=== PATIENT | male | born 1945 | race Caucasian/White ===

== ENCOUNTER → 2016-05-16 | Outpatient (CLI) | payer MEDICARE ==
--- NOTE | 2016-05-16 10:11 | US ---
EXAMINATION TYPE: US kidneys/renal and bladder DATE OF EXAM: 05/16/2016 9:26 AM COMPARISON: 02/25/2015 CLINICAL HISTORY: N20 Calculus of kidney,. Renal cyst EXAM MEASUREMENTS: Right Kidney: 11.6 x 4.8 x 5.5 cm Left Kidney: 11.6 x 5.3 x 4.2 cm Findings: Right Kidney: cystic areas noted, largest = 3.8 x 2.9 x 4.4cm Left Kidney: cystic areas noted, largest = 0.9 x 0.7 x 0.9cm, dense echogenic area lower pole as note d on prior exam = 0.9cm Bladder: appears wnl Bilateral Jets seen: Yes There is a 1.0 x 0.4 x 1.1 cm echogenic foci with posterior shadowing suggestive for an inferior pole nonobstructing left renal stone. Right kidney has a 4.4 cm cyst at the inferior pole. A 1.5 cm simple cyst is within the midportion ri ght kidney. These correlate with the CT findings. Urinary bladder is sonolucent. The posterior wall is normal. Bilateral ureteral jets are identified. IMPRESSIONS: 1. Right renal cysts. 2. Inferior pole nonobstructing left renal stone
== END | disposition home or self-care (01) ==
LOC: RADUSWWP 08:48
PROVIDERS: ATTEND Urology
DX: N28.1 Cyst of kidney, acquired (principal); N20.0 Calculus of kidney
CPT/HCPCS: 76770

== ENCOUNTER → 2017-01-16 | Outpatient (CLI) | payer MEDICARE ==
--- NOTE | 2017-01-16 08:29 | CT ---
EXAMINATION TYPE: CT chest wo con DATE OF EXAM: 01/16/2017 COMPARISON: CT chest January 04, 2015. Older CT September 22, 2013. HISTORY: Follow up to lung nodule CT DLP: 682.6 mGycm. Automated Exposure Control for Dose Reduction was Utilized. TECHNIQUE: CT scan of the thorax is performed without IV contrast. FINDINGS: LUNGS: Nodule right midlung anteriorly measures 4 mm on axial image 32 and is unchanged from last 2 s tudies. There is persistent left basilar scarring posteriorly. No new suspicious nodule or mass is pr esent. There is no pleural effusion or pneumothorax seen. The tracheobronchial tree is patent. MEDIASTINUM: Lack of IV contrast is noted to limit evaluation for mediastinal and especially hilar ad enopathy. There are no definitive greater than 1 cm hilar or mediastinal lymph nodes. No cardiomega ly or pericardial effusion is seen. Post CABG changes with mediastinal clips and sternal wires is aga in seen. OTHER: Bilateral gynecomastia is redemonstrated. There is stable 1 cm hypodense lesion favoring simpl e cyst in the liver on axial image 53. There is 3.5 cm low dense exophytic lesion posteriorly at mid to lower pole level right kidney felt to reflect simple cyst. There is moderate multilevel spurring i n the thoracic spine. IMPRESSION: Stable small nodule right midlung anteriorly. Documentation of over 2 year stability is c onsistent with postinflammatory or benign etiology. No new suspicious nodule or mass is present.
== END | disposition home or self-care (01) ==
LOC: RADCTMAIN 06:47
PROVIDERS: ATTEND Family Medicine
DX: R91.1 Solitary pulmonary nodule (principal)
CPT/HCPCS: 71250

== ENCOUNTER → 2017-08-23 | Outpatient (CLI) | payer MEDICARE ==
--- NOTE | 2017-08-23 09:33 | XR ---
EXAMINATION TYPE: XR Hip Complete RT DATE OF EXAM: 08/23/2017 CLINICAL HISTORY: Right hip pain TECHNIQUE: AP and frogleg views of the right hip are obtained. COMPARISON: None. FINDINGS: There is no acute fracture/dislocation evident in the right hip. There is mild joint space narrowing and acetabular roof sclerosis of the right hip. Additionally there is a small subchondral cyst seen of the acetabular sourcil. The overlying soft tissue appears unremarkable. No suspicious o sseous lesion. IMPRESSION: 1. No acute fracture or dislocation in the right hip. 2. Moderate right femoral acetabular arthropathy.
== END | disposition home or self-care (01) ==
LOC: RADXRMAIN 08:47
PROVIDERS: ATTEND Family Medicine
DX: M12.851 Other specific arthropathies, not elsewhere classified, right hip (principal)
CPT/HCPCS: 73502

== ENCOUNTER → 2017-11-12 | Day surgery (SDC) | payer MEDICARE ==
[2017-11-07 09:21] VITALS: BMI 38.4
[~2017-11-12] MED LIST: LIDOCAINE 2% SYG (PF) 100 MG/5 ML MISCELLANE ONE; MIDAZOLAM 2 MG/2 ML VIAL IVP ONE; MIDAZOLAM 2 MG/2 ML VIAL ONE; SODIUM CHLORIDE 0.9% 1,000 ML IV SCH; ceFAZolin IN SWFI 2 GM/20 ML SYRINGE IVP ONE
[2017-11-12 09:27] VITALS: RESP 18; TEMP 98
[2017-11-12 10:00] LABS: Calcium 10.6 mg/dL (8.4-10.2); Potassium 4.1 mmol/L (3.5-5.1)
--- NOTE | 2017-11-12 12:29 | P.PCN ---
Preoperative Diagnosis: Indication for the procedure 3 episodes of syncope him on the first one in January 2017, the second one in March 2017 and the third one in June 2016. No warning, abrupt complete loss of consciousness and patient fell to the ground. Twelve-lead ECG Sinus rhythm normal AR narrow QRS normal ST segments no delta waves no epsilon waves, possible old inferior wall LA Tilt table test per protocol Baseline blood pressure 133/72 mmHg Baseline heart rate 68 beats a minute Patient was tilted upright at 70 per protocol No change in heart rate blood pressure Result Normal heart rate and blood pressure response to upright tilting Disposition: same day
--- NOTE | 2017-11-12 12:40 | P.PCN ---
Preoperative Diagnosis: Loop monitor implant Primary physicians: Dr. Bernardo Vascular Technologist Sonographer: Indication: Recurrent episodes of syncope 3-4 months apart Patient was brought to the EP lab in a fasting state. Written informed consent was obtained prior to the procedure. The left pectoral area was prepped and draped per protocol. Intravenous antibiotic was administered preoperatively. A subcutaneous Loop monitor was implanted successfully and the wound was closed per protocol. The device was programmed to detect significant sandy- arrhythmic and tachy-arrhythmic events, per protocol. Device and programming details: Programming for syncope tachyarrhythmias and bradycardia arrhythmia section Patient underwent EP procedure under conscious sedation/moderate sedation, monitoring of the level of consciousness and physiologic parameters including but not limited to vital signs and oxygenation. Patient tolerated the procedure well without any acute complications. Start time: 1207 Stop time: 1223
[2017-11-12 13:48] VITALS: BP 153/76; PULSE 54
== END | disposition home or self-care (01) ==
LOC: CATHEP 08:38
PROVIDERS: ATTEND Internal Medicine Clinical Cardiac Electrophysiology
DX: R55 Syncope and collapse (principal); I25.10 Atherosclerotic heart disease of native coronary artery without angina pectoris; I10 Essential (primary) hypertension; Z95.1 Presence of aortocoronary bypass graft; Z95.5 Presence of coronary angioplasty implant and graft; I71.4 Abdominal aortic aneurysm, without rupture; I48.0 Paroxysmal atrial fibrillation; E78.5 Hyperlipidemia, unspecified; Z87.891 Personal history of nicotine dependence; Z79.02 Long term (current) use of antithrombotics/antiplatelets; Z79.82 Long term (current) use of aspirin; Z79.899 Other long term (current) drug therapy
CPT/HCPCS: 33282; 93660; 80048; C1764; J2250; J2001; J0690

== ENCOUNTER → 2017-11-27 | Outpatient (CLI) | payer MEDICARE ==
--- NOTE | 2017-11-27 15:24 | CONS ---
CONSULTATION This is a consultation note for sleep apnea. This is a 72-year-old male patient with known history of obstructive sleep apnea establish around 4 years ago through [facility] when the patient was given a [employer] CPAP unit which seems to be an APAP unit. On today's evaluation, his machine is broken. It is nonfunctional. We tried to plug it in and it is completely . He is looking for advice as the patient wants to continue CPAP treatment. He is snoring and quit breathing and he has excessive fatigue and sleepiness while off the treatment. He goes to bed at 11:11 pm and wakes up at 5:30 a.m. in the morning. He has been compliant with CPAP therapy over the past 4 years and he is in need of CPAP therapy. He uses a Pilairo nose pillow. His weight has been stable over the past 4 years. [place] score is at 8. No grinding of the teeth. No sleepwalking or sleep talking. No palpitation. No restlessness in lower extremities. PAST MEDICAL HISTORY: 1. Obstructive sleep apnea. 2. Hypertension. 3. History of syncope. 4. Hyperlipidemia. 5. Coronary artery disease. 6. Previous history of acute lung injury. 7. Previous history of paroxysmal atrial fibrillation current rhythm is sinus. 8. Chronic back pain. 9. Glaucoma. SURGICAL HISTORY: Coronary bypass surgery in 2013. Cardiac catheterization and angioplasty with stenting in 2013. He has also had spine steroid injections, left eye phaco cataract surgery with lens implantation and trabeculectomy for glaucoma, laser eye surgery for glaucoma. Colonoscopy in 2016, anal fissure surgery, hemorrhoidectomy, circumcision, appendectomy, and knee injections for degenerative arthritis. DRUG ALLERGIES: Are not known. IMMUNIZATIONS: Up to date including flu shot and pneumonia shot and shingles. OUTPATIENT MEDICATION LIST: 1. Hydrochlorothiazide 25 daily. 2. Lipitor 80 daily. 3. Plavix 75 daily. 4. Lisinopril 20 daily. 5. Coreg 6.25 mg twice a day. 6. Coenzyme Q 10 mg daily. 7. Aspirin 81 mg p.o. per day. 8. Iron 324 mg 1 tablet a day. 9. Vitamin D3 2000 units daily. 10.He has also Isopto Carpine eyedrops, Combigan eyedrops, latanoprost eye drops. 11.He takes temazepam 30 mg for sleep at bedtime as needed. SOCIAL HISTORY: Nonsmoker. No history of alcohol. No history of IV drugs. FAMILY HISTORY: Negative for sleep apnea. His has ARACELI. REVIEW OF SYSTEMS: 12-point review of system was done. Positive findings are mentioned in history of present illness. He has no problems with memory, concentration, irritability or depression. No problems with anxiety, photophobia or sexual dysfunction. PHYSICAL EXAMINATION: BP is 115/64, pulse 65, respirations 16, temperature 96.8, weight is 254. Height is 5 feet 8 inches. [place] score is 8. BMI 38.6, neck size 18 inches. Saturation 95% on room air. GENERAL APPEARANCE: Calm, comfortable. Head is atraumatic, normocephalic. NECK: Supple. No JVD. No goiter or neck masses. Mallampati class IV. LUNGS: Clear to auscultation. HEART: Sounds are regular rate and rhythm. Normal S1, S2. No S3, S4. No murmurs. ABDOMEN: Soft, nontender. No organomegaly. EXTREMITIES: No edema. No cyanosis or clubbing. IMPRESSION: 1. Obstructive sleep apnea. The patient was being treated on APAP for the past 4 years. Currently he has a nonfunctioning machine. Baseline severity of his sleep apnea is not all knowing that this was established through a [facility] 4 years ago. 2. Obesity with a BMI of 38.6. 3. Coronary artery disease with previous bypass surgery. 4. Hyperlipidemia. 5. Hypertension. 6. Previous history of syncope. 7. Chronic back pain. 8. Glaucoma and cataract. 9. Chronic back pain. PLAN: 1. We will order a new CPAP machine through his DME. The patient will be utilizing a Pilairo nose pillow. He will be given an APAP with a minimum pressure of 5, maximum pressure of 20 and further adjustments will be done accordingly. 2. Will check down his original home sleep study that was done through [facility] either from the company itself or from his primary care physician. If unable to locate the study come over to the home sleep testing through our center to establish diagnosis and its severity. 3. Continue weight loss. 4. See me back in 60 to 90 days after after obtaining a CPAP to assess clinical response and compliancy. MMODL / IJN: [id number] /
== END | disposition home or self-care (01) ==
LOC: SLEEP 10:54
PROVIDERS: ATTEND Internal Medicine Critical Care Medicine
DX: G47.33 Obstructive sleep apnea (adult) (pediatric) (principal); E66.9 Obesity, unspecified; I25.10 Atherosclerotic heart disease of native coronary artery without angina pectoris; E78.5 Hyperlipidemia, unspecified; I10 Essential (primary) hypertension; G89.29 Other chronic pain; M54.9 Dorsalgia, unspecified; H40.9 Unspecified glaucoma; H26.9 Unspecified cataract; Z86.69 Personal history of other diseases of the nervous system and sense organs; Z99.89 Dependence on other enabling machines and devices; Z79.899 Other long term (current) drug therapy; Z79.82 Long term (current) use of aspirin
CPT/HCPCS: 99211

== ENCOUNTER → 2019-03-04 | Outpatient (CLI) | payer MEDICARE ==
--- NOTE | 2019-03-04 13:35 | PN ---
PROGRESS NOTE This is an annual check regarding this patient's obstructive sleep apnea. The patient was diagnosed having sleep apnea five years ago through [facility] and original sleep study was not available to me. I did a compliancy check on this patient approximately a year ago. Back then his machine was broken and he was able to get a new [employer] CPAP replacement unit through [facility] his DME. On today's evaluation, the patient is doing well. He is averaging around 6.4 hours of CPAP use per night and CPAP use for more than 4 hours is 100%. He feels great. He has no specific complaints. He is using the Palairo Q nose mask. He is seeking also other alternatives. He has no specific complaints. Feels well rested during the day. No episodes of falling asleep during day-to-day activities. REVIEW OF SYSTEMS: Fourteen-point review of system was done. Things are looking well for this patient. His [place] score is only at 2. PHYSICAL EXAMINATION: GENERAL APPEARANCE: Calm, comfortable, no acute distress. HEAD: Atraumatic, normocephalic. NECK: Supple. There is no JVD. There is no goiter or neck masses. Mallampati class IV. LUNGS: Clear to auscultation. HEART: Heart sounds are regular rate and rhythm. Normal S1, S2. No S3, S4. No murmurs. ABDOMEN: Soft, nontender. No organomegaly. EXTREMITIES: No edema. No cyanosis or clubbing. NEUROLOGIC: He is awake and alert. There are no focal neurological deficits. VITAL SIGNS: BP 140/73, pulse 74, respirations 16, temperature 98.6. Weight is 255, height is 5 feet 8 inches, BMI 38.2. IMPRESSION: 1. Symptomatic obstructive sleep apnea. Currently on [employer] CPAP unit which is an APAP with excellent compliancy. 2. Hypersomnia recovered, [place] score is down to 2. 3. Hypertension. 4. History of syncope. 5. Hyperlipidemia. 6. Coronary artery disease. 7. History of paroxysmal atrial fibrillation, current rhythm is sinus. 8. Chronic back pain. 9. History of glaucoma. PLAN: Compliancy was checked. Numbers look good. Continue using the same APAP mode. Offered this patient a [employer] under the nose small size nose mask. See me back in a year's time earlier if needed. Treatment is successful for now. No need for any further adjustments. MMODL / IJN: [id number] /
== END | disposition home or self-care (01) ==
LOC: SLEEP 09:58
PROVIDERS: ATTEND Internal Medicine Critical Care Medicine
DX: G47.33 Obstructive sleep apnea (adult) (pediatric) (principal); I10 Essential (primary) hypertension; E78.5 Hyperlipidemia, unspecified; I25.10 Atherosclerotic heart disease of native coronary artery without angina pectoris; G89.29 Other chronic pain; M54.9 Dorsalgia, unspecified; Z86.79 Personal history of other diseases of the circulatory system; Z86.69 Personal history of other diseases of the nervous system and sense organs; Z99.89 Dependence on other enabling machines and devices

== ENCOUNTER → 2019-05-20 | Outpatient (CLI) | payer MEDICARE ==
--- NOTE | 2019-05-20 19:07 | PN ---
PROGRESS NOTE This patient is coming in for a follow-up, and he is requesting a new APAP machine. He has Medicare, and I think he qualifies for a new APAP machine. His previous machine is a [employer] CPAP, which is an APAP machine and has not been functioning appropriately on and off, becoming noisy and turning off without giving him any warning. Mr. Joe is using the Pilairo Q nose mask. He is doing well; no specific complaints otherwise for now. His weight has been stable. He has been on long- term CPAP and is very much interested in updating his machine to a [employer] APAP unit. PHYSICAL EXAMINATION: His blood pressure is 154/84, pulse 68, respirations 16, temperature 97.8, saturation 95% on room air. Height is 5 feet 8 inches, weight is 260 , BMI of 39.5. GENERAL APPEARANCE: Calm, comfortable. HEAD: Atraumatic, normocephalic. NECK: Supple. No JVD. No goiter or neck masses. LUNGS: Clear to auscultation. HEART: Heart sounds are regular rate and rhythm. Normal S1, S2. No S3, S4. No murmurs. ABDOMEN: Soft, nontender. No organomegaly. EXTREMITIES: No edema. No cyanosis or clubbing. IMPRESSION: 1. Obstructive sleep apnea, currently on APAP. 2. Chronic hypersomnia. 3. Hypertension. 4. History of syncope. 5. Hyperlipidemia. 6. Coronary artery disease. 7. History of paroxysmal atrial fibrillation, currently in sinus rhythm. 8. Glaucoma. 9. Chronic back pain. PLAN: 1. We will order the [employer] APAP unit with a minimum pressure of 5 and maximum pressure of 15. 2. We will offer him a Pilairo Q nose mask. Another alternative would be the Brevida medium-sized nose mask. 3. See me back in 30 days for a compliance check here at the [facility]. MMODL / IJN: [id number] / ARMAAN
== END ==
LOC: SLEEP 14:27
PROVIDERS: ATTEND Internal Medicine Critical Care Medicine
DX: G47.33 Obstructive sleep apnea (adult) (pediatric) (principal); I10 Essential (primary) hypertension; E78.5 Hyperlipidemia, unspecified; I25.10 Atherosclerotic heart disease of native coronary artery without angina pectoris; I48.0 Paroxysmal atrial fibrillation; H40.9 Unspecified glaucoma; G89.29 Other chronic pain; M54.9 Dorsalgia, unspecified; R55 Syncope and collapse; Z99.89 Dependence on other enabling machines and devices

== ENCOUNTER → 2019-05-20 | Outpatient (CLI) | payer MEDICARE | END | disposition home or self-care (01) | LOC: LABWHC1 13:43 | PROVIDERS: ATTEND Family Medicine | DX: Z01.818 Encounter for other preprocedural examination (principal) | CPT/HCPCS: 36415; 93005 ==

== ENCOUNTER 2019-05-28 10:31 | Day surgery (SDC) | payer MEDICARE ==
[2019-05-26 14:54] VITALS: BMI 38.0
--- NOTE | 2019-05-28 08:40 | P.GSHP ---
History of Present Illness H&P Date: 05/28/19 CHIEF COMPLAINT: Colon screen HISTORY OF PRESENT ILLNESS: The patient is a 73-year-old male who presents for colon screen. Lower endoscopy was offered for further evaluation and management. PAST MEDICAL HISTORY: Please see list. PAST SURGICAL HISTORY: Please see list. MEDICATIONS: Please see list. ALLERGIES: Please see list. SOCIAL HISTORY: No illicit drug use FAMILY HISTORY: No reports of Crohn disease or ulcerative colitis. REVIEW OF ORGAN SYSTEMS: CONSTITUTIONAL: No reports of fevers or chills. PHYSICAL EXAM: VITAL SIGNS: Stable GENERAL: Well-developed pleasant in no acute distress. HEENT: No scleral icterus. Extraocular movements grossly intact. Moist buccal mucosa. NECK: Supple without lymphadenopathy. CHEST: Unlabored respirations. Equal bilateral excursions. CARDIOVASCULAR: Regular rate and rhythm. Distal 2+ pulses. ABDOMEN: Soft, nontender, nondistended. MUSCULOSKELETAL: No clubbing, cyanosis, or edema. ASSESSMENT: 1. Colon screen. PLAN: 1. Recommend proceeding with a lower endoscopy Past Medical History Past Medical History: Diabetes Mellitus, Eye Disorder, GERD/Reflux, Hypertension, Musculoskeletal Disorder, Pulmonary Embolus (PE), Sleep Apnea/CPAP/BIPAP, Syncope Additional Past Medical History / Comment(s): ANAL FISSURES, GLAUCOMA, KIDNEY STONES, borderline diabetes uses CPAP, abd. aneurysm-dr. monitoring, few episodes of fainting , back & hip problems, peripheral pulmonary emboli after open heart surg. resulted in prolonged intubation, see DR Degroot [facility] & [facility], recent trigger finger surgery with some swelling History of Any Multi-Drug Resistant Organisms: None Reported Past Surgical History: Appendectomy, Coronary Bypass/CABG, Heart Catheterization With Stent Additional Past Surgical History / Comment(s): triple bypass August 2013. heart stent x2 2003 and then 2013. cataract surgery with lens implants. rt trigger finger pointer and ring finger 05/23/19 Past Anesthesia/Blood Transfusion Reactions: Previous Problems w/ Anesthesia Additional Past Anesthesia/Blood Transfusion Reaction / Comment(s): difficulty coming off vent after open heart due to peripheral pulmonary emboli Date of Last Stent Placement:: 2013 Type of Cardiac Device: Loop Device Placement Date:: 11/12/17 Smoking Status: Former smoker - Past Family History Mother Family Medical History: Cancer Additional Family Medical History / Comment(s): uterine cancer Father Family Medical History: Cancer Additional Family Medical History / Comment(s): kidney cancer Medications and Allergies Home Medications Medication Instructions Recorded Confirmed Type Acetaminophen [Tylenol Extra 500 mg PO Q6H PRN 11/07/17 05/26/19 History Strength] Atorvastatin [Lipitor] 80 mg PO HS 11/07/17 05/26/19 History Carvedilol [Coreg] 6.25 mg PO BID 11/07/17 05/26/19 History Cholecalciferol [Vitamin D3 (25 1,000 unit PO DAILY 11/07/17 05/26/19 History Mcg = 1000 Iu)] Ferrous Sulfate [Iron (65 MG 325 mg PO DAILY 11/07/17 05/26/19 History Elemental)] Latanoprost Ophth [Xalatan 0.005%] 1 drops BOTH EYES HS 11/07/17 05/26/19 History Ubidecarenone [Co Q-10] 100 mg PO DAILY 07/15/18 05/26/19 History Zolpidem Tartrate [Ambien] 10 mg PO HS PRN 07/15/18 05/26/19 History Brimonidine Tartrate/Timolol 1 drop BOTH EYES HS 05/26/19 05/26/19 History [Combigan 0.2%-0.5% Eye Drops] Lisinopril [Zestril] 20 mg PO BID 05/26/19 05/26/19 History Pantoprazole Sodium 40 mg PO DAILY 05/26/19 05/26/19 History Rivaroxaban [Xarelto] 20 mg PO DAILY 05/26/19 05/26/19 History amLODIPine [Norvasc] 2.5 mg PO DAILY 05/26/19 05/26/19 History Allergies Allergy/AdvReac Type Severity Reaction Status Date / Time No Known Allergies Allergy Verified 05/26/19 14:36
[~2019-05-28 10:31] MED LIST changes: +LACTATED RINGERS 1,000 ML IV SCH; +LIDOCAINE 1% 20 ML VIAL (10MG/ML) FOR IV START INTRADERMA PRN; -LIDOCAINE 2% SYG (PF) 100 MG/5 ML MISCELLANE ONE; -MIDAZOLAM 2 MG/2 ML VIAL IVP ONE; -MIDAZOLAM 2 MG/2 ML VIAL ONE; -SODIUM CHLORIDE 0.9% 1,000 ML IV SCH; -ceFAZolin IN SWFI 2 GM/20 ML SYRINGE IVP ONE
[2019-05-28 11:13] LABS: Glucose,Whole Blood 120 mg/dL (75-99)
[2019-05-28 11:14] VITALS: TEMP 97
[2019-05-28] MEDS ORDERED: PROPOFOL 10 MG/ML 20 ML VIAL IV ONE (11:59)
--- NOTE | 2019-05-28 12:40 | P.PCN ---
Date of Procedure: 05/28/19 Description of Procedure: PREOPERATIVE DIAGNOSIS: Personal history of colon polyps Family history colon polyps Colonoscopy screening Chronic anticoagulant use POSTOPERATIVE DIAGNOSIS: Personal history of colon polyps Family history colon polyps Colonoscopy screening Chronic anticoagulant use Tubular adenoma descending colon Tubular adenoma transverse colon Sigmoid diverticulosis Internal hemorrhoids, grade 3 OPERATION: Colonoscopy to the ileocecal valve and appendiceal orifice. Colonoscopy with cold forceps biopsies SURGEON: Jennie Ahumada MD. ANESTHESIA: MAC. INDICATIONS: The patient is an 73-year-old male who presents family history of colon polyps and personal history of colon polyps. Last colonoscopy with 5 years. Benefits and risks were described and informed consent was obtained. DESCRIPTION OF PROCEDURE: The patient had undergone GoLytely prep. He had been brought into the operating room and laid in the left lateral decubitus position. After adequate intravenous sedation, the rectum was examined with 2% lidocaine jelly. The prostate fossa was unremarkable. External hemorrhoids were encountered. The rectal tone was within normal limits. No lesions were palpated in the rectal vault. An Olympus colonoscope was advanced until the ileocecal valve and appendiceal orifice were clearly viewed. The prep was good. Highly redundant sigmoid colon Sigmoid diverticulosis was encountered. Multiple colonic polyps were found and removed with cold forceps. No evidence of focal colitis was found. Retroflexion of the scope demonstrated grade 3 internal hemorrhoids without active bleeding or inflammation. The colon was desufflated. The patient had tolerated the procedure well. Withdrawal time was over 6 minutes. FINDINGS: Aronchick preparation quality scale 2 (1-5) Internal hemorrhoids, grade 3 External hemorrhoids, grade 3. No arteriovenous malformations. Sigmoid diverticulosis Highly redundant sigmoid colon Removal of 4 polyps: - Cold forceps biopsy at 20 cm from the anal verge, 4 mm polyp, sigmoid colon - Cold forceps biopsy at 15 cm from the anal verge, 5 mm polyp, sigmoid colon - Cold forceps biopsy at 50 cm from the anal verge, 4 mm polyp, descending colon. - Cold forceps biopsy at mid transverse colon, 5 mm polyp. No focal colitis. RECOMMENDATIONS: Repeat colonoscopy 3 years, 2022. Plan - Discharge Summary Discharge Rx Participant: No New Discharge Prescriptions: Continue Atorvastatin [Lipitor] 80 mg PO HS Latanoprost Ophth [Xalatan 0.005%] 1 drops BOTH EYES HS Ferrous Sulfate [Iron (65 MG Elemental)] 325 mg PO DAILY Cholecalciferol [Vitamin D3 (25 Mcg = 1000 Iu)] 1,000 unit PO DAILY Carvedilol [Coreg] 6.25 mg PO BID Acetaminophen [Tylenol Extra Strength] 500 mg PO Q6H PRN PRN Reason: Pain Zolpidem Tartrate [Ambien] 10 mg PO HS PRN PRN Reason: Insomnia Ubidecarenone [Co Q-10] 100 mg PO DAILY Pantoprazole Sodium 40 mg PO DAILY Lisinopril [Zestril] 20 mg PO BID amLODIPine [Norvasc] 2.5 mg PO DAILY Rivaroxaban [Xarelto] 20 mg PO DAILY Brimonidine Tartrate/Timolol [Combigan 0.2%-0.5% Eye Drops] 1 drop BOTH EYES HS Discharge Medication List Acetaminophen [Tylenol Extra Strength] 500 mg PO Q6H PRN 11/07/17 [History] Atorvastatin [Lipitor] 80 mg PO HS 11/07/17 [History] Carvedilol [Coreg] 6.25 mg PO BID 11/07/17 [History] Cholecalciferol [Vitamin D3 (25 Mcg = 1000 Iu)] 1,000 unit PO DAILY 11/07/17 [History] Ferrous Sulfate [Iron (65 MG Elemental)] 325 mg PO DAILY 11/07/17 [History] Latanoprost Ophth [Xalatan 0.005%] 1 drops BOTH EYES HS 11/07/17 [History] Ubidecarenone [Co Q-10] 100 mg PO DAILY 07/15/18 [History] Zolpidem Tartrate [Ambien] 10 mg PO HS PRN 07/15/18 [History] Brimonidine Tartrate/Timolol [Combigan 0.2%-0.5% Eye Drops] 1 drop BOTH EYES HS 05/26/19 [History] Lisinopril [Zestril] 20 mg PO BID 05/26/19 [History] Pantoprazole Sodium 40 mg PO DAILY 05/26/19 [History] Rivaroxaban [Xarelto] 20 mg PO DAILY 05/26/19 [History] amLODIPine [Norvasc] 2.5 mg PO DAILY 05/26/19 [History] Follow up Appointment(s)/Referral(s): Jennie Ahumada MD [STAFF PHYSICIAN] - As Needed Patient Instructions/Handouts: Colorectal Polyps (DC), Diverticulosis Diet (GEN), Diverticulosis (DC) Activity/Diet/Wound Care/Special Instructions: START BLOOD THINNER MAY 31, SUNDAY Repeat colonoscopy in 3 years, 2022 Discharge Disposition: HOME SELF-CARE
[2019-05-28 12:41] VITALS: RESP 16
[2019-05-28 12:50] VITALS: BP 127/72; PULSE 63
== END 2019-05-28 13:24 | disposition home or self-care (01) ==
LOC: ORWHC2ENDO 10:31
PROVIDERS: ATTEND Surgery Plastic and Reconstructive Surgery
DX: Z12.11 Encounter for screening for malignant neoplasm of colon (principal); K63.5 Polyp of colon; K57.30 Diverticulosis of large intestine without perforation or abscess without bleeding; Q43.8 Other specified congenital malformations of intestine; K64.2 Third degree hemorrhoids; Z86.010 Personal history of colon polyps; Z83.71 Family history of colonic polyps; R73.03 Prediabetes; K21.9 Gastro-esophageal reflux disease without esophagitis; I10 Essential (primary) hypertension; G47.33 Obstructive sleep apnea (adult) (pediatric); Z99.89 Dependence on other enabling machines and devices; R55 Syncope and collapse; H40.9 Unspecified glaucoma; Z87.442 Personal history of urinary calculi; I71.4 Abdominal aortic aneurysm, without rupture; Z87.891 Personal history of nicotine dependence; Z86.711 Personal history of pulmonary embolism; Z95.1 Presence of aortocoronary bypass graft; Z95.5 Presence of coronary angioplasty implant and graft; Z98.890 Other specified postprocedural states; Z98.49 Cataract extraction status, unspecified eye; Z96.1 Presence of intraocular lens; Z80.49 Family history of malignant neoplasm of other genital organs; Z80.51 Family history of malignant neoplasm of kidney; Z79.01 Long term (current) use of anticoagulants; Z79.899 Other long term (current) drug therapy; I25.10 Atherosclerotic heart disease of native coronary artery without angina pectoris; E78.49 Other hyperlipidemia
CPT/HCPCS: 45380; 88305

== ENCOUNTER → 2019-07-10 | Outpatient (CLI) | payer MEDICARE ==
--- NOTE | 2019-07-10 13:19 | CT ---
EXAMINATION TYPE: CT facial bones wo/w con, CT iac wo/w con DATE OF EXAM: 07/10/2019 COMPARISON: None HISTORY: acute mastoiditis CT DLP: 1303.4 mGycm Automated exposure control for dose reduction was used. CONTRAST: CT scan of the facial bones is performed with IV Contrast, patient injected with 100 mL of Isovue 300 . TECHNIQUE: CT scan of the sinuses is performed without contrast, axial images are obtained, coronal r eformatted images are also reviewed. FINDINGS: There is a small left maxillary sinus with some inferior bowing of the inferior orbital wal l subtly suggested. There is complete opacification of the left maxillary sinus with surgical augmen tation of the ostiomeatal complex. The frontal sinuses are hypoplastic. Remaining paranasal sinuses a re grossly unremarkable. Left mastoid air cells are well aerated as is the middle ear cavity. The right mastoid air cells are completely opacified with fluid in the middle ear cavity. There is no blunting of the scutum however. Ossicles appear intact. Fluid in the middle ear cavity is within the epitympanum, mesial tympanum and hypotympanum. There is retraction of the tympanic membrane and trac e cerumen in the external auditory canal on the right. The cochlea and the semicircular canals are s ymmetric and unremarkable. Vestibular aqueduct and internal carotid canal appear unremarkable. Temporomandibular joints are symmetric with mild degenerative change bilaterally. No suspicious post contrast enhancement on the CT Facial Bone or CT IAC portion of the examination. However, there is di minutive in appearance and multifocal atherosclerosis of the right vertebral artery resulting in some portions that are poorly visualized and suboptimally opacified. Extensive atherosclerosis of the cav ernous portions of the internal carotid arteries. Visualized portions of the brain display age-relate d atrophy but are grossly unremarkable. However brain is somewhat limited given phase of contrast. IMPRESSION: 1. Right-sided otomastoiditis with fluid filling the epitympanum, mesotympanum and hypotympanum and c omplete opacification of the right mastoid air cells. There is also retraction of the right tympanic membrane. 2. The left maxillary sinus is mucosal filled, atrophic in size and there is some suggestion of infer ior bowing of the inferior left orbital wall concerning for silent sinus syndrome.
== END | disposition home or self-care (01) ==
LOC: RADCTMAIN 10:24
PROVIDERS: ATTEND Family Medicine
DX: H74.8X1 Other specified disorders of right middle ear and mastoid (principal); K08.20 Unspecified atrophy of edentulous alveolar ridge; H70.91 Unspecified mastoiditis, right ear; Z13.9 Encounter for screening, unspecified
CPT/HCPCS: 82565; 84520; 70482; 70488; 36415; Q9967

== ENCOUNTER → 2020-01-06 | Outpatient (CLI) | payer MEDICARE ==
--- NOTE | 2020-01-06 16:01 | CT ---
EXAM: CT angiography of the abdomen and pelvis INDICATION: Abdominal aortic aneurysm without rupture. COMPARISON: CT abdomen pelvis 08/07/2014 TECHNIQUE: Multiple thin images were obtained through the abdomen and pelvis after administration of contrast. Patient was given Isovue 370 50 cc intravenously. 3-D reconstructed images and maximum in tensity projection images were obtained of the abdomen and pelvis. FINDINGS: CTA Abdomen and pelvis: Precontrast imaging demonstrates no evidence of intramural hematoma. The infr arenal abdominal aorta demonstrates aneurysmal dilatation measuring up to 4.3 cm AP and 3.9 cm transv erse. This aneurysm previously measured 4.0 x 3.6 cm AP and transverse on 08/07/2014 CT comparison. No dissection. There is intramural thrombus. Mild to moderate aortobiiliac calcified atherosclerotic di sease. The origins of the celiac axis, superior mesenteric artery, bilateral single renal arteries, i nferior mesenteric artery are patent. The iliac vessels and common femoral arteries are normal in mo rphology. VISCERA: Mild left basilar atelectasis. Redemonstrated hepatic cyst. The biliary system, pancreas, sp abdirahman, and adrenal glands are normal. The kidneys demonstrate numerous too small to characterize hypod ense lesions and right renal cyst. No hydronephrosis. No evidence of bowel obstruction. Colonic diver ticulosis. No acute diverticulitis. No pneumoperitoneum, free fluid, or lymphadenopathy. Urinary blad emma normal. Coarse calcifications of the prostate. Degenerative changes of the spine. IMPRESSIONS: Infrarenal abdominal aortic aneurysm measures up to 4.3 cm AP, previously 4.0 cm on 2014 comparison. No evidence of dissection.
== END | disposition home or self-care (01) ==
LOC: RADCTMAIN 07:41
PROVIDERS: ATTEND Internal Medicine Interventional Cardiology
DX: I71.4 Abdominal aortic aneurysm, without rupture (principal)
CPT/HCPCS: 82565; 84520; 36415; 74174; Q9967

== ENCOUNTER 2020-10-23 13:52 | Emergency (ER) | payer MEDICARE ==
[2020-10-23 14:07] VITALS: BP 152/87; PULSE 94; RESP 16; TEMP 98.2
[2020-10-23] MEDS ORDERED: KETOROLAC 15 MG/ML 1 ML VIAL IM STA (14:35)
--- NOTE | 2020-10-23 15:11 | ED ---
Recheck HPI - General Chief Complaint: Recheck/Abnormal Lab/Rx Stated Complaint: R hip pain Time Seen by Provider: 10/23/20 14:10 Source: patient, family Mode of arrival: wheelchair Limitations: no limitations - History of Present Illness Initial Comments: Patient is a 75-year-old male presenting to the emergency Department with complaints of increase in his right-sided sciatica pain. 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 He states there are injections have been helping. He is due for another one soon, he has an appointment next week. He states over the last couple days his pain is increased, he did take an old [place] which didn't help him sleep last night. Patient is here requesting pain medication. He denies any loss of bowel or bladder control, no numbness and tingling down his extremities, no saddle paresthesia. He denies any falls or trauma. Denies any fevers or chills. He has no further complaints at this time. - Related Data Home Medications Medication Instructions Recorded Confirmed Acetaminophen [Tylenol Extra 500 mg PO Q6H PRN 11/07/17 05/26/19 Strength] Atorvastatin [Lipitor] 80 mg PO HS 11/07/17 05/26/19 Cholecalciferol [Vitamin D3 (25 1,000 unit PO DAILY 11/07/17 05/26/19 Mcg = 1000 Iu)] Ferrous Sulfate [Iron (65 MG 325 mg PO DAILY 11/07/17 05/26/19 Elemental)] Latanoprost Ophth [Xalatan 0.005%] 1 drops BOTH EYES HS 11/07/17 05/26/19 carvediloL [Coreg] 6.25 mg PO BID 11/07/17 05/26/19 Ubidecarenone [Co Q-10] 100 mg PO DAILY 07/15/18 05/26/19 Zolpidem Tartrate [Ambien] 10 mg PO HS PRN 07/15/18 05/26/19 Brimonidine Tartrate/Timolol 1 drop BOTH EYES HS 05/26/19 05/26/19 [Combigan 0.2%-0.5% Eye Drops] Pantoprazole Sodium 40 mg PO DAILY 05/26/19 05/26/19 Rivaroxaban [Xarelto] 20 mg PO DAILY 05/26/19 05/26/19 amLODIPine [Norvasc] 2.5 mg PO DAILY 05/26/19 05/26/19 lisinopriL [Zestril] 20 mg PO BID 05/26/19 05/26/19 Previous Rx's Medication Instructions Recorded Cyclobenzaprine [Flexeril] 10 mg PO BID #15 tab 10/23/20 HYDROcodone/APAP 7.5-325MG [[place] 1 tab PO Q6HR PRN 3 Days #12 tab 10/23/20 7.5-325] Allergies Allergy/AdvReac Type Severity Reaction Status Date / Time No Known Allergies Allergy Verified 10/23/20 14:05 Review of Systems ROS Statement: Those systems with pertinent positive or pertinent negative responses have been documented in the HPI. ROS Other: All systems not noted in ROS Statement are negative. Past Medical History Past Medical History: Diabetes Mellitus, Eye Disorder, Hypertension, Musculoskeletal Disorder, Pulmonary Embolus (PE), Sleep Apnea/CPAP/BIPAP, Syncope Additional Past Medical History / Comment(s): ANAL FISSURES, GLAUCOMA, KIDNEY STONES, borderline diabetes per spouse-new dx., uses CPAP, abd. aneurysm- monitoring, few episodes of fainting in last several months, back & hip problems, peripheral pulmonary emboli after open heart surg. resulted in prolonged intubation, see DR Degroot [facility] & [facility] History of Any Multi-Drug Resistant Organisms: None Reported Past Surgical History: Appendectomy, Coronary Bypass/CABG, Heart Catheterization With Stent Additional Past Surgical History / Comment(s): triple bypass August 2013 Past Anesthesia/Blood Transfusion Reactions: Previous Problems w/ Anesthesia Additional Past Anesthesia/Blood Transfusion Reaction / Comment(s): difficulty coming off vent after open heart due to peripheral pulmonary emboli-spouse concerned related to anesthesia Date of Last Stent Placement:: 2013 Past Psychological History: No Psychological Hx Reported Smoking Status: Never smoker Past Alcohol Use History: None Reported Past Drug Use History: None Reported - Past Family History Mother Family Medical History: Cancer Father Family Medical History: Cancer General Exam - General Exam Comments Initial Comments: GENERAL: Patient is well-developed and well-nourished. Patient is nontoxic and in no acute distress. HEAD: Atraumatic, normocephalic. EYES: Pupils equal round and reactive to light, extraocular movements intact, sclera anicteric, conjunctiva are normal. Eyelids were unremarkable. ENT: Nares patent, oropharynx clear without exudates. Moist mucous membranes. NECK: Normal range of motion, supple without lymphadenopathy or JVD. LUNGS: Unlabored respirations. Breath sounds clear to auscultation bilaterally and equal. No wheezes rales or rhonchi. HEART: Regular rate and rhythm without murmurs, rubs or gallops. ABDOMEN: Soft, nontender, normoactive bowel sounds. No guarding, no rebound. No masses appreciated. : Deferred MUSCULOSKELETAL: Patient has pain with palpation into the right gluteal area, right lower SI area. Straight leg raise. Normal extremities with adequate strength and normal range of motion, no pitting or edema. No clubbing or cyanosis. NEUROLOGICAL: Patient is alert and oriented x 3. Motor and sensory are also intact. Cranial nerves II through XII grossly intact. Symmetrical smile. Normal speech, normal gait. PSYCH: Normal mood, normal affect. SKIN: Warm, Dry, normal turgor, no rashes or lesions noted. Limitations: no limitations Course Vital Signs 10/23/20 10/23/20 14:05 15:20 Temperature 98.2 F 98.2 F Pulse Rate 94 94 Respiratory 16 16 Rate Blood Pressure 152/87 152/87 O2 Sat by Pulse 95 95 Oximetry Medical Decision Making - Medical Decision Making Patient is a 75-year-old male here for increased and right-sided sciatica pain. He states he gets steroid injections twice now over the past year, they have helped. He has an appointment next week for another one. He has no alarming symptoms, numbness into the extremities, no saddle paresthesias. Patient's exam is consistent with right-sided sciatica. I did a offer a dose of oral steroids however patient states he has tried his the past and it does not help. Patient will be given pain medication as well as muscle relaxants taken nighttime. He will follow back up with his primary care physician. He is in agreement with this plan of care and he is stable for discharge. Case discussed with Dr. Fry. Disposition Clinical Impression: Right-sided low back pain with sciatica Disposition: HOME SELF-CARE Condition: Stable Instructions (If sedation given, give patient instructions): Sciatica (ED) Additional Instructions: Please return to the Emergency Department if symptoms worsen or any other concerns. Recommend heat to the area, gentle stretching, pain medicines as prescribed. Follow up with your primary care physician. Prescriptions: Cyclobenzaprine [Flexeril] 10 mg PO BID #15 tab HYDROcodone/APAP 7.5-325MG [[place] 7.5-325] 1 tab PO Q6HR PRN 3 Days #12 tab PRN Reason: Pain Is patient prescribed a controlled substance at d/c from ED?: Yes When asked, does pt state using other controlled substances?: No If prescribed controlled substance>3 days was MAPS reviewed?: Prescribed <3 Days If opioid is for acute pain is fill amount 7 days or less?: Yes If Rx opioid, was Start Talking consent form obtained?: Yes Referrals: Chaitanya Parham DO [Primary Care Provider] - 1-2 days Time of Disposition: 15:11
== END 2020-10-23 15:21 | disposition home or self-care (01) ==
LOC: EC 13:52
DX: M54.41 Lumbago with sciatica, right side (principal); E11.9 Type 2 diabetes mellitus without complications; I10 Essential (primary) hypertension; Z79.899 Other long term (current) drug therapy
CPT/HCPCS: 99283; 96372; J1885

== ENCOUNTER → 2021-11-22 | Outpatient (CLI) | payer MEDICARE ==
--- NOTE | 2021-11-22 15:43 | P.PN ---
Subjective Progress Note Date: 11/22/21 76-year-old male patient with known history of obstructive sleep apnea. The patient is coming to see me for a follow-up. The patient is doing extremely well. His last evaluation was an 05/20/2019. Since then, the patient has been doing extremely well. He is utilizing his APAP machine and a minimum pressure of 5 and a maximum pressure of 15 and the patient has been extremely compliant. The patient has been achieving CPAP therapy on average of 7 hours per night. His machine usage for more than 4 hours is 27 out of 30 and this is based on his 30 day compliant to scale. Average pressure delivered by the machines around 12.4 cm of water and the patient has a leak of 6 L per minute and the patient's AHI is down to 2.2. He is using the [place] Q nasal mask. Otherwise, the patient is doing well. Is waking up refreshed. No tiredness or sleepiness or hypersomnia. No chest pain. No cough or sputum production. No nocturnal heartburn. No other significant events otherwise for now. His BP is under good control. He has lost around 12 pounds since his last evaluation. Objective - Exam BP is 142/81 with a pulse of 87 and the respiration of 16 and a temperature is 97.3 and oxygen saturations 96% on room air. The patient has an [place] score of 9. Weight is 248. Body mass index is 37.7. The patient appeared well nourished and normally developed. Vital signs as documented. Head exam is unremarkable. No scleral icterus or corneal arcus noted. Neck is without jugular venous distension, thyromegaly, or carotid bruits. Carotid upstrokes are brisk bilaterally. Lungs are clear to auscultation and percussion. Cardiac exam reveals the PMI to be normally sized and situated. Rhythm is regular. First and second heart sounds normal. No murmurs, rubs or gallops. Abdominal exam reveals normal bowel sounds, no masses, no organomegaly and no aortic enlargement. Extremities are nonedematous and both femoral and pedal pulses are normal.Examination of the skin revealed no evidence of significant rashes, suspicious appearing nevi or other concerning lesions.Neurologically, the patient is awake and alert and the patient does not have any focal neurological deficit. Cranial nerves are essentially intact. Assessment and Plan Plan: Obstructive sleep apnea, successfully treated with a APAP machine. The patient has a functional ResMed 10 and the patient has demonstrated excellent compliance seen. Hypersomnia, recovered Hypertension Hyperlipidemia Coronary artery disease History of atrial fibrillation current rhythm is sinus Chronic back pain Glucoma Plan Refill the supplies and the patient is using the [place] Q nasal mask. Patient has lost weight. He'll be encouraged to lose more weight in the order of an additional 20 pounds if possible. Comorbidities are all inactive in stable Good sleep hygiene measures Supplies will be refilled Machine was checked and the compliance he evaluation was done and the patient will see back and few years time in follow-up.
== END | disposition home or self-care (01) ==
LOC: SLEEP 15:12
PROVIDERS: ATTEND Internal Medicine Critical Care Medicine
DX: Z53.9 Procedure and treatment not carried out, unspecified reason (principal)

== ENCOUNTER → 2022-03-15 | Outpatient (CLI) | payer MEDICARE ==
--- NOTE | 2022-03-15 08:30 | CT ---
EXAMINATION TYPE: CT lumbar spine wo con CT DLP: 1826.8 mGycm, Automated exposure control for dose reduction was used. DATE OF EXAM: 03/15/2022 8:11 AM COMPARISON: None . CLINICAL INDICATION:Male, 76 years old with history of M48.062 spinal stenosis; TECHNIQUE: Multiple axial images were obtained from the midportion of T11 through the sacroiliac marco antonio nts. Soft tissue and bone windows in coronal and sagittal planes were obtained and reviewed. Contrast used: none. Oral contrast used: none. FINDINGS: Alignment: There are 5 lumbar type vertebral bodies within normal alignment. Bone: No evidence of fracture is identified. Scattered osteophyte formation present along the verteb ral body margins. Facet joint arthropathy seen throughout the spine. Discs: T12-L1: No spinal canal or neural foraminal stenosis is identified. L1-L2: Disc bulge and facet joint arthropathy result in mild spinal canal stenosis mild bilateral luis ral foraminal stenosis. L2-L3: Disc bulge and facet joint arthropathy result in mild spinal canal stenosis mild bilateral luis ral foraminal stenosis. L3-L4: Disc bulge and facet joint arthropathy result in mild to moderate spinal canal stenosis mild b ilateral neural foraminal stenosis. L4-L5: Disc bulge and facet joint arthropathy result in mild to moderate spinal canal stenosis mild to moderate bilateral neural foraminal stenosis. L5-S1: No spinal canal or neural foraminal stenosis is identified. Other: Infrarenal aortic fusiform dilation up to 4.3 x 4.0 cm. Right renal cyst. Few scattered clonic diverticula. Atherosclerosis of the arterial vasculature. IMPRESSION: 1. No evidence of fracture of the lumbar spine. 2. Multilevel disc degeneration changes with multilevel mild to moderate spinal canal stenosis. 3. Infrarenal fusiform aortic aneurysmal dilation up to 4.3 cm.
== END | disposition home or self-care (01) ==
LOC: RADCTMAIN 07:51
PROVIDERS: ATTEND Physical Medicine & Rehabilitation
DX: M48.062 Spinal stenosis, lumbar region with neurogenic claudication (principal); M43.16 Spondylolisthesis, lumbar region; M47.817 Spondylosis without myelopathy or radiculopathy, lumbosacral region
CPT/HCPCS: 72131

== ENCOUNTER 2022-07-05 07:24 | Day surgery (SDC) | payer MEDICARE ==
[2022-06-30 12:30] VITALS: BMI 34.4
[2022-07-05] MEDS ORDERED: LACTATED RINGERS 1,000 ML IV SCH (08:13)
[2022-07-05] MEDS ORDERED: LIDOCAINE 1% (10MG/ML) FOR IV START INTRADERMA PRN (08:13)
[2022-07-05] MEDS ORDERED: ONDANSETRON 4 MG/2 ML VIAL IVP PRN (08:13)
[2022-07-05 08:20] VITALS: TEMP 97.4
[2022-07-05] MEDS ORDERED: PROPOFOL 10 MG/ML 20 ML VIAL IV ONE (08:30)
[2022-07-05 08:33] LABS: Glucose,Whole Blood 141 mg/dL (70-110)
--- NOTE | 2022-07-05 08:39 | P.GSHP ---
History of Present Illness H&P Date: 07/05/22 CHIEF COMPLAINT: Colon screen HISTORY OF PRESENT ILLNESS: The patient is a 76-year-old male who presents for colon screen. Lower endoscopy was offered for further evaluation and management. PAST MEDICAL HISTORY: Please see list. PAST SURGICAL HISTORY: Please see list. MEDICATIONS: Please see list. ALLERGIES: Please see list. SOCIAL HISTORY: No illicit drug use FAMILY HISTORY: No reports of Crohn disease or ulcerative colitis. REVIEW OF ORGAN SYSTEMS: CONSTITUTIONAL: No reports of fevers or chills. PHYSICAL EXAM: VITAL SIGNS: Stable GENERAL: Well-developed pleasant in no acute distress. HEENT: No scleral icterus. Extraocular movements grossly intact. Moist buccal mucosa. NECK: Supple without lymphadenopathy. CHEST: Unlabored respirations. Equal bilateral excursions. CARDIOVASCULAR: Regular rate and rhythm. Distal 2+ pulses. ABDOMEN: Soft, nontender, nondistended. MUSCULOSKELETAL: No clubbing, cyanosis, or edema. ASSESSMENT: 1. Colon screen. PLAN: 1. Recommend proceeding with a lower endoscopy Past Medical History Past Medical History: Atrial Fibrillation, Coronary Artery Disease (CAD), Diabetes Mellitus, Eye Disorder, GERD/Reflux, GI Bleed, Hypertension, Musculoskeletal Disorder, Pulmonary Embolus (PE), Sleep Apnea/CPAP/BIPAP, Syncope Additional Past Medical History / Comment(s): ANAL FISSURES, GLAUCOMA, KIDNEY STONES, uses CPAP, abd. aneurysm- monitoring, 3 syncope episodes in 2019 now resolved, chronic back & hip problems, peripheral pulmonary emboli after open heart surg. resulted in prolonged intubation, glaucoma, colon polyps History of Any Multi-Drug Resistant Organisms: None Reported Past Surgical History: Appendectomy, Coronary Bypass/CABG, Heart Catheterization With Stent Additional Past Surgical History / Comment(s): triple bypass August 2013. pain procedures Past Anesthesia/Blood Transfusion Reactions: No Reported Reaction Additional Past Anesthesia/Blood Transfusion Reaction / Comment(s): difficulty coming off vent after open heart due to peripheral pulmonary emboli-spouse concerned related to anesthesia Date of Last Stent Placement:: 2013 Type of Cardiac Device: Loop Device Placement Date:: medtronic loop recorder now inactive placed in 2017 Smoking Status: Former smoker - Past Family History Mother Family Medical History: Cancer Additional Family Medical History / Comment(s): uterine dies at 60 Father Family Medical History: Cancer Additional Family Medical History / Comment(s): kidney at 61 Medications and Allergies Home Medications Medication Instructions Recorded Confirmed Type Acetaminophen [Tylenol Extra 500 mg PO Q6H PRN 11/07/17 07/05/22 History Strength] Atorvastatin [Lipitor] 80 mg PO HS 11/07/17 07/05/22 History Cholecalciferol [Vitamin D3 (25 2,000 unit PO DAILY 11/07/17 07/05/22 History Mcg = 1000 Iu)] Ferrous Sulfate [Iron (65 MG 325 mg PO DAILY 11/07/17 07/05/22 History Elemental)] Latanoprost Ophth [Xalatan 0.005%] 1 drops BOTH EYES HS 11/07/17 07/05/22 History carvediloL [Coreg] 6.25 mg PO BID 11/07/17 07/05/22 History Ubidecarenone [Co Q-10] 100 mg PO DAILY 07/15/18 07/05/22 History Zolpidem Tartrate [Ambien] 10 mg PO HS PRN 07/15/18 07/05/22 History Brimonidine Tartrate/Timolol 1 drop BOTH EYES BID 05/26/19 07/05/22 History [Combigan 0.2%-0.5% Eye Drops] Pantoprazole Sodium 40 mg PO DAILY PRN 05/26/19 07/05/22 History Rivaroxaban [Xarelto] 20 mg PO DAILY 05/26/19 07/05/22 History amLODIPine [Norvasc] 2.5 mg PO DAILY 05/26/19 07/05/22 History lisinopriL [Zestril] 20 mg PO BID 05/26/19 07/05/22 History Cyclobenzaprine [Flexeril] 10 mg PO BID #15 tab 10/23/20 07/05/22 Rx HYDROcodone/APAP 7.5-325MG [[place] 1 tab PO Q6HR PRN 3 Days #12 tab 10/23/20 07/05/22 Rx 7.5-325] Empagliflozin [Jardiance] 25 mg PO DAILY 06/30/22 07/05/22 History [place] 2% Ophth Soln [Isopto 2 drops BOTH EYES HS 06/30/22 07/05/22 History Carpine 2%] Allergies Allergy/AdvReac Type Severity Reaction Status Date / Time No Known Allergies Allergy Verified 07/05/22 08:16 Surgical - Exam Vital Signs Temp Pulse Resp BP Pulse Ox 97.4 F L 92 18 147/91 95 07/05/22 08:17 07/05/22 08:17 07/05/22 08:17 07/05/22 08:17 07/05/22 08:17 Results - Labs Abnormal Lab Results - Last 24 Hours (Table) 07/05/22 Range/Units 08:30 POC Glucose (mg/dL) 141 H (70-110) mg/dL
[2022-07-05 09:17] VITALS: BP 113/76; PULSE 74; RESP 17
--- NOTE | 2022-07-05 10:37 | P.PCN ---
Date of Procedure: 07/05/22 Description of Procedure: PREOPERATIVE DIAGNOSIS: Personal history of colon polyps Colonoscopy screening POSTOPERATIVE DIAGNOSIS: Tubular adenoma hepatic flexure Sigmoid diverticulosis Internal hemorrhoids, grade 2 OPERATION: Colonoscopy to the cecum Colonoscopy with hot snare polypectomy SURGEON: Jennie Ahumada MD. ANESTHESIA: MAC. INDICATIONS: The patient is an 76-year-old male who presents personal history of colon polyps. Last colonoscopy 5 years. Benefits and risks were described and informed consent was obtained. DESCRIPTION OF PROCEDURE: The patient had undergone Sutab prep. The patient had been brought into the operating room and laid in the left lateral decubitus position. After adequate intravenous sedation, the rectum was examined with 2% lidocaine jelly. The prostate fossa was unremarkable. External hemorrhoids were encountered. The rectal tone was within normal limits. No lesions were palpated in the rectal vault. An Olympus colonoscope was advanced until the cecum. The prep was excellent. Sigmoid diverticulosis was encountered. Colonic polyps were found a nd removed. No evidence of focal colitis was found. Retroflexion of the scope demonstrated grade 2 internal hemorrhoids without active bleeding or inflammation. The colon was desufflated. The patient had tolerated the procedure well. Withdrawal time was over 6 minutes. FINDINGS: Aronchick preparation quality scale 1 (1-5) Internal hemorrhoids, grade 2 External hemorrhoids, grade 1 No arteriovenous malformations. Sigmoid diverticulosis Highly redundant sigmoid colon requiring abdominal wall pressure Removal of 1 polyps: - Snare polypectomy at hepatic flexure, 8 mm tubulovillous adenoma polyp. No focal colitis. RECOMMENDATIONS: Recommend repeat colonoscopy in 3 years, 2025 Plan - Discharge Summary New Discharge Prescriptions: Continue Atorvastatin [Lipitor] 80 mg PO HS Latanoprost Ophth [Xalatan 0.005%] 1 drops BOTH EYES HS Ferrous Sulfate [Iron (65 MG Elemental)] 325 mg PO DAILY Cholecalciferol [Vitamin D3 (25 Mcg = 1000 Iu)] 2,000 unit PO DAILY carvediloL [Coreg] 6.25 mg PO BID Acetaminophen [Tylenol Extra Strength] 500 mg PO Q6H PRN PRN Reason: Pain Zolpidem Tartrate [Ambien] 10 mg PO HS PRN PRN Reason: Insomnia Ubidecarenone [Co Q-10] 100 mg PO DAILY Pantoprazole Sodium 40 mg PO DAILY PRN PRN Reason: Indigestion lisinopriL [Zestril] 20 mg PO BID amLODIPine [Norvasc] 2.5 mg PO DAILY Rivaroxaban [Xarelto] 20 mg PO DAILY Brimonidine Tartrate/Timolol [[place] 0.2%-0.5% Eye Drops] 1 drop BOTH EYES BID Cyclobenzaprine [Flexeril] 10 mg PO BID #15 tab [place] 2% Ophth Soln [Isopto Carpine 2%] 2 drops BOTH EYES HS HYDROcodone/APAP 7.5-325MG [[place] 7.5-325] 1 tab PO Q6HR PRN 3 Days #12 tab PRN Reason: Pain Empagliflozin [Jardiance] 25 mg PO DAILY Discharge Medication List Acetaminophen [Tylenol Extra Strength] 500 mg PO Q6H PRN 11/07/17 [History] Atorvastatin [Lipitor] 80 mg PO HS 11/07/17 [History] Cholecalciferol [Vitamin D3 (25 Mcg = 1000 Iu)] 2,000 unit PO DAILY 11/07/17 [History] Ferrous Sulfate [Iron (65 MG Elemental)] 325 mg PO DAILY 11/07/17 [History] Latanoprost Ophth [Xalatan 0.005%] 1 drops BOTH EYES HS 11/07/17 [History] carvediloL [Coreg] 6.25 mg PO BID 11/07/17 [History] Ubidecarenone [Co Q-10] 100 mg PO DAILY 07/15/18 [History] Zolpidem Tartrate [Ambien] 10 mg PO HS PRN 07/15/18 [History] Brimonidine Tartrate/Timolol [[place] 0.2%-0.5% Eye Drops] 1 drop BOTH EYES BID 05/26/19 [History] Pantoprazole Sodium 40 mg PO DAILY PRN 05/26/19 [History] Rivaroxaban [Xarelto] 20 mg PO DAILY 05/26/19 [History] amLODIPine [Norvasc] 2.5 mg PO DAILY 05/26/19 [History] lisinopriL [Zestril] 20 mg PO BID 05/26/19 [History] Cyclobenzaprine [Flexeril] 10 mg PO BID #15 tab 10/23/20 [Rx] HYDROcodone/APAP 7.5-325MG [[place] 7.5-325] 1 tab PO Q6HR PRN 3 Days #12 tab 10/23/20 [Rx] Empagliflozin [Jardiance] 25 mg PO DAILY 06/30/22 [History] Pilocarpine 2% Ophth Soln [Isopto Carpine 2%] 2 drops BOTH EYES HS 06/30/22 [History] Follow up Appointment(s)/Referral(s): Jennie Ahumada MD [STAFF PHYSICIAN] - As Needed Patient Instructions/Handouts: *Surgery [facility] - (Anesthesia) Endoscopy Discharge Instructions, Diverticulosis (GEN), Colorectal Polyps (GEN), Diverticulosis Diet (GEN) Activity/Diet/Wound Care/Special Instructions: START BLOOD THINNER 07/08/2022, Repeat colonoscopy 3 years2025 Discharge Disposition: HOME SELF-CARE
== END 2022-07-05 10:15 | disposition home or self-care (01) ==
LOC: ORWHC2ENDO 07:24
PROVIDERS: ATTEND Surgery Plastic and Reconstructive Surgery
DX: Z12.11 Encounter for screening for malignant neoplasm of colon (principal); D12.3 Benign neoplasm of transverse colon; K57.30 Diverticulosis of large intestine without perforation or abscess without bleeding; I48.91 Unspecified atrial fibrillation; I25.10 Atherosclerotic heart disease of native coronary artery without angina pectoris; G47.33 Obstructive sleep apnea (adult) (pediatric); K64.1 Second degree hemorrhoids; K64.8 Other hemorrhoids; Z86.010 Personal history of colon polyps; Z95.5 Presence of coronary angioplasty implant and graft; Z79.899 Other long term (current) drug therapy
CPT/HCPCS: 45385; J2704; 88305

== ENCOUNTER → 2022-07-28 | Outpatient (CLI) | payer MEDICARE ==
--- NOTE | 2022-07-28 08:44 | MR ---
EXAMINATION TYPE: MR knee LT wo con DATE OF EXAM: 07/28/2022 COMPARISON: NONE HISTORY: LT knee pain locking and swelling for 6 months TECHNIQUE: Multiplanar, multisequence images of the knee is performed without IV contrast. FINDINGS: MEDIAL MENISCUS: Anterior and posterior horns are intact without tear. LATERAL MENISCUS: Anterior and posterior horns are intact without tear. CRUCIATE LIGAMENTS: The anterior and posterior cruciate ligaments are intact and unremarkable. COLLATERAL LIGAMENTS: The medial collateral ligament and lateral collateral ligament complex are inta ct and unremarkable. EXTENSOR MECHANISM: Visualized quadriceps and patellar tendons are intact. EFFUSION: No significant suprapatellar joint effusion. POPLITEAL CYST: Small size popliteal/loving cyst. TRICOMPARTMENT SPACES: Mild to moderate tricompartment joint space loss and mild tricompartment spurr ing. CARTILAGE: Some chondromalacia patella particularly along the medial aspect of the posterior knee. A dditional areas of fissuring and cartilaginous loss are present. There is cartilaginous loss medial t ibiofemoral compartment. BONE MARROW SIGNAL: Single 6 mm focus of diminished T1 and increased T2 signal involving the anterior medial tibial plateau. OTHER: No additional significant abnormality is appreciated. IMPRESSION: 1. No meniscal or ligamentous tear is seen. 2. [id number] degenerative changes as detailed above. 3. Small sized popliteal cyst.
== END | disposition home or self-care (01) ==
LOC: RADMRIMAIN 07:32
PROVIDERS: ATTEND Orthopaedic Surgery
DX: M17.12 Unilateral primary osteoarthritis, left knee (principal); M71.22 Synovial cyst of popliteal space [Baker], left knee

== ENCOUNTER 2022-12-24 08:46 | Emergency (ER) | payer MEDICARE ==
[2022-12-24 08:54] VITALS: TEMP 98.4
[2022-12-24] MEDS ORDERED: MORPHINE SULFATE 4 MG/ML SYRINGE IV STA (09:48)
--- NOTE | 2022-12-24 09:50 | ED ---
General Adult HPI - General Chief complaint: Extremity Problem,Nontraumatic Stated complaint: Right leg weakness/pain Time Seen by Provider: 12/24/22 09:12 Source: patient Mode of arrival: wheelchair Limitations: no limitations - History of Present Illness Initial comments: Dictation was produced using [employer] dictation software. please excuse any g rammatical, word or spelling errors. Chief Complaint: 77-year-old male with right hip pain History of Present Illness: Is 77-year-old male who presents with right hip pain. 3 days ago he had hip injections performed by orthopedic surgeon. Patient believes that the injection was very atypical to previous injections he is received. States that he was doing okay the day after however shortly after that started to experience extreme right-sided hip pain. States that he is unable to bear any weight to his right leg. Denies any numbness and paresthesia to the right lower extremity. Denies any fever or constitutional symptoms. His pain is localized to the right proximal lateral hip area nonradiating. The ROS documented in this emergency department record has been reviewed and confirmed by me. Those systems with pertinent positive or negative responses have been documented in the HPI. All other systems are other negative and/or noncontributory. - Related Data Home Medications Medication Instructions Recorded Confirmed Acetaminophen [Tylenol Extra 500 mg PO Q6H PRN 11/07/17 07/05/22 Strength] Atorvastatin [Lipitor] 80 mg PO HS 11/07/17 07/05/22 Cholecalciferol [Vitamin D3 (25 2,000 unit PO DAILY 11/07/17 07/05/22 Mcg = 1000 Iu)] Ferrous Sulfate [Iron (65 MG 325 mg PO DAILY 11/07/17 07/05/22 Elemental)] Latanoprost Ophth [Xalatan 0.005%] 1 drops BOTH EYES HS 11/07/17 07/05/22 carvediloL [Coreg] 6.25 mg PO BID 11/07/17 07/05/22 Ubidecarenone [Co Q-10] 100 mg PO DAILY 07/15/18 07/05/22 Zolpidem Tartrate [Ambien] 10 mg PO HS PRN 07/15/18 07/05/22 Brimonidine Tartrate/Timolol 1 drop BOTH EYES BID 05/26/19 07/05/22 [Combigan 0.2%-0.5% Eye Drops] Pantoprazole Sodium 40 mg PO DAILY PRN 05/26/19 07/05/22 Rivaroxaban [Xarelto] 20 mg PO DAILY 05/26/19 07/05/22 amLODIPine [Norvasc] 2.5 mg PO DAILY 05/26/19 07/05/22 lisinopriL [Zestril] 20 mg PO BID 05/26/19 07/05/22 Empagliflozin [Jardiance] 25 mg PO DAILY 06/30/22 07/05/22 Pilocarpine 2% Ophth Soln [Isopto 2 drops BOTH EYES HS 06/30/22 07/05/22 Carpine 2%] Previous Rx's Medication Instructions Recorded Cyclobenzaprine [Flexeril] 10 mg PO BID #15 tab 10/23/20 HYDROcodone/APAP 7.5-325MG [[place] 1 tab PO Q6HR PRN 3 Days #12 tab 10/23/20 7.5-325] Cephalexin [Keflex] 500 mg PO Q6HR 5 Days #20 cap 12/24/22 Allergies Allergy/AdvReac Type Severity Reaction Status Date / Time No Known Allergies Allergy Verified 12/24/22 08:54 Review of Systems ROS Statement: Those systems with pertinent positive or pertinent negative responses have been documented in the HPI. ROS Other: All systems not noted in ROS Statement are negative. Past Medical History Past Medical History: Atrial Fibrillation, Coronary Artery Disease (CAD), D iabetes Mellitus, Eye Disorder, GERD/Reflux, GI Bleed, Hypertension, Musculoskeletal Disorder, Pulmonary Embolus (PE), Sleep Apnea/CPAP/BIPAP, Syncope Additional Past Medical History / Comment(s): ANAL FISSURES, GLAUCOMA, KIDNEY STONES, uses CPAP, abd. aneurysm- monitoring, 3 syncope episodes in 2019 now resolved, chronic back & hip problems, peripheral pulmonary emboli after open heart surg. resulted in prolonged intubation, glaucoma, colon polyps History of Any Multi-Drug Resistant Organisms: None Reported Past Surgical History: Appendectomy, Coronary Bypass/CABG, Heart Catheterization With Stent Additional Past Surgical History / Comment(s): triple bypass August 2013. pain procedures Past Anesthesia/Blood Transfusion Reactions: No Reported Reaction Additional Past Anesthesia/Blood Transfusion Reaction / Comment(s): difficulty coming off vent after open heart due to peripheral pulmonary emboli-spouse concerned related to anesthesia Date of Last Stent Placement:: 2013 Type of Cardiac Device: Loop Device Placement Date:: medtronic loop recorder now inactive placed in 2018 Past Psychological History: No Psychological Hx Reported Smoking Status: Former smoker Past Alcohol Use History: None Reported Past Drug Use History: None Reported - Past Family History Mother Family Medical History: Cancer Additional Family Medical History / Comment(s): uterine dies at 60 Father Family Medical History: Cancer Additional Family Medical History / Comment(s): kidney at 61 General Exam - General Exam Comments Initial Comments: PHYSICAL EXAM: General Impression: Alert and oriented x3, not in acute distress HEENT: Normocephalic atraumatic, extra-ocular movements intact, pupils equal and reactive to light bilaterally, mucous membranes moist. Cardiovascular: Heart regular rate and rhythm Chest: Able to complete full sentences, no retractions, no tachypnea Musculoskeletal: Pulses present and equal in all extremities, no peripheral edema Motor: no focal deficits noted Neurological: CN II-XII grossly intact, no focal motor or sensory deficits noted Skin: Intact with no visualized rashes Psych: Normal affect and mood Right lower: 5 x 3" area of induration to the lateral proximal right lower extremity. No redness. No fluctuance Limitations: no limitations Course Vital Signs 12/24/22 08:51 Temperature 98.4 F Pulse Rate 97 Respiratory 20 Rate Blood Pressure 132/88 O2 Sat by Pulse 99 Oximetry Medical Decision Making - Medical Decision Making Was pt. sent in by a medical professional or institution (, PA, ELASTIC ASSEMBLER, urgent care, hospital, or [facility]...) When possible be specific @ -[No] Did you speak to anyone other than the patient for history (EMS, parent, family, police, friend...)? What history was obtained from this source @ -[No] Did you review nursing and triage notes (agree or disagree)? Why? @ -[I reviewed and agree with nursing and triage notes] Were old charts reviewed (outside hosp., previous admission, EMS record, old EKG, old radiological studies, urgent care reports/EKG's, [facility] records)? Report findings @ -[No old charts were reviewed] Differential Diagnosis (chest pain, altered mental status, abdominal pain women, abdominal pain men, vaginal bleeding, musculoskeletal, weakness, fever, dyspnea, syncope, headache, dizziness, GI bleed, back pain, seizure, CVA, palpatations, mental health)? @ -[not applicable] EKG interpreted by me (3pts min.). @ -[None done] X-rays interpreted by me (1pt min.). @ -[None done] CT interpreted by me (1pt min.). @ -Computed tomography scan of right lower extremity shows cellulitis findings over the area of interest. No abscess U/S interpreted by me (1pt. min.). @ -[None done] What testing was considered but not performed or refused? (CT, X-rays, U/S, labs)? Why? @ -[None] What meds were considered but not given or refused? Why? @ -[None] Did you discuss the management of the patient with other professionals (professionals i.e. , PA, ELASTIC ASSEMBLER, lab, RT, psych nurse, delinquency prevention social worker, immigration associate, teacher, credit or loans officer, bilingual patient support caseworker)? Give summary @ -[No] Was smoking cessation discussed for >3mins.? @ -[No] Was critical care preformed (if so, how long)? @ -[No] Were there social determinants of health that impacted care today? How? (Homelessness, low income, unemployed, alcoholism, drug addiction, transportation, low edu. Level, literacy, decrease access to med. care, fpc, rehab)? @ -[No] Was there de-escalation of care discussed even if they declined (Discuss DNR or withdrawal of care, Hospice)? DNR status @ -[No] What co-morbidities impacted this encounter? (DM, HTN, Smoking, COPD, CAD, Cancer, CVA, ARF, Chemo, Hep., AIDS, mental health diagnosis, sleep apnea, morbid obesity)? @ -[None] Was patient admitted / discharged? Hospital course, mention meds given and route, prescriptions, significant lab abnormalities, going to OR and other pertinent info. @ -77-year-old male presents with pain over the skin of the lateral proximal extremity. He has no pain in his hip. Vital signs within acceptable limits. Patient has any constitutional symptoms. He does have area of induration over his proximal lateral right leg. CT imaging shows fat stranding. No abscess formation. Leukocytosis of 19.8. He's been on steroids since likely secondary to de-margination of white blood cells secondary to steroid use. Labs are unremarkable. She does have hemoconcentration with hemoglobin 18.4. Patient given IV fluids. Given analgesia with improvement of symptoms. Clinical presentation suspicious to cellulitis. Unlikely to have secondary sepsis given the patient's well-appearing without any constitutional symptoms. Disposition options were discussed. Agreeable to discharge states that he will follow-up with his orthopedic surgeon on Sunday. Patient prescription for antibiotics. Return precautions discussed. Undiagnosed new problem with uncertain prognosis? @ -[No] Drug Therapy requiring intensive monitoring for toxicity (Heparin, Nitro, Insulin, Cardizem)? @ -[No] Were any procedures done? @ -[No] Diagnosis/symptom? Acute, or Chronic, or Acute on Chronic? Uncomplicated (without systemic symptoms) or Complicated (systemic symptoms)? @ -1. Cellulitis Side effects of treatment? @ -[No] Exacerbation, Progression, or Severe Exacerbation? @ -[No] Poses a threat to life or bodily function? How? (Chest pain, [place], [place], pneumonia, PE, COPD, DKA, ARF, appy, cholecystitis, CVA, Diverticulitis, Homicidal, Suicidal, threat to staff... and all critical care pts) @ -[No] - Lab Data Result diagrams: 12/24/22 09:56 12/24/22 09:56 Lab Results 12/24/22 12/24/22 Range/Units 09:56 09:56 WBC 19.8 H (3.8-10.6) k/uL RBC 6.04 H (4.30-5.90) m/uL Hgb 18.4 H (13.0-17.5) gm/dL Hct 57.1 H* (39.0-53.0) % MCV 94.6 (80.0-100.0) fL MCH 30.5 (25.0-35.0) pg MCHC 32.3 (31.0-37.0) g/dL RDW 14.8 (11.5-15.5) % Plt Count 219 (150-450) k/uL MPV 8.5 Neutrophils % 85 % Lymphocytes % 6 % Monocytes % 7 % Eosinophils % 1 % Basophils % 0 % Neutrophils # 16.8 H (1.3-7.7) k/uL Lymphocytes # 1.2 (1.0-4.8) k/uL Monocytes # 1.3 H (0-1.0) k/uL Eosinophils # 0.1 (0-0.7) k/uL Basophils # 0.0 (0-0.2) k/uL Sodium 137 (137-145) mmol/L Potassium 4.3 (3.5-5.1) mmol/L Chloride 104 (98-107) mmol/L Carbon Dioxide 22 (22-30) mmol/L Anion Gap 11 mmol/L BUN 28 H (9-20) mg/dL Creatinine 1.19 (0.66-1.25) mg/dL Est GFR (CKD-EPI)AfAm 68 (>60 ml/min/1.73 sqM) Est GFR (CKD-EPI)NonAf 59 (>60 ml/min/1.73 sqM) Glucose 176 H (74-99) mg/dL Calcium 10.3 H (8.4-10.2) mg/dL Disposition Clinical Impression: Cellulitis Disposition: HOME SELF-CARE Condition: Good Instructions (If sedation given, give patient instructions): Cellulitis (ED) Prescriptions: Cephalexin [Keflex] 500 mg PO Q6HR 5 Days #20 cap Is patient prescribed a controlled substance at d/c from ED?: No Referrals: Saad Gonzalez DO [Doctor of Osteopathic Medicine] - 1-2 days Time of Disposition: 11:43
[2022-12-24 10:23] LABS: African American GFR (CKD) 68 (>60 ml/min/1.73 sqM); Anion Gap 11 mmol/L; Blood Urea Nitrogen 28 mg/dL (9-20); Calcium 10.3 mg/dL (8.4-10.2); Carbon Dioxide 22 mmol/L (22-30); Chloride 104 mmol/L (98-107); Glucose 176 mg/dL (74-99); Non-African American GFR(CKD) 59 (>60 ml/min/1.73 sqM); Potassium 4.3 mmol/L (3.5-5.1); Sodium 137 mmol/L (137-145)
[2022-12-24 10:27] LABS: Basophils % (A) 0 %; Eosinophils # (A) 0.1 k/uL (0-0.7); Eosinophils % (A) 1 %; HGB 18.4 gm/dL (13.0-17.5); Lymphocytes # (A) 1.2 k/uL (1.0-4.8); Lymphocytes % (A) 6 %; MCH 30.5 pg (25.0-35.0); MCHC 32.3 g/dL (31.0-37.0); MCV 94.6 fL (80.0-100.0); Mean Platelet Volume 8.5; Monocytes # (A) 1.3 k/uL (0-1.0); Monocytes % (A) 7 %; Neutrophils # (A) 16.8 k/uL (1.3-7.7); Neutrophils % (A) 85 %; Platelet Count 219 k/uL (150-450); RBC 6.04 m/uL (4.30-5.90); RDW 14.8 % (11.5-15.5); WBC 19.8 k/uL (3.8-10.6)
[2022-12-24 10:30] LABS: HCT 57.1 % (39.0-53.0)
[2022-12-24] MEDS ORDERED: SODIUM CHLORIDE 0.9% 1,000 ML IV STA (10:46)
--- NOTE | 2022-12-24 11:01 | CT ---
EXAMINATION TYPE: CT lower extremity RT w con CT DLP: 1140.8 mGycm, Automated exposure control for dose reduction was used. DATE OF EXAM: 12/24/2022 10:51 AM COMPARISON: CTA abdomen pelvis 01/06/2020 CLINICAL INDICATION:Male, 77 years old with history of induration and pain s/p hip injection; PHH, Ri ght hip pain radiating down to knee post hip injection x3 days ago. Unable to bear weight. TECHNIQUE: Axial images were obtained of the right lower extremity after the uneventful administratio n of 80 cc of Isovue-370 intravenously. Additional coronal and sagittal reformatted images and soft t issue and bone window were obtained for review. FINDINGS: There is no evidence of fracture, subluxation, or dislocation. No osseous erosions. Skin th ickening with subcutaneous and fascial fat stranding identified within the right lateral thigh soft t issues extending from the hip to the knee. No organized fluid collection to suggest abscess. No subcu taneous gas. No joint effusion. No radiopaque foreign body identified. Degenerative changes of the yonathan mbar spine. Mild degenerative changes of the SI joints bilaterally. Atherosclerotic calcification of the visualized patent vasculature. Sigmoid diverticulosis without ev idence for acute diverticulitis. Enlarged prostate gland measuring 6.2 cm in transverse dimension wit h coarse central calcifications. Small fat filled left internal hernia. No visualized lymphadenopathy . Small bilateral hydroceles. Calcification of the vasculature within the right scrotum. IMPRESSION: 1. No acute fracture or dislocation. 2. Skin thickening with subcutaneous and fascial fat stranding and edema involving the lateral thigh from the hip to the knee. Correlate for cellulitis. No organized fluid collection to suggest abscess. No subcutaneous gas. No joint effusion.
[2022-12-24 11:58] VITALS: BP 156/87; PULSE 83; RESP 18
== END 2022-12-24 11:58 | disposition home or self-care (01) ==
LOC: EC 08:46
DX: L03.115 Cellulitis of right lower limb (principal); I48.91 Unspecified atrial fibrillation; I25.10 Atherosclerotic heart disease of native coronary artery without angina pectoris; E11.9 Type 2 diabetes mellitus without complications; K21.9 Gastro-esophageal reflux disease without esophagitis; I10 Essential (primary) hypertension; G47.30 Sleep apnea, unspecified; Z87.891 Personal history of nicotine dependence; Z86.711 Personal history of pulmonary embolism; Z95.1 Presence of aortocoronary bypass graft; Z90.49 Acquired absence of other specified parts of digestive tract; Z79.01 Long term (current) use of anticoagulants; Z79.84 Long term (current) use of oral hypoglycemic drugs; Z79.899 Other long term (current) drug therapy
CPT/HCPCS: 36415; 80048; 85025; 73701; 99284; 96374; 96361; J2270; Q9967

== ENCOUNTER 2022-12-29 19:10 | Inpatient (IN) | payer MEDICARE ==
[2022-12-29] MEDS ORDERED: MORPHINE SULFATE 4 MG/ML SYRINGE IV STA (20:15)
[2022-12-29] MEDS ORDERED: SODIUM CHLORIDE 0.9% 1,000 ML IV STA (20:15)
--- NOTE | 2022-12-29 20:30 | ED ---
Recheck HPI - General Chief Complaint: Extremity Injury, Lower Stated Complaint: right leg pain-revisit Time Seen by Provider: 12/29/22 19:37 Source: patient, RN notes reviewed, old records reviewed Mode of arrival: wheelchair Limitations: no limitations - History of Present Illness Initial Comments: This is a 77-year-old male to the emergency department for evaluation today. Patient presents today for evaluation of severe hip pain right-sided hip pain. Patient has persistent hip pain leg pain here in the ER unable to ambulate unable to move his leg. Severe pain with movement of the right lower extremity. Patient recently had injection of the right hip by Dr. Gonzalez ER 1 week ago injection issues was found to have a cellulitis place on antibiotics and discharged home. Patient states his symptoms originally got better but has since significantly worsening was unable to get off her walking comes the emergency room today for evaluation MD Complaint: wound re-check, abnormal lab, other -: days(s) (Right-sided hip pain) Returns Today for: needs IV antibiotics, persistent/worsening pain related to initial visit Symptoms Since Prior Visit: worsening pain Associated Symptoms: none Treatments Prior to Arrival: Given Pain Meds on - Related Data Home Medications Medication Instructions Recorded Confirmed Ferrous Sulfate [Iron (65 MG 325 mg PO DAILY 11/07/17 12/29/22 Elemental)] Latanoprost Ophth [Xalatan 0.005%] 1 drops BOTH EYES HS 11/07/17 12/29/22 carvediloL [Coreg] 6.25 mg PO BID 11/07/17 12/29/22 Ubidecarenone [Co Q-10] 100 mg PO DAILY 07/15/18 12/29/22 Rivaroxaban [Xarelto] 20 mg PO HS 05/26/19 12/29/22 amLODIPine [Norvasc] 2.5 mg PO DAILY 05/26/19 12/29/22 lisinopriL [Zestril] 20 mg PO BID 05/26/19 12/29/22 Empagliflozin [Jardiance] 25 mg PO DAILY 06/30/22 12/29/22 Atorvastatin [Lipitor] 80 mg PO HS 12/29/22 12/29/22 Brimonidine Tartrate [Alphagan P 1 drop BOTH EYES HS 12/29/22 12/29/22 0.2% Ophth Soln] Cetirizine HCl [Zyrtec] 10 mg PO DAILY 12/29/22 12/29/22 Cholecalciferol [Vitamin D3 (25 50 mcg PO DAILY 12/29/22 12/29/22 Mcg = 1000 Iu)] Cyclobenzaprine [Flexeril] 10 mg PO TID PRN 12/29/22 12/29/22 Melatonin 10 mg PO HS 12/29/22 12/29/22 Timolol 0.5% Ophth Soln [Timoptic 1 drop BOTH EYES HS 12/29/22 12/29/22 0.5% Ophth Soln] predniSONE [Deltasone] See Taper PO DIRECTED 12/29/22 12/29/22 traZODone HCL [Desyrel] 50 mg PO HS PRN 12/29/22 12/29/22 Previous Rx's Medication Instructions Recorded HYDROcodone/APAP 7.5-325MG [[place] 1 tab PO Q6HR PRN 3 Days #12 tab 10/23/20 7.5-325] Allergies Allergy/AdvReac Type Severity Reaction Status Date / Time No Known Allergies Allergy Verified 12/29/22 22:55 Review of Systems ROS Statement: Those systems with pertinent positive or pertinent negative responses have been documented in the HPI. ROS Other: All systems not noted in ROS Statement are negative. Past Medical History Past Medical History: Atrial Fibrillation, Coronary Artery Disease (CAD), Diabetes Mellitus, Eye Disorder, GERD/Reflux, GI Bleed, Hypertension, Musculoskeletal Disorder, Pulmonary Embolus (PE), Sleep Apnea/CPAP/BIPAP, Syncope Additional Past Medical History / Comment(s): ANAL FISSURES, GLAUCOMA, KIDNEY STONES, uses CPAP, abd. aneurysm-drSurinder monitoring, 3 syncope episodes in 2019 now resolved, chronic back & hip problems, peripheral pulmonary emboli after open heart surg. resulted in prolonged intubation, glaucoma, colon polyps History of Any Multi-Drug Resistant Organisms: None Reported Past Surgical History: Appendectomy, Coronary Bypass/CABG, Heart Catheterization With Stent Additional Past Surgical History / Comment(s): triple bypass August 2013. pain procedures Past Anesthesia/Blood Transfusion Reactions: No Reported Reaction Additional Past Anesthesia/Blood Transfusion Reaction / Comment(s): difficulty coming off vent after open heart due to peripheral pulmonary emboli-spouse concerned related to anesthesia Date of Last Stent Placement:: 2013 Type of Cardiac Device: Loop Device Placement Date:: medtronic loop recorder now inactive placed in 2018 Past Psychological History: No Psychological Hx Reported Smoking Status: Former smoker Past Alcohol Use History: None Reported Past Drug Use History: None Reported - Past Family History Mother Family Medical History: Cancer Additional Family Medical History / Comment(s): uterine dies at 60 Father Family Medical History: Cancer Additional Family Medical History / Comment(s): kidney at 61 General Exam - General Exam Comments Initial Comments: Severe right hip pain with range of motion passive Limitations: no limitations General appearance: alert, in no apparent distress Head exam: Present: atraumatic, normocephalic, normal inspection Eye exam: Present: normal appearance, PERRL, EOMI. Absent: scleral icterus, conjunctival injection, periorbital swelling ENT exam: Present: normal exam, mucous membranes moist Neck exam: Present: normal inspection. Absent: tenderness, meningismus, lymphadenopathy Respiratory exam: Present: normal lung sounds bilaterally. Absent: respiratory distress, wheezes, rales, rhonchi, stridor Cardiovascular Exam: Present: regular rate, normal rhythm, normal heart sounds. Absent: systolic murmur, diastolic murmur, rubs, gallop, clicks GI/Abdominal exam: Present: soft, normal bowel sounds. Absent: distended, tenderness, guarding, rebound, rigid Extremities exam: Present: normal inspection, full ROM, normal capillary refill. Absent: tenderness, pedal edema, joint swelling, calf tenderness Back exam: Present: normal inspection Neurological exam: Present: alert, oriented X3, CN II-XII intact Psychiatric exam: Present: normal affect, normal mood Skin exam: Present: warm, dry, intact, normal color. Absent: rash Course Vital Signs 12/29/22 12/30/22 12/30/22 19:28 05:30 08:00 Temperature 98.2 F Pulse Rate 112 H 92 Pulse Rate [ 88 Right Pulse Oximetery] Respiratory 20 18 16 Rate Blood Pressure 132/92 131/101 Blood Pressure [Left Arm Supine] O2 Sat by Pulse 96 96 Oximetry 12/30/22 12/30/22 12/30/22 08:10 11:45 14:00 Temperature 97.6 F 97.8 F 97.1 F L Pulse Rate Pulse Rate [ 109 H 80 88 Right Pulse Oximetery] Respiratory 18 18 16 Rate Blood Pressure Blood Pressure 159/128 167/100 113/76 [Left Arm Supine] O2 Sat by Pulse 96 97 Oximetry 12/30/22 20:00 Temperature 98.2 F Pulse Rate Pulse Rate [ 89 Right Pulse Oximetery] Respiratory 17 Rate Blood Pressure Blood Pressure 142/92 [Left Arm Supine] O2 Sat by Pulse 95 Oximetry - Reevaluation(s) Reevaluation #1: 12/29/22 23:29 Medical record is reviewed Reevaluation #2: 12/29/22 23:29 Patient symptoms are improved Reevaluation #3: 12/29/22 23:29 Patient informed results questions answered Reevaluation #4: 12/29/22 23:29 Was pt. sent in by a medical professional or institution (, [facility], [employer], urgent care, hospital, or shelter...) When possible be specific @ -no Did you speak to anyone other than the patient for history (EMS, parent, family, police, friend...)? What history was obtained from this source @ -no Did you review nursing and triage notes (agree or disagree)? Why? @ -agree Are old charts reviewed (outside hosp., previous admission, EMS record, old EKG, old radiological studies, urgent care reports/EKG's, shelter records)? Report findings @ -yes Differential Diagnosis (chest pain, altered mental status, abdominal pain women, abdominal pain men, vaginal bleeding, weakness, fever, dyspnea, syncope, headache, dizziness, GI bleed, back pain, seizure, CVA, palpatations, mental health, musculoskeletal)? @ -prior EKG interpreted by me (3pts min.). @ -yes X-rays interpreted by me (1pt min.). @ -no CT interpreted by me (1pt min.). @ -no U/S interpreted by me (1pt. min.). @ -yes What testing was considered but not performed or refused? (CT, X-rays, U/S, labs)? Why? @ -none What meds were considered but not given or refused? Why? @ -none Did you discuss the management of the patient with other professionals (professionals i.e. JOSE DANIEL Hudson, [employer], lab, RT, psych nurse, social welfare research worker, rubber tile floor layer, teacher, chief legal officer, case management assistant)? Give summary @ -no Was smoking cessation discussed for >3mins.? @ -no Was critical care preformed (if so, how long)? @ -no Were there social determinants of health that impacted care today? How? (Homelessness, low income, unemployed, alcoholism, drug addiction, transportation, low edu. Level, literacy, decrease access to med. care, nursing home, rehab)? @ -none Was there de-escalation of care discussed even if they declined (Discuss DNR or withdrawal of care, Hospice)? DNR status @ -no What co-morbidities impacted this encounter? (DM, HTN, Smoking, COPD, CAD, Cancer, CVA, ARF, Chemo, Hep., AIDS, mental health diagnosis, sleep apnea, morbid obesity)? @ -none Was patient admitted / discharged? Hospital course, mention meds given and route, prescriptions, significant lab abnormalities, going to OR and other pertinent info. @ - 77 male to the emergency department for evaluation patient presents today for evaluation regards to severe right hip pain especially with range of motion debility unable to walk. Patient be admitted for IV antibiotics concern for worsening cellulitis or possible hip infection Admitted Undiagnosed new problem with uncertain prognosis? @ -no Drug Therapy requiring intensive monitoring for toxicity (Heparin, Nitro, Insulin, Cardizem)? @ -no Were any procedures done? @ -no Diagnosis/symptom? @ -Severe right hip pain concern for septic arthritis, hematology abnormalities Acute, or Chronic, or Acute on Chronic? @ -Acute Uncomplicated (without systemic symptoms) or Complicated (systemic symptoms)? @ -Complicated Side effects of treatment? @ -no Exacerbation, Progression, or Severe Exacerbation? @ -exacerbation Poses a threat to life or bodily function? How? (Chest pain, [place], [place], pneumonia, PE, COPD, DKA, ARF, appy, cholecystitis, CVA, Diverticulitis, Homicidal, Suicidal, threat to staff... and all critical care pts) @ -yes with severe joint fraction, multiple abnormalities on lab values - Consultations Consultation #1: Spoke with admitting physicians who agree admit this patient Medical Decision Making - Medical Decision Making 77 male to the emergency department for evaluation patient presents today for evaluation regards to severe right hip pain especially with range of motion d ebility unable to walk. Patient be admitted for IV antibiotics concern for worsening cellulitis or possible hip infection - Lab Data Result diagrams: 01/03/23 07:02 01/03/23 07:02 Lab Results 12/29/22 12/29/22 12/29/22 Range/Units 20:19 20:19 20:19 WBC 18.5 H (3.8-10.6) k/uL RBC 6.21 H (4.30-5.90) m/uL Hgb 19.1 H* (13.0-17.5) gm/dL Hct 59.0 H* (39.0-53.0) % MCV 94.9 (80.0-100.0) fL MCH 30.8 (25.0-35.0) pg MCHC 32.5 (31.0-37.0) g/dL RDW 14.3 (11.5-15.5) % Plt Count 313 (150-450) k/uL MPV 8.5 Absolute Nucleated RBC % Neutrophils % 84 % Lymphocytes % 8 % Monocytes % 5 % Eosinophils % 0 % Basophils % 1 % Neutrophils # 15.6 H (1.3-7.7) k/uL Lymphocytes # 1.5 (1.0-4.8) k/uL Monocytes # 0.9 (0-1.0) k/uL Eosinophils # 0.1 (0-0.7) k/uL Basophils # 0.1 (0-0.2) k/uL NRBC/100 WBC Diff (0.00-0.01) X 10*3/uL ESR (0-15) mm/hr PT 10.0 (9.0-12.0) sec INR 0.9 (<1.2) APTT 23.0 (22.0-30.0) sec Sodium 138 (137-145) mmol/L Potassium 4.1 (3.5-5.1) mmol/L Chloride 108 H (98-107) mmol/L Carbon Dioxide 21 L (22-30) mmol/L Anion Gap 9 mmol/L BUN 33 H (9-20) mg/dL Creatinine 0.97 (0.66-1.25) mg/dL Est GFR (CKD-EPI) (>=60) Est GFR (CKD-EPI)AfAm 88 (>60 ml/min/1.73 sqM) Est GFR (CKD-EPI)NonAf 76 (>60 ml/min/1.73 sqM) BUN/Creatinine Ratio (12.00-20.00) Ratio Glucose 208 H (74-99) mg/dL POC Glucose (mg/dL) (70-110) mg/dL POC Glu Administrative Liaison ID Plasma Lactic Acid Paco (0.7-2.0) mmol/L Calcium 10.1 (8.4-10.2) mg/dL Phosphorus 3.7 (2.5-4.5) mg/dL Magnesium 2.2 (1.6-2.3) mg/dL Total Bilirubin 0.7 (0.2-1.3) mg/dL AST 27 (17-59) U/L ALT 33 (4-49) U/L Alkaline Phosphatase 113 (38-126) U/L Troponin I (0.000-0.034) ng/mL C-Reactive Protein (<1.0) mg/dL Total Protein 6.5 (6.3-8.2) g/dL Albumin 3.6 (3.5-5.0) g/dL 12/29/22 12/29/22 12/29/22 Range/Units 20:19 20:19 20:19 WBC (3.8-10.6) k/uL RBC (4.30-5.90) m/uL Hgb (13.0-17.5) gm/dL Hct (39.0-53.0) % MCV (80.0-100.0) fL MCH (25.0-35.0) pg MCHC (31.0-37.0) g/dL RDW (11.5-15.5) % Plt Count (150-450) k/uL MPV Absolute Nucleated RBC % Neutrophils % % Lymphocytes % % Monocytes % % Eosinophils % % Basophils % % Neutrophils # (1.3-7.7) k/uL Lymphocytes # (1.0-4.8) k/uL Monocytes # (0-1.0) k/uL Eosinophils # (0-0.7) k/uL Basophils # (0-0.2) k/uL NRBC/100 WBC Diff (0.00-0.01) X 10*3/uL ESR (0-15) mm/hr PT (9.0-12.0) sec INR (<1.2) APTT (22.0-30.0) sec Sodium (137-145) mmol/L Potassium (3.5-5.1) mmol/L Chloride (98-107) mmol/L Carbon Dioxide (22-30) mmol/L Anion Gap mmol/L BUN (9-20) mg/dL Creatinine (0.66-1.25) mg/dL Est GFR (CKD-EPI) (>=60) Est GFR (CKD-EPI)AfAm (>60 ml/min/1.73 sqM) Est GFR (CKD-EPI)NonAf (>60 ml/min/1.73 sqM) BUN/Creatinine Ratio (12.00-20.00) Ratio Glucose (74-99) mg/dL POC Glucose (mg/dL) (70-110) mg/dL POC Glu Administrative Liaison ID Plasma Lactic Acid Paco 1.2 (0.7-2.0) mmol/L Calcium (8.4-10.2) mg/dL Phosphorus (2.5-4.5) mg/dL Magnesium (1.6-2.3) mg/dL Total Bilirubin (0.2-1.3) mg/dL AST (17-59) U/L ALT (4-49) U/L Alkaline Phosphatase (38-126) U/L Troponin I <0.012 (0.000-0.034) ng/mL C-Reactive Protein 2.3 H (<1.0) mg/dL Total Protein (6.3-8.2) g/dL Albumin (3.5-5.0) g/dL 12/30/22 12/30/22 12/30/22 Range/Units 00:03 07:15 07:15 WBC 17.5 H (3.8-10.6) k/uL RBC 5.96 H (4.30-5.90) m/uL Hgb 18.1 H (13.0-17.5) gm/dL Hct 57.4 H* (39.0-53.0) % MCV 96.3 (80.0-100.0) fL MCH 30.4 (25.0-35.0) pg MCHC 31.5 (31.0-37.0) g/dL RDW 14.3 (11.5-15.5) % Plt Count 290 (150-450) k/uL MPV 8.1 Absolute Nucleated RBC % Neutrophils % 86 % Lymphocytes % 8 % Monocytes % 5 % Eosinophils % 0 % Basophils % 0 % Neutrophils # 15.0 H (1.3-7.7) k/uL Lymphocytes # 1.4 (1.0-4.8) k/uL Monocytes # 0.8 (0-1.0) k/uL Eosinophils # 0.0 (0-0.7) k/uL Basophils # 0.1 (0-0.2) k/uL NRBC/100 WBC Diff (0.00-0.01) X 10*3/uL ESR 22 H (0-15) mm/hr PT (9.0-12.0) sec INR (<1.2) APTT (22.0-30.0) sec Sodium 138 (137-145) mmol/L Potassium 4.9 (3.5-5.1) mmol/L Chloride 110 H (98-107) mmol/L Carbon Dioxide 21 L (22-30) mmol/L Anion Gap 7 mmol/L BUN 28 H (9-20) mg/dL Creatinine 0.94 (0.66-1.25) mg/dL Est GFR (CKD-EPI) (>=60) Est GFR (CKD-EPI)AfAm >90 (>60 ml/min/1.73 sqM) Est GFR (CKD-EPI)NonAf 79 (>60 ml/min/1.73 sqM) BUN/Creatinine Ratio (12.00-20.00) Ratio Glucose 134 H (74-99) mg/dL POC Glucose (mg/dL) (70-110) mg/dL POC Glu Administrative Liaison ID Plasma Lactic Acid Paco (0.7-2.0) mmol/L Calcium 9.3 (8.4-10.2) mg/dL Phosphorus 3.6 (2.5-4.5) mg/dL Magnesium 2.1 (1.6-2.3) mg/dL Total Bilirubin 0.8 (0.2-1.3) mg/dL AST 24 (17-59) U/L ALT 26 (4-49) U/L Alkaline Phosphatase 86 (38-126) U/L Troponin I (0.000-0.034) ng/mL C-Reactive Protein (<1.0) mg/dL Total Protein 5.9 L (6.3-8.2) g/dL Albumin 3.2 L (3.5-5.0) g/dL 12/30/22 12/30/22 12/30/22 Range/Units 07:55 12:04 18:06 WBC (3.8-10.6) k/uL RBC (4.30-5.90) m/uL Hgb (13.0-17.5) gm/dL Hct (39.0-53.0) % MCV (80.0-100.0) fL MCH (25.0-35.0) pg MCHC (31.0-37.0) g/dL RDW (11.5-15.5) % Plt Count (150-450) k/uL MPV Absolute Nucleated RBC % Neutrophils % % Lymphocytes % % Monocytes % % Eosinophils % % Basophils % % Neutrophils # (1.3-7.7) k/uL Lymphocytes # (1.0-4.8) k/uL Monocytes # (0-1.0) k/uL Eosinophils # (0-0.7) k/uL Basophils # (0-0.2) k/uL NRBC/100 WBC Diff (0.00-0.01) X 10*3/uL ESR (0-15) mm/hr PT (9.0-12.0) sec INR (<1.2) APTT (22.0-30.0) sec Sodium (137-145) mmol/L Potassium (3.5-5.1) mmol/L Chloride (98-107) mmol/L Carbon Dioxide (22-30) mmol/L Anion Gap mmol/L BUN (9-20) mg/dL Creatinine (0.66-1.25) mg/dL Est GFR (CKD-EPI) (>=60) Est GFR (CKD-EPI)AfAm (>60 ml/min/1.73 sqM) Est GFR (CKD-EPI)NonAf (>60 ml/min/1.73 sqM) BUN/Creatinine Ratio (12.00-20.00) Ratio Glucose (74-99) mg/dL POC Glucose (mg/dL) 132 H 149 H 117 H (70-110) mg/dL POC Glu Administrative Liaison Hazel Fofana Sherry Gamble, Charissa Plasma Lactic Acid Paco (0.7-2.0) mmol/L Calcium (8.4-10.2) mg/dL Phosphorus (2.5-4.5) mg/dL Magnesium (1.6-2.3) mg/dL Total Bilirubin (0.2-1.3) mg/dL AST (17-59) U/L ALT (4-49) U/L Alkaline Phosphatase (38-126) U/L Troponin I (0.000-0.034) ng/mL C-Reactive Protein (<1.0) mg/dL Total Protein (6.3-8.2) g/dL Albumin (3.5-5.0) g/dL 12/30/22 12/30/22 12/31/22 Range/Units 19:37 20:19 05:41 WBC 16.85 H (3.8-10.6) k/uL RBC 6.02 H (4.30-5.90) m/uL Hgb 18.1 H (13.0-17.5) gm/dL Hct 55.6 H (39.0-53.0) % MCV 92.4 (80.0-100.0) fL MCH 30.1 (25.0-35.0) pg MCHC 32.6 (31.0-37.0) g/dL RDW 14.8 H (11.5-15.5) % Plt Count 281 (150-450) k/uL MPV 10.3 Absolute Nucleated RBC 0 % Neutrophils % % Lymphocytes % % Monocytes % % Eosinophils % % Basophils % % Neutrophils # (1.3-7.7) k/uL Lymphocytes # (1.0-4.8) k/uL Monocytes # (0-1.0) k/uL Eosinophils # (0-0.7) k/uL Basophils # (0-0.2) k/uL NRBC/100 WBC Diff 0 (0.00-0.01) X 10*3/uL ESR (0-15) mm/hr PT (9.0-12.0) sec INR (<1.2) APTT (22.0-30.0) sec Sodium (137-145) mmol/L Potassium (3.5-5.1) mmol/L Chloride (98-107) mmol/L Carbon Dioxide (22-30) mmol/L Anion Gap mmol/L BUN (9-20) mg/dL Creatinine (0.66-1.25) mg/dL Est GFR (CKD-EPI) (>=60) Est GFR (CKD-EPI)AfAm (>60 ml/min/1.73 sqM) Est GFR (CKD-EPI)NonAf (>60 ml/min/1.73 sqM) BUN/Creatinine Ratio (12.00-20.00) Ratio Glucose (74-99) mg/dL POC Glucose (mg/dL) 191 H (70-110) mg/dL POC Glu Administrative Liaison ID Zaira Garcia Plasma Lactic Acid Paco 1.0 (0.7-2.0) mmol/L Calcium (8.4-10.2) mg/dL Phosphorus (2.5-4.5) mg/dL Magnesium (1.6-2.3) mg/dL Total Bilirubin (0.2-1.3) mg/dL AST (17-59) U/L ALT (4-49) U/L Alkaline Phosphatase (38-126) U/L Troponin I (0.000-0.034) ng/mL C-Reactive Protein (<1.0) mg/dL Total Protein (6.3-8.2) g/dL Albumin (3.5-5.0) g/dL 12/31/22 12/31/22 12/31/22 Range/Units 05:41 06:03 11:54 WBC (3.8-10.6) k/uL RBC (4.30-5.90) m/uL Hgb (13.0-17.5) gm/dL Hct (39.0-53.0) % MCV (80.0-100.0) fL MCH (25.0-35.0) pg MCHC (31.0-37.0) g/dL RDW (11.5-15.5) % Plt Count (150-450) k/uL MPV Absolute Nucleated RBC % Neutrophils % % Lymphocytes % % Monocytes % % Eosinophils % % Basophils % % Neutrophils # (1.3-7.7) k/uL Lymphocytes # (1.0-4.8) k/uL Monocytes # (0-1.0) k/uL Eosinophils # (0-0.7) k/uL Basophils # (0-0.2) k/uL NRBC/100 WBC Diff (0.00-0.01) X 10*3/uL ESR (0-15) mm/hr PT (9.0-12.0) sec INR (<1.2) APTT (22.0-30.0) sec Sodium 137 (137-145) mmol/L Potassium 4.1 (3.5-5.1) mmol/L Chloride 107 (98-107) mmol/L Carbon Dioxide 17.5 L (22-30) mmol/L Anion Gap 12.50 H mmol/L BUN 22.0 (9-20) mg/dL Creatinine 0.9 (0.66-1.25) mg/dL Est GFR (CKD-EPI) 89 (>=60) Est GFR (CKD-EPI)AfAm (>60 ml/min/1.73 sqM) Est GFR (CKD-EPI)NonAf (>60 ml/min/1.73 sqM) BUN/Creatinine Ratio 24.44 H (12.00-20.00) Ratio Glucose 122 H (74-99) mg/dL POC Glucose (mg/dL) 114 H 123 H (70-110) mg/dL POC Glu Administrative Liaison aZira Hernandes Eliana Plasma Lactic Acid Paco (0.7-2.0) mmol/L Calcium 8.9 (8.4-10.2) mg/dL Phosphorus (2.5-4.5) mg/dL Magnesium (1.6-2.3) mg/dL Total Bilirubin (0.2-1.3) mg/dL AST (17-59) U/L ALT (4-49) U/L Alkaline Phosphatase (38-126) U/L Troponin I (0.000-0.034) ng/mL C-Reactive Protein 5.80 H (<1.0) mg/dL Total Protein (6.3-8.2) g/dL Albumin (3.5-5.0) g/dL 12/31/22 Range/Units 16:30 WBC (3.8-10.6) k/uL RBC (4.30-5.90) m/uL Hgb (13.0-17.5) gm/dL Hct (39.0-53.0) % MCV (80.0-100.0) fL MCH (25.0-35.0) pg MCHC (31.0-37.0) g/dL RDW (11.5-15.5) % Plt Count (150-450) k/uL MPV Absolute Nucleated RBC % Neutrophils % % Lymphocytes % % Monocytes % % Eosinophils % % Basophils % % Neutrophils # (1.3-7.7) k/uL Lymphocytes # (1.0-4.8) k/uL Monocytes # (0-1.0) k/uL Eosinophils # (0-0.7) k/uL Basophils # (0-0.2) k/uL NRBC/100 WBC Diff (0.00-0.01) X 10*3/uL ESR (0-15) mm/hr PT (9.0-12.0) sec INR (<1.2) APTT (22.0-30.0) sec Sodium (137-145) mmol/L Potassium (3.5-5.1) mmol/L Chloride (98-107) mmol/L Carbon Dioxide (22-30) mmol/L Anion Gap mmol/L BUN (9-20) mg/dL Creatinine (0.66-1.25) mg/dL Est GFR (CKD-EPI) (>=60) Est GFR (CKD-EPI)AfAm (>60 ml/min/1.73 sqM) Est GFR (CKD-EPI)NonAf (>60 ml/min/1.73 sqM) BUN/Creatinine Ratio (12.00-20.00) Ratio Glucose (74-99) mg/dL POC Glucose (mg/dL) 144 H (70-110) mg/dL POC Glu Administrative Liaison Elis Vincent Plasma Lactic Acid Paco (0.7-2.0) mmol/L Calcium (8.4-10.2) mg/dL Phosphorus (2.5-4.5) mg/dL Magnesium (1.6-2.3) mg/dL Total Bilirubin (0.2-1.3) mg/dL AST (17-59) U/L ALT (4-49) U/L Alkaline Phosphatase (38-126) U/L Troponin I (0.000-0.034) ng/mL C-Reactive Protein (<1.0) mg/dL Total Protein (6.3-8.2) g/dL Albumin (3.5-5.0) g/dL - EKG Data -: EKG Interpreted by Me (EKG sinus 78 VA 196 QRS 76 QTC 411) Disposition Clinical Impression: Right hip pain, Leg pain, Weakness, Leukocytosis, Polycythemia Disposition: ADMITTED IP TO THIS HOSP Condition: Fair Is patient prescribed a controlled substance at d/c from ED?: No Time of Disposition: 22:50
[2022-12-29 20:52] LABS: Basophils # (A) 0.1 k/uL (0-0.2); Basophils % (A) 1 %; Eosinophils # (A) 0.1 k/uL (0-0.7); Eosinophils % (A) 0 %; Lymphocytes # (A) 1.5 k/uL (1.0-4.8); Lymphocytes % (A) 8 %; MCH 30.8 pg (25.0-35.0); MCHC 32.5 g/dL (31.0-37.0); MCV 94.9 fL (80.0-100.0); Mean Platelet Volume 8.5; Monocytes # (A) 0.9 k/uL (0-1.0); Monocytes % (A) 5 %; Neutrophils # (A) 15.6 k/uL (1.3-7.7); Neutrophils % (A) 84 %; Platelet Count 313 k/uL (150-450); RBC 6.21 m/uL (4.30-5.90); RDW 14.3 % (11.5-15.5); WBC 18.5 k/uL (3.8-10.6)
[2022-12-29 20:54] LABS: HGB 19.1 gm/dL (13.0-17.5)
[2022-12-29 21:04] LABS: INR 0.9 (<1.2)
[2022-12-29 21:06] LABS: ALT 33 U/L (4-49); AST 27 U/L (17-59); African American GFR (CKD) 88 (>60 ml/min/1.73 sqM); Albumin 3.6 g/dL (3.5-5.0); Alkaline Phosphatase 113 U/L (38-126); Anion Gap 9 mmol/L; Blood Urea Nitrogen 33 mg/dL (9-20); Calcium 10.1 mg/dL (8.4-10.2); Carbon Dioxide 21 mmol/L (22-30); Chloride 108 mmol/L (98-107); Glucose 208 mg/dL (74-99); Magnesium 2.2 mg/dL (1.6-2.3); Non-African American GFR(CKD) 76 (>60 ml/min/1.73 sqM); Phosphorus 3.7 mg/dL (2.5-4.5); Potassium 4.1 mmol/L (3.5-5.1); Sodium 138 mmol/L (137-145); Total Bilirubin 0.7 mg/dL (0.2-1.3); Total Protein 6.5 g/dL (6.3-8.2)
[2022-12-29] MEDS ORDERED: ONDANSETRON 4 MG/2 ML VIAL IVP PRN (22:44)
[2022-12-29] MEDS ORDERED: NALOXONE 0.4 MG/ML 1 ML VIAL IV PRN (22:44)
[2022-12-29] MEDS: SODIUM CHLORIDE 0.9% 1,000 ML IV SCH (23:30)
[2022-12-30] MEDS: CALCIUM CARBONATE 500 MG CHEWABLE PO PRN ×3 (01:18→14:16)
[2022-12-30 07:44] LABS: Basophils # (A) 0.1 k/uL (0-0.2); Basophils % (A) 0 %; Eosinophils % (A) 0 %; HGB 18.1 gm/dL (13.0-17.5); Lymphocytes # (A) 1.4 k/uL (1.0-4.8); Lymphocytes % (A) 8 %; MCH 30.4 pg (25.0-35.0); MCHC 31.5 g/dL (31.0-37.0); MCV 96.3 fL (80.0-100.0); Mean Platelet Volume 8.1; Monocytes # (A) 0.8 k/uL (0-1.0); Monocytes % (A) 5 %; Neutrophils % (A) 86 %; Platelet Count 290 k/uL (150-450); RBC 5.96 m/uL (4.30-5.90); RDW 14.3 % (11.5-15.5); WBC 17.5 k/uL (3.8-10.6)
[2022-12-30 07:56] LABS: Glucose,Whole Blood 132 mg/dL (70-110)
[2022-12-30 08:11] LABS: ALT 26 U/L (4-49); AST 24 U/L (17-59); African American GFR (CKD) >90 (>60 ml/min/1.73 sqM); Albumin 3.2 g/dL (3.5-5.0); Alkaline Phosphatase 86 U/L (38-126); Anion Gap 7 mmol/L; Blood Urea Nitrogen 28 mg/dL (9-20); Calcium 9.3 mg/dL (8.4-10.2); Carbon Dioxide 21 mmol/L (22-30); Chloride 110 mmol/L (98-107); Glucose 134 mg/dL (74-99); Magnesium 2.1 mg/dL (1.6-2.3); Non-African American GFR(CKD) 79 (>60 ml/min/1.73 sqM); Phosphorus 3.6 mg/dL (2.5-4.5); Potassium 4.9 mmol/L (3.5-5.1); Sodium 138 mmol/L (137-145); Total Bilirubin 0.8 mg/dL (0.2-1.3); Total Protein 5.9 g/dL (6.3-8.2)
[2022-12-30] MEDS ORDERED: CYCLOBENZAPRINE 10 MG TAB PO PRN (08:37)
[2022-12-30] MEDS ORDERED: traZODone HCL 50 MG TAB PO PRN (08:37)
[2022-12-30] MEDS ORDERED: VANCOMYCIN IV PER PHARMACY 1 EACH MISC MISCELLANE PRN (08:40)
[2022-12-30 08:48] LABS: HCT 57.4 % (39.0-53.0)
[2022-12-30] MEDS: FERROUS SULFATE 325 MG TAB PO SCH (09:06)
[2022-12-30] MEDS: CHOLECALCIFEROL 25 MCG (1000 IU) TABLET PO SCH (09:06)
[2022-12-30] MEDS: amLODIPine 2.5 MG TAB PO SCH (09:06)
[2022-12-30] MEDS: carvediloL 6.25 MG TAB PO SCH ×2 (09:06→17:57)
[2022-12-30] MEDS: MORPHINE SULFATE 4 MG/ML SYRINGE IV PRN ×3 (09:07→22:21)
[2022-12-30] MEDS ORDERED: VANCOMYCIN 1,750 MG in SODIUM CHLORIDE 0.9% 500 ML 500 ML IVPB ONE (09:30)
[2022-12-30] MEDS ORDERED: DEXTROSE 50% SYRINGE 50 ML IVP PRN ×2 (09:33)
--- NOTE | 2022-12-30 10:40 | US ---
EXAMINATION TYPE: US venous doppler duplex LE RT DATE OF EXAM: 12/30/2022 10:34 AM COMPARISON: NONE CLINICAL INDICATION: Male, 77 years old with history of RLE swelling and pain; Pain right lateral thi gh. Edema right leg. no history of DVT. patient currently on blood thinner SIDE PERFORMED: right TECHNIQUE: The lower extremity deep venous system is examined utilizing real time linear array sonog clair with graded compression, doppler sonography and color-flow sonography. VESSELS IMAGED: Common Femoral Vein Deep Femoral Vein Greater Saphenous Vein * Femoral Vein Popliteal Vein Small Saphenous Vein * Proximal Calf Veins (* superficial vessels) Right Leg: no evidence of DVT as visualized IMPRESSION: 1. Right lower extremity ultrasound negative for deep venous thrombosis.
--- NOTE | 2022-12-30 11:27 | XR ---
EXAMINATION TYPE: XR Hip RT and AP Pelvis DATE OF EXAM: 12/30/2022 COMPARISON: None HISTORY: Right hip pain and swelling TECHNIQUE: 2 view right hip with AP pelvis FINDINGS: Femoral heads articulate with the acetabulum. Joint spaces appear preserved. No erosions ar e identified. Symphysis pubis and sacroiliac joints are normal. There may be some degenerative change at the right hip with femoral head spurring. IMPRESSION: 1. No acute osseous abnormality.
--- NOTE | 2022-12-30 11:32 | P.CNOR ---
History of Present Illness - HPI Consult date: 12/30/22 Consult reason: joint pain History of present illness: Patient is a pleasant 77-year-old male who seen and examined at bedside in the emergency room. Patient presents with a primary complaint of right hip pain and inability to ambulate on his right lower extremity. He says that about 10 days ago he had an injection in his right hip over his greater trochanter with Dr. Saad ashby. He has had this a number of times over the past several years. He says usually that does not give him any problems. He says however that a few days later started developing further pain at the right side of his right thigh and pain in his right hip. He presented to the emergency room on 12/26/2022 had evaluation and computed tomography scan. He is not having any fevers chills but he was having swelling and pain in his leg. He was started on antibiotics and the computed tomography scan did not show any evidence of fluid collection, abscess, or fracture. He was sent home with oral antibiotics and pain control. He was at home but felt that his symptoms were worsening. He was unable to put weight on his right lower extremity yesterday and presented to the emergency room. He says the swelling is somewhat better. He denied any erythema around the area. It is tender to palpation over his right lateral thigh. He denies any fevers or chills. Denies any changes in bowel bladder function. He says he has significant pain when he tries to move his hip. The pain is primarily at the right lateral thigh distal to the greater trochanter but proximal to his knee. He is not specifically having groin pain per se. His left leg is not giving him any problems. He is not having abdominal pain. He is not having fevers chills night sweats. He is not having nausea or vomiting. He denied any history of chest pain shortness of breath. Denies any history of blood clots. He has been on Xarelto for greater than 10 years due to his cardiac issues. He has had open heart surgery in the past. He denies any pr oblems with clotting or hemophilia. Review of Systems As stated per HPI. At his right leg pain is primarily lateral over his lateral thigh. There is swelling at the area. He denies specific pain in his groin. He denies numbness tingling in his ankle foot and toes. His left leg is doing well. Denies any changes about her function. Denies any nausea vomiting. Denies any chest pain shortness of breath denies any history of blood clots. He does take Xarelto for heart condition for many years. He has had open heart surgery in the past. Past Medical History Past Medical History: Atrial Fibrillation, Coronary Artery Disease (CAD), Diabetes Mellitus, Eye Disorder, GERD/Reflux, GI Bleed, Hypertension, Musculoskeletal Disorder, Pulmonary Embolus (PE), Sleep Apnea/CPAP/BIPAP, Syncope Additional Past Medical History / Comment(s): ANAL FISSURES, GLAUCOMA, KIDNEY STONES, uses CPAP, abd. aneurysm- monitoring, 3 syncope episodes in 2019 now resolved, chronic back & hip problems, peripheral pulmonary emboli after open heart surg. resulted in prolonged intubation, glaucoma, colon polyps History of Any Multi-Drug Resistant Organisms: None Reported Past Surgical History: Appendectomy, Coronary Bypass/CABG, Heart Catheterization With Stent Additional Past Surgical History / Comment(s): triple bypass August 2013. pain pr ocedures Past Anesthesia/Blood Transfusion Reactions: No Reported Reaction Additional Past Anesthesia/Blood Transfusion Reaction / Comm: difficulty coming off vent after open heart due to peripheral pulmonary emboli-spouse concerned related to anesthesia Date of Last Stent Placement:: 2013 Type of Cardiac Device: Loop Device Placement Date:: [employer] loop recorder now inactive placed in 2017 Past Psychological History: No Psychological Hx Reported Smoking Status: Former smoker Past Alcohol Use History: None Reported Past Drug Use History: None Reported - Past Family History Mother Family Medical History: Cancer Additional Family Medical History / Comment(s): uterine dies at 60 Father Family Medical History: Cancer Additional Family Medical History / Comment(s): kidney at 61 Medications and Allergies Home Medications Medication Instructions Recorded Confirmed Type Ferrous Sulfate [Iron (65 MG 325 mg PO DAILY 11/07/17 12/29/22 History Elemental)] Latanoprost Ophth [Xalatan 0.005%] 1 drops BOTH EYES HS 11/07/17 12/29/22 History carvediloL [Coreg] 6.25 mg PO BID 11/07/17 12/29/22 History Ubidecarenone [Co Q-10] 100 mg PO DAILY 07/15/18 12/29/22 History Rivaroxaban [Xarelto] 20 mg PO HS 05/26/19 12/29/22 History amLODIPine [Norvasc] 2.5 mg PO DAILY 05/26/19 12/29/22 History lisinopriL [Zestril] 20 mg PO BID 05/26/19 12/29/22 History HYDROcodone/APAP 7.5-325MG [[place] 1 tab PO Q6HR PRN 3 Days #12 tab 10/23/20 12/29/22 Rx 7.5-325] Empagliflozin [Jardiance] 25 mg PO DAILY 06/30/22 12/29/22 History Atorvastatin [Lipitor] 80 mg PO HS 12/29/22 12/29/22 History Brimonidine Tartrate [Alphagan P 1 drop BOTH EYES HS 12/29/22 12/29/22 History 0.2% Ophth Soln] Cetirizine HCl [Zyrtec] 10 mg PO DAILY 12/29/22 12/29/22 History Cholecalciferol [Vitamin D3 (25 50 mcg PO DAILY 12/29/22 12/29/22 History Mcg = 1000 Iu)] Cyclobenzaprine [Flexeril] 10 mg PO TID PRN 12/29/22 12/29/22 History Melatonin 10 mg PO HS 12/29/22 12/29/22 History Timolol 0.5% Ophth Soln [Timoptic 1 drop BOTH EYES HS 12/29/22 12/29/22 History 0.5% Ophth Soln] predniSONE [Deltasone] See Taper PO DIRECTED 12/29/22 12/29/22 History traZODone HCL [Desyrel] 50 mg PO HS PRN 12/29/22 12/29/22 History Allergies Allergy/AdvReac Type Severity Reaction Status Date / Time No Known Allergies Allergy Verified 12/29/22 22:55 Physical Examination Osteopathic Statement: *. No significant issues noted on an osteopathic structural exam other than those noted in the History and Physical/Consult. - Hip right Gait: other (Significant pain with moving his hip and unable to ambulate or put weight on his right leg. Pain is worse when he stands.) Tenderness with palpation: lateral (He is tender to palpation over his right lateral thigh over his tensor fascia lester. He is not specifically tender over his gluteus or over his groin. The medial thigh is nontender. His knee is nontender.) Pain with motion: other (He has pain with motion of his hip but the pain is primarily lateral. It is not groin pain per se. He does not have pain in his ankle foot and toes of motion. His left lower extremity is full active and passive range of motion. There is no erythema at his leg. There is diffuse swelling at his l) Results - Labs Labs: Abnormal Lab Results - Last 24 Hours (Table) 12/29/22 12/29/22 12/29/22 Range/Units 20:19 20:19 20:19 WBC 18.5 H (3.8-10.6) k/uL RBC 6.21 H (4.30-5.90) m/uL Hgb 19.1 H* (13.0-17.5) gm/dL Hct 59.0 H* (39.0-53.0) % Neutrophils # 15.6 H (1.3-7.7) k/uL ESR (0-15) mm/hr Chloride 108 H (98-107) mmol/L Carbon Dioxide 21 L (22-30) mmol/L BUN 33 H (9-20) mg/dL Glucose 208 H (74-99) mg/dL POC Glucose (mg/dL) (70-110) mg/dL C-Reactive Protein 2.3 H (<1.0) mg/dL Total Protein (6.3-8.2) g/dL Albumin (3.5-5.0) g/dL 12/30/22 12/30/22 12/30/22 Range/Units 00:03 07:15 07:15 WBC 17.5 H (3.8-10.6) k/uL RBC 5.96 H (4.30-5.90) m/uL Hgb 18.1 H (13.0-17.5) gm/dL Hct 57.4 H* (39.0-53.0) % Neutrophils # 15.0 H (1.3-7.7) k/uL ESR 22 H (0-15) mm/hr Chloride 110 H (98-107) mmol/L Carbon Dioxide 21 L (22-30) mmol/L BUN 28 H (9-20) mg/dL Glucose 134 H (74-99) mg/dL POC Glucose (mg/dL) (70-110) mg/dL C-Reactive Protein (<1.0) mg/dL Total Protein 5.9 L (6.3-8.2) g/dL Albumin 3.2 L (3.5-5.0) g/dL 12/30/22 Range/Units 07:55 WBC (3.8-10.6) k/uL RBC (4.30-5.90) m/uL Hgb (13.0-17.5) gm/dL Hct (39.0-53.0) % Neutrophils # (1.3-7.7) k/uL ESR (0-15) mm/hr Chloride (98-107) mmol/L Carbon Dioxide (22-30) mmol/L BUN (9-20) mg/dL Glucose (74-99) mg/dL POC Glucose (mg/dL) 132 H (70-110) mg/dL C-Reactive Protein (<1.0) mg/dL Total Protein (6.3-8.2) g/dL Albumin (3.5-5.0) g/dL H & H 12/29/22 12/30/22 Range/Units 20:19 07:15 Hgb 19.1 H* 18.1 H (13.0-17.5) gm/dL Hct 59.0 H* 57.4 H* (39.0-53.0) % Coagulation 12/29/22 Range/Units 20:19 INR 0.9 (<1.2) Result Diagrams: 12/30/22 07:15 12/30/22 07:15 - Diagnostic results Hip x-ray: image reviewed (Some diffuse degenerative change. No obvious fracture. No obvious bony erosion. There is a small cyst around his acetabulum which appears chronic and degenerative in nature) Hip CT: report reviewed (The head CT from 12/26 is reviewed and does not show any evidence of obvious fracture or fluid collection or abscess.), image reviewed Assessment and Plan Assessment: Right thigh pain Inability to ambulate Hemoglobin at 19 Recent history of right greater trochanter steroid injection Right thigh swelling Plan: Right thigh pain Inability to ambulate Hemoglobin at 19 Recent history of right greater trochanter steroid injection Right thigh swelling The patient is currently having significant issues his right lower extremity. He seemed to begin after an injection that he had an outpatient. He has had multiple injections at the area in the past without any significant problem but currently is having significant swelling and pain in his right lateral thigh. He has been treated on oral antibiotics over the past several days but has been having worsening of his symptoms. He is not having fevers or chills. He is not having erythema and his right thigh. It is difficult to say that this is infectious in nature but we certainly need to continue to rule out out. He may have a deeper space infectious process that was not seen initially on the CT a few days ago and I think that further imaging with MRI as necessary. We have ordered MRI of his right hip to evaluate the space more closely. If there is fluid collection we will have further recommendations on treatment or in tervention. We had ordered a duplex ultrasound of his thigh which was negative for DVT. The patient remains on Xarelto. The patient also has significant increased hemoglobin at 19 and hematocrit. He denies any other problems with hematology and medicine will try to rehydrate him and repeat labs to determine if further hematology intervention is necessary. I was able to speak with medicine doctor as well as. We should continue pain control and close monitoring. Medicine is working him up as well and we will have further and recommendations once the imaging with MRI scan complete Time with Patient: Greater than 30
[2022-12-30 12:12] LABS: Glucose,Whole Blood 149 mg/dL (70-110)
[2022-12-30] MEDS: INSULIN ASPART (NovoLOG) 100 UNIT/ML VIAL SQ SCH ×3 (12:17→21:54)
[2022-12-30] MEDS: SODIUM CHLORIDE 0.9% 1,000 ML IV SCH ×2 (12:18→14:13)
--- NOTE | 2022-12-30 13:24 | P.HPIM ---
History of Present Illness H&P Date: 12/30/22 Chief Complaint: Right hip cellulitis * 77-year-old gentleman with past medical history significant for hypertension, coronary artery disease, abdominal aortic aneurysm, diabetes mellitus, history of sleep apnea present to the emergency department with complaints of right hip pain, inability to ambulate. * Patient states about 10 days ago patient had an injection in his right hip over right greater trochanter. Patient is status post injection patient started to have right hip discomfort. He was in the emergency on 12/26/22 and had a computed tomography scan done. Patient was eventually discharged. He was noted to have worsening symptoms and decided to come to the emergency department * Workup in ER included right hip x-ray which was negative, venous ultrasound lower extremity was negative for DVT as well * Blood work reviewed showed CBC WBC count of 18.5 hemoglobin of 19.1 hematocrit 59 platelet count of 313 * Basic metabolic panel sodium 138 potassium 4.1 chloride 108 CO2 21 BUN 36 at 0.97 CRP of 2.3 * Patient was admitted to medical for started on broad-spectrum antibiotic with consultation from orthopedics as well as infectious disease REVIEW OF SYSTEMS: Right hip pain, tenderness, range of motion limited CONSTITUTIONAL: No fever, no malaise, no fatigue. HEENT: No recent visual problems or hearing problems. Denied any sore throat. CARDIOVASCULAR: No chest pain, orthopnea, PND, no palpitations, no syncope. PULMONARY: No shortness of breath, no cough, no hemoptysis. GASTROINTESTINAL: No diarrhea, no nausea, no vomiting, no abdominal pain. NEUROLOGICAL: No headaches, no weakness, no numbness. HEMATOLOGICAL: Denies any bleeding or petechiae. GENITOURINARY: Denies any burning micturition, frequency, or urgency. MUSCULOSKELETAL/RHEUMATOLOGICAL: Right hip pain ENDOCRINE: Denies any polyuria or polydipsia. The rest of the 14-point review of systems is negative. PHYSICAL EXAMINATION: GENERAL: The patient is alert and oriented x3, not in any acute distress. Well developed, well nourished. HEENT: Pupils are round and equally reacting to light. EOMI. No scleral icterus. No conjunctival pallor. Normocephalic, atraumatic. No pharyngeal erythema. No thyromegaly. CARDIOVASCULAR: S1 and S2 present. No murmurs, rubs, or gallops. PULMONARY: Chest is clear to auscultation, no wheezing or crackles. ABDOMEN: Soft, nontender, nondistended, normoactive bowel sounds. No palpable organomegaly. MUSCULOSKELETAL: Right hip swelling, pain, warmth, erythema tenderness and range of motion limited EXTREMITIES: No cyanosis, clubbing, or pedal edema. NEUROLOGICAL: Gross neurological examination did not reveal any focal deficits. SKIN: No rashes. Past Medical History Past Medical History: Atrial Fibrillation, Coronary Artery Disease (CAD), Diabetes Mellitus, Eye Disorder, GERD/Reflux, GI Bleed, Hypertension, Musculoskeletal Disorder, Pulmonary Embolus (PE), Sleep Apnea/CPAP/BIPAP, Synco pe Additional Past Medical History / Comment(s): ANAL FISSURES, GLAUCOMA, KIDNEY STONES, uses CPAP, abd. aneurysm- monitoring, 3 syncope episodes in 2019 now resolved, chronic back & hip problems, peripheral pulmonary emboli after open heart surg. resulted in prolonged intubation, glaucoma, colon polyps History of Any Multi-Drug Resistant Organisms: None Reported Past Surgical History: Appendectomy, Coronary Bypass/CABG, Heart Catheterization With Stent Additional Past Surgical History / Comment(s): triple bypass August 2013. pain procedures Past Anesthesia/Blood Transfusion Reactions: No Reported Reaction Additional Past Anesthesia/Blood Transfusion Reaction / Comment(s): difficulty coming off vent after open heart due to peripheral pulmonary emboli-spouse concerned related to anesthesia Date of Last Stent Placement:: 2013 Type of Cardiac Device: Loop Device Placement Date:: med[employer] loop recorder now inactive placed in 2017 Past Psychological History: No Psychological Hx Reported Smoking Status: Former smoker Past Alcohol Use History: None Reported Past Drug Use History: None Reported - Past Family History Mother Family Medical History: Cancer Additional Family Medical History / Comment(s): uterine dies at 60 Father Family Medical History: Cancer Additional Family Medical History / Comment(s): kidney at 61 Medications and Allergies Home Medications Medication Instructions Recorded Confirmed Type Ferrous Sulfate [Iron (65 MG 325 mg PO DAILY 11/07/17 12/29/22 History Elemental)] Latanoprost Ophth [Xalatan 0.005%] 1 drops BOTH EYES HS 11/07/17 12/29/22 History carvediloL [Coreg] 6.25 mg PO BID 11/07/17 12/29/22 History Ubidecarenone [Co Q-10] 100 mg PO DAILY 07/15/18 12/29/22 History Rivaroxaban [Xarelto] 20 mg PO HS 05/26/19 12/29/22 History amLODIPine [Norvasc] 2.5 mg PO DAILY 05/26/19 12/29/22 History lisinopriL [Zestril] 20 mg PO BID 05/26/19 12/29/22 History HYDROcodone/APAP 7.5-325MG [[place] 1 tab PO Q6HR PRN 3 Days #12 tab 10/23/20 12/29/22 Rx 7.5-325] Empagliflozin [Jardiance] 25 mg PO DAILY 06/30/22 12/29/22 History Atorvastatin [Lipitor] 80 mg PO HS 12/29/22 12/29/22 History Brimonidine Tartrate [Alphagan P 1 drop BOTH EYES HS 12/29/22 12/29/22 History 0.2% Ophth Soln] Cetirizine HCl [Zyrtec] 10 mg PO DAILY 12/29/22 12/29/22 History Cholecalciferol [Vitamin D3 (25 50 mcg PO DAILY 12/29/22 12/29/22 History Mcg = 1000 Iu)] Cyclobenzaprine [Flexeril] 10 mg PO TID PRN 12/29/22 12/29/22 History Melatonin 10 mg PO HS 12/29/22 12/29/22 History Timolol 0.5% Ophth Soln [Timoptic 1 drop BOTH EYES HS 12/29/22 12/29/22 History 0.5% Ophth Soln] predniSONE [Deltasone] See Taper PO DIRECTED 12/29/22 12/29/22 History traZODone HCL [Desyrel] 50 mg PO HS PRN 12/29/22 12/29/22 History Allergies Allergy/AdvReac Type Severity Reaction Status Date / Time No Known Allergies Allergy Verified 12/29/22 22:55 Physical Exam Vitals: Vital Signs Temp Pulse Pulse Resp BP BP Pulse Ox 12/30/22 08:10 97.6 F 109 H 18 159/128 96 12/30/22 05:30 92 18 131/101 96 12/29/22 19:28 98.2 F 112 H 20 132/92 96 Intake and Output 12/29/22 12/30/22 12/30/22 22:59 06:59 14:59 Output Total 225 Balance -225 Output: Urine 225 Other: # Voids 1 Weight 108.862 kg Results CBC & Chem 7: 12/30/22 07:15 12/30/22 07:15 Labs: Abnormal Lab Results - Last 24 Hours (Table) 12/29/22 12/29/22 12/29/22 Range/Units 20:19 20:19 20:19 WBC 18.5 H (3.8-10.6) k/uL RBC 6.21 H (4.30-5.90) m/uL Hgb 19.1 H* (13.0-17.5) gm/dL Hct 59.0 H* (39.0-53.0) % Neutrophils # 15.6 H (1.3-7.7) k/uL ESR (0-15) mm/hr Chloride 108 H (98-107) mmol/L Carbon Dioxide 21 L (22-30) mmol/L BUN 33 H (9-20) mg/dL Glucose 208 H (74-99) mg/dL POC Glucose (mg/dL) (70-110) mg/dL C-Reactive Protein 2.3 H (<1.0) mg/dL Total Protein (6.3-8.2) g/dL Albumin (3.5-5.0) g/dL 12/30/22 12/30/22 12/30/22 Range/Units 00:03 07:15 07:15 WBC 17.5 H (3.8-10.6) k/uL RBC 5.96 H (4.30-5.90) m/uL Hgb 18.1 H (13.0-17.5) gm/dL Hct 57.4 H* (39.0-53.0) % Neutrophils # 15.0 H (1.3-7.7) k/uL ESR 22 H (0-15) mm/hr Chloride 110 H (98-107) mmol/L Carbon Dioxide 21 L (22-30) mmol/L BUN 28 H (9-20) mg/dL Glucose 134 H (74-99) mg/dL POC Glucose (mg/dL) (70-110) mg/dL C-Reactive Protein (<1.0) mg/dL Total Protein 5.9 L (6.3-8.2) g/dL Albumin 3.2 L (3.5-5.0) g/dL 12/30/22 12/30/22 Range/Units 07:55 12:04 WBC (3.8-10.6) k/uL RBC (4.30-5.90) m/uL Hgb (13.0-17.5) gm/dL Hct (39.0-53.0) % Neutrophils # (1.3-7.7) k/uL ESR (0-15) mm/hr Chloride (98-107) mmol/L Carbon Dioxide (22-30) mmol/L BUN (9-20) mg/dL Glucose (74-99) mg/dL POC Glucose (mg/dL) 132 H 149 H (70-110) mg/dL C-Reactive Protein (<1.0) mg/dL Total Protein (6.3-8.2) g/dL Albumin (3.5-5.0) g/dL Assessment and Plan Assessment: Assessment and plan * Right hip cellulitis * Sepsis secondary to cellulitis * Coronary artery disease * History of atrial fibrillation * Diabetes mellitus type 2 * Hypertension * Abdominal aortic aneurysm * Elevated hemoglobin rule out polycythemia * Consult obtained from orthopedic and infectious disease * In regards to right hip cellulitis, x-ray negative, MRI right hip ordered. Continue Rocephin and vancomycin. Follow-up on blood cultures * In regards to history of coronary artery disease, continue metoprolol, Lipitor, Coreg, amlodipine * In regards to history of atrial fibrillation anticoagulation on hold in anticipation of intervention. Continue Lovenox for DVT prophylaxis. Continue Coreg * In regards to sepsis secondary to cellulitis, follow-up on CBC, continue fluid resuscitation follow-up on blood cultures * In regards to elevated hemoglobin continue to monitor hemoglobin and hematocrit post hydration. We'll follow-up on previous blood counts * CODE STATUS is full code
[2022-12-30] MEDS: LORATADINE 10 MG TAB PO SCH (13:58)
[2022-12-30 18:07] LABS: Glucose,Whole Blood 117 mg/dL (70-110)
[2022-12-30 20:20] LABS: Glucose,Whole Blood 191 mg/dL (70-110)
[2022-12-30] MEDS: LATANOPROST 0.005% OPHTH DROPS 2.5 ML BTL BOTH EYES SCH (21:50)
[2022-12-30] MEDS: BRIMONIDINE TARTRATE 0.2% DROPS 5 ML BTL BOTH EYES SCH (21:51)
[2022-12-30] MEDS: TIMOLOL 0.5% OPHTH DROPS 5 ML BTL BOTH EYES SCH (21:52)
[2022-12-30] MEDS: ATORVASTATIN 80 MG TAB PO SCH (21:53)
[2022-12-30] MEDS: MELATONIN 5 MG TABLET PO SCH (21:54)
--- NOTE | 2022-12-30 23:29 | P.CONS ---
History of Present Illness - Reason for Consult Consult date: 12/30/22 Leukocytosis , ?right hip septic arthritis Requesting physician: Augusta Loza - Chief Complaint Right hip pain x few days - History of Present Illness Patient is a 77-year-old male with a past medical history significant for severe osteoarthritis specially involving the right hip in this patient who did have a multiple steroid injection to the right hip area last 1 was about 10 days ago patient mention started having increasing pain to the right hip area wi th some radiation to the right thigh patient describes the pain to be sharp this is almost independent severity and did have difficulty walking because of the pain and also noted to have increasing swelling and pain to the right thigh area patient was evaluated in [facility] ER on 12/24/2022 with the patient did have a CT of the left lower extremity no acute fracture or dislocation skin thic kening with subcutaneous and fascial fat stranding and edema involving the lateral thigh from the hip to the knee correlate for cellulitis the patient was discharged home on oral Keflex however the patient did not have any improvement however worsening pain to the right hip and thigh area that brought the patient back to the hospital patient complaining of some chills but no fever has been recorded patient did have a white count of 18.5 with a left shift creatinine has been normal liver enzymes are normal CRP is 2.3 patient did have a venous Doppler that was negative for DVT patient was started on vancomycin and ceftriaxone infectious disease was consulted for further management of antibioti c therapy and MRI has been ordered and is currently pending Review of Systems Positive point has been mentioned in HPI rest of the systems are negative Past Medical History Past Medical History: Atrial Fibrillation, Coronary Artery Disease (CAD), Diabetes Mellitus, Eye Disorder, GERD/Reflux, GI Bleed, Hypertension, Musculoskeletal Disorder, Pulmonary Embolus (PE), Sleep Apnea/CPAP/BIPAP, Syncope Additional Past Medical History / Comment(s): ANAL FISSURES, GLAUCOMA, KIDNEY STONES, uses CPAP, abd. aneurysm- monitoring, 3 syncope episodes in 2019 now resolved, chronic back & hip problems, peripheral pulmonary emboli after open heart surg. resulted in prolonged intubation, glaucoma, colon polyps History of Any Multi-Drug Resistant Organisms: None Reported Past Surgical History: Appendectomy, Coronary Bypass/CABG, Heart Catheterization With Stent Additional Past Surgical History / Comment(s): triple bypass August 2013. pain procedures Past Anesthesia/Blood Transfusion Reactions: No Reported Reaction Additional Past Anesthesia/Blood Transfusion Reaction / Comm: difficulty coming off vent after open heart due to peripheral pulmonary emboli-spouse concerned related to anesthesia Date of Last Stent Placement:: 2013 Type of Cardiac Device: Loop Device Placement Date:: medtronic loop recorder now inactive placed in 2017 Past Psychological History: No Psychological Hx Reported Smoking Status: Former smoker Past Alcohol Use History: None Reported Past Drug Use History: None Reported - Past Family History Mother Family Medical History: Cancer Additional Family Medical History / Comment(s): uterine dies at 60 Father Family Medical History: Cancer Additional Family Medical History / Comment(s): kidney at 61 Medications and Allergies Home Medications Medication Instructions Recorded Confirmed Type Ferrous Sulfate [Iron (65 MG 325 mg PO DAILY 11/07/17 12/29/22 History Elemental)] Latanoprost Ophth [Xalatan 0.005%] 1 drops BOTH EYES HS 11/07/17 12/29/22 History Ubidecarenone [Co Q-10] 100 mg PO DAILY 07/15/18 12/29/22 History Rivaroxaban [Xarelto] 20 mg PO HS 05/26/19 12/29/22 History amLODIPine [Norvasc] 2.5 mg PO DAILY 05/26/19 12/29/22 History Empagliflozin [Jardiance] 25 mg PO DAILY 06/30/22 12/29/22 History Atorvastatin [Lipitor] 80 mg PO HS 12/29/22 12/29/22 History Brimonidine Tartrate [Alphagan P 1 drop BOTH EYES HS 12/29/22 12/29/22 History 0.2% Ophth Soln] Cetirizine HCl [Zyrtec] 10 mg PO DAILY 12/29/22 12/29/22 History Cholecalciferol [Vitamin D3 (25 50 mcg PO DAILY 12/29/22 12/29/22 History Mcg = 1000 Iu)] Cyclobenzaprine [Flexeril] 10 mg PO TID PRN 12/29/22 12/29/22 History Melatonin 10 mg PO HS 12/29/22 12/29/22 History Timolol 0.5% Ophth Soln [Timoptic 1 drop BOTH EYES HS 12/29/22 12/29/22 History 0.5% Ophth Soln] traZODone HCL [Desyrel] 50 mg PO HS PRN 12/29/22 12/29/22 History Calcium Carbonate [Tums] 500 mg PO TID PRN tab 01/08/23 Rx HYDROcodone/APAP 7.5-325MG [[place] 1 tab PO Q6HR PRN #9 tab 01/08/23 Rx 7.5-325] Nystatin [Nystatin Oral Susp] 5 ml PO Q6HR #140 ml 01/08/23 Rx Simethicone Chew [Mylicon Chew] 80 mg PO QID 30 Days #120 tab 01/08/23 Rx carvediloL [Coreg*] 12.5 mg PO BID-W/MEALS #60 tab 01/08/23 Rx polyethylene glycoL 3350 [Miralax] 17 gm PO DAILY PRN #30 packet 01/08/23 Rx Allergies Allergy/AdvReac Type Severity Reaction Status Date / Time No Known Allergies Allergy Verified 12/29/22 22:55 Physical Exam Vitals: Vital Signs Temp Pulse Pulse Resp BP BP Pulse Ox 12/30/22 08:10 97.6 F 109 H 18 159/128 96 12/30/22 05:30 92 18 131/101 96 12/29/22 19:28 98.2 F 112 H 20 132/92 96 Intake and Output 12/30/22 12/30/22 12/30/22 06:59 14:59 22:59 Intake Total 90 Output Total 525 Balance -435 Intake: Oral 90 Output: Urine 525 Other: # Voids 1 GENERAL DESCRIPTION: Elderly female lying in bed, no distress. No tachypnea or accessory muscle of respiration use. HEENT: Shows Pallor , no scleral icterus. NECK: Trachea central, no thyromegaly. LUNGS: Unlabored breathing. Clear to auscultation anteriorly. HEART: S1, S2, regular rate and rhythm. ABDOMEN: Soft, no tenderness , guarding or rigidity EXTREMITIES: Right hip pain no swelling or redness SKIN: No rash, no masses palpable. NEUROLOGICAL: The patient is awake, alert, oriented x3, mood and affect normal. Results CBC & Chem 7: 01/08/23 07:01 01/08/23 07:01 Labs: Abnormal Lab Results - Last 24 Hours (Table) 12/29/22 12/29/22 12/29/22 Range/Units 20:19 20:19 20:19 WBC 18.5 H (3.8-10.6) k/uL RBC 6.21 H (4.30-5.90) m/uL Hgb 19.1 H* (13.0-17.5) gm/dL Hct 59.0 H* (39.0-53.0) % Neutrophils # 15.6 H (1.3-7.7) k/uL ESR (0-15) mm/hr Chloride 108 H (98-107) mmol/L Carbon Dioxide 21 L (22-30) mmol/L BUN 33 H (9-20) mg/dL Glucose 208 H (74-99) mg/dL POC Glucose (mg/dL) (70-110) mg/dL C-Reactive Protein 2.3 H (<1.0) mg/dL Total Protein (6.3-8.2) g/dL Albumin (3.5-5.0) g/dL 12/30/22 12/30/22 12/30/22 Range/Units 00:03 07:15 07:15 WBC 17.5 H (3.8-10.6) k/uL RBC 5.96 H (4.30-5.90) m/uL Hgb 18.1 H (13.0-17.5) gm/dL Hct 57.4 H* (39.0-53.0) % Neutrophils # 15.0 H (1.3-7.7) k/uL ESR 22 H (0-15) mm/hr Chloride 110 H (98-107) mmol/L Carbon Dioxide 21 L (22-30) mmol/L BUN 28 H (9-20) mg/dL Glucose 134 H (74-99) mg/dL POC Glucose (mg/dL) (70-110) mg/dL C-Reactive Protein (<1.0) mg/dL Total Protein 5.9 L (6.3-8.2) g/dL Albumin 3.2 L (3.5-5.0) g/dL 12/30/22 12/30/22 Range/Units 07:55 12:04 WBC (3.8-10.6) k/uL RBC (4.30-5.90) m/uL Hgb (13.0-17.5) gm/dL Hct (39.0-53.0) % Neutrophils # (1.3-7.7) k/uL ESR (0-15) mm/hr Chloride (98-107) mmol/L Carbon Dioxide (22-30) mmol/L BUN (9-20) mg/dL Glucose (74-99) mg/dL POC Glucose (mg/dL) 132 H 149 H (70-110) mg/dL C-Reactive Protein (<1.0) mg/dL Total Protein (6.3-8.2) g/dL Albumin (3.5-5.0) g/dL Assessment and Plan (1) Leukocytosis Status: Acute Priority: High Code(s): D72.829 - ELEVATED WHITE BLOOD CELL COUNT, UNSPECIFIED SNOMED Code(s): 033523121 Plan: 1patient was in the hospital with a right hip thigh area pain that has been g oing on for since his last injection to the right hip for severe osteoarthritis patient did have a CT of the right lower extremity on 12/24/2022 we did show some fat stranding along the fascial lines from hip to the knee area which is swollen and indurated but no redness concerning for cellulitis failing outpatient oral Keflex therapy 2-we will wait for the MRI of the right hip and thigh area to make sure no evidence of any abscess that may need to be drained 3-patient to continue with the vancomycin and Rocephin while awaiting further work-up to be completed 4-check inflammatory markers We will follow on clinical condition and cultures to further adjust medication if needed Thank you for this consultation we will follow the patient along with you Dictation was produced using [email or web address] dictation software. please excuse any grammatical, word or spelling errors. Time with Patient: Greater than 30
[2022-12-31] MEDS: SODIUM CHLORIDE 0.9% 1,000 ML IV SCH ×4 (00:08→22:28)
[2022-12-31] MEDS: VANCOMYCIN 1,750 MG in SODIUM CHLORIDE 0.9% 500 ML 500 ML IVPB SCH ×2 (00:50→16:11)
[2022-12-31 06:05] LABS: Glucose,Whole Blood 114 mg/dL (70-110)
[2022-12-31] MEDS: MORPHINE SULFATE 4 MG/ML SYRINGE IV PRN ×3 (06:26→16:06)
[2022-12-31] MEDS: INSULIN ASPART (NovoLOG) 100 UNIT/ML VIAL SQ SCH ×4 (07:10→22:29)
[2022-12-31] MEDS ORDERED: ENOXAPARIN 40 MG/0.4 ML SYRINGE SQ SCH (09:00)
[2022-12-31] MEDS: carvediloL 6.25 MG TAB PO SCH ×2 (09:19→18:04)
[2022-12-31] MEDS: amLODIPine 2.5 MG TAB PO SCH (09:19)
[2022-12-31] MEDS: CHOLECALCIFEROL 25 MCG (1000 IU) TABLET PO SCH (09:19)
[2022-12-31] MEDS: LORATADINE 10 MG TAB PO SCH (09:19)
[2022-12-31] MEDS: FERROUS SULFATE 325 MG TAB PO SCH (09:19)
[2022-12-31 09:27] LABS: HCT 55.6 % (39.6-50.0); HGB 18.1 d/dL (13.0-17.0); MCH 30.1 pg (27.0-32.0); MCHC 32.6 d/dL (32.0-37.0); MCV 92.4 FL (80.0-97.0); Mean Platelet Volume 10.3 FL (9.5-12.2); NRBC Per 100 WBC 0 X 10*3/uL (0.00-0.01); Platelet Count 281 X 10*3/uL (140-440); RBC 6.02 X 10*6/uL (4.40-5.60); RDW 14.8 % (11.5-14.5); WBC 16.85 X 10*3/uL (4.50-10.00)
[2022-12-31 09:37] LABS: BUN/Creat Ratio 24.44 Ratio (12.00-20.00); Calcium 8.9 mg/dL (8.7-10.3); Carbon Dioxide 17.5 mmol/L (21.6-31.8); Chloride 107 mmol/L (96-109); Glucose 122 mg/dL (70-110); Potassium 4.1 mmol/L (3.5-5.5); Sodium 137 mmol/L (135-145)
--- NOTE | 2022-12-31 11:39 | US ---
EXAMINATION TYPE: US venous doppler duplex UE DATE OF EXAM: 12/31/2022 COMPARISON: NONE CLINICAL INDICATION: Male, 77 years old with history of DVT; Arm pain bilaterally from elbow to hands . SIDE PERFORMED: Bilateral IJV, subclavian, axillary, brachial, basilic, cephalic, radial and ulnar veins interrogated. Right Arm: Negative for DVT Left Arm: Negative for DVT There is superficial thrombus seen in cephalic vein at level of IV, There is no flow noted at IV site . IMPRESSION: 1. Left and right upper extremity deep venous ultrasound negative for thrombosis. 2. Superficial thrombus within the left cephalic vein.
[2022-12-31 11:56] LABS: Glucose,Whole Blood 123 mg/dL (70-110)
--- NOTE | 2022-12-31 12:07 | P.PN ---
Subjective Progress Note Date: 12/31/22 * 77-year-old gentleman with past medical history significant for hypertension, coronary artery disease, abdominal aortic aneurysm, diabetes mellitus, history of sleep apnea present to the emergency department with complaints of right hip pain, inability to ambulate. * Patient states about 10 days ago patient had an injection in his right hip over right greater trochanter. Patient is status post injection patient started to have right hip discomfort. He was in the emergency on 12/26/22 and had a computed tomography scan done. Patient was eventually discharged. He was noted to have worsening symptoms and decided to come to the emergency department * Workup in ER included right hip x-ray which was negative, venous ultrasound lower extremity was negative for DVT as well * Blood work reviewed showed CBC WBC count of 18.5 hemoglobin of 19.1 hematocrit 59 platelet count of 313 * Basic metabolic panel sodium 138 potassium 4.1 chloride 108 CO2 21 BUN 36 at 0.97 CRP of 2.3 * Patient was admitted to medical for started on broad-spectrum antibiotic with consultation from orthopedics as well as infectious disease * 12/31>> patient seen and evaluated bedside, hospital day one. Patient complained of bilateral forearm pain. Left forearm IV infiltration noted. Venous ultrasound shows cephalic vein thrombophlebitis. MRI right hip completed patient seen by orthopedic continue IV antibiotic. Order to have elevated hemoglobin hence hematology consulted Objective - Vital Signs Vital signs: Vital Signs Temp 98.2 F 12/30/22 20:00 Pulse 89 12/30/22 20:00 Resp 17 12/30/22 20:00 BP 142/92 12/30/22 20:00 Pulse Ox 95 12/30/22 20:00 FiO2 Intake & Output 12/30/22 12/30/22 12/31/22 06:59 18:59 06:59 Intake Total 90 Output Total 1125 Balance -1035 Weight 108.862 kg 108.862 kg Intake: Oral 90 Output: Urine 1125 Other: # Voids 2 - Exam PHYSICAL EXAMINATION: GENERAL: The patient is alert and oriented x3, not in any acute distress. Well developed, well nourished. HEENT: Pupils are round and equally reacting to light. EOMI. No scleral icterus. No conjunctival pallor. Normocephalic, atraumatic. No pharyngeal erythema. No thyromegaly. CARDIOVASCULAR: S1 and S2 present. No murmurs, rubs, or gallops. PULMONARY: Chest is clear to auscultation, no wheezing or crackles. ABDOMEN: Soft, nontender, nondistended, normoactive bowel sounds. No palpable organomegaly. MUSCULOSKELETAL: Right hip swelling, pain, warmth, erythema tenderness and range of motion limited Left forearm and right forearm swelling noted EXTREMITIES: No cyanosis, clubbing, or pedal edema. NEUROLOGICAL: Gross neurological examination did not reveal any focal deficits. SKIN: No rashes. - Labs CBC & Chem 7: 12/31/22 05:41 12/31/22 05:41 Labs: Abnormal Lab Results - Last 24 Hours (Table) 12/30/22 12/30/22 12/30/22 Range/Units 07:15 07:15 07:55 WBC 17.5 H (3.8-10.6) k/uL RBC 5.96 H (4.30-5.90) m/uL Hgb 18.1 H (13.0-17.5) gm/dL Hct 57.4 H* (39.0-53.0) % Neutrophils # 15.0 H (1.3-7.7) k/uL Chloride 110 H (98-107) mmol/L Carbon Dioxide 21 L (22-30) mmol/L BUN 28 H (9-20) mg/dL Glucose 134 H (74-99) mg/dL POC Glucose (mg/dL) 132 H (70-110) mg/dL Total Protein 5.9 L (6.3-8.2) g/dL Albumin 3.2 L (3.5-5.0) g/dL 12/30/22 12/30/22 12/30/22 Range/Units 12:04 18:06 20:19 WBC (3.8-10.6) k/uL RBC (4.30-5.90) m/uL Hgb (13.0-17.5) gm/dL Hct (39.0-53.0) % Neutrophils # (1.3-7.7) k/uL Chloride (98-107) mmol/L Carbon Dioxide (22-30) mmol/L BUN (9-20) mg/dL Glucose (74-99) mg/dL POC Glucose (mg/dL) 149 H 117 H 191 H (70-110) mg/dL Total Protein (6.3-8.2) g/dL Albumin (3.5-5.0) g/dL Assessment and Plan Assessment: Assessment and plan * Right hip cellulitis * Sepsis secondary to cellulitis * Left cephalic with thrombophlebitis from IV * Coronary artery disease * History of atrial fibrillation * Diabetes mellitus type 2 * Hypertension * Abdominal aortic aneurysm * Elevated hemoglobin rule out polycythemia * Consult obtained from orthopedic and infectious disease * In regards to right hip cellulitis, x-ray negative, MRI right hip completed . Continue Rocephin and vancomycin Day 2 . Follow-up on blood cultures * In regards to history of coronary artery disease, continue metoprolol, Lipitor, Coreg, amlodipine * In regards to history of atrial fibrillation anticoagulation on hold in anticipation of intervention. Continue Lovenox for DVT prophylaxis. Continue Coreg. Discussed with ORTHO not planning intervention hence the daughter can be resumed by 01/01 * In regards to sepsis secondary to cellulitis, follow-up on CBC, continue fluid resuscitation follow-up on blood cultures * In regards to elevated hemoglobin, suspect polycythemia requested hematology evaluation * Venous ultrasound bilateral upper shoulder negative for DVT * CODE STATUS is full code
--- NOTE | 2022-12-31 12:15 | P.PCN ---
Date of Procedure: 12/31/22 Preoperative Diagnosis: Left thigh hematoma Postoperative Diagnosis: Same Anesthesia: none Pathology: other (Left thigh hematoma aspiration, subcutaneous sent to microbiology) Condition: stable Description of Procedure: Patient was evaluated bedside and I had reviewed the MRI of his hip from yesterday. There is no official reading from the MRI. It seemed to show a collection of fluid at subcu space outside the muscle. It did not appear to involve the joint itself. I felt that the fluid could be new blood as he had a recent injection and is on blood thinners. The patient was not having any significant fevers. He is not having any erythema. I felt that obtaining fluid culture could potentially help with diagnostics and potentially is some therapeutic relief. I discussed this with patient and his at bedside. We decided proceed with aspiration of the left thigh fluid at bedside. I was able to isolate the area and clean and dry and prepped the area sterilely. I used 18-gauge needle and a 30 mL syringe and was able to enter into the fluid collection. I did aspiration of the area. There is no purulence there is no pus. There was some watery blood approximately 10 mL. There is no evidence of any infectious fluid. The patient tolerated the procedure well. I was able to take cultures of the fluid and send it for medical biology. At this point we'll wait on the cultures and continue with conservative treatment for what is presumed to be a hematoma at his right thigh. We discussed the possibility of conservative treatment versus the possibility of surgical intervention with irrigation and debridement. We will not plan for surgical intervention today. It is okay for him to have regular diet. We will see how the cultures turned out and continue to monitor him clinically for further recommendations. He is also currently being treated and worked up for his polycythemia with medicine.
--- NOTE | 2022-12-31 12:26 | P.PN ---
Progress Note - Text Progress Note Date: 12/31/22 The patient is seen and examined at bedside. His said bedside with him. This morning's complaining of soreness in his bilateral upper extremities and stiffness in his wrist and hands. Medicine was in the room as well to evaluate him. We felt that he was having troubles with the IVs and possible infiltration as well. His function is hands was still intact. The patient overall has general malaise. He still has pain in his right thigh although he says that the pain is somewhat better today. He says he is able to move his leg somewhat better but still has significant pain when he tries to mobilize. Remains afebrile and his right thigh there is no erythema there is no cellulitis . 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 It is somewhat softer today than it was yesterday. There does not seem to be any expansion of the induration. He is able to move his knee slightly and this ankle or foot better today. He still has pain with active motion in his right hip. His upper extremities his has diffuse swelling in his bilateral hands and wrists. There is no erythema. He is able to make a light fist but has stiffness in his hands bilaterally. Sensation is intact. There is no focal deficit. His hemoglobin is 18 with increased white count and hematocrit The hip MRI was done yesterday. There is no official report I was able to review the images which show fluid collection at the subcutaneous space outside the muscular layers. There is no involvement of the hip joint itself. Assessment and plan Right thigh pain with fluid collection, presumed hematoma status post trochanteric bursa injection. On chronic blood thinners which have been held Polycythemia uncertain etiology Bilateral upper extremity and the soreness possibly due to infiltrated IV Inability to ambulate due to right thigh pain The patient seems to have significant fluid collection at the subcutaneous space and his right thigh. It does not clinically appear to be infected as his skin is not having erythema cellulitis or expansion. It seems to be hematoma which is causing tension and pain for him. I had bedside today I performed a aspiration of the hematoma and it seemed to be bloody fluid. There is no purulence there is no pus. I sent it for culture for further determination. We discussed the possibility of conservative management versus possibly surgical intervention. We are still waiting to see the official report for the hip MRI. The pain seems to be slightly subsiding in his right thigh and we will monitor it again tonight for close reevaluation. The patient's labs continue to be elevated with his hemoglobin and hematocrit. Hematology, she has been counseled. Medicine is managing. The hematocrit crit does not seem to be normalizing despite hydration and he will obtain further workup. I long discussion with him and his at bedside about these various issues and we will keep him abreast of further recommendations as the workup continues.
[2022-12-31] MEDS: polyethylene glycoL 3350 17 GM POWD.PACK PO PRN (16:06)
[2022-12-31 16:33] LABS: Glucose,Whole Blood 144 mg/dL (70-110)
--- NOTE | 2022-12-31 17:49 | P.PN ---
Subjective Progress Note Date: 12/31/22 Principal diagnosis: Right thigh hematoma and leukocytosis Patient is a 77-year-old male with a past medical history significant for severe osteoarthritis specially requiring the right hip in this patient who did have a multiple steroid injection to the right hip area last 1 was about 10 days ago patient mention started having increasing pain to the right hip area with some radiation to the right thigh patient did have a CT of the left lower extremity no acute fracture or dislocation skin thickening with subcutaneous and fascial fat stranding and edema involving the lateral thigh from the hip to the knee, patient was a hospital with worsening pain did have an MRI and a bedside aspiration of the area mostly blood stained. On today's evaluation that is12/31/2022, the patient continues to be afebrile, the patient is breathing comfortably and denies any shortness of breath no chest pain or cough, the patient denies having any nausea and vomiting no abdominal p ain and no diarrhea, the patient's recommending of pain into the right lateral thigh area but no worsening Patient did have a white count of 16.85, creatinine 0.9, CRP is 5.80 Objective - Vital Signs Vital signs: Vital Signs Temp 98.5 F 12/31/22 07:19 Pulse 97 12/31/22 08:45 Resp 17 12/31/22 08:45 BP 173/112 12/31/22 07:19 Pulse Ox 95 12/31/22 07:19 FiO2 Intake & Output 12/30/22 12/31/22 12/31/22 18:59 06:59 18:59 Intake Total 90 Output Total 1125 950 220 Balance -1035 -950 -220 Weight 108.862 kg Intake: Oral 90 Output: Urine 1125 950 220 Other: # Voids 2 - Exam GENERAL DESCRIPTION: An elderly male lying in bed in no distress RESPIRATORY SYSTEM: Unlabored breathing , decreased breath sounds at bases HEART: S1 S2 regular rate and rhythm , ABDOMEN: Soft , no tenderness EXTREMITIES: No edema feet - Labs CBC & Chem 7: 12/31/22 05:41 12/31/22 05:41 Labs: Abnormal Lab Results - Last 24 Hours (Table) 12/30/22 12/30/22 12/31/22 Range/Units 18:06 20:19 05:41 WBC 16.85 H (4.50-10.00) X 10*3/uL RBC 6.02 H (4.40-5.60) X 10*6/uL Hgb 18.1 H (13.0-17.0) d/dL Hct 55.6 H (39.6-50.0) % RDW 14.8 H (11.5-14.5) % Carbon Dioxide (21.6-31.8) mmol/L Anion Gap (4.00-12.00) mmol/L BUN/Creatinine Ratio (12.00-20.00) Ratio Glucose (70-110) mg/dL POC Glucose (mg/dL) 117 H 191 H (70-110) mg/dL C-Reactive Protein (0.00-0.80) mg/dL 12/31/22 12/31/22 12/31/22 Range/Units 05:41 06:03 11:54 WBC (4.50-10.00) X 10*3/uL RBC (4.40-5.60) X 10*6/uL Hgb (13.0-17.0) d/dL Hct (39.6-50.0) % RDW (11.5-14.5) % Carbon Dioxide 17.5 L (21.6-31.8) mmol/L Anion Gap 12.50 H (4.00-12.00) mmol/L BUN/Creatinine Ratio 24.44 H (12.00-20.00) Ratio Glucose 122 H (70-110) mg/dL POC Glucose (mg/dL) 114 H 123 H (70-110) mg/dL C-Reactive Protein 5.80 H (0.00-0.80) mg/dL Assessment and Plan (1) Hematoma of right thigh Current Visit: Yes Status: Acute Code(s): S70.11XA - CONTUSION OF RIGHT T HIGH, INITIAL ENCOUNTER SNOMED Code(s): 96730689304066740 (2) Leukocytosis Current Visit: Yes Status: Acute Code(s): D72.829 - ELEVATED WHITE BLOOD CELL COUNT, UNSPECIFIED SNOMED Code(s): 133268797 Plan: 1patient was in the hospital with a right hip thigh area pain that has been going on for since his last injection to the right hip for severe osteoarthritis patient did have a CT of the right lower extremity on 12/24/2022 we did show some fat stranding along the fascial lines from hip to the knee area which is swollen and indurated but no redness concerning for cellulitis failing outpatient oral Keflex therapy 2-patient did have MRI of the right hip and thigh official report is pending however the patient did have aspiration of the area by orthopedic and was mostly blood 3-patient to continue with the vancomycin and Rocephin while awaiting cultures to be finalize Dictation was produced using [employer] dictation software. please excuse any grammatical, word or spelling errors. Time with Patient: Less than 30
[2022-12-31] MEDS: CALCIUM CARBONATE 500 MG CHEWABLE PO PRN (18:47)
--- NOTE | 2022-12-31 18:49 | MR ---
EXAMINATION TYPE: MR hip RT wo/w con DATE OF EXAM: 12/30/2022 COMPARISON: Radiograph same day HISTORY: 77-year-old male Right hip pain, swelling. Evaluate for infection. Technique: Multiplanar, multisequence images of the right hip were obtained before and after administ ration of 11 mL intravenous Gadavist gadolinium contrast. FINDINGS: There is [id number] bilateral hip OA. No significant hip joint effusion or periarticular osseou s edema. No hip fracture or AVN. SI joints and sacrum appear intact. Osteitis pubis. Mild heterogeneous marrow signal suggesting red marrow hyperplasia. However, there is extensive muscular edema about the lower right hip and visualized right thigh inclu ding the right adductor musculature. There is a small effusion within the right iliopsoas bursa that shows peripheral enhancement and adjacent muscular edema. There is a larger fluid collection located along the superficial fascia of the upper lateral quadrice ps musculature which extends down beyond the field of view measuring well over 17 cm long (again, inc ompletely included in the [id number]). Collection measures 8.7 cm AP by up to 2.8 cm thick. Scallo ped margins show mass effect onto the underlying musculature. Associated peripheral rim enhancement a nd adjacent muscular enhancement. The rectus femoris and hamstring origins as well as the iliopsoas and gluteal insertions appear intac t. Prostate gland measures 6.0 cm wide. Sigmoid diverticulosis. IMPRESSION: 1. Peripherally enhancing fluid collection partially visualized along the superficial fascia of the u pper lateral quadriceps musculature. This is only partially visualized measuring well over 17 cm long , extending down beyond the field of view. It measures 8.7 cm AP by 2.8 cm thick. There is extensive underlying muscle edema and muscle enhancement as well suggesting abscess with contiguous myositis. 2. Small to moderate iliopsoas bursitis also shows enhancement. This could represent an infectious bu rsitis. 3. Mild to moderate bilateral hip OA. No specific findings to suggest septic arthritis.
--- NOTE | 2022-12-31 18:52 | P.CONS ---
History of Present Illness - Reason for Consult Consult date: 12/31/22 polycythemia Requesting physician: Tiffanie Tejada - Chief Complaint right hip pain - History of Present Illness Patient is a 77-year-old male with a significant history of CABG in 2013 and atrial fibrillation anticoagulated with Xarelto. Patient presented to the emergency room with complaints of right hip pain and difficulties ambulating. Patient received right hip steroid injection 10 days ago and reports he has been experiencing increasing tenderness and pain in right hip and right thigh with associated swelling. Denies erythema and warmth to area. Denies fever and chills. Upon admission Doppler of right lower extremity was negative for DVT. Patient began complaining of bilateral upper extremity swelling today. Bilateral upper extremity Dopplers negative for DVT. Ortho following, Right hip drained today, wound culture pending. Pt has been started on vanco and rocephin. Right hip MRI pending Upon admission hemoglobin was noted at 19.1 with hematocrit of 59. Today CBC revealed hemoglobin 18.1 and hct 55.6. Patient continues on IV hydration. Patient denies chest pain, shortness of breath, dizziness. Denies pruritus. Patient denies any known history of hematological disorders. Upon trending labs hemoglobin was in the 14-16 range in 2019. Patient reports a long history of nicotine dependence but quit smoking approximately 10 years ago. He is on no hormonal replacement therapy. SPO2 95% on RA. Review of Systems 10 point ROS is negative except as stated in the HPI Past Medical History Past Medical History: Atrial Fibrillation, Coronary Artery Disease (CAD), Diabetes Mellitus, Eye Disorder, GERD/Reflux, GI Bleed, Hypertension, Musculoskeletal Disorder, Pulmonary Embolus (PE), Sleep Apnea/CPAP/BIPAP, Syncope Additional Past Medical History / Comment(s): ANAL FISSURES, GLAUCOMA, KIDNEY STONES, uses CPAP, abd. aneurysm- monitoring, 3 syncope episodes in 2019 now resolved, chronic back & hip problems, peripheral pulmonary emboli after open heart surg. resulted in prolonged intubation, glaucoma, colon polyps History of Any Multi-Drug Resistant Organisms: None Reported Past Surgical History: Appendectomy, Coronary Bypass/CABG, Heart Catheterization With Stent Additional Past Surgical History / Comment(s): triple bypass August 2013. pain procedures Past Anesthesia/Blood Transfusion Reactions: No Reported Reaction Additional Past Anesthesia/Blood Transfusion Reaction / Comm: difficulty coming off vent after open heart due to peripheral pulmonary emboli-spouse concerned related to anesthesia Date of Last Stent Placement:: 2013 Type of Cardiac Device: Loop Device Placement Date:: medtronic loop recorder now inactive placed in 2018 Past Psychological History: No Psychological Hx Reported Smoking Status: Former smoker Past Alcohol Use History: None Reported Past Drug Use History: None Reported - Past Family History Mother Family Medical History: Cancer Additional Family Medical History / Comment(s): uterine dies at 60 Father Family Medical History: Cancer Additional Family Medical History / Comment(s): kidney at 61 Medications and Allergies Home Medications Medication Instructions Recorded Confirmed Type Ferrous Sulfate [Iron (65 MG 325 mg PO DAILY 11/07/17 12/29/22 History Elemental)] Latanoprost Ophth [Xalatan 0.005%] 1 drops BOTH EYES HS 11/07/17 12/29/22 History carvediloL [Coreg] 6.25 mg PO BID 11/07/17 12/29/22 History Ubidecarenone [Co Q-10] 100 mg PO DAILY 07/15/18 12/29/22 History Rivaroxaban [Xarelto] 20 mg PO HS 05/26/19 12/29/22 History amLODIPine [Norvasc] 2.5 mg PO DAILY 05/26/19 12/29/22 History lisinopriL [Zestril] 20 mg PO BID 05/26/19 12/29/22 History HYDROcodone/APAP 7.5-325MG [[place] 1 tab PO Q6HR PRN 3 Days #12 tab 10/23/20 12/29/22 Rx 7.5-325] Empagliflozin [Jardiance] 25 mg PO DAILY 06/30/22 12/29/22 History Atorvastatin [Lipitor] 80 mg PO HS 12/29/22 12/29/22 History Brimonidine Tartrate [Alphagan P 1 drop BOTH EYES HS 12/29/22 12/29/22 History 0.2% Ophth Soln] Cetirizine HCl [Zyrtec] 10 mg PO DAILY 12/29/22 12/29/22 History Cholecalciferol [Vitamin D3 (25 50 mcg PO DAILY 12/29/22 12/29/22 History Mcg = 1000 Iu)] Cyclobenzaprine [Flexeril] 10 mg PO TID PRN 12/29/22 12/29/22 History Melatonin 10 mg PO HS 12/29/22 12/29/22 History Timolol 0.5% Ophth Soln [Timoptic 1 drop BOTH EYES HS 12/29/22 12/29/22 History 0.5% Ophth Soln] predniSONE [Deltasone] See Taper PO DIRECTED 12/29/22 12/29/22 History traZODone HCL [Desyrel] 50 mg PO HS PRN 12/29/22 12/29/22 History Allergies Allergy/AdvReac Type Severity Reaction Status Date / Time No Known Allergies Allergy Verified 12/29/22 22:55 Physical Exam Vitals: Vital Signs Temp Pulse Resp BP Pulse Ox 12/31/22 07:19 98.5 F 97 17 173/112 95 12/31/22 02:00 98.3 F 99 16 154/93 94 L 12/30/22 20:00 98.2 F 89 17 142/92 95 12/30/22 14:00 97.1 F L 88 16 113/76 12/30/22 11:45 97.8 F 80 18 167/100 97 Intake and Output 12/30/22 12/31/22 12/31/22 22:59 06:59 14:59 Output Total 600 950 100 Balance -600 -950 -100 Output: Urine 600 950 100 Other: # Voids 2 Weight 108.862 kg - Constitutional General appearance: no acute distress - EENT Eyes: anicteric sclerae, EOMI ENT: hearing grossly normal - Respiratory Respiratory: bilateral: CTA - Cardiovascular Distal LUE edema and tenderness noted. No erythema present Rhythm: regular Heart sounds: normal: S1, S2 Abnormal Heart Sounds: no systolic murmur, no diastolic murmur, no rub, no S3 Gallop, no S4 Gallop, no click, no other leg Peripheral Edema: right: 1+, Pitting, left: None - Gastrointestinal General gastrointestinal: soft, no tenderness - Integumentary Integumentary: no cyanotic, no jaundiced, no rash - Neurologic grossly intact - Musculoskeletal right hip and lateral thigh tenderness. Right thigh firm to palpation. No erythema noted Musculoskeletal: strength equal bilaterally - Psychiatric Psychiatric: A&O x's 3, appropriate affect, intact judgment & insight Results CBC & Chem 7: 12/31/22 05:41 12/31/22 05:41 Labs: Abnormal Lab Results - Last 24 Hours (Table) 12/30/22 12/30/22 12/30/22 Range/Units 12:04 18:06 20:19 WBC (4.50-10.00) X 10*3/uL RBC (4.40-5.60) X 10*6/uL Hgb (13.0-17.0) d/dL Hct (39.6-50.0) % RDW (11.5-14.5) % Carbon Dioxide (21.6-31.8) mmol/L Anion Gap (4.00-12.00) mmol/L BUN/Creatinine Ratio (12.00-20.00) Ratio Glucose (70-110) mg/dL POC Glucose (mg/dL) 149 H 117 H 191 H (70-110) mg/dL C-Reactive Protein (0.00-0.80) mg/dL 12/31/22 12/31/22 12/31/22 Range/Units 05:41 05:41 06:03 WBC 16.85 H (4.50-10.00) X 10*3/uL RBC 6.02 H (4.40-5.60) X 10*6/uL Hgb 18.1 H (13.0-17.0) d/dL Hct 55.6 H (39.6-50.0) % RDW 14.8 H (11.5-14.5) % Carbon Dioxide 17.5 L (21.6-31.8) mmol/L Anion Gap 12.50 H (4.00-12.00) mmol/L BUN/Creatinine Ratio 24.44 H (12.00-20.00) Ratio Glucose 122 H (70-110) mg/dL POC Glucose (mg/dL) 114 H (70-110) mg/dL C-Reactive Protein 5.80 H (0.00-0.80) mg/dL Venous US: report reviewed Assessment and Plan (1) Right hip pain Current Visit: Yes Status: Acute Priority: Medium Code(s): M25.551 - PAIN IN RIGHT HIP SNOMED Code(s): 84721078 (2) Polycythemia Current Visit: Yes Status: Acute Priority: Low Code(s): D75.1 - SECONDARY POLYCYTHEMIA SNOMED Code(s): 311459154 Plan: Polycythemia: -Upon admission hemoglobin was noted at 19.1 with hematocrit of 59. Today CBC revealed hemoglobin 18.1 and hct 55.6. Patient continues on IV hydration. Patient denies chest pain, shortness of breath, dizziness. Denies pruritus. No known history of hematological disorders. Upon trending labs hemoglobin was in the 14-16 range in 2019. Patient reports a long history of nicotine dependence but quit smoking approximately 10 years ago. He is on no hormonal replacement therapy. -No need for further workup at this time. Hgb/hct today only mildly elevated after hydration. Typically this increase is not associated with any specific issues. Would recommend follow up with PCP for monitoring of CBC, if counts continue to be elevated, worsens, or begins to becomes symptomatic he can f/u in clinic and further testing can be performed to r/o other underlying etiologies. This could likely be r/t to long history of nicotine dependence and significant cardiac history and/or dehydration Right hip pain: -Began s/p right hip steroid injection 10 days ago. Right hip/lateral thigh tenderness and firm to palpation. Pt started on Rocephin and Vanco -Doppler RLE negative for DVT -Ortho following, Right hip drained today, wound culture pending
[2022-12-31 20:12] LABS: Glucose,Whole Blood 162 mg/dL (70-110)
[2022-12-31] MEDS: ATORVASTATIN 80 MG TAB PO SCH (21:26)
[2022-12-31] MEDS: MELATONIN 5 MG TABLET PO SCH (21:26)
[2022-12-31] MEDS: BRIMONIDINE TARTRATE 0.2% DROPS 5 ML BTL BOTH EYES SCH (21:54)
[2022-12-31] MEDS: TIMOLOL 0.5% OPHTH DROPS 5 ML BTL BOTH EYES SCH (21:54)
[2022-12-31] MEDS: LATANOPROST 0.005% OPHTH DROPS 2.5 ML BTL BOTH EYES SCH (21:55)
[2023-01-01] MEDS: MORPHINE SULFATE 4 MG/ML SYRINGE IV PRN ×3 (02:14→19:57)
[2023-01-01] MEDS: HYDROcodone/APAP 7.5-325MG 1 EACH TAB PO PRN (04:56)
[2023-01-01 06:09] LABS: Glucose,Whole Blood 159 mg/dL (70-110)
[2023-01-01] MEDS: INSULIN ASPART (NovoLOG) 100 UNIT/ML VIAL SQ SCH ×4 (06:22→21:41)
[2023-01-01 06:23] LABS: African American GFR (CKD) >90 (>60 ml/min/1.73 sqM); Non-African American GFR(CKD) 85 (>60 ml/min/1.73 sqM)
[2023-01-01] MEDS: VANCOMYCIN 1,750 MG in SODIUM CHLORIDE 0.9% 500 ML 500 ML IVPB SCH (09:41)
[2023-01-01] MEDS: CHOLECALCIFEROL 25 MCG (1000 IU) TABLET PO SCH (09:41)
[2023-01-01] MEDS: amLODIPine 2.5 MG TAB PO SCH (09:41)
[2023-01-01] MEDS: carvediloL 6.25 MG TAB PO SCH ×2 (09:41→17:13)
[2023-01-01] MEDS: FERROUS SULFATE 325 MG TAB PO SCH (09:41)
[2023-01-01] MEDS: LORATADINE 10 MG TAB PO SCH (09:41)
[2023-01-01 11:39] LABS: Glucose,Whole Blood 125 mg/dL (70-110)
[2023-01-01] MEDS: CALCIUM CARBONATE 500 MG CHEWABLE PO PRN ×2 (11:46→21:41)
--- NOTE | 2023-01-01 12:12 | P.PN ---
Subjective Progress Note Date: 01/01/23 Principal diagnosis: Right thigh hematoma and leukocytosis Patient is a 77-year-old male with a past medical history significant for severe osteoarthritis specially requiring the right hip in this patient who did have a multiple steroid injection to the right hip area last 1 was about 10 days ago patient mention started having increasing pain to the right hip area with some radiation to the right thigh patient did have a CT of the left lower extremity no acute fracture or dislocation skin thickening with subcutaneous and fascial fat stranding and edema involving the lateral thigh from the hip to the knee, patient was a hospital with worsening pain did have an MRI and a bedside aspiration of the area mostly blood stained. On today's evaluation that is 01/01/2023, the patient remains to be afebrile, the patient is breathing comfortably , the patient denies having any chest pain or cough, the patient denies nausea and vomiting no abdominal pain and no diarrh ea, the patient pain to the right lateral thigh area is decreasing in intensity Patient did have a white count of 16.85 as of yesterday no CBC was done today, creatinine is 0.85, CRP is 5.80, blood cultures pending local cultures pending Objective - Vital Signs Vital signs: Vital Signs Temp 98.4 F 01/01/23 07:39 Pulse 77 01/01/23 07:39 Resp 17 01/01/23 07:39 BP 144/86 01/01/23 07:39 Pulse Ox 96 01/01/23 07:39 FiO2 Intake & Output 12/31/22 01/01/23 01/01/23 18:59 06:59 18:59 Output Total 330 950 Balance -330 -950 Output: Urine 330 950 Other: # Bowel Movements 1 - Exam GENERAL DESCRIPTION: An elderly male lying in bed in no distress RESPIRATORY SYSTEM: Unlabored breathing , decreased breath sounds at bases HEART: S1 S2 regular rate and rhythm , ABDOMEN: Soft , no tenderness EXTREMITIES: No edema feet - Labs CBC & Chem 7: 12/31/22 05:41 01/01/23 05:44 Labs: Abnormal Lab Results - Last 24 Hours (Table) 12/31/22 12/31/22 12/31/22 Range/Units 11:54 16:30 20:10 POC Glucose (mg/dL) 123 H 144 H 162 H (70-110) mg/dL 01/01/23 Range/Units 06:07 POC Glucose (mg/dL) 159 H (70-110) mg/dL Microbiology - Last 24 Hours (Table) 12/30/22 12:27 Blood Culture - Preliminary Blood Assessment and Plan (1) Hematoma of right thigh Current Visit: Yes Status: Acute Code(s): S70.11XA - CONTUSION OF RIGHT THIGH, INITIAL ENCOUNTER SNOMED Code(s): 63996289031609463 (2) Leukocytosis Current Visit: Yes Status: Acute Code(s): D72.829 - ELEVATED WHITE BLOOD CELL COUNT, UNSPECIFIED SNOMED Code(s): 418066103 Plan: 1patient was in the hospital with a right hip thigh area pain that has been going on for since his last injection to the right hip for severe osteoarthritis patient did have a CT of the right lower extremity on 12/24/2022 we did show some fat stranding along the fascial lines from hip to the knee area which is swollen and indurated but no redness concerning for cellulitis failing outpatient oral K eflex therapy 2-patient did have MRI of the right hip and thigh did shows peripheral enhancing fluid collection and extensive underlying muscle edema concerning for abscess with contagious myositis 3the patient did have aspiration of the area by orthopedic and cultures are currently pending 4-patient to continue with the vancomycin and Rocephin while awaiting cultures to be finalize and monitor clinical course closely Dictation was produced using [employer] dictation software. please excuse any gr ammatical, word or spelling errors. Time with Patient: Less than 30
--- NOTE | 2023-01-01 13:39 | P.PN ---
Subjective Progress Note Date: 01/01/23 77-year-old gentleman with past medical history significant for hypertension, coronary artery disease, abdominal aortic aneurysm, diabetes mellitus, history of sleep apnea present to the emergency department with complaints of right hip pain, inability to ambulate. * Patient states about 10 days ago patient had an injection in his right hip over right greater trochanter. Patient is status post injection patient started to have right hip discomfort. He was in the emergency on 12/26/22 and had a computed tomography scan done. Patient was eventually discharged. He was noted to have worsening symptoms and decided to come to the emergency department * Workup in ER included right hip x-ray which was negative, venous ultrasound lower extremity was negative for DVT as well * Blood work reviewed showed CBC WBC count of 18.5 hemoglobin of 19.1 hematocrit 59 platelet count of 313 * Basic metabolic panel sodium 138 potassium 4.1 chloride 108 CO2 21 BUN 36 at 0.97 CRP of 2.3 * Patient was admitted to medical for started on broad-spectrum antibiotic with consultation from orthopedics as well as infectious disease * 12/31>> patient seen and evaluated bedside, hospital day one. Patient complained of bilateral forearm pain. Left forearm IV infiltration noted. Venous ultrasound shows cephalic vein thrombophlebitis. MRI right hip completed patient seen by orthopedic continue IV antibiotic. Order to have elevated hemoglobin hence hematology consulted 01/01. Patient seen and examined. States right hip pain has improved. Swelling of upper extremities also improved REVIEW OF SYSTEMS: CONSTITUTIONAL: No fever, no malaise,. CARDIOVASCULAR: No chest pain, no palpitations, no syncope. PULMONARY: No shortness of breath, no cough, GASTROINTESTINAL: No diarrhea, no nausea, no vomiting, no abdominal pain. NEUROLOGICAL: No headaches, no weakness, PHYSICAL EXAMINATION: GENERAL: The patient is alert and oriented x3, not in any acute distress. Well developed, well nourished. HEENT: Pupils are round and equally reacting to light. EOMI. No scleral icterus. No conjunctival pallor. Normocephalic, atraumatic. No pharyngeal erythema. No thyromegaly. CARDIOVASCULAR: S1 and S2 present. No murmurs, rubs, or gallops. PULMONARY: Chest is clear to auscultation, no wheezing or crackles. ABDOMEN: Soft, nontender, nondistended, normoactive bowel sounds. No palpable organomegaly. MUSCULOSKELETAL: No joint swelling or deformity. EXTREMITIES: No cyanosis, clubbing, or pedal edema. NEUROLOGICAL: Gross neurological examination did not reveal any focal deficits. SKIN: No rashes. Assessment and plan * Right hip cellulitis * Sepsis secondary to cellulitis * Left cephalic with thrombophlebitis from IV * Coronary artery disease * History of atrial fibrillation * Diabetes mellitus type 2 * Hypertension * Abdominal aortic aneurysm * Elevated hemoglobin rule out polycythemia Monitor vital signs Monitor CBC Monitor CMP Continue telemetry monitoring Continue Rocephin and vancomycin continue metoprolol, Lipitor, Coreg, amlodipine Resume xarelto ID following Orthopedics evaluated the patient, no surgical intervention at this time. Hematology oncology consulted Labs and medication were reviewed.. Continue same treatment. Continue with symptomatic treatment. Resume home medication. Monitor labs and vitals. DVT and GI prophylaxis. Further recommendations as per clinical course of the patient Dictation was produced using [employer] dictation software. please excuse any grammatical, word or spelling errors. Objective - Vital Signs Vital signs: Vital Signs Temp 98.4 F 01/01/23 07:39 Pulse 77 01/01/23 07:39 Resp 17 01/01/23 07:39 BP 144/86 01/01/23 07:39 Pulse Ox 96 01/01/23 07:39 FiO2 Intake & Output 12/31/22 01/01/23 01/01/23 18:59 06:59 18:59 Output Total 330 950 Balance -330 -950 Output: Urine 330 950 Other: # Bowel Movements 1 - Labs CBC & Chem 7: 12/31/22 05:41 01/01/23 05:44 Labs: Abnormal Lab Results - Last 24 Hours (Table) 12/31/22 12/31/22 12/31/22 Range/Units 11:54 16:30 20:10 POC Glucose (mg/dL) 123 H 144 H 162 H (70-110) mg/dL 01/01/23 Range/Units 06:07 POC Glucose (mg/dL) 159 H (70-110) mg/dL Microbiology - Last 24 Hours (Table) 12/30/22 12:27 Blood Culture - Preliminary Blood
--- NOTE | 2023-01-01 16:09 | P.PN ---
Subjective Progress Note Date: 01/01/23 Principal diagnosis: polycythemia In follow-up today patient reports improvement in his pain since admit but, the pain is still there. He denies fever, nausea. MRI reporting peripheral enhancing fluid collection, partially visualized, over 17 cm long. Extensive muscle edema and muscle enhancement, suggesting an abscess with contiguous myositis, iliopsoas bursitis, no specific findings to suggest septic arthritis. Doppler of the bilateral upper extremities revealing a superficial thrombus at the IV site Left cephalic. Objective - Vital Signs Vital signs: Vital Signs Temp 98.4 F 01/01/23 07:39 Pulse 77 01/01/23 07:39 Resp 17 01/01/23 07:39 BP 144/86 01/01/23 07:39 Pulse Ox 96 01/01/23 07:39 FiO2 Intake & Output 12/31/22 01/01/23 01/01/23 18:59 06:59 18:59 Output Total 330 950 Balance -330 -950 Output: Urine 330 950 Other: # Bowel Movements 1 - Constitutional General appearance: Present: cooperative, no acute distress, obese - EENT Eyes: Present: anicteric sclerae, EOMI ENT: Present: hearing grossly normal - Respiratory Details: Respirations even and unlabored at rest - Cardiovascular Details: Skin warm and dry to the touch, complexion is not brandi - Peripheral edema leg Peripheral Edema: bilateral: None - Integumentary Integumentary: Present: normal - Neurologic Neurologic: Present: CNII-XII intact - Musculoskeletal Musculoskeletal: Present: strength equal bilaterally - Psychiatric Psychiatric: Present: A&O x's 3, appropriate affect, intact judgment & insight - Labs CBC & Chem 7: 12/31/22 05:41 01/01/23 05:44 Labs: Abnormal Lab Results - Last 24 Hours (Table) 12/31/22 12/31/22 01/01/23 Range/Units 16:30 20:10 06:07 POC Glucose (mg/dL) 144 H 162 H 159 H (70-110) mg/dL 01/01/23 Range/Units 11:38 POC Glucose (mg/dL) 125 H (70-110) mg/dL Microbiology - Last 24 Hours (Table) 12/30/22 12:27 Blood Culture - Preliminary Blood - Imaging and Cardiology Venous US: report reviewed Hip MRI report reviewed Assessment and Plan (1) Polycythemia Current Visit: Yes Status: Acute Priority: Low Code(s): D75.1 - SECONDARY POLYCYTHEMIA SNOMED Code(s): 539877808 (2) Leukocytosis Current Visit: Yes Status: Acute Priority: High Code(s): D72.829 - ELEVATED WHITE BLOOD CELL COUNT, UNSPECIFIED SNOMED Code(s): 468409228 (3) Superficial venous thrombosis of left arm Current Visit: Yes Status: Acute Priority: High Code(s): I82.612 - ACUTE EMBOLISM AND THOMBOS OF SUPERFIC VEINS OF L UP EXTREM SNOMED Code(s): 38007071945216647 Plan: Polycythemia: -Acute finding. Could be 2/2 history of nicotine dependence, cardiac history, dehydration, not sure if pt may have sleep apnea. -Hgb/Hct Trending down. No further workup at this time, until patient is recove red from acute condition. -Recommend follow up with PCP for monitoring of CBC Once his acute condition is adequately treated and resolved. If hemoglobin/hematocrit continue to be elevated, worsen, or if patient becomes symptomatic, he can be referred back to Hematology and further testing can be performed to r/o other pathological etiologies. Leukocytosis -Differential showing neutrophilia, secondary to infection. -Slowly trending down with treatment of acute infection -Patient is being seen by Orthopedics and Infectious Disease Superficial cephalic vein thrombosis at the IV site of the left upper extremity -Multifactorial including IV, acute infection/inflammation -Remove catheter. Warm compresses to the site -Patient was resumed on xarelto. This was held because of concerns for bleeding and admit. Hgb stable. Cont to monitor
[2023-01-01 16:42] LABS: Glucose,Whole Blood 156 mg/dL (70-110)
--- NOTE | 2023-01-01 17:02 | P.PN ---
Subjective Progress Note Date: 01/01/23 This is a 77-year-old male who is admitted for right hip pain and leukocytosis. Patient is seen and evaluated at bedside today and states that he has noticed some improvement in right hip pain. Patient states that he has been able to bear some weight on the right lower extremity, but this is still painful. Patient denies any drainage or new complaints today. Objective - Vital Signs Vital signs: Vital Signs Temp 97.7 F 01/01/23 14:16 Pulse 92 01/01/23 14:16 Resp 14 01/01/23 14:16 BP 155/91 01/01/23 14:16 Pulse Ox 97 01/01/23 14:16 FiO2 Intake & Output 12/31/22 01/01/23 01/01/23 18:59 06:59 18:59 Output Total 330 950 Balance -330 -950 Output: Urine 330 950 Other: # Bowel Movements 1 - Exam On exam patient is resting comfortably in bed in no acute distress. Patient is alert and oriented 3. There is swelling of the right lower extremity. There is no drainage from the site of aspiration. There is no erythema. There is bru ising to the posterior aspect of the right thigh. Patient does have pain to the lateral aspect of the right hip with attempted motion of the right hip. Sensation intact. Calf is soft and nontender to palpation. Neurovascular status and circulatory status are intact. - Labs CBC & Chem 7: 12/31/22 05:41 01/01/23 05:44 Labs: Abnormal Lab Results - Last 24 Hours (Table) 12/31/22 01/01/23 01/01/23 Range/Units 20:10 06:07 11:38 POC Glucose (mg/dL) 162 H 159 H 125 H (70-110) mg/dL 01/01/23 Range/Units 16:41 POC Glucose (mg/dL) 156 H (70-110) mg/dL Microbiology - Last 24 Hours (Table) 12/30/22 12:27 Blood Culture - Preliminary Blood Assessment and Plan (1) Hematoma of right thigh Current Visit: Yes Status: Acute Code(s): S70.11XA - CONTUSION OF RIGHT THIGH, INITIAL ENCOUNTER SNOMED Code(s): 19997537758935868 (2) Leg pain Current Visit: Yes Status: Acute Code(s): M79.606 - PAIN IN LEG, UNSPECIFIED SNOMED Code(s): 63569292 Plan: An MRI report of the right hip shows: 1. Peripherally enhancing fluid collection partially visualized along the superficial fascia bilateral quadriceps musculature. This is only partially visualized measuring well over 17 cm long, extending down beyond the field of view. It measures 8.7 cm CP by 2.8 cm. There is extensive underlying muscle edema and muscle enhancement as well suggesting abscess with contiguous myositis. 2. Small to moderate iliopsoas bursitis also shows enhancement. This could represent an infectious bursitis. 3. Ewwt-ha-tamiyaea bilateral hip OA. No specific findings to suggest septic arthritis. 1. Continue antibiotics. White blood cell count is trending down. Patient has been afebrile. 2. No surgical intervention planned. We will continue to monitor.
[2023-01-01] MEDS: SODIUM CHLORIDE 0.9% 1,000 ML IV SCH ×3 (19:45→21:45)
[2023-01-01] MEDS: MELATONIN 5 MG TABLET PO SCH (19:56)
[2023-01-01] MEDS: RIVAROXABAN 20 MG TAB PO SCH (19:56)
[2023-01-01] MEDS: LATANOPROST 0.005% OPHTH DROPS 2.5 ML BTL BOTH EYES SCH (19:56)
[2023-01-01] MEDS: ATORVASTATIN 80 MG TAB PO SCH (19:56)
[2023-01-01] MEDS: TIMOLOL 0.5% OPHTH DROPS 5 ML BTL BOTH EYES SCH (19:57)
[2023-01-01] MEDS: BRIMONIDINE TARTRATE 0.2% DROPS 5 ML BTL BOTH EYES SCH (19:57)
[2023-01-01 20:41] LABS: Glucose,Whole Blood 160 mg/dL (70-110)
[2023-01-02] MEDS: VANCOMYCIN 1,750 MG in SODIUM CHLORIDE 0.9% 500 ML 500 ML IVPB SCH ×2 (00:12→16:06)
[2023-01-02] MEDS ORDERED: MORPHINE SULFATE 4 MG/ML SYRINGE ONE (03:16)
[2023-01-02 06:02] LABS: Glucose,Whole Blood 106 mg/dL (70-110)
[2023-01-02] MEDS: INSULIN ASPART (NovoLOG) 100 UNIT/ML VIAL SQ SCH ×4 (06:54→21:03)
[2023-01-02] MEDS: SODIUM CHLORIDE 0.9% 1,000 ML IV SCH ×3 (06:54→16:22)
[2023-01-02] MEDS: carvediloL 6.25 MG TAB PO SCH ×2 (06:56→17:02)
[2023-01-02] MEDS: FERROUS SULFATE 325 MG TAB PO SCH (09:14)
[2023-01-02] MEDS: LORATADINE 10 MG TAB PO SCH (09:14)
[2023-01-02] MEDS: CHOLECALCIFEROL 25 MCG (1000 IU) TABLET PO SCH (09:14)
[2023-01-02] MEDS: amLODIPine 2.5 MG TAB PO SCH (09:14)
[2023-01-02] MEDS: polyethylene glycoL 3350 17 GM POWD.PACK PO PRN (09:30)
[2023-01-02] MEDS: HYDROcodone/APAP 7.5-325MG 1 EACH TAB PO PRN (10:49)
--- NOTE | 2023-01-02 11:06 | P.PN ---
Subjective Progress Note Date: 01/02/23 This is a 77-year-old male who is admitted for right hip pain and leukocytosis. Patient is seen and evaluated at bedside today. Patient states that he is still sore and requires assistance to get out of bed. Patient denies any new complaints today. Objective - Vital Signs Vital signs: Vital Signs Temp 97.8 F 01/02/23 07:35 Pulse 87 01/02/23 07:35 Resp 17 01/02/23 07:35 BP 158/92 01/02/23 07:35 Pulse Ox 95 01/02/23 07:35 FiO2 Intake & Output 01/01/23 01/02/23 01/02/23 18:59 06:59 18:59 Intake Total 1200 Output Total 300 Balance 1200 -300 Intake: Intake, IV Titration 550 Amount Vancomycin 1,750 mg In 500 Sodium Chloride 0.9% 500 ml 500 ml @ 167 mls/hr IVPB Q16H [facility] Rx#: [id number] cefTRIAXone 2 gm In 50 Sodium Chloride 0.9% 50 ml @ 100 mls/hr IVPB Q24HR [facility] Rx#:[id number] Oral 650 Output: Urine 300 - Exam On exam patient is resting comfortably in bed in no acute distress. Patient is alert and oriented 3. There is swelling of the right lower extremity. There is no drainage from the site of aspiration. There is no erythema. There is bruising to the posterior aspect of the right thigh. Patient does have pain to the lateral aspect of the right hip with attempted motion of the right hip. Sensation intact. Calf is soft and nontender to palpation. Neurovascular status and circulatory status are intact. - Labs CBC & Chem 7: 12/31/22 05:41 01/01/23 05:44 Labs: Abnormal Lab Results - Last 24 Hours (Table) 01/01/23 01/01/23 01/01/23 Range/Units 11:38 16:41 20:40 POC Glucose (mg/dL) 125 H 156 H 160 H (70-110) mg/dL Microbiology - Last 24 Hours (Table) 12/30/22 12:27 Blood Culture - Preliminary Blood 12/31/22 10:40 Gram Stain - Preliminary Other - Other Wound Culture - Preliminary Assessment and Plan (1) Hematoma of right thigh Current Visit: Yes Status: Acute Code(s): S70.11XA - CONTUSION OF RIGHT THIGH, INITIAL ENCOUNTER SNOMED Code(s): 01790016348964770 (2) Leg pain Current Visit: Yes Status: Acute Code(s): M79.606 - PAIN IN LEG, UNSPECIFIED SNOMED Code(s): 27167732 Plan: 1. Continue antibiotics per infectious disease. Patient is afebrile. Preliminary cultures are negative. 2. There is no surgical intervention planned. We will follow as needed.
[2023-01-02 11:23] LABS: Glucose,Whole Blood 132 mg/dL (70-110)
[2023-01-02 11:31] LABS: HCT 53.3 % (39.6-50.0); HGB 17.7 d/dL (13.0-17.0); MCH 30.6 pg (27.0-32.0); MCHC 33.2 d/dL (32.0-37.0); MCV 92.2 FL (80.0-97.0); Mean Platelet Volume 10.4 FL (9.5-12.2); NRBC Per 100 WBC 0 X 10*3/uL (0.00-0.01); Platelet Count 242 X 10*3/uL (140-440); RBC 5.78 X 10*6/uL (4.40-5.60); RDW 14.6 % (11.5-14.5); WBC 17.82 X 10*3/uL (4.50-10.00)
--- NOTE | 2023-01-02 12:27 | P.PN ---
Subjective Progress Note Date: 01/02/23 * 77-year-old gentleman with past medical history significant for hypertension, coronary artery disease, abdominal aortic aneurysm, diabetes mellitus, history of sleep apnea present to the emergency department with complaints of right hip pain, inability to ambulate. * Patient states about 10 days ago patient had an injection in his right hip over right greater trochanter. Patient is status post injection patient started to have right hip discomfort. He was in the emergency on 12/26/22 and had a computed tomography scan done. Patient was eventually discharged. He was noted to have worsening symptoms and decided to come to the emergency department * Workup in ER included right hip x-ray which was negative, venous ultrasound lower extremity was negative for DVT as well * Blood work reviewed showed CBC WBC count of 18.5 hemoglobin of 19.1 hematocrit 59 platelet count of 313 * Basic metabolic panel sodium 138 potassium 4.1 chloride 108 CO2 21 BUN 36 at 0.97 CRP of 2.3 * Patient was admitted to medical for started on broad-spectrum antibiotic with consultation from orthopedics as well as infectious disease * 12/31>> patient seen and evaluated bedside, hospital day one. Patient complained of bilateral forearm pain. Left forearm IV infiltration noted. Venous ultrasound shows cephalic vein thrombophlebitis. MRI right hip completed patient seen by orthopedic continue IV antibiotic. Order to have elevated hemoglobin hence hematology consulted * 01/01. Patient seen and examined. States right hip pain has improved. Swelling of upper extremities also improved * 01/02/: Patient seen and evaluated bedside. Care plan discussed in detail explained patient does have third spacing causing edema. Trying to avoid IV left arm. Encouraged to ambulate. Culture still pending Objective - Vital Signs Vital signs: Vital Signs Temp 97.8 F 01/02/23 07:35 Pulse 87 01/02/23 07:35 Resp 18 01/02/23 11:50 BP 158/92 01/02/23 07:35 Pulse Ox 95 01/02/23 07:35 FiO2 Intake & Output 01/01/23 01/02/23 01/02/23 18:59 06:59 18:59 Intake Total 1200 Output Total 300 Balance 1200 -300 Intake: Intake, IV Titration 550 Amount Vancomycin 1,750 mg In 500 Sodium Chloride 0.9% 500 ml 500 ml @ 167 mls/hr IVPB Q16H [facility] Rx#: [id number] cefTRIAXone 2 gm In 50 Sodium Chloride 0.9% 50 ml @ 100 mls/hr IVPB Q24HR [facility] Rx#:[id number] Oral 650 Output: Urine 300 - Exam PHYSICAL EXAMINATION: GENERAL: The patient is alert and oriented x3, not in any acute distress. Well developed, well nourished. HEENT: Pupils are round and equally reacting to light. EOMI. No scleral icterus. No conjunctival pallor. Normocephalic, atraumatic. No pharyngeal erythema. No thyromegaly. CARDIOVASCULAR: S1 and S2 present. No murmurs, rubs, or gallops. PULMONARY: Chest is clear to auscultation, no wheezing or crackles. ABDOMEN: Soft, nontender, nondistended, normoactive bowel sounds. No palpable organomegaly. MUSCULOSKELETAL: Right hip swelling, pain, warmth, erythema tenderness and range of motion limited Left forearm and right forearm swelling noted EXTREMITIES: No cyanosis, clubbing, or pedal edema. NEUROLOGICAL: Gross neurological examination did not reveal any focal deficits. SKIN: No rashes. - Labs CBC & Chem 7: 01/02/23 06:42 01/01/23 05:44 Labs: Abnormal Lab Results - Last 24 Hours (Table) 01/01/23 01/01/23 01/02/23 Range/Units 16:41 20:40 06:42 WBC 17.82 H (4.50-10.00) X 10*3/uL RBC 5.78 H (4.40-5.60) X 10*6/uL Hgb 17.7 H (13.0-17.0) d/dL Hct 53.3 H (39.6-50.0) % RDW 14.6 H (11.5-14.5) % POC Glucose (mg/dL) 156 H 160 H (70-110) mg/dL 01/02/23 Range/Units 11:22 WBC (4.50-10.00) X 10*3/uL RBC (4.40-5.60) X 10*6/uL Hgb (13.0-17.0) d/dL Hct (39.6-50.0) % RDW (11.5-14.5) % POC Glucose (mg/dL) 132 H (70-110) mg/dL Microbiology - Last 24 Hours (Table) 09/09/23 12:27 Blood Culture - Preliminary Blood 12/31/22 10:40 Gram Stain - Preliminary Other - Other Wound Culture - Preliminary Assessment and Plan Assessment: Assessment and plan * Right hip cellulitis * Sepsis secondary to cellulitis * Left cephalic vein thrombophlebitis from IV * Coronary artery disease * History of atrial fibrillation * Diabetes mellitus type 2 * Hypertension * Abdominal aortic aneurysm * Elevated hemoglobin rule out polycythemia * Consult obtained from orthopedic and infectious disease * In regards to right hip cellulitis, x-ray negative, MRI right hip completed . Continue Rocephin and vancomycin Day 4 . Follow-up on blood cultures him a status post aspiration by orthopedic * In regards to history of coronary artery disease, continue metoprolol, Lipitor, Coreg, amlodipine * In regards to history of atrial fibrillation anticoagulation on hold in anticipation of intervention. Continue Coreg and Xarelto. Discussed with ORTHO * In regards to sepsis secondary to cellulitis, follow-up on CBC, continue fluid resuscitation follow-up on blood cultures * In regards to elevated hemoglobin, appreciate input from hematology continue to follow up on CBC * Venous ultrasound bilateral upper ext negative for DVT * CODE STATUS is full code
[2023-01-02 13:18] LABS: ALT 15 U/L (10-49); AST 18 U/L (14-35); Albumin 2.8 d/dL (3.8-4.9); Albumin/Globulin Ratio 1.33 Ratio (1.60-3.17); Alkaline Phosphatase 72 U/L (41-126); Blood Urea Nitrogen 20.3 mg/dL (9.0-27.0); Calcium 8.6 mg/dL (8.7-10.3); Carbon Dioxide 16.9 mmol/L (21.6-31.8); Chloride 108 mmol/L (96-109); Globulin 2.1 d/dL (1.6-3.3); Glucose 107 mg/dL (70-110); Potassium 4.2 mmol/L (3.5-5.5); Sodium 137 mmol/L (135-145); Total Bilirubin 0.6 mg/dL (0.3-1.2); Total Protein 4.9 d/dL (6.2-8.2)
--- NOTE | 2023-01-02 14:12 | CDI ---
Documentation Clarification Form Date: 01/02/2023 02:01:22 PM From: Nguyen Marino RN, CCDS Admit Date: 12/31/2022 05:45:00 PM Patient Name: Clifford Joe Visit Number: [id number] Discharge Date: ATTENTION: The Clinical Documentation Specialists (CDI) and [facility] Coding Staff appreciate your assistance in clarifying documentation. Please respond to the clarification below the line at the bottom and electronically sign. The CDI & [facility] Coding staff will review the response and follow-up if needed. Please note: Queries are made part of the Legal Health Record. If you have any questions, please contact the author of this message via ITS. Dr. Tiffanie Tejada Atrial Fibrillation is documented in the past medical history, H/P and subsequent progress notes. Additional clarification regarding the type of atrial fibrillation is requested. History/Risk Factors: Atrial Fibrillation, Coronary Artery Disease, Diabetes Mellitus, Hypertension, Pulmonary Embolus, Former smoker Clinical Indicators: 77-year-old male present with complete of right hip pain. He has a history of atrial fibrillation with ongoing treatment. EKG/telemetry: Sinus rhythm 98 BPM Treatment: Xarelto 20 MG PO HS Please clarify the type of atrial fibrillation, if known: [y ] Chronic [ ] Permanent [ ] Paroxysmal [ ] Persistent [ ] Other, please specify [ ] Unable to determine (Template Last Revised: August 2020) MTDD
[2023-01-02] MEDS: CALCIUM CARBONATE 500 MG CHEWABLE PO PRN ×2 (14:49→23:13)
[2023-01-02] MEDS ORDERED: VANCOMYCIN TROUGH DUE 1 EACH MISC MISCELLANE ONE (15:00)
[2023-01-02 16:26] LABS: Glucose,Whole Blood 174 mg/dL (70-110)
[2023-01-02] MEDS ORDERED: MAG HYDROX/AL HYDROX/SIMETH 30 ML CUP PO ONE (17:00)
--- NOTE | 2023-01-02 17:04 | P.PN ---
Subjective Progress Note Date: 01/02/23 Principal diagnosis: Right thigh hematoma and leukocytosis Patient is a 77-year-old male with a past medical history significant for severe osteoarthritis specially requiring the right hip in this patient who did have a multiple steroid injection to the right hip area last 1 was about 10 days ago patient mention started having increasing pain to the right hip area with some radiation to the right thigh patient did have a CT of the left lower extremity no acute fracture or dislocation skin thickening with subcutaneous and fascial fat stranding and edema involving the lateral thigh from the hip to the knee, patient was a hospital with worsening pain did have an MRI and a bedside aspiration of the area mostly blood stained. On today's evaluation that is , the patient denies any fever or any chills, the patient is breathing comfortably , the patient denies chest pain or cough, the patient denies nausea and vomiting no abdominal pain and no diarrhea has been reported, the patient pain to the right lateral thigh area has slightly decreased in intensity Patient white count is 17.82, creatinine 0.7, Vanco trough was low cultures are currently pending Objective - Vital Signs Vital signs: Vital Signs Temp 97.8 F 01/02/23 07:35 Pulse 87 01/02/23 07:35 Resp 17 01/02/23 07:35 BP 158/92 01/02/23 07:35 Pulse Ox 95 01/02/23 07:35 FiO2 Intake & Output 01/01/23 01/02/23 01/02/23 18:59 06:59 18:59 Intake Total 1200 Output Total 300 Balance 1200 -300 Intake: Intake, IV Titration 550 Amount Vancomycin 1,750 mg In 500 Sodium Chloride 0.9% 500 ml 500 ml @ 167 mls/hr IVPB Q16H [facility] Rx#: [id number] cefTRIAXone 2 gm In 50 Sodium Chloride 0.9% 50 ml @ 100 mls/hr IVPB Q24HR [facility] Rx#:[id number] Oral 650 Output: Urine 300 - Exam GENERAL DESCRIPTION: An elderly male lying in bed in no distress RESPIRATORY SYSTEM: Unlabored breathing , decreased breath sounds at bases HEART: S1 S2 regular rate and rhythm , ABDOMEN: Soft , no tenderness EXTREMITIES: No edema feet - Labs CBC & Chem 7: 01/02/23 06:42 01/02/23 06:42 Labs: Abnormal Lab Results - Last 24 Hours (Table) 01/01/23 01/01/23 01/01/23 Range/Units 11:38 16:41 20:40 POC Glucose (mg/dL) 125 H 156 H 160 H (70-110) mg/dL Microbiology - Last 24 Hours (Table) 12/30/22 12:27 Blood Culture - Preliminary Blood 12/31/22 10:40 Gram Stain - Preliminary Other - Other Wound Culture - Preliminary Assessment and Plan (1) Hematoma of right thigh Current Visit: Yes Status: Acute Code(s): S70.11XA - CONTUSION OF RIGHT THIGH, INITIAL ENCOUNTER SNOMED Code(s): 98235974783838079 (2) Leukocytosis Current Visit: Yes Status: Acute Priority: High Code(s): D72.829 - ELEVAT ED WHITE BLOOD CELL COUNT, UNSPECIFIED SNOMED Code(s): 233817382 Plan: 1patient was in the hospital with a right hip thigh area pain that has been going on for since his last injection to the right hip for severe osteoarthritis patient did have a CT of the right lower extremity on 12/24/2022 we did show some fat stranding along the fascial lines from hip to the knee area which is swollen and indurated but no redness concerning for cellulitis failing outpatient oral Keflex therapy 2-patient did have MRI of the right hip and thigh did shows peripheral enhancing fluid collection and extensive underlying muscle edema concerning for abscess with contagious myositis 3the patient did have aspiration of the area by orthopedic and cultures are currently pending 4-patient is afebrile however her white count is still elevated, patient to con tinue with the vancomycin and Rocephin while awaiting cultures to be finalize and monitor clinical course closely at the bedside and multiple questions concerned were answered Dictation was produced using [employer] dictation software. please excuse any grammatical, word or spelling errors. Time with Patient: Less than 30
[2023-01-02] MEDS ORDERED: hydrALAZINE HCL 20 MG/ML 1 ML VIAL IVP PRN (18:46)
[2023-01-02 20:20] LABS: Glucose,Whole Blood 133 mg/dL (70-110)
[2023-01-02] MEDS: BRIMONIDINE TARTRATE 0.2% DROPS 5 ML BTL BOTH EYES SCH (21:46)
[2023-01-02] MEDS: RIVAROXABAN 20 MG TAB PO SCH (21:47)
[2023-01-02] MEDS: TIMOLOL 0.5% OPHTH DROPS 5 ML BTL BOTH EYES SCH (21:47)
[2023-01-02] MEDS: ATORVASTATIN 80 MG TAB PO SCH (21:47)
[2023-01-02] MEDS: LATANOPROST 0.005% OPHTH DROPS 2.5 ML BTL BOTH EYES SCH (21:47)
[2023-01-02] MEDS: MELATONIN 5 MG TABLET PO SCH (21:47)
[2023-01-03] MEDS: SODIUM CHLORIDE 0.9% 1,000 ML IV SCH ×2 (03:41→20:51)
[2023-01-03] MEDS ORDERED: PANTOPRAZOLE 40 MG/10 ML VIAL IVP ONE (05:25)
[2023-01-03 05:57] LABS: Glucose,Whole Blood 178 mg/dL (70-110)
[2023-01-03] MEDS: VANCOMYCIN 1,750 MG in SODIUM CHLORIDE 0.9% 500 ML 500 ML IVPB SCH ×2 (06:01→17:02)
[2023-01-03 07:41] LABS: African American GFR (CKD) >90 (>60 ml/min/1.73 sqM); Anion Gap 12 mmol/L; Blood Urea Nitrogen 32 mg/dL (9-20); Calcium 9.3 mg/dL (8.4-10.2); Carbon Dioxide 14 mmol/L (22-30); Chloride 106 mmol/L (98-107); Glucose 183 mg/dL (74-99); Non-African American GFR(CKD) 86 (>60 ml/min/1.73 sqM); Potassium 4.4 mmol/L (3.5-5.1); Sodium 132 mmol/L (137-145)
[2023-01-03] MEDS: INSULIN ASPART (NovoLOG) 100 UNIT/ML VIAL SQ SCH ×4 (07:53→22:49)
[2023-01-03] MEDS: LORATADINE 10 MG TAB PO SCH (08:14)
[2023-01-03] MEDS: carvediloL 6.25 MG TAB PO SCH ×2 (08:14→17:02)
[2023-01-03] MEDS: amLODIPine 2.5 MG TAB PO SCH (08:14)
[2023-01-03] MEDS: CHOLECALCIFEROL 25 MCG (1000 IU) TABLET PO SCH (08:18)
[2023-01-03] MEDS: FERROUS SULFATE 325 MG TAB PO SCH (08:19)
[2023-01-03 11:22] LABS: Glucose,Whole Blood 163 mg/dL (70-110)
[2023-01-03 11:27] LABS: C Reactive Protein 14.3 mg/dL (<1.0)
[2023-01-03 12:08] LABS: HCT 55.8 % (39.6-50.0); HGB 18.7 d/dL (13.0-17.0); MCH 30.6 pg (27.0-32.0); MCHC 33.5 d/dL (32.0-37.0); MCV 91.3 FL (80.0-97.0); Mean Platelet Volume 10.7 FL (9.5-12.2); NRBC Per 100 WBC 0 X 10*3/uL (0.00-0.01); Platelet Count 290 X 10*3/uL (140-440); RBC 6.11 X 10*6/uL (4.40-5.60); RDW 14.3 % (11.5-14.5); WBC 26.16 X 10*3/uL (4.50-10.00)
--- NOTE | 2023-01-03 13:13 | P.PN ---
Subjective Progress Note Date: 01/03/23 * 77-year-old gentleman with past medical history significant for hypertension, coronary artery disease, abdominal aortic aneurysm, diabetes mellitus, history of sleep apnea present to the emergency department with complaints of right hip pain, inability to ambulate. * Patient states about 10 days ago patient had an injection in his right hip over right greater trochanter. Patient is status post injection patient started to have right hip discomfort. He was in the emergency on 12/26/22 and had a computed tomography scan done. Patient was eventually discharged. He was noted to have worsening symptoms and decided to come to the emergency department * Workup in ER included right hip x-ray which was negative, venous ultrasound lower extremity was negative for DVT as well * Blood work reviewed showed CBC WBC count of 18.5 hemoglobin of 19.1 hematocrit 59 platelet count of 313 * Basic metabolic panel sodium 138 potassium 4.1 chloride 108 CO2 21 BUN 36 at 0.97 CRP of 2.3 * Patient was admitted to medical for started on broad-spectrum antibiotic with consultation from orthopedics as well as infectious disease * 12/31>> patient seen and evaluated bedside, hospital day one. Patient complained of bilateral forearm pain. Left forearm IV infiltration noted. Venous ultrasound shows cephalic vein thrombophlebitis. MRI right hip completed patient seen by orthopedic continue IV antibiotic. Order to have elevated hemoglobin hence hematology consulted * 01/01. Patient seen and examined. States right hip pain has improved. Swelling of upper extremities also improved * 01/02/: Patient seen and evaluated bedside. Care plan discussed in detail explained patient does have third spacing causing edema. Trying to avoid IV left arm. Encouraged to ambulate. Culture still pending * 01/03: Patient seen and evaluated bedside. Patient alert and oriented 3. Overnight patient had episode of vomiting. Continue patient on IV Protonix will start simethicone as well. Encourage ambulation white cell count and CRP elevated continue Rocephin and vancomycin K plan discussed with at bedside will encourage ambulation Objective - Vital Signs Vital signs: Vital Signs Temp 97.5 F L 01/03/23 07:01 Pulse 82 01/03/23 09:14 Resp 17 01/03/23 09:14 BP 144/91 01/03/23 07:01 Pulse Ox 94 L 01/03/23 07:01 FiO2 Intake & Output 01/02/23 01/03/23 01/03/23 18:59 06:59 18:59 Output Total 200 400 Balance -200 -400 Output: Urine 200 400 - Exam PHYSICAL EXAMINATION: GENERAL: The patient is alert and oriented x3, not in any acute distress. Well developed, well nourished. HEENT: Pupils are round and equally reacting to light. EOMI. No scleral icterus. No conjunctival pallor. Normocephalic, atraumatic. No pharyngeal erythema. No thyromegaly. CARDIOVASCULAR: S1 and S2 present. No murmurs, rubs, or gallops. PULMONARY: Chest is clear to auscultation, no wheezing or crackles. ABDOMEN: Soft, nontender, nondistended, normoactive bowel sounds. No palpable organomegaly. MUSCULOSKELETAL: Right hip swelling, pain, warmth, erythema tenderness and range of motion limited Left forearm and right forearm swelling noted EXTREMITIES: No cyanosis, clubbing, or pedal edema. NEUROLOGICAL: Gross neurological examination did not reveal any focal deficits. SKIN: No rashes. - Labs CBC & Chem 7: 01/03/23 07:02 01/03/23 07:02 Labs: Abnormal Lab Results - Last 24 Hours (Table) 01/02/23 01/02/23 01/02/23 Range/Units 06:42 16:25 20:18 WBC (4.50-10.00) X 10*3/uL RBC (4.40-5.60) X 10*6/uL Hgb (13.0-17.0) d/dL Hct (39.6-50.0) % Sodium (137-145) mmol/L Carbon Dioxide 16.9 L (21.6-31.8) mmol/L Anion Gap 12.10 H (4.00-12.00) mmol/L BUN (9-20) mg/dL BUN/Creatinine Ratio 29.00 H (12.00-20.00) Ratio Glucose (74-99) mg/dL POC Glucose (mg/dL) 174 H 133 H (70-110) mg/dL Calcium 8.6 L (8.7-10.3) mg/dL C-Reactive Protein (<1.0) mg/dL Total Protein 4.9 L (6.2-8.2) d/dL Albumin 2.8 L (3.8-4.9) d/dL Albumin/Globulin Ratio 1.33 L (1.60-3.17) Ratio 01/03/23 01/03/23 01/03/23 Range/Units 05:56 07:02 07:02 WBC 26.16 H (4.50-10.00) X 10*3/uL RBC 6.11 H (4.40-5.60) X 10*6/uL Hgb 18.7 H (13.0-17.0) d/dL Hct 55.8 H (39.6-50.0) % Sodium 132 L (137-145) mmol/L Carbon Dioxide 14 L (21.6-31.8) mmol/L Anion Gap (4.00-12.00) mmol/L BUN 32 H (9-20) mg/dL BUN/Creatinine Ratio (12.00-20.00) Ratio Glucose 183 H (74-99) mg/dL POC Glucose (mg/dL) 178 H (70-110) mg/dL Calcium (8.7-10.3) mg/dL C-Reactive Protein 14.3 H (<1.0) mg/dL Total Protein (6.2-8.2) d/dL Albumin (3.8-4.9) d/dL Albumin/Globulin Ratio (1.60-3.17) Ratio 01/03/23 Range/Units 11:21 WBC (4.50-10.00) X 10*3/uL RBC (4.40-5.60) X 10*6/uL Hgb (13.0-17.0) d/dL Hct (39.6-50.0) % Sodium (137-145) mmol/L Carbon Dioxide (21.6-31.8) mmol/L Anion Gap (4.00-12.00) mmol/L BUN (9-20) mg/dL BUN/Creatinine Ratio (12.00-20.00) Ratio Glucose (74-99) mg/dL POC Glucose (mg/dL) 163 H (70-110) mg/dL Calcium (8.7-10.3) mg/dL C-Reactive Protein (<1.0) mg/dL Total Protein (6.2-8.2) d/dL Albumin (3.8-4.9) d/dL Albumin/Globulin Ratio (1.60-3.17) Ratio Microbiology - 24 Hours (Table) 12/30/22 12:27 Blood Culture - Preliminary Blood 12/31/22 10:40 Gram Stain - Final Other - Other Wound Culture - Final Assessment and Plan Assessment: Assessment and plan * Right hip cellulitis * Sepsis secondary to cellulitis * Left cephalic vein thrombophlebitis from IV * Coronary artery disease * History of atrial fibrillation * Diabetes mellitus type 2 * Hypertension * Abdominal aortic aneurysm * Elevated hemoglobin rule out polycythemia * Consult obtained from orthopedic and infectious disease * In regards to right hip cellulitis, x-ray negative, MRI right hip completed . Continue Rocephin and vancomycin Day 5 . Follow-up on blood cultures, status post aspiration by orthopedic>> no growth * In regards to history of coronary artery disease, continue metoprolol, Lipitor, Coreg, amlodipine * In regards to history of atrial fibrillation anticoagulation on hold in anticipation of intervention. Continue Coreg and Xarelto. Discussed with ORTHO * In regards to sepsis secondary to cellulitis, follow-up on CBC, continue fluid resuscitation follow-up on blood cultures * In regards to elevated hemoglobin, appreciate input from hematology continue to follow up on CBC * Venous ultrasound bilateral upper ext negative for DVT * CODE STATUS is full code
[2023-01-03] MEDS: SIMETHICONE 80 MG CHEWABLE PO SCH ×3 (13:49→20:56)
[2023-01-03] MEDS: MORPHINE SULFATE 4 MG/ML SYRINGE IV PRN (14:23)
[2023-01-03 16:54] LABS: Glucose,Whole Blood 207 mg/dL (70-110)
[2023-01-03] MEDS: LATANOPROST 0.005% OPHTH DROPS 2.5 ML BTL BOTH EYES SCH (20:56)
[2023-01-03] MEDS: TIMOLOL 0.5% OPHTH DROPS 5 ML BTL BOTH EYES SCH (20:56)
[2023-01-03] MEDS: RIVAROXABAN 20 MG TAB PO SCH (20:56)
[2023-01-03] MEDS: MELATONIN 5 MG TABLET PO SCH (20:56)
[2023-01-03] MEDS: ATORVASTATIN 80 MG TAB PO SCH (20:56)
[2023-01-03] MEDS: BRIMONIDINE TARTRATE 0.2% DROPS 5 ML BTL BOTH EYES SCH (20:56)
[2023-01-03 21:14] LABS: Glucose,Whole Blood 177 mg/dL (70-110)
[2023-01-04] MEDS: SODIUM CHLORIDE 0.9% 1,000 ML IV SCH ×3 (04:06→20:09)
[2023-01-04] MEDS: carvediloL 6.25 MG TAB PO SCH (06:05)
[2023-01-04] MEDS: VANCOMYCIN 1,750 MG in SODIUM CHLORIDE 0.9% 500 ML 500 ML IVPB SCH (06:05)
[2023-01-04 06:10] LABS: Glucose,Whole Blood 122 mg/dL (70-110)
[2023-01-04] MEDS: INSULIN ASPART (NovoLOG) 100 UNIT/ML VIAL SQ SCH ×4 (06:10→20:59)
--- NOTE | 2023-01-04 07:36 | P.PN ---
Subjective Progress Note Date: 01/03/23 Principal diagnosis: Right thigh hematoma and leukocytosis Patient is a 77-year-old male with a past medical history significant for severe osteoarthritis specially requiring the right hip in this patient who did have a multiple steroid injection to the right hip area last 1 was about 10 days ago patient mention started having increasing pain to the right hip area with some radiation to the right thigh patient did have a CT of the left lower extremity no acute fracture or dislocation skin thickening with subcutaneous and fascial fat stranding and edema involving the lateral thigh from the hip to the knee, patient was a hospital with worsening pain did have an MRI and a bedside aspiration of the area mostly blood stained. On today's evaluation that is 01/03/2023, the patient denies having any fever or any chills, the patient is breathing comfortably, the patient denies having any chest pain shortness of breath or cough no nausea vomiting no abdominal pain or diarrhea, the patient pain to the right lateral thigh has decreased in intensity and no new symptoms. Patient white count is still elevated 26,000 creatinine 0.82. Objective - Vital Signs Vital signs: Vital Signs Temp 97.5 F L 01/03/23 07:01 Pulse 82 01/03/23 09:14 Resp 17 01/03/23 09:14 BP 144/91 01/03/23 07:01 Pulse Ox 94 L 01/03/23 07:01 FiO2 Intake & Output 01/02/23 01/03/23 01/03/23 18:59 06:59 18:59 Output Total 200 400 Balance -200 -400 Output: Urine 200 400 - Exam GENERAL DESCRIPTION: An elderly male lying in bed in no distress RESPIRATORY SYSTEM: Unlabored breathing , decreased breath sounds at bases HEART: S1 S2 regular rate and rhythm , ABDOMEN: Soft , no tenderness EXTREMITIES: No edema feet - Labs CBC & Chem 7: 01/03/23 07:02 01/03/23 07:02 Labs: Abnormal Lab Results - Last 24 Hours (Table) 01/02/23 01/02/23 01/02/23 Range/Units 06:42 06:42 11:22 WBC 17.82 H (4.50-10.00) X 10*3/uL RBC 5.78 H (4.40-5.60) X 10*6/uL Hgb 17.7 H (13.0-17.0) d/dL Hct 53.3 H (39.6-50.0) % RDW 14.6 H (11.5-14.5) % Sodium (137-145) mmol/L Carbon Dioxide 16.9 L (21.6-31.8) mmol/L Anion Gap 12.10 H (4.00-12.00) mmol/L BUN (9-20) mg/dL BUN/Creatinine Ratio 29.00 H (12.00-20.00) Ratio Glucose (74-99) mg/dL POC Glucose (mg/dL) 132 H (70-110) mg/dL Calcium 8.6 L (8.7-10.3) mg/dL Total Protein 4.9 L (6.2-8.2) d/dL Albumin 2.8 L (3.8-4.9) d/dL Albumin/Globulin Ratio 1.33 L (1.60-3.17) Ratio 01/02/23 01/02/23 01/03/23 Range/Units 16:25 20:18 05:56 WBC (4.50-10.00) X 10*3/uL RBC (4.40-5.60) X 10*6/uL Hgb (13.0-17.0) d/dL Hct (39.6-50.0) % RDW (11.5-14.5) % Sodium (137-145) mmol/L Carbon Dioxide (21.6-31.8) mmol/L Anion Gap (4.00-12.00) mmol/L BUN (9-20) mg/dL BUN/Creatinine Ratio (12.00-20.00) Ratio Glucose (74-99) mg/dL POC Glucose (mg/dL) 174 H 133 H 178 H (70-110) mg/dL Calcium (8.7-10.3) mg/dL Total Protein (6.2-8.2) d/dL Albumin (3.8-4.9) d/dL Albumin/Globulin Ratio (1.60-3.17) Ratio 01/03/23 Range/Units 07:02 WBC (4.50-10.00) X 10*3/uL RBC (4.40-5.60) X 10*6/uL Hgb (13.0-17.0) d/dL Hct (39.6-50.0) % RDW (11.5-14.5) % Sodium 132 L (137-145) mmol/L Carbon Dioxide 14 L (21.6-31.8) mmol/L Anion Gap (4.00-12.00) mmol/L BUN 32 H (9-20) mg/dL BUN/Creatinine Ratio (12.00-20.00) Ratio Glucose 183 H (74-99) mg/dL POC Glucose (mg/dL) (70-110) mg/dL Calcium (8.7-10.3) mg/dL Total Protein (6.2-8.2) d/dL Albumin (3.8-4.9) d/dL Albumin/Globulin Ratio (1.60-3.17) Ratio Microbiology - Last 24 Hours (Table) 12/30/22 12:27 Blood Culture - Preliminary Blood 12/31/22 10:40 Gram Stain - Final Other - Other Wound Culture - Final Assessment and Plan (1) Hematoma of right thigh Current Visit: Yes Status: Acute Code(s): S70.11XA - CONTUSION OF RIGHT THIGH, INITIAL ENCOUNTER SNOMED Code(s): 34395396025366723 (2) Leukocytosis Current Visit: Yes Status: Acute Priority: High Code(s): D72.829 - ELEVATED WHITE BLOOD CELL COUNT, UNSPECIFIED SNOMED Code(s): 281032360 Plan: 1patient was in the hospital with a right hip thigh area pain that has been going on for since his last injection to the right hip for severe osteoarthritis patient did have a CT of the right lower extremity on 12/24/2022 we did show some fat stranding along the fascial lines from hip to the knee area which is swollen and indurated but no redness concerning for cellulitis failing outpatient oral Keflex therapy 2-patient did have MRI of the right hip and thigh did shows peripheral enhancing fluid collection and extensive underlying muscle edema concerning for abscess with contagious myositis 3the patient did have aspiration of the area by orthopedic and cultures are So far negative blood culture has been negative. 4the patient remains to be afebrile White count is slight worsening however the patient has shown clinical improvement with the culture negative we will discontinue the vancomycin we will repeat his CBC and inflammatory markers with a.m. labs and monitor clinical course closely Dictation was produced using dragon dictation software. please excuse any grammatical, word or spelling errors.
[2023-01-04 07:48] LABS: African American GFR (CKD) >90 (>60 ml/min/1.73 sqM); Anion Gap 7 mmol/L; Blood Urea Nitrogen 39 mg/dL (9-20); C Reactive Protein 7.3 mg/dL (<1.0); Calcium 8.9 mg/dL (8.4-10.2); Carbon Dioxide 18 mmol/L (22-30); Chloride 106 mmol/L (98-107); Glucose 119 mg/dL (74-99); Non-African American GFR(CKD) 79 (>60 ml/min/1.73 sqM); Potassium 4.2 mmol/L (3.5-5.1); Sodium 131 mmol/L (137-145)
[2023-01-04] MEDS ORDERED: carvediloL 6.25 MG TAB PO ONE (09:30)
[2023-01-04 10:53] LABS: HCT 49.8 % (39.6-50.0); HGB 16.3 d/dL (13.0-17.0); MCHC 32.7 d/dL (32.0-37.0); MCV 91.7 FL (80.0-97.0); Mean Platelet Volume 10.6 FL (9.5-12.2); NRBC Per 100 WBC 0 X 10*3/uL (0.00-0.01); Platelet Count 263 X 10*3/uL (140-440); RBC 5.43 X 10*6/uL (4.40-5.60); RDW 14.3 % (11.5-14.5); WBC 17.63 X 10*3/uL (4.50-10.00)
--- NOTE | 2023-01-04 11:00 | P.CRDCN ---
History of Present Illness History of present illness: HISTORY OF PRESENT ILLNESS: This is a 77-year-old male with a past medical history significant for loop recorder insertion secondary to syncopal episodes, myocardial infarction, coronary artery disease with stenting of the circumflex and LAD and subsequent CABG approximately 9 years ago, paroxysmal atrial fibrillation, hypertension, hyperlipidemia, aortic stenosis, carotid atherosclerosis, and infrarenal abdominal aortic aneurysm. Patient follows in the office with Dr. Mcfadden. We have been asked to see the patient in consultation for Lang hwang with [facility]. He can pr esented to the hospital a day after receiving a steroid injection. He states he was unable to walk. The patient was found to have a hematoma of the right thigh. He is being followed by orthopedics with no surgical intervention planned. He is also being followed by infectious disease for possible cellulitis of the right lower extremity. Patient examined this morning. He is sitting up in the chair. Patient's is present. He reports having some heartburn yesterday but denies any chest pain or pressure. He denies any shortness of breath. Telemetry reveals sinus mechanism with a heart rate in the 90s. Upon reviewing telemetry, patient appears to have been in sinus mechanism throughout his hospitalization with no evidence of atrial fibrillation noted. * EKG reveals sinus mechanism with no signs of acute ischemia * Current home cardiac medications include Xarelto 20 mg daily, lisinopril 20 mg twice a day, carvedilol 6.25 mg twice a day, amlodipine 2.5 mg daily, Lipitor 80 mg at night * Most recent echocardiogram obtained in October 2020 revealed ejection fraction 50%, mild LVH, mild MR, mild as * Patient underwent Lexiscan stress test in October 2021 which was negative for ischemia REVIEW OF SYSTEMS: At the time of my exam: CONSTITUTIONAL: Denies fever or chills. HEENT: Denies blurred vision, vision changes, or eye pain. Denies hemoptysis CARDIOVASCULAR: Denies chest pain. Denies orthopnea. Denies PND. Denies palpitations RESPIRATORY: Denies shortness of breath. GASTROINTESTINAL: Denies abdominal pain. Denies nausea or vomiting. HEMATOLOGIC: Denies bleeding disorders. GENITOURINARY: Denies any blood in urine. SKIN: Denies pruitis. Denies rash. PHYSICAL EXAM: VITAL SIGNS: Reviewed. GENERAL: Well-developed in no acute distress. HEENT: Head is normocephalic. Pupils are equal, round. Sclerae anicteric. Mucous membranes of the mouth are moist. Neck supple. No JVD or thyromegaly LUNGS: Respirations even and unlabored. Lungs essentially clear to auscultation bilaterally. HEART: Regular rate and rhythm. S1 and S2 heard. ABDOMEN: Soft. Nondistended. Nontender. EXTREMITIES: Normal range of motion. No clubbing or cyanosis. Peripheral pulses intact. Minimal edema of right lower extremity NEUROLOGIC: Awake and alert. Oriented x 3. ASSESSMENT: Hematoma and possible cellulitis of right lower extremity, status post steroid injection Coronary artery disease with previous stenting of the circumflex and LAD with subsequent CABG 3 vessel Paroxysmal atrial fibrillation Hypertension Hyperlipidemia Mild aortic stenosis Carotid arthrosclerosis History of loop recorder insertion secondary to syncopal episodes History of myocardial infarction History of infrarenal abdominal aortic aneurysm PLAN: Continue current cardiac medications Continue telemetry monitoring. Patient has been in sinus mechanism with no evidence of atrial fibrillation thus far No need to obtain echocardiogram during this hospitalization. This may be obtained at his follow-up appointment with Dr. Mcfadden Patient is currently stable from a cardiac perspective Further recommendations pending patient course Nurse practitioner note has been reviewed by physician. Signing provider agrees with the documented findings, assessment, and plan of care. Past Medical History Past Medical History: Atrial Fibrillation, Coronary Artery Disease (CAD), Diabetes Mellitus, Eye Disorder, GERD/Reflux, GI Bleed, Hypertension, Musculoskeletal Disorder, Pulmonary Embolus (PE), Sleep Apnea/CPAP/BIPAP, Syncope Additional Past Medical History / Comment(s): ANAL FISSURES, GLAUCOMA, KIDNEY STONES, uses CPAP, abd. aneurysm- monitoring, 3 syncope episodes in 2019 now resolved, chronic back & hip problems, peripheral pulmonary emboli after open heart surg. resulted in prolonged intubation, glaucoma, colon polyps History of Any Multi-Drug Resistant Organisms: None Reported Past Surgical History: Appendectomy, Coronary Bypass/CABG, Heart Catheterization With Stent Additional Past Surgical History / Comment(s): triple bypass August 2013. pain procedures Past Anesthesia/Blood Transfusion Reactions: No Reported Reaction Additional Past Anesthesia/Blood Transfusion Reaction / Comment(s): difficulty coming off vent after open heart due to peripheral pulmonary emboli-spouse concerned related to anesthesia Date of Last Stent Placement:: 2013 Type of Cardiac Device: Loop Device Placement Date:: [employer] loop recorder now inactive placed in 2018 Past Psychological History: No Psychological Hx Reported Smoking Status: Former smoker Past Alcohol Use History: None Reported Past Drug Use History: None Reported - Past Family History Mother Family Medical History: Cancer Additional Family Medical History / Comment(s): uterine dies at 60 Father Family Medical History: Cancer Additional Family Medical History / Comment(s): kidney at 61 Medications and Allergies Home Medications Medication Instructions Recorded Confirmed Type Ferrous Sulfate [Iron (65 MG 325 mg PO DAILY 11/07/17 12/29/22 History Elemental)] Latanoprost Ophth [Xalatan 0.005%] 1 drops BOTH EYES HS 11/07/17 12/29/22 History carvediloL [Coreg] 6.25 mg PO BID 11/07/17 12/29/22 History Ubidecarenone [Co Q-10] 100 mg PO DAILY 07/15/18 12/29/22 History Rivaroxaban [Xarelto] 20 mg PO HS 05/26/19 12/29/22 History amLODIPine [Norvasc] 2.5 mg PO DAILY 05/26/19 12/29/22 History lisinopriL [Zestril] 20 mg PO BID 05/26/19 12/29/22 History HYDROcodone/APAP 7.5-325MG [Hunker 1 tab PO Q6HR PRN 3 Days #12 tab 10/23/20 12/29/22 Rx 7.5-325] Empagliflozin [Jardiance] 25 mg PO DAILY 06/30/22 12/29/22 History Atorvastatin [Lipitor] 80 mg PO HS 12/29/22 12/29/22 History Brimonidine Tartrate [Alphagan P 1 drop BOTH EYES HS 12/29/22 12/29/22 History 0.2% Ophth Soln] Cetirizine HCl [Zyrtec] 10 mg PO DAILY 12/29/22 12/29/22 History Cholecalciferol [Vitamin D3 (25 50 mcg PO DAILY 12/29/22 12/29/22 History Mcg = 1000 Iu)] Cyclobenzaprine [Flexeril] 10 mg PO TID PRN 12/29/22 12/29/22 History Melatonin 10 mg PO HS 12/29/22 12/29/22 History Timolol 0.5% Ophth Soln [Timoptic 1 drop BOTH EYES HS 12/29/22 12/29/22 History 0.5% Ophth Soln] predniSONE [Deltasone] See Taper PO DIRECTED 12/29/22 12/29/22 History traZODone HCL [Desyrel] 50 mg PO HS PRN 12/29/22 12/29/22 History Allergies Allergy/AdvReac Type Severity Reaction Status Date / Time No Known Allergies Allergy Verified 12/29/22 22:55 Physical Exam Vitals: Vital Signs Temp Pulse Resp BP Pulse Ox 01/04/23 08:52 108 H 18 01/04/23 08:06 108 H 01/04/23 08:00 98.0 F 108 H 18 145/90 01/04/23 01:15 97.8 F 99 19 145/81 95 01/03/23 19:37 97.7 F 102 H 19 134/83 96 Intake and Output 01/03/23 01/04/23 01/04/23 22:59 06:59 14:59 Output Total 100 300 Balance -100 -300 Output: Urine 100 300 Other: # Voids 2 Results 01/03/23 07:02 01/04/23 06:25 CBC 01/03/23 Range/Units 07:02 WBC 26.16 H (4.50-10.00) X 10*3/uL RBC 6.11 H (4.40-5.60) X 10*6/uL Hgb 18.7 H (13.0-17.0) d/dL Hct 55.8 H (39.6-50.0) % Plt Count 290 (140-440) X 10*3/uL Comprehensive Metabolic Panel 01/04/23 Range/Units 06:25 Sodium 131 L (137-145) mmol/L Potassium 4.2 (3.5-5.1) mmol/L Chloride 106 (98-107) mmol/L Carbon Dioxide 18 L (22-30) mmol/L BUN 39 H (9-20) mg/dL Creatinine 0.94 (0.66-1.25) mg/dL Glucose 119 H (74-99) mg/dL Calcium 8.9 (8.4-10.2) mg/dL Current Medications Generic Name Dose Route Start Last Admin Trade Name Freq PRN Reason Stop Dose Admin Hydrocodone Bitart/Acetaminophen 1 each 12/30/22 08:37 01/02/23 10:49 Hydrocodone/Apap 7.5-325mg 1 Each Tab PO 1 each Q6HR PRN Administration Pain Amlodipine Besylate 2.5 mg 12/30/22 09:00 01/03/23 08:14 Amlodipine 2.5 Mg Tab PO 2.5 mg DAILY HERBIE Administration Atorvastatin Calcium 80 mg 12/30/22 21:00 01/03/23 20:56 Atorvastatin 80 Mg Tab PO 80 mg HS HERBIE Administration Brimonidine Tartrate 1 drops 12/30/22 21:00 01/03/23 20:56 Brimonidine Tartrate 0.2% Drops 5 Ml Btl BOTH EYES 1 drops HS HERBIE Administration Calcium Carbonate/Glycine 500 mg 12/30/22 01:12 01/02/23 23:13 Calcium Carbonate 500 Mg Chewable PO 500 mg TID PRN Administration Heartburn Carvedilol 12.5 mg 01/04/23 09:15 Carvedilol 12.5 Mg Tab PO BID-W/MEALS [facility] Cholecalciferol 50 mcg 12/30/22 09:00 01/03/23 08:18 Cholecalciferol 25 Mcg (1000 Iu) Tablet PO Not Given DAILY [facility] Cyclobenzaprine HCl 10 mg 12/30/22 08:37 Cyclobenzaprine 10 Mg Tab PO TID PRN Muscle Pain Dextrose/Water 25 ml 12/30/22 09:33 Dextrose 50% Syringe 50 Ml IVP PER PROTOCOL PRN Hypoglycemia Protocol Dextrose/Water 50 ml 12/30/22 09:33 Dextrose 50% Syringe 50 Ml IVP PER PROTOCOL PRN Hypoglycemia Protocol Ferrous Sulfate 325 mg 12/30/22 09:00 01/03/23 08:19 Ferrous Sulfate 325 Mg Tab PO Not Given DAILY [facility] Hydralazine HCl 10 mg 01/02/23 18:46 Hydralazine Hcl 20 Mg/Ml 1 Ml Vial IVP Q4HR PRN Blood Pressure - High Sodium Chloride 1,000 mls @ 130 mls/hr 12/29/22 22:45 01/04/23 04:06 Saline 0.9% IV Not Given .Q7H42M [facility] Ceftriaxone Sodium 2 gm/ 50 mls @ 100 mls/hr 12/30/22 09:15 01/03/23 10:13 Sodium Chloride IVPB 100 mls/hr Q24HR HERBIE Administration Protocol Insulin Aspart 0 unit 12/30/22 12:30 01/04/23 06:10 Insulin Aspart (Novolog) 100 Unit/Ml Vial SQ Not Given ACHS [facility] Protocol Latanoprost 1 drops 12/30/22 21:00 01/03/23 20:56 Latanoprost 0.005% Ophth Drops 2.5 Ml Btl BOTH EYES 1 drops HS HERBIE Administration Loratadine 10 mg 12/30/22 09:00 01/03/23 08:14 Loratadine 10 Mg Tab PO 10 mg DAILY HERBIE Administration Melatonin 10 mg 12/30/22 21:00 01/03/23 20:56 Melatonin 5 Mg Tablet PO 10 mg HS HERBIE Administration Morphine Sulfate 4 mg 12/29/22 22:44 01/03/23 14:23 Morphine Sulfate 4 Mg/Ml Syringe IV 4 mg Q4HR PRN Administration Severe Pain (Scale 7 to 10) Naloxone HCl 0.2 mg 12/29/22 22:44 Naloxone 0.4 Mg/Ml 1 Ml Vial IV Q2M PRN Opioid Reversal Ondansetron HCl 4 mg 12/29/22 22:44 01/03/23 01:02 Ondansetron 4 Mg/2 Ml Vial IVP 4 mg Q8HR PRN Administration Nausea And Vomiting Pantoprazole Sodium 40 mg 01/04/23 09:00 Pantoprazole 40 Mg/10 Ml Vial IVP DAILY [facility] Polyethylene Glycol 17 gm 12/31/22 13:55 01/02/23 09:30 Polyethylene Glycol 3350 17 Gm Powd.Pack PO 17 gm DAILY PRN Administration Constipation Rivaroxaban 20 mg 01/01/23 21:00 01/03/23 20:56 Rivaroxaban 20 Mg Tab PO 20 mg HS HERBIE Administration Protocol Simethicone 80 mg 01/03/23 13:15 01/03/23 20:56 Simethicone 80 Mg Chewable PO 80 mg QID HERBIE Administration Timolol Maleate 1 drops 12/30/22 21:00 01/03/23 20:56 Timolol 0.5% Ophth Drops 5 Ml Btl BOTH EYES 1 drops HS HERBIE Administration Trazodone HCl 50 mg 12/30/22 08:37 Trazodone Hcl 50 Mg Tab PO HS PRN sleep Intake and Output 01/03/23 01/04/23 01/04/23 22:59 06:59 14:59 Output Total 100 300 Balance -100 -300 Output: Urine 100 300 Other: # Voids 2 01/03/23 07:02 01/04/23 06:25
[2023-01-04] MEDS: HYDROcodone/APAP 7.5-325MG 1 EACH TAB PO PRN (11:01)
[2023-01-04] MEDS: amLODIPine 2.5 MG TAB PO SCH (11:02)
[2023-01-04] MEDS: SIMETHICONE 80 MG CHEWABLE PO SCH ×4 (11:05→21:35)
[2023-01-04] MEDS: FERROUS SULFATE 325 MG TAB PO SCH ×2 (11:05→11:11)
[2023-01-04] MEDS: CHOLECALCIFEROL 25 MCG (1000 IU) TABLET PO SCH (11:11)
[2023-01-04] MEDS: LORATADINE 10 MG TAB PO SCH (11:12)
[2023-01-04] MEDS: carvediloL 12.5 MG TAB PO SCH ×2 (11:18→17:04)
[2023-01-04] MEDS: PANTOPRAZOLE 40 MG/10 ML VIAL IVP SCH (11:27)
[2023-01-04 11:31] LABS: Glucose,Whole Blood 180 mg/dL (70-110)
--- NOTE | 2023-01-04 11:49 | XR ---
EXAMINATION TYPE: XR abdomen 2V DATE OF EXAM: 01/03/2023 COMPARISON: None INDICATION: Abdominal pain and vomiting TECHNIQUE: Single view abdomen FINDINGS: Nonspecific bowel gas is present within the air-filled stomach somewhat prominent upper abdomen loops of bowel appears to be the transverse colon. Some small bowel loops in the left upper quadrant. Psoas margins are normal. No organomegaly is present. IMPRESSION: 1. Nonspecific abdomen. There appears to be some prominence of small bowel loops. Consider ileus. Fol low-up is recommended.
--- NOTE | 2023-01-04 12:27 | P.PN ---
Subjective Progress Note Date: 01/04/23 * 77-year-old gentleman with past medical history significant for hypertension, coronary artery disease, abdominal aortic aneurysm, diabetes mellitus, history of sleep apnea present to the emergency department with complaints of right hip pain, inability to ambulate. * Patient states about 10 days ago patient had an injection in his right hip over right greater trochanter. Patient is status post injection patient started to have right hip discomfort. He was in the emergency on 12/26/22 and had a computed tomography scan done. Patient was eventually discharged. He was noted to have worsening symptoms and decided to come to the emergency department * Workup in ER included right hip x-ray which was negative, venous ultrasound lower extremity was negative for DVT as well * Blood work reviewed showed CBC WBC count of 18.5 hemoglobin of 19.1 hematocrit 59 platelet count of 313 * Basic metabolic panel sodium 138 potassium 4.1 chloride 108 CO2 21 BUN 36 at 0.97 CRP of 2.3 * Patient was admitted to medical for started on broad-spectrum antibiotic with consultation from orthopedics as well as infectious disease * 12/31>> patient seen and evaluated bedside, hospital day one. Patient complained of bilateral forearm pain. Left forearm IV infiltration noted. Venous ultrasound shows cephalic vein thrombophlebitis. MRI right hip completed patient seen by orthopedic continue IV antibiotic. Order to have elevated hemoglobin hence hematology consulted * 01/01. Patient seen and examined. States right hip pain has improved. Swelling of upper extremities also improved * 01/02/: Patient seen and evaluated bedside. Care plan discussed in detail explained patient does have third spacing causing edema. Trying to avoid IV left arm. Encouraged to ambulate. Culture still pending * 01/03: Patient seen and evaluated bedside. Patient alert and oriented 3. Overnight patient had episode of vomiting. Continue patient on IV Protonix will start simethicone as well. Encourage ambulation white cell count and CRP elevated continue Rocephin and vancomycin K plan discussed with at bedside will encourage ambulation * 01/04: Patient seen and evaluated bedside. at bedside white cell count trending down. Patient states he is moving better range of motion improved b ut right hip. Continue IV antibiotics. Noted to have tachycardia dose of Coreg adjusted cardiology consulted Objective - Vital Signs Vital signs: Vital Signs Temp 98.0 F 01/04/23 08:00 Pulse 108 H 01/04/23 08:52 Resp 18 01/04/23 08:52 BP 145/90 01/04/23 08:00 Pulse Ox 95 01/04/23 01:15 FiO2 Intake & Output 01/03/23 01/04/23 01/04/23 18:59 06:59 18:59 Output Total 100 300 Balance -100 -300 Output: Urine 100 300 Other: # Voids 2 - Exam PHYSICAL EXAMINATION: GENERAL: The patient is alert and oriented x3, not in any acute distress. Well developed, well nourished. HEENT: Pupils are round and equally reacting to light. EOMI. No scleral icterus. No conjunctival pallor. Normocephalic, atraumatic. No pharyngeal erythema. No thyromegaly. CARDIOVASCULAR: S1 and S2 present. Irregular, tachycardia noted. PULMONARY: Chest is clear to auscultation, no wheezing or crackles. ABDOMEN: Soft, nontender, nondistended, normoactive bowel sounds. No palpable organomegaly. MUSCULOSKELETAL: Right hip swelling, pain, warmth, erythema tenderness and range of motion limited Left forearm and right forearm swelling noted EXTREMITIES: No cyanosis, clubbing, or pedal edema. NEUROLOGICAL: Gross neurological examination did not reveal any focal deficits. SKIN: No rashes. - Labs CBC & Chem 7: 01/04/23 06:25 01/04/23 06:25 Labs: Abnormal Lab Results - Last 24 Hours (Table) 01/03/23 01/03/23 01/04/23 Range/Units 16:53 21:13 06:09 WBC (4.50-10.00) X 10*3/uL Sodium (137-145) mmol/L Carbon Dioxide (22-30) mmol/L BUN (9-20) mg/dL Glucose (74-99) mg/dL POC Glucose (mg/dL) 207 H 177 H 122 H (70-110) mg/dL C-Reactive Protein (<1.0) mg/dL Procalcitonin (0.02-0.09) ng/mL 01/04/23 01/04/23 01/04/23 Range/Units 06:25 06:25 06:25 WBC 17.63 H (4.50-10.00) X 10*3/uL Sodium 131 L (137-145) mmol/L Carbon Dioxide 18 L (22-30) mmol/L BUN 39 H (9-20) mg/dL Glucose 119 H (74-99) mg/dL POC Glucose (mg/dL) (70-110) mg/dL C-Reactive Protein 7.3 H (<1.0) mg/dL Procalcitonin 0.21 H (0.02-0.09) ng/mL 01/04/23 Range/Units 11:29 WBC (4.50-10.00) X 10*3/uL Sodium (137-145) mmol/L Carbon Dioxide (22-30) mmol/L BUN (9-20) mg/dL Glucose (74-99) mg/dL POC Glucose (mg/dL) 180 H (70-110) mg/dL C-Reactive Protein (<1.0) mg/dL Procalcitonin (0.02-0.09) ng/mL Assessment and Plan Assessment: Assessment and plan * Right hip cellulitis with abscess and myositis * Sepsis secondary to intramuscular abscess * Left cephalic vein thrombophlebitis from IV * Coronary artery disease * History of atrial fibrillation * Diabetes mellitus type 2 * Hypertension * Abdominal aortic aneurysm * Elevated hemoglobin rule out polycythemia * Consult obtained from orthopedic , cardiology and infectious disease * In regards to right hip cellulitis, x-ray negative, MRI right hip completed . Continue Rocephin and vancomycin Day 6 . Follow-up on blood cultures, status post aspiration by orthopedic>> no growth * In regards to history of coronary artery disease, continue metoprolol, Lipitor, Coreg, amlodipine * In regards to history of atrial fibrillation anticoagulation on hold in anticipation of intervention. Continue Coreg(dose increased) and Xarelto. Discussed with ORTHO * In regards to sepsis secondary to cellulitis, follow-up on CBC, continue fluid resuscitation follow-up on blood cultures * In regards to elevated hemoglobin, appreciate input from hematology continue to follow up on CBC * Venous ultrasound bilateral upper ext negative for DVT * Will need physical therapy occupational therapy evaluation for discharge disposition * Potential discharge in 72 hours depending on clinical course
--- NOTE | 2023-01-04 14:52 | P.PN ---
Subjective Progress Note Date: 01/04/23 Principal diagnosis: Right thigh hematoma and leukocytosis Patient is a 77-year-old male with a past medical history significant for severe osteoarthritis specially requiring the right hip in this patient who did have a multiple steroid injection to the right hip area last 1 was about 10 days ago patient mention started having increasing pain to the right hip area with some radiation to the right thigh patient did have a CT of the left lower extremity no acute fracture or dislocation skin thickening with subcutaneous and fascial fat stranding and edema involving the lateral thigh from the hip to the knee, patient was a hospital with worsening pain did have an MRI and a bedside aspiration of the area mostly blood stained. On today's evaluation that is 01/04/2023, the patient is afebrile, the patient is breathing comfortably , the patient denies chest pain and no significant cough, the patient denies nausea and vomiting no abdominal pain and no diarrhea,, the patient pain to the right lateral thigh has decreased in intensity , feeling slightly better Patient white count is is down to 17.63, creatinine 0.94 Objective - Vital Signs Vital signs: Vital Signs Temp 98.0 F 01/04/23 08:00 Pulse 108 H 01/04/23 08:52 Resp 18 01/04/23 08:52 BP 145/90 01/04/23 08:00 Pulse Ox 95 01/04/23 01:15 FiO2 Intake & Output 01/03/23 01/04/23 01/04/23 18:59 06:59 18:59 Output Total 100 300 Balance -100 -300 Output: Urine 100 300 Other: # Voids 2 - Exam GENERAL DESCRIPTION: An elderly male lying in bed in no distress RESPIRATORY SYSTEM: Unlabored breathing , decreased breath sounds at bases HEART: S1 S2 regular rate and rhythm , ABDOMEN: Soft , no tenderness EXTREMITIES: No edema feet - Labs CBC & Chem 7: 01/04/23 06:25 01/04/23 06:25 Labs: Abnormal Lab Results - Last 24 Hours (Table) 01/03/23 01/03/23 01/03/23 Range/Units 07:02 16:53 21:13 WBC 26.16 H (4.50-10.00) X 10*3/uL RBC 6.11 H (4.40-5.60) X 10*6/uL Hgb 18.7 H (13.0-17.0) d/dL Hct 55.8 H (39.6-50.0) % Sodium (137-145) mmol/L Carbon Dioxide (22-30) mmol/L BUN (9-20) mg/dL Glucose (74-99) mg/dL POC Glucose (mg/dL) 207 H 177 H (70-110) mg/dL C-Reactive Protein (<1.0) mg/dL Procalcitonin (0.02-0.09) ng/mL 01/04/23 01/04/23 01/04/23 Range/Units 06:09 06:25 06:25 WBC (4.50-10.00) X 10*3/uL RBC (4.40-5.60) X 10*6/uL Hgb (13.0-17.0) d/dL Hct (39.6-50.0) % Sodium 131 L (137-145) mmol/L Carbon Dioxide 18 L (22-30) mmol/L BUN 39 H (9-20) mg/dL Glucose 119 H (74-99) mg/dL POC Glucose (mg/dL) 122 H (70-110) mg/dL C-Reactive Protein 7.3 H (<1.0) mg/dL Procalcitonin 0.21 H (0.02-0.09) ng/mL 01/04/23 01/04/23 Range/Units 06:25 11:29 WBC 17.63 H (4.50-10.00) X 10*3/uL RBC (4.40-5.60) X 10*6/uL Hgb (13.0-17.0) d/dL Hct (39.6-50.0) % Sodium (137-145) mmol/L Carbon Dioxide (22-30) mmol/L BUN (9-20) mg/dL Glucose (74-99) mg/dL POC Glucose (mg/dL) 180 H (70-110) mg/dL C-Reactive Protein (<1.0) mg/dL Procalcitonin (0.02-0.09) ng/mL Assessment and Plan (1) Hematoma of right thigh Current Visit: Yes Status: Acute Code(s): S70.11XA - CONTUSION OF RIGHT THIGH, INITIAL ENCOUNTER SNOMED Code(s): 46807709885911280 (2) Leukocytosis Current Visit: Yes Status: Acute Priority: High Code(s): D72.829 - ELEVATED WHITE BLOOD CELL COUNT, UNSPECIFIED SNOMED Code(s): 383650316 Plan: 1patient was in the hospital with a right hip thigh area pain that has been going on for since his last injection to the right hip for severe osteoarthritis patient did have a CT of the right lower extremity on 12/24/2022 we did show some fat stranding along the fascial lines from hip to the knee area which is swollen and indurated but no redness concerning for cellulitis failing outpatient oral Keflex therapy 2-patient did have MRI of the right hip and thigh did shows peripheral enhancing fluid collection and extensive underlying muscle edema concerning for abscess with contagious myositis 3the patient did have aspiration of the area by orthopedic and cultures are So far negative blood culture has been negative. 4the patient remains to be afebrile and the patient white count is trending down currently on empiric Rocephin white count will monitor closely, no plan for outpatient IV antibiotics at the bedside questions were answered Dictation was produced using [employer] dictation software. please excuse any gr ammatical, word or spelling errors. Time with Patient: Less than 30
[2023-01-04 16:47] LABS: Glucose,Whole Blood 145 mg/dL (70-110)
[2023-01-04] MEDS: BRIMONIDINE TARTRATE 0.2% DROPS 5 ML BTL BOTH EYES SCH (20:22)
[2023-01-04] MEDS: ATORVASTATIN 80 MG TAB PO SCH (20:22)
[2023-01-04] MEDS: RIVAROXABAN 20 MG TAB PO SCH (20:22)
[2023-01-04] MEDS: LATANOPROST 0.005% OPHTH DROPS 2.5 ML BTL BOTH EYES SCH (20:23)
[2023-01-04] MEDS: TIMOLOL 0.5% OPHTH DROPS 5 ML BTL BOTH EYES SCH (20:23)
[2023-01-04] MEDS: MELATONIN 5 MG TABLET PO SCH (20:24)
[2023-01-04 20:51] LABS: Glucose,Whole Blood 129 mg/dL (70-110)
[2023-01-04] MEDS: MORPHINE SULFATE 4 MG/ML SYRINGE IV PRN (21:35)
[2023-01-05] MEDS: CALCIUM CARBONATE 500 MG CHEWABLE PO PRN (01:14)
[2023-01-05] MEDS: HYDROcodone/APAP 7.5-325MG 1 EACH TAB PO PRN ×2 (01:14→12:28)
[2023-01-05] MEDS: SODIUM CHLORIDE 0.9% 1,000 ML IV SCH ×2 (04:47→08:04)
[2023-01-05 05:59] LABS: Glucose,Whole Blood 113 mg/dL (70-110)
[2023-01-05] MEDS: carvediloL 12.5 MG TAB PO SCH ×2 (06:52→19:29)
[2023-01-05] MEDS: INSULIN ASPART (NovoLOG) 100 UNIT/ML VIAL SQ SCH ×4 (06:52→21:52)
[2023-01-05] MEDS: PANTOPRAZOLE 40 MG/10 ML VIAL IVP SCH (08:07)
[2023-01-05] MEDS: FERROUS SULFATE 325 MG TAB PO SCH (08:08)
[2023-01-05] MEDS: SIMETHICONE 80 MG CHEWABLE PO SCH ×4 (08:08→21:04)
[2023-01-05] MEDS: amLODIPine 2.5 MG TAB PO SCH (08:08)
[2023-01-05] MEDS: CHOLECALCIFEROL 25 MCG (1000 IU) TABLET PO SCH (08:09)
[2023-01-05] MEDS: polyethylene glycoL 3350 17 GM POWD.PACK PO PRN (08:09)
[2023-01-05] MEDS: LORATADINE 10 MG TAB PO SCH (08:09)
[2023-01-05 08:48] LABS: HCT 47.1 % (39.6-50.0); HGB 15.7 d/dL (13.0-17.0); MCH 30.4 pg (27.0-32.0); MCHC 33.3 d/dL (32.0-37.0); MCV 91.1 FL (80.0-97.0); Mean Platelet Volume 10.4 FL (9.5-12.2); NRBC Per 100 WBC 0 X 10*3/uL (0.00-0.01); Platelet Count 247 X 10*3/uL (140-440); RBC 5.17 X 10*6/uL (4.40-5.60); RDW 14.2 % (11.5-14.5); WBC 13.53 X 10*3/uL (4.50-10.00)
[2023-01-05 08:50] VITALS: BMI 34.4
[2023-01-05 08:52] LABS: BUN/Creat Ratio 27.18 Ratio (12.00-20.00); Blood Urea Nitrogen 29.9 mg/dL (9.0-27.0); Calcium 8.9 mg/dL (8.7-10.3); Carbon Dioxide 21.7 mmol/L (21.6-31.8); Chloride 108 mmol/L (96-109); Glucose 114 mg/dL (70-110); Magnesium 2.1 mg/dL (1.5-2.4); Potassium 4.1 mmol/L (3.5-5.5); Sodium 137 mmol/L (135-145)
[2023-01-05] MEDS ORDERED: LACTULOSE 20 GM/30 ML CUP PO ONE (11:25)
[2023-01-05 11:46] LABS: Glucose,Whole Blood 139 mg/dL (70-110)
--- NOTE | 2023-01-05 12:06 | P.PN ---
Subjective HISTORY OF PRESENT ILLNESS: This is a 77-year-old male with a past medical history significant for loop recorder insertion secondary to syncopal episodes, myocardial infarction, coronary artery disease with stenting of the circumflex and LAD and subsequent CABG approximately 9 years ago, paroxysmal atrial fibrillation, hypertension, hyperlipidemia, aortic stenosis, carotid atherosclerosis, and infrarenal abdominal aortic aneurysm. Patient follows in the office with Dr. Mcfadden. We have been asked to see the patient in consultation for Lang hwang with [facility]. He can presented to the hospital a day after receiving a steroid injection. He states he was unable to walk. The patient was found to have a hematoma of the right th igh. He is being followed by orthopedics with no surgical intervention planned. He is also being followed by infectious disease for possible cellulitis of the right lower extremity. Patient examined this morning. He is sitting up in the chair. Patient's is present. He reports having some heartburn yesterday but denies any chest pain or pressure. He denies any shortness of breath. Tel emetry reveals sinus mechanism with a heart rate in the 90s. Upon reviewing telemetry, patient appears to have been in sinus mechanism throughout his hospitalization with no evidence of atrial fibrillation noted. * EKG reveals sinus mechanism with no signs of acute ischemia * Current home cardiac medications include Xarelto 20 mg daily, lisinopril 20 mg twice a day, carvedilol 6.25 mg twice a day, amlodipine 2.5 mg daily, Lipitor 80 mg at night * Most recent echocardiogram obtained in October 2020 revealed ejection fraction 50%, mild LVH, mild MR, mild as * Patient underwent Lexiscan stress test in October 2021 which was negative for ischemia 01/05/2023 Patient examined this morning at the bedside. Patient denies chest pain or pressure. He denies shortness of breath. Blood pressure this morning 160/96. Telemetry reveals sinus mechanism. PHYSICAL EXAM: VITAL SIGNS: Reviewed. GENERAL: Well-developed in no acute distress. HEENT: Head is normocephalic. Pupils are equal, round. Sclerae anicteric. Mucous membranes of the mouth are moist. Neck supple. No JVD or thyromegaly LUNGS: Respirations even and unlabored. Lungs essentially clear to auscultation bilaterally. HEART: Regular rate and rhythm. S1 and S2 heard. ABDOMEN: Soft. Nondistended. Nontender. EXTREMITIES: Normal range of motion. No clubbing or cyanosis. Peripheral pulses intact. Minimal edema of right lower extremity NEUROLOGIC: Awake and alert. Oriented x 3. ASSESSMENT: Hematoma and possible cellulitis of right lower extremity, status post steroid injection Coronary artery disease with previous stenting of the circumflex and LAD with subsequent CABG 3 vessel Paroxysmal atrial fibrillation Hypertension Hyperlipidemia Mild aortic stenosis Carotid arthrosclerosis History of loop recorder insertion secondary to syncopal episodes History of myocardial infarction History of infrarenal abdominal aortic aneurysm PLAN: Continue current cardiac medications Increase amlodipine to 5 mg daily for optimal blood pressure control Continue telemetry monitoring. Patient has been in sinus mechanism with no evidence of atrial fibrillation thus far No need to obtain echocardiogram during this hospitalization. This may be obtained at his follow-up appointment with Dr. Mcfadden Patient is currently stable from a cardiac perspective We will sign off. Please reconsult if needed. Nurse practitioner note has been reviewed by physician. Signing provider agrees with the documented findings, assessment, and plan of care. Objective - Vital Signs Vital signs: Vital Signs Temp 98.1 F 01/05/23 07:04 Pulse 88 01/05/23 07:04 Resp 18 01/05/23 07:04 BP 160/96 01/05/23 07:04 Pulse Ox 97 01/05/23 09:00 FiO2 Intake & Output 01/04/23 01/05/23 01/05/23 18:59 06:59 18:59 Output Total 400 Balance -400 Weight 108.862 kg Output: Urine 400 Other: Voiding Method Urinal # Voids 4 - Labs CBC & Chem 7: 01/05/23 06:04 01/05/23 06:04 Labs: Abnormal Lab Results - Last 24 Hours (Table) 01/04/23 01/04/23 01/04/23 Range/Units 06:25 06:25 11:29 WBC 17.63 H (4.50-10.00) X 10*3/uL BUN (9.0-27.0) mg/dL BUN/Creatinine Ratio (12.00-20.00) Ratio Glucose (70-110) mg/dL POC Glucose (mg/dL) 180 H (70-110) mg/dL C-Reactive Protein (0.00-0.80) mg/dL Procalcitonin 0.21 H (0.02-0.09) ng/mL 01/04/23 01/04/23 01/05/23 Range/Units 16:46 20:50 05:59 WBC (4.50-10.00) X 10*3/uL BUN (9.0-27.0) mg/dL BUN/Creatinine Ratio (12.00-20.00) Ratio Glucose (70-110) mg/dL POC Glucose (mg/dL) 145 H 129 H 113 H (70-110) mg/dL C-Reactive Protein (0.00-0.80) mg/dL Procalcitonin (0.02-0.09) ng/mL 01/05/23 01/05/23 Range/Units 06:04 06:04 WBC 13.53 H (4.50-10.00) X 10*3/uL BUN 29.9 H (9.0-27.0) mg/dL BUN/Creatinine Ratio 27.18 H (12.00-20.00) Ratio Glucose 114 H (70-110) mg/dL POC Glucose (mg/dL) (70-110) mg/dL C-Reactive Protein 4.40 H (0.00-0.80) mg/dL Procalcitonin (0.02-0.09) ng/mL Microbiology - Last 24 Hours (Table) 12/30/22 12:27 Blood Culture - Final Blood
[2023-01-05] MEDS: SODIUM CHLORIDE 0.9% 500 ML 500 ML IV SCH (12:49)
--- NOTE | 2023-01-05 16:14 | P.PN ---
Subjective Progress Note Date: 01/05/23 Principal diagnosis: Right thigh hematoma and leukocytosis Patient is a 77-year-old male with a past medical history significant for severe osteoarthritis specially requiring the right hip in this patient who did have a multiple steroid injection to the right hip area last 1 was about 10 days ago patient mention started having increasing pain to the right hip area with some radiation to the right thigh patient did have a CT of the left lower extremity no acute fracture or dislocation skin thickening with subcutaneous and fascial fat stranding and edema involving the lateral thigh from the hip to the knee, patient was a hospital with worsening pain did have an MRI and a bedside aspiration of the area mostly blood stained. On today's evaluation that is 01/05/2023, the patient remains to be afebrile, the patient is breathing comfortably on room air , the patient complaining of some epigastric chest pain and no significant cough, the patient did have some nausea but no vomiting no abdominal pain and no diarrhea, the patient pain to the right lateral thigh has decreased in intensity , Patient white count is is down to 13.53, creatinine is 1.1 Objective - Vital Signs Vital signs: Vital Signs Temp 98.1 F 01/05/23 07:04 Pulse 88 01/05/23 07:40 Resp 18 01/05/23 07:40 BP 160/96 01/05/23 07:04 Pulse Ox 97 01/05/23 09:00 FiO2 Intake & Output 01/04/23 01/05/23 01/05/23 18:59 06:59 18:59 Output Total 400 Balance -400 Weight 108.862 kg Output: Urine 400 Other: Voiding Method Urinal Urinal # Voids 4 - Exam GENERAL DESCRIPTION: An elderly male lying in bed in no distress RESPIRATORY SYSTEM: Unlabored breathing , decreased breath sounds at bases HEART: S1 S2 regular rate and rhythm , ABDOMEN: Soft , no tenderness EXTREMITIES: No edema feet - Labs CBC & Chem 7: 01/05/23 06:04 01/05/23 06:04 Labs: Abnormal Lab Results - Last 24 Hours (Table) 01/04/23 01/04/23 01/05/23 Range/Units 16:46 20:50 05:59 WBC (4.50-10.00) X 10*3/uL BUN (9.0-27.0) mg/dL BUN/Creatinine Ratio (12.00-20.00) Ratio Glucose (70-110) mg/dL POC Glucose (mg/dL) 145 H 129 H 113 H (70-110) mg/dL C-Reactive Protein (0.00-0.80) mg/dL 01/05/23 01/05/23 01/05/23 Range/Units 06:04 06:04 11:40 WBC 13.53 H (4.50-10.00) X 10*3/uL BUN 29.9 H (9.0-27.0) mg/dL BUN/Creatinine Ratio 27.18 H (12.00-20.00) Ratio Glucose 114 H (70-110) mg/dL POC Glucose (mg/dL) 139 H (70-110) mg/dL C-Reactive Protein 4.40 H (0.00-0.80) mg/dL Microbiology - Last 24 Hours (Table) 12/30/22 12:27 Blood Culture - Final Blood Assessment and Plan (1) Hematoma of right thigh Current Visit: Yes Status: Acute Code(s): S70.11XA - CONTUSION OF RIGHT THIGH, INITIAL ENCOUNTER SNOMED Code(s): 10493661442025916 (2) Leukocytosis Current Visit: Yes Status: Acute Priority: High Code(s): D72.829 - ELEVATED WHITE BLOOD CELL COUNT, UNSPECIFIED SNOMED Code(s): 020523923 Plan: 1patient was in the hospital with a right hip thigh area pain that has been going on for since his last injection to the right hip for severe osteoarthritis patient did have a CT of the right lower extremity on 12/24/2022 we did show some fat stranding along the fascial lines from hip to the knee area which is swollen and indurated but no redness concerning for cellulitis failing outpatient oral Keflex therapy 2-patient did have MRI of the right hip and thigh did shows peripheral enhancing fluid collection and extensive underlying muscle edema concerning for abscess with contagious myositis 3the patient did have aspiration of the area by orthopedic and cultures are So far negative blood culture has been negative. 4the patient remains to be afebrile and the patient white count is trending down currently on empiric Rocephin 5-patient did have a component of oral thrush we will add nystatin swish and swallow and see clinical response at the bedside questions were answered Dictation was produced using [employer] software. please excuse any grammatical, word or spelling errors. Time with Patient: Less than 30
[2023-01-05 16:52] LABS: Glucose,Whole Blood 164 mg/dL (70-110)
[2023-01-05] MEDS: NYSTATIN 100,000 UNIT/ML SUSP 500,000 UNIT/5 ML CUP PO SCH ×3 (19:22→21:04)
[2023-01-05] MEDS: BRIMONIDINE TARTRATE 0.2% DROPS 5 ML BTL BOTH EYES SCH (21:03)
[2023-01-05] MEDS: LATANOPROST 0.005% OPHTH DROPS 2.5 ML BTL BOTH EYES SCH (21:03)
[2023-01-05] MEDS: MELATONIN 5 MG TABLET PO SCH (21:04)
[2023-01-05] MEDS: ATORVASTATIN 80 MG TAB PO SCH (21:04)
[2023-01-05] MEDS: TIMOLOL 0.5% OPHTH DROPS 5 ML BTL BOTH EYES SCH (21:04)
[2023-01-05] MEDS: MORPHINE SULFATE 4 MG/ML SYRINGE IV PRN (21:05)
[2023-01-05 21:06] LABS: Glucose,Whole Blood 160 mg/dL (70-110)
[2023-01-05] MEDS: RIVAROXABAN 20 MG TAB PO SCH (21:52)
[2023-01-06] MEDS: MORPHINE SULFATE 4 MG/ML SYRINGE IV PRN ×2 (02:06→17:25)
[2023-01-06] MEDS: CALCIUM CARBONATE 500 MG CHEWABLE PO PRN (02:06)
[2023-01-06 05:51] LABS: Glucose,Whole Blood 123 mg/dL (70-110)
[2023-01-06] MEDS: INSULIN ASPART (NovoLOG) 100 UNIT/ML VIAL SQ SCH ×4 (06:57→22:24)
[2023-01-06] MEDS: carvediloL 12.5 MG TAB PO SCH ×2 (07:08→17:19)
[2023-01-06] MEDS: FERROUS SULFATE 325 MG TAB PO SCH (08:08)
[2023-01-06] MEDS: CHOLECALCIFEROL 25 MCG (1000 IU) TABLET PO SCH (08:08)
[2023-01-06] MEDS: PANTOPRAZOLE 40 MG/10 ML VIAL IVP SCH (08:09)
[2023-01-06] MEDS: LORATADINE 10 MG TAB PO SCH (08:09)
[2023-01-06] MEDS: amLODIPine 5 MG TAB PO SCH (08:09)
[2023-01-06] MEDS: NYSTATIN 100,000 UNIT/ML SUSP 500,000 UNIT/5 ML CUP PO SCH ×4 (08:09→22:26)
[2023-01-06] MEDS: HYDROcodone/APAP 7.5-325MG 1 EACH TAB PO PRN (08:15)
[2023-01-06] MEDS: polyethylene glycoL 3350 17 GM POWD.PACK PO PRN (09:55)
[2023-01-06] MEDS: SIMETHICONE 80 MG CHEWABLE PO SCH ×4 (09:55→22:26)
[2023-01-06 11:44] LABS: Glucose,Whole Blood 159 mg/dL (70-110)
--- NOTE | 2023-01-06 12:40 | P.PN ---
Subjective Progress Note Date: 01/06/23 Principal diagnosis: Right thigh hematoma and leukocytosis Patient is a 77-year-old male with a past medical history significant for severe osteoarthritis specially requiring the right hip in this patient who did have a multiple steroid injection to the right hip area last 1 was about 10 days ago patient mention started having increasing pain to the right hip area with some radiation to the right thigh patient did have a CT of the left lower extremity no acute fracture or dislocation skin thickening with subcutaneous and fascial fat stranding and edema involving the lateral thigh from the hip to the knee, patient was a hospital with worsening pain did have an MRI and a bedside aspiration of the area mostly blood stained. On today's evaluation that is 01/06/2023, the patient denies any fever or any chills, the patient is breathing comfortably , the patient denies chest pain and no significant cough, the patient denies nausea and vomiting no abdominal pain a nd no diarrhea, the patient pain to the right lateral thigh has decreased in intensity , Patient white count is is down to 13.53, creatinine is 1.1 as of 01/05/2023 no blood draw today Objective - Vital Signs Vital signs: Vital Signs Temp 98.2 F 01/06/23 07:22 Pulse 83 01/06/23 09:59 Resp 15 01/06/23 07:22 BP 144/82 01/06/23 09:59 Pulse Ox 97 01/06/23 07:22 FiO2 Intake & Output 01/05/23 01/06/23 01/06/23 18:59 06:59 18:59 Output Total 110 250 Balance -110 -250 Weight 108.862 kg Output: Urine 110 250 Other: Voiding Method Urinal Urinal - Exam GENERAL DESCRIPTION: An elderly male lying in bed in no distress RESPIRATORY SYSTEM: Unlabored breathing , decreased breath sounds at bases HEART: S1 S2 regular rate and rhythm , ABDOMEN: Soft , no tenderness EXTREMITIES: No edema feet - Labs CBC & Chem 7: 01/05/23 06:04 01/05/23 06:04 Labs: Abnormal Lab Results - Last 24 Hours (Table) 01/05/23 01/05/23 01/06/23 Range/Units 16:51 21:05 05:49 POC Glucose (mg/dL) 164 H 160 H 123 H (70-110) mg/dL 01/06/23 Range/Units 11:42 POC Glucose (mg/dL) 159 H (70-110) mg/dL Assessment and Plan (1) Hematoma of right thigh Current Visit: Yes Status: Acute Code(s): S70.11XA - CONTUSION OF RIGHT THIGH, INITIAL ENCOUNTER SNOMED Code(s): 00680159713991912 (2) Leukocytosis Current Visit: Yes Status: Acute Priority: High Code(s): D72.829 - ELEVATED WHITE BLOOD CELL COUNT, UNSPECIFIED SNOMED Code(s): 348050314 Plan: 1patient was in the hospital with a right hip thigh area pain that has been going on for since his last injection to the right hip for severe osteoarthritis patient did have a CT of the right lower extremity on 12/24/2022 we did show some fat stranding along the fascial lines from hip to the knee area which is swollen and indurated but no redness concerning for cellulitis failing outpatient oral Keflex therapy 2-patient did have MRI of the right hip and thigh did shows peripheral enhancing fluid collection and extensive underlying muscle edema concerning for abscess with contagious myositis 3the patient did have aspiration of the area by orthopedic and cultures are So far negative blood culture has been negative. 4the patient remains to be afebrile and the patient white count is trending down we will repeat a CBC with the a.m. 5-patient did have a component of oral thrush we will continue with nystatin swish and swallow and monitor clinical course closely at the bedside questions were answered Dictation was produced using [employer] dictation software. please excuse any grammatical, word or spelling errors. Time with Patient: Less than 30
[2023-01-06 12:41] LABS: Basophils % (A) 0 %; Eosinophils # (A) 0.1 k/uL (0-0.7); Eosinophils % (A) 1 %; HCT 49.3 % (39.0-53.0); HGB 16.1 gm/dL (13.0-17.5); Lymphocytes % (A) 6 %; MCH 31.1 pg (25.0-35.0); MCHC 32.6 g/dL (31.0-37.0); MCV 95.4 fL (80.0-100.0); Mean Platelet Volume 8.4; Monocytes # (A) 1.1 k/uL (0-1.0); Monocytes % (A) 7 %; Neutrophils # (A) 12.9 k/uL (1.3-7.7); Neutrophils % (A) 85 %; Platelet Count 208 k/uL (150-450); RBC 5.17 m/uL (4.30-5.90); RDW 14.1 % (11.5-15.5); WBC 15.1 k/uL (3.8-10.6)
[2023-01-06 13:14] LABS: African American GFR (CKD) 83 (>60 ml/min/1.73 sqM); Anion Gap 4 mmol/L; Blood Urea Nitrogen 28 mg/dL (9-20); Calcium 9.1 mg/dL (8.4-10.2); Carbon Dioxide 22 mmol/L (22-30); Chloride 109 mmol/L (98-107); Glucose 138 mg/dL (74-99); Non-African American GFR(CKD) 72 (>60 ml/min/1.73 sqM); Potassium 4.3 mmol/L (3.5-5.1); Sodium 135 mmol/L (137-145)
[2023-01-06 16:22] LABS: Glucose,Whole Blood 169 mg/dL (70-110)
--- NOTE | 2023-01-06 17:49 | P.PN ---
Subjective Progress Note Date: 01/05/23 77-year-old gentleman with past medical history significant for hypertension, coronary artery disease, abdominal aortic aneurysm, diabetes mellitus, history of sleep apnea present to the emergency department with complaints of right hip pain, inability to ambulate. Patient states about 10 days ago patient had an injection in his right hip over right greater trochanter. Patient is status post injection patient started to have right hip discomfort. He was in the emergency on 12/26/22 and had a computed tomography scan done. Patient was eventually discharged. He was noted to have worsening symptoms and decided to come to the emergency department Workup in ER included right hip x-ray which was negative, venous ultrasound lower extremity was negative for DVT as well Blood work reviewed showed CBC WBC count of 18.5 hemoglobin of 19.1 hematocrit 59 platelet count of 313 Basic metabolic panel sodium 138 potassium 4.1 chloride 108 CO2 21 BUN 36 at 0.97 CRP of 2.3 Patient was admitted to medical for started on broad-spectrum antibiotic with consultation from orthopedics as well as infectious disease Objective - Vital Signs Vital signs: Vital Signs Temp 98.1 F 01/05/23 07:04 Pulse 88 01/05/23 07:40 Resp 18 01/05/23 07:40 BP 160/96 01/05/23 07:04 Pulse Ox 97 01/05/23 09:00 FiO2 Intake & Output 01/04/23 01/05/23 01/05/23 18:59 06:59 18:59 Output Total 400 Balance -400 Weight 108.862 kg Output: Urine 400 Other: Voiding Method Urinal Urinal # Voids 4 - Exam GENERAL: The patient is alert and oriented x3, not in any acute distress. Well developed, well nourished. HEENT: Pupils are round and equally reacting to light. EOMI. No scleral icterus. No conjunctival pallor. Normocephalic, atraumatic. No pharyngeal erythema. No thyromegaly. CARDIOVASCULAR: S1 and S2 present. Irregular, tachycardia noted. PULMONARY: Chest is clear to auscultation, no wheezing or crackles. ABDOMEN: Soft, nontender, nondistended, normoactive bowel sounds. No palpable or ganomegaly. MUSCULOSKELETAL: Right hip swelling, pain, warmth, erythema tenderness and range of motion limited Left forearm and right forearm swelling noted EXTREMITIES: No cyanosis, clubbing, or pedal edema. NEUROLOGICAL: Gross neurological examination did not reveal any focal deficits. SKIN: No rashes. - Labs CBC & Chem 7: 01/06/23 12:22 01/06/23 12:22 Labs: Abnormal Lab Results - Last 24 Hours (Table) 01/04/23 01/04/23 01/05/23 Range/Units 16:46 20:50 05:59 WBC (4.50-10.00) X 10*3/uL BUN (9.0-27.0) mg/dL BUN/Creatinine Ratio (12.00-20.00) Ratio Glucose (70-110) mg/dL POC Glucose (mg/dL) 145 H 129 H 113 H (70-110) mg/dL C-Reactive Protein (0.00-0.80) mg/dL 01/05/23 01/05/23 01/05/23 Range/Units 06:04 06:04 11:40 WBC 13.53 H (4.50-10.00) X 10*3/uL BUN 29.9 H (9.0-27.0) mg/dL BUN/Creatinine Ratio 27.18 H (12.00-20.00) Ratio Glucose 114 H (70-110) mg/dL POC Glucose (mg/dL) 139 H (70-110) mg/dL C-Reactive Protein 4.40 H (0.00-0.80) mg/dL Microbiology - Last 24 Hours (Table) 12/30/22 12:27 Blood Culture - Final Blood Assessment and Plan Assessment: Assessment and plan * Right hip cellulitis with abscess and myositis * Sepsis secondary to intramuscular abscess * Left cephalic vein thrombophlebitis from IV * Coronary artery disease * History of atrial fibrillation * Diabetes mellitus type 2 * Hypertension * Abdominal aortic aneurysm * Elevated hemoglobin rule out polycythemia * Consult obtained from orthopedic , cardiology and infectious disease * In regards to right hip cellulitis, x-ray negative, MRI right hip completed . Continue Rocephin and vancomycin Day 6 . Follow-up on blood cultures, status post aspiration by orthopedic>> no growth * In regards to history of coronary artery disease, continue metoprolol, Lipitor, Coreg, amlodipine * In regards to history of atrial fibrillation anticoagulation on hold in anticipation of intervention. Continue Coreg(dose increased) and Xarelto. Discussed with ORTHO * In regards to sepsis secondary to cellulitis, follow-up on CBC, continue fluid resuscitation follow-up on blood cultures * In regards to elevated hemoglobin, appreciate input from hematology continue to follow up on CBC * Venous ultrasound bilateral upper ext negative for DVT * Will need physical therapy occupational therapy evaluation for discharge disposition * Potential discharge in 72 hours depending on clinical course
--- NOTE | 2023-01-06 17:51 | P.PN ---
Subjective Progress Note Date: 01/06/23 77-year-old gentleman with past medical history significant for hypertension, coronary artery disease, abdominal aortic aneurysm, diabetes mellitus, history of sleep apnea present to the emergency department with complaints of right hip pain, inability to ambulate. Patient states about 10 days ago patient had an injection in his right hip over right greater trochanter. Patient is status post injection patient started to have right hip discomfort. He was in the emergency on 12/26/22 and had a computed tomography scan done. Patient was eventually discharged. He was noted to have worsening symptoms and decided to come to the emergency department Workup in ER included right hip x-ray which was negative, venous ultrasound lower extremity was negative for DVT as well Blood work reviewed showed CBC WBC count of 18.5 hemoglobin of 19.1 hematocrit 59 platelet count of 313 Basic metabolic panel sodium 138 potassium 4.1 chloride 108 CO2 21 BUN 36 at 0.97 CRP of 2.3 Patient was admitted to medical for started on broad-spectrum antibiotic with consultation from orthopedics as well as infectious disease 01/06/2023 -- the patient denies any fever or any chills, the patient is breathing comfortably , the patient denies chest pain and no significant cough, the patient denies nausea and vomiting no abdominal pain and no diarrhea, the patient pain to the right lateral thigh has decreased in intensity Laboratory reveals a WBC 15.1, hemoglobin of 16.1, hematocrit of 49.3 and platelet count of 28, sodium 135, potassium 4.3, BUN/creatinine of 28/1.01 and blood glucose of 138 patient was in the hospital with a right hip thigh area pain that has been going on for since his last injection to the right hip for severe osteoarthritis patient did have a CT of the right lower extremity on 12/24/2022 we did show some fat stranding along the fascial lines from hip to the knee area which is swollen and indurated but no redness concerning for cellulitis failing outpatient oral Keflex therapy -patient did have MRI of the right hip and thigh did shows peripheral enhancing fluid collection and extensive underlying muscle edema concerning for abscess with contagious myositis the patient did have aspiration of the area by orthopedic and cultures are So far negative blood culture has been negative. the patient remains to be afebrile and the patient white count is trending down we will repeat a CBC with the a.m. -patient did have a component of oral thrush we will continue with nystatin swish and swallow and monitor clinical course closely Objective - Vital Signs Vital signs: Vital Signs Temp 98.2 F 01/06/23 07:22 Pulse 83 01/06/23 09:59 Resp 15 01/06/23 07:22 BP 144/82 01/06/23 09:59 Pulse Ox 97 01/06/23 07:22 FiO2 Intake & Output 01/05/23 01/06/23 01/06/23 18:59 06:59 18:59 Output Total 110 250 Balance -110 -250 Weight 108.862 kg Output: Urine 110 250 Other: Voiding Method Urinal Urinal - Exam GENERAL: The patient is alert and oriented x3, not in any acute distress. Well developed, well nourished. HEENT: Pupils are round and equally reacting to light. EOMI. No scleral icterus. No conjunctival pallor. Normocephalic, atraumatic. No pharyngeal erythema. No thyromegaly. CARDIOVASCULAR: S1 and S2 present. Irregular, tachycardia noted. PULMONARY: Chest is clear to auscultation, no wheezing or crackles. ABDOMEN: Soft, nontender, nondistended, normoactive bowel sounds. No palpable organomegaly. MUSCULOSKELETAL: Right hip swelling, pain, warmth, erythema tenderness and range of motion limited Left forearm and right forearm swelling noted EXTREMITIES: No cyanosis, clubbing, or pedal edema. NEUROLOGICAL: Gross neurological examination did not reveal any focal deficits. SKIN: No rashes. - Labs CBC & Chem 7: 01/06/23 12:22 01/06/23 12:22 Labs: Abnormal Lab Results - Last 24 Hours (Table) 01/05/23 01/05/23 01/06/23 Range/Units 16:51 21:05 05:49 POC Glucose (mg/dL) 164 H 160 H 123 H (70-110) mg/dL 01/06/23 Range/Units 11:42 POC Glucose (mg/dL) 159 H (70-110) mg/dL Assessment and Plan Assessment: Assessment and plan * Right hip cellulitis with abscess and myositis * Sepsis secondary to intramuscular abscess * Left cephalic vein thrombophlebitis from IV * Coronary artery disease * History of atrial fibrillation * Diabetes mellitus type 2 * Hypertension * Abdominal aortic aneurysm * Elevated hemoglobin rule out polycythemia * Consult obtained from orthopedic , cardiology and infectious disease * In regards to right hip cellulitis, x-ray negative, MRI right hip completed . Continue Rocephin and vancomycin Day 6 . Follow-up on blood cultures, status post aspiration by orthopedic>> no growth * In regards to history of coronary artery disease, continue metoprolol, Lipitor, Coreg, amlodipine * In regards to history of atrial fibrillation anticoagulation on hold in anticipation of intervention. Continue Coreg(dose increased) and Xarelto. Discussed with ORTHO * In regards to sepsis secondary to cellulitis, follow-up on CBC, continue fluid resuscitation follow-up on blood cultures * In regards to elevated hemoglobin, appreciate input from hematology continue to follow up on CBC * Venous ultrasound bilateral upper ext negative for DVT * Will need physical therapy occupational therapy evaluation for discharge disposition * Potential discharge in 72 hours depending on clinical course
[2023-01-06] MEDS: SODIUM CHLORIDE 0.9% 500 ML 500 ML IV SCH (18:19)
[2023-01-06] MEDS: SODIUM CHLORIDE 0.45% 1,000 ML IV SCH (18:19)
[2023-01-06 20:27] LABS: Glucose,Whole Blood 160 mg/dL (70-110)
[2023-01-06] MEDS: LATANOPROST 0.005% OPHTH DROPS 2.5 ML BTL BOTH EYES SCH (22:24)
[2023-01-06] MEDS: ATORVASTATIN 80 MG TAB PO SCH (22:24)
[2023-01-06] MEDS: RIVAROXABAN 20 MG TAB PO SCH (22:25)
[2023-01-06] MEDS: BRIMONIDINE TARTRATE 0.2% DROPS 5 ML BTL BOTH EYES SCH (22:25)
[2023-01-06] MEDS: TIMOLOL 0.5% OPHTH DROPS 5 ML BTL BOTH EYES SCH (22:25)
[2023-01-06] MEDS: MELATONIN 5 MG TABLET PO SCH (22:25)
[2023-01-07] MEDS: MORPHINE SULFATE 4 MG/ML SYRINGE IV PRN ×2 (01:59→21:10)
[2023-01-07 05:49] LABS: Glucose,Whole Blood 121 mg/dL (70-110)
[2023-01-07] MEDS: INSULIN ASPART (NovoLOG) 100 UNIT/ML VIAL SQ SCH ×4 (06:11→21:20)
[2023-01-07] MEDS: SODIUM CHLORIDE 0.45% 1,000 ML IV SCH ×3 (06:12→21:17)
[2023-01-07] MEDS: carvediloL 12.5 MG TAB PO SCH ×2 (06:32→17:47)
[2023-01-07] MEDS: CHOLECALCIFEROL 25 MCG (1000 IU) TABLET PO SCH (07:47)
[2023-01-07] MEDS: amLODIPine 5 MG TAB PO SCH (07:47)
[2023-01-07] MEDS: LORATADINE 10 MG TAB PO SCH (07:47)
[2023-01-07] MEDS: FERROUS SULFATE 325 MG TAB PO SCH (07:47)
[2023-01-07] MEDS: SIMETHICONE 80 MG CHEWABLE PO SCH ×4 (07:47→21:08)
[2023-01-07] MEDS: PANTOPRAZOLE 40 MG/10 ML VIAL IVP SCH (07:49)
[2023-01-07] MEDS: SODIUM CHLORIDE 0.9% 500 ML 500 ML IV SCH (07:55)
[2023-01-07] MEDS: NYSTATIN 100,000 UNIT/ML SUSP 500,000 UNIT/5 ML CUP PO SCH ×4 (09:45→21:08)
[2023-01-07] MEDS: HYDROcodone/APAP 7.5-325MG 1 EACH TAB PO PRN (09:48)
[2023-01-07 10:27] LABS: Basophils # (A) 0.03 X 10*3/uL (0.00-0.10); Basophils % (A) 0.2 %; Eosinophils # (A) 0.06 X 10*3/uL (0.04-0.35); Eosinophils % (A) 0.4 %; HCT 44.3 % (39.6-50.0); HGB 14.8 d/dL (13.0-17.0); Lymphocytes # (A) 1.21 X 10*3/uL (0.90-5.00); Lymphocytes % (A) 8.9 %; MCH 30.8 pg (27.0-32.0); MCHC 33.4 d/dL (32.0-37.0); MCV 92.3 FL (80.0-97.0); Mean Platelet Volume 10.4 FL (9.5-12.2); Monocytes # (A) 1.26 X 10*3/uL (0.20-1.00); Monocytes % (A) 9.2 %; NRBC Per 100 WBC 0 X 10*3/uL (0.00-0.01); Neutrophils # (A) 10.98 X 10*3/uL (1.80-7.70); Neutrophils % (A) 80.4 %; Platelet Count 220 X 10*3/uL (140-440); RDW 14.1 % (11.5-14.5); WBC 13.66 X 10*3/uL (4.50-10.00)
[2023-01-07 10:33] LABS: BUN/Creat Ratio 21.36 Ratio (12.00-20.00); Blood Urea Nitrogen 23.5 mg/dL (9.0-27.0); Carbon Dioxide 23.8 mmol/L (21.6-31.8); Chloride 106 mmol/L (96-109); Glucose 125 mg/dL (70-110); Potassium 4.1 mmol/L (3.5-5.5); Sodium 138 mmol/L (135-145)
--- NOTE | 2023-01-07 11:18 | P.PN ---
Subjective Progress Note Date: 01/07/23 Principal diagnosis: Right thigh hematoma and leukocytosis Patient is a 77-year-old male with a past medical history significant for severe osteoarthritis specially requiring the right hip in this patient who did have a multiple steroid injection to the right hip area last 1 was about 10 days ago patient mention started having increasing pain to the right hip area with some radiation to the right thigh patient did have a CT of the left lower extremity no acute fracture or dislocation skin thickening with subcutaneous and fascial fat stranding and edema involving the lateral thigh from the hip to the knee, patient was a hospital with worsening pain did have an MRI and a bedside aspiration of the area mostly blood stained. On today's evaluation that is 01/07/2023, the patient remains to be afebrile, the patient is breathing comfortably on room air , the patient denies chest pain or cough , the patient denies nausea or vomiting , patient denies abdominal wilner n and no diarrhea has been reported,, the patient pain to the right lateral thigh has decreased in intensity , Patient white count is down to 13.66, creatinine is 1.1 Objective - Vital Signs Vital signs: Vital Signs Temp 98.4 F 01/07/23 07:08 Pulse 79 01/07/23 07:08 Resp 16 01/07/23 07:08 BP 153/85 01/07/23 07:08 Pulse Ox 95 01/07/23 07:08 FiO2 Intake & Output 01/06/23 01/07/23 01/07/23 18:59 06:59 18:59 Intake Total 1150 Output Total 200 Balance -200 1150 Intake: Intake, IV Titration 900 Amount Sodium Chloride 0.45% 1, 900 000 ml @ 75 mls/hr IV . [id number] [facility] Rx#:[id number] Oral 250 Output: Urine 200 Other: Voiding Method Urinal # Voids 5 5 - Exam GENERAL DESCRIPTION: An elderly male lying in bed in no distress RESPIRATORY SYSTEM: Unlabored breathing , decreased breath sounds at bases HEART: S1 S2 regular rate and rhythm , ABDOMEN: Soft , no tenderness EXTREMITIES: No edema feet - Labs CBC & Chem 7: 01/07/23 05:12 01/07/23 05:12 Labs: Abnormal Lab Results - Last 24 Hours (Table) 01/06/23 01/06/23 01/06/23 Range/Units 11:42 12:22 12:22 WBC 15.1 H (3.8-10.6) k/uL Neutrophils # 12.9 H (1.3-7.7) k/uL Monocytes # 1.1 H (0-1.0) k/uL Sodium 135 L (137-145) mmol/L Chloride 109 H (98-107) mmol/L BUN 28 H (9-20) mg/dL BUN/Creatinine Ratio (12.00-20.00) Ratio Glucose 138 H (74-99) mg/dL POC Glucose (mg/dL) 159 H (70-110) mg/dL Procalcitonin (0.02-0.09) ng/mL 01/06/23 01/06/23 01/06/23 Range/Units 12:22 16:21 20:24 WBC (3.8-10.6) k/uL Neutrophils # (1.3-7.7) k/uL Monocytes # (0-1.0) k/uL Sodium (137-145) mmol/L Chloride (98-107) mmol/L BUN (9-20) mg/dL BUN/Creatinine Ratio (12.00-20.00) Ratio Glucose (74-99) mg/dL POC Glucose (mg/dL) 169 H 160 H (70-110) mg/dL Procalcitonin 0.23 H (0.02-0.09) ng/mL 01/07/23 01/07/23 01/07/23 Range/Units 05:12 05:12 05:47 WBC 13.66 H (3.8-10.6) k/uL Neutrophils # 10.98 H (1.3-7.7) k/uL Monocytes # 1.26 H (0-1.0) k/uL Sodium (137-145) mmol/L Chloride (98-107) mmol/L BUN (9-20) mg/dL BUN/Creatinine Ratio 21.36 H (12.00-20.00) Ratio Glucose 125 H (74-99) mg/dL POC Glucose (mg/dL) 121 H (70-110) mg/dL Procalcitonin (0.02-0.09) ng/mL Assessment and Plan (1) Hematoma of right thigh Current Visit: Yes Status: Acute Code(s): S70.11XA - CONTUSION OF RIGHT THIGH, INITIAL ENCOUNTER SNOMED Code(s): 58668392950026813 (2) Leukocytosis Current Visit: Yes Status: Acute Priority: High Code(s): D72.829 - ELEVATED WHITE BLOOD CELL COUNT, UNSPECIFIED SNOMED Code(s): 060137856 Plan: 1patient was in the hospital with a right hip thigh area pain that has been going on for since his last injection to the right hip for severe osteoarthritis patient did have a CT of the right lower extremity on 12/24/2022 we did show some fat stranding along the fascial lines from hip to the knee area which is swollen and indurated but no redness concerning for cellulitis failing outpatient oral Keflex therapy 2-patient did have MRI of the right hip and thigh did shows peripheral enhancing fluid collection and extensive underlying muscle edema concerning for abscess with contagious myositis 3the patient did have aspiration of the area by orthopedic and cultures are So far negative blood culture has been negative. 4the patient remains to be afebrile and the patient white count is trending down currently being monitor closely off antibiotic therapy 5-patient did have a component of oral thrush we will continue with nystatin swish and swallow and monitor clinical course closely at the bedside questions were answered Dictation was produced using [employer] dictation software. please excuse any gramm atical, word or spelling errors. Time with Patient: Less than 30
[2023-01-07 11:37] LABS: Glucose,Whole Blood 221 mg/dL (70-110)
[2023-01-07 16:35] LABS: Glucose,Whole Blood 189 mg/dL (70-110)
--- NOTE | 2023-01-07 17:32 | P.PN ---
Subjective Progress Note Date: 01/07/23 77-year-old gentleman with past medical history significant for hypertension, coronary artery disease, abdominal aortic aneurysm, diabetes mellitus, history of sleep apnea present to the emergency department with complaints of right hip pain, inability to ambulate. Patient states about 10 days ago patient had an injection in his right hip over right greater trochanter. Patient is status post injection patient started to have right hip discomfort. He was in the emergency on 12/26/22 and had a computed tomography scan done. Patient was eventually discharged. He was noted to have worsening symptoms and decided to come to the emergency department Workup in ER included right hip x-ray which was negative, venous ultrasound lower extremity was negative for DVT as well Blood work reviewed showed CBC WBC count of 18.5 hemoglobin of 19.1 hematocrit 59 platelet count of 313 Basic metabolic panel sodium 138 potassium 4.1 chloride 108 CO2 21 BUN 36 at 0.97 CRP of 2.3 Patient was admitted to medical for started on broad-spectrum antibiotic with consultation from orthopedics as well as infectious disease 01/06/2023 -- the patient denies any fever or any chills, the patient is breathing comfortably , the patient denies chest pain and no significant cough, the patient denies nausea and vomiting no abdominal pain and no diarrhea, the patient pain to the right lateral thigh has decreased in intensity Laboratory reveals a WBC 15.1, hemoglobin of 16.1, hematocrit of 49.3 and platelet count of 28, sodium 135, potassium 4.3, BUN/creatinine of 28/1.01 and blood glucose of 138 patient was in the hospital with a right hip thigh area pain that has been going on for since his last injection to the right hip for severe osteoarthritis patient did have a CT of the right lower extremity on 12/24/2022 we did show some fat stranding along the fascial lines from hip to the knee area which is swollen and indurated but no redness concerning for cellulitis failing outpatient oral Keflex therapy -patient did have MRI of the right hip and thigh did shows peripheral enhancing fluid collection and extensive underlying muscle edema concerning for abscess with contagious myositis the patient did have aspiration of the area by orthopedic and cultures are So far negative blood culture has been negative. the patient remains to be afebrile and the patient white count is trending down we will repeat a CBC with the a.m. -patient did have a component of oral thrush we will continue with nystatin swish and swallow and monitor clinical course closely 01/07/2023 the patient remains to be afebrile, the patient is breathing comfortably on room air , the patient denies chest pain or cough , the patient denies nausea or vomiting , patient denies abdominal pain and no diarrhea has been reported,, the patient pain to the right lateral thigh has decreased in intensity , Patient white count is down to 13.66, creatinine is 1.1 patient was in the hospital with a right hip thigh area pain that has been going on for since his last injection to the right hip for severe osteoarthritis patient did have a CT of the right lower extremity on 12/24/2022 we did show some fat stranding along the fascial lines from hip to the knee area which is swollen and indurated but no redness concerning for cellulitis failing outpatient oral Keflex therapy -patient did have MRI of the right hip and thigh did shows peripheral enhancing fluid collection and extensive underlying muscle edema concerning for abscess with contagious myositis the patient did have aspiration of the area by orthopedic and cultures are So far negative blood culture has been negative. the patient remains to be afebrile and the patient white count is trending down currently being monitor closely off antibiotic therapy -patient did have a component of oral thrush we will continue with nystatin swish and swallow and monitor clinical course closely Objective - Vital Signs Vital signs: Vital Signs Temp 98.4 F 01/07/23 07:08 Pulse 79 01/07/23 07:08 Resp 16 01/07/23 07:08 BP 153/85 01/07/23 07:08 Pulse Ox 95 01/07/23 07:08 FiO2 Intake & Output 01/06/23 01/07/23 01/07/23 18:59 06:59 18:59 Intake Total 1150 Output Total 200 200 Balance -200 1150 -200 Intake: Intake, IV Titration 900 Amount Sodium Chloride 0.45% 1, 900 000 ml @ 75 mls/hr IV . [id number] [facility] Rx#:[id number] Oral 250 Output: Urine 200 200 Other: Voiding Method Urinal Urinal # Voids 5 5 - Exam GENERAL: The patient is alert and oriented x3, not in any acute distress. Well developed, well nourished. HEENT: Pupils are round and equally reacting to light. EOMI. No scleral icterus. No conjunctival pallor. Normocephalic, atraumatic. No pharyngeal erythema. No thyromegaly. CARDIOVASCULAR: S1 and S2 present. Irregular, tachycardia noted. PULMONARY: Chest is clear to auscultation, no wheezing or crackles. ABDOMEN: Soft, nontender, nondistended, normoactive bowel sounds. No palpable organomegaly. MUSCULOSKELETAL: Right hip swelling, pain, warmth, erythema tenderness and range of motion limited Left forearm and right forearm swelling noted EXTREMITIES: No cyanosis, clubbing, or pedal edema. NEUROLOGICAL: Gross neurological examination did not reveal any focal deficits. SKIN: No rashes. - Labs CBC & Chem 7: 01/07/23 05:12 01/07/23 05:12 Labs: Abnormal Lab Results - Last 24 Hours (Table) 01/06/23 01/06/23 01/06/23 Range/Units 12:22 12:22 12:22 WBC 15.1 H (3.8-10.6) k/uL Neutrophils # 12.9 H (1.3-7.7) k/uL Monocytes # 1.1 H (0-1.0) k/uL Sodium 135 L (137-145) mmol/L Chloride 109 H (98-107) mmol/L BUN 28 H (9-20) mg/dL BUN/Creatinine Ratio (12.00-20.00) Ratio Glucose 138 H (74-99) mg/dL POC Glucose (mg/dL) (70-110) mg/dL Procalcitonin 0.23 H (0.02-0.09) ng/mL 01/06/23 01/06/23 01/07/23 Range/Units 16:21 20:24 05:12 WBC 13.66 H (3.8-10.6) k/uL Neutrophils # 10.98 H (1.3-7.7) k/uL Monocytes # 1.26 H (0-1.0) k/uL Sodium (137-145) mmol/L Chloride (98-107) mmol/L BUN (9-20) mg/dL BUN/Creatinine Ratio (12.00-20.00) Ratio Glucose (74-99) mg/dL POC Glucose (mg/dL) 169 H 160 H (70-110) mg/dL Procalcitonin (0.02-0.09) ng/mL 01/07/23 01/07/23 01/07/23 Range/Units 05:12 05:47 11:36 WBC (3.8-10.6) k/uL Neutrophils # (1.3-7.7) k/uL Monocytes # (0-1.0) k/uL Sodium (137-145) mmol/L Chloride (98-107) mmol/L BUN (9-20) mg/dL BUN/Creatinine Ratio 21.36 H (12.00-20.00) Ratio Glucose 125 H (74-99) mg/dL POC Glucose (mg/dL) 121 H 221 H (70-110) mg/dL Procalcitonin (0.02-0.09) ng/mL Assessment and Plan Assessment: Assessment and plan * Right hip cellulitis with abscess and myositis * Sepsis secondary to intramuscular abscess * Left cephalic vein thrombophlebitis from IV * Coronary artery disease * History of atrial fibrillation * Diabetes mellitus type 2 * Hypertension * Abdominal aortic aneurysm * Elevated hemoglobin rule out polycythemia * Consult obtained from orthopedic , cardiology and infectious disease * In regards to right hip cellulitis, x-ray negative, MRI right hip completed . Continue Rocephin and vancomycin Day 6 . Follow-up on blood cultures, status post aspiration by orthopedic>> no growth * In regards to history of coronary artery disease, continue metoprolol, Lipitor, Coreg, amlodipine * In regards to history of atrial fibrillation anticoagulation on hold in anticipation of intervention. Continue Coreg(dose increased) and Xarelto. Discussed with ORTHO * In regards to sepsis secondary to cellulitis, follow-up on CBC, continue fluid resuscitation follow-up on blood cultures * In regards to elevated hemoglobin, appreciate input from hematology continue to follow up on CBC * Venous ultrasound bilateral upper ext negative for DVT * Will need physical therapy occupational therapy evaluation for discharge disposition * Potential discharge in 72 hours depending on clinical course
[2023-01-07 20:15] LABS: Glucose,Whole Blood 193 mg/dL (70-110)
[2023-01-07] MEDS: ATORVASTATIN 80 MG TAB PO SCH (21:06)
[2023-01-07] MEDS: TIMOLOL 0.5% OPHTH DROPS 5 ML BTL BOTH EYES SCH (21:06)
[2023-01-07] MEDS: RIVAROXABAN 20 MG TAB PO SCH (21:07)
[2023-01-07] MEDS: BRIMONIDINE TARTRATE 0.2% DROPS 5 ML BTL BOTH EYES SCH (21:07)
[2023-01-07] MEDS: LATANOPROST 0.005% OPHTH DROPS 2.5 ML BTL BOTH EYES SCH (21:07)
[2023-01-07] MEDS: MELATONIN 5 MG TABLET PO SCH (21:09)
[2023-01-08 05:56] LABS: Glucose,Whole Blood 118 mg/dL (70-110)
[2023-01-08] MEDS: polyethylene glycoL 3350 17 GM POWD.PACK PO PRN (06:48)
[2023-01-08] MEDS: PANTOPRAZOLE 40 MG/10 ML VIAL IVP SCH (08:18)
[2023-01-08] MEDS: INSULIN ASPART (NovoLOG) 100 UNIT/ML VIAL SQ SCH ×2 (08:48→12:29)
[2023-01-08] MEDS: carvediloL 12.5 MG TAB PO SCH (09:00)
[2023-01-08] MEDS: SIMETHICONE 80 MG CHEWABLE PO SCH ×2 (09:00→12:29)
[2023-01-08] MEDS: NYSTATIN 100,000 UNIT/ML SUSP 500,000 UNIT/5 ML CUP PO SCH ×2 (09:00→12:29)
[2023-01-08] MEDS: LORATADINE 10 MG TAB PO SCH (09:00)
[2023-01-08] MEDS: amLODIPine 5 MG TAB PO SCH (09:00)
[2023-01-08] MEDS: FERROUS SULFATE 325 MG TAB PO SCH (09:01)
[2023-01-08] MEDS: CHOLECALCIFEROL 25 MCG (1000 IU) TABLET PO SCH (09:01)
[2023-01-08 11:25] LABS: Glucose,Whole Blood 255 mg/dL (70-110)
--- NOTE | 2023-01-08 12:30 | P.PN ---
Subjective Progress Note Date: 01/08/23 Principal diagnosis: Right thigh hematoma and leukocytosis Patient is a 77-year-old male with a past medical history significant for severe osteoarthritis specially requiring the right hip in this patient who did have a multiple steroid injection to the right hip area last 1 was about 10 days ago patient mention started having increasing pain to the right hip area with some radiation to the right thigh patient did have a CT of the left lower extremity no acute fracture or dislocation skin thickening with subcutaneous and fascial fat stranding and edema involving the lateral thigh from the hip to the knee, patient was a hospital with worsening pain did have an MRI and a bedside aspiration of the area mostly blood stained. On today's evaluation that is 01/08/2023, the patient continues to be afebrile, the patient is breathing comfortably , the patient denies chest pain or cough , the patient denies having any nausea or vomiting ,, no abdominal pain or diarrh ea the patient pain to the right lateral thigh has decreased in intensity down to about 1-2 out of 10 and the patient mention he is able to walk and put weight on his right leg, Patient white count is down to 13.66, creatinine is 1.1 as of yesterday no blood draw today Objective - Vital Signs Vital signs: Vital Signs Temp 97.9 F 01/08/23 07:59 Pulse 80 01/08/23 08:20 Resp 17 01/08/23 08:20 BP 167/92 01/08/23 07:59 Pulse Ox 95 01/08/23 07:59 FiO2 Intake & Output 01/07/23 01/08/23 01/08/23 18:59 06:59 18:59 Intake Total 900 Output Total 830 250 Balance 70 -250 Intake: IV 900 Sodium Chloride 0.45% 1, 900 000 ml @ 75 mls/hr IV . [id number] [facility] Rx#:[id number] Output: Urine 830 250 Other: Voiding Method Urinal Urinal - Exam GENERAL DESCRIPTION: An elderly male lying in bed in no distress RESPIRATORY SYSTEM: Unlabored breathing , decreased breath sounds at bases HEART: S1 S2 regular rate and rhythm , ABDOMEN: Soft , no tenderness EXTREMITIES: No edema feet - Labs CBC & Chem 7: 01/07/23 05:12 01/07/23 05:12 Labs: Abnormal Lab Results - Last 24 Hours (Table) 01/07/23 01/07/23 01/08/23 Range/Units 16:33 20:12 05:55 POC Glucose (mg/dL) 189 H 193 H 118 H (70-110) mg/dL 01/08/23 Range/Units 11:24 POC Glucose (mg/dL) 255 H (70-110) mg/dL Assessment and Plan (1) Hematoma of right thigh Current Visit: Yes Status: Acute Code(s): S70.11XA - CONTUSION OF RIGHT THIGH, INITIAL ENCOUNTER SNOMED Code(s): 57258265046887843 (2) Leukocytosis Current Visit: Yes Status: Acute Priority: High Code(s): D72.829 - ELEVATED WHITE BLOOD CELL COUNT, UNSPECIFIED SNOMED Code(s): 372937428 Plan: 1patient was in the hospital with a right hip thigh area pain that has been going on for since his last injection to the right hip for severe osteoarthritis patient did have a CT of the right lower extremity on 12/24/2022 we did show some fat stranding along the fascial lines from hip to the knee area which is swollen and indurated but no redness concerning for cellulitis failing outpatient oral Keflex therapy 2-patient did have MRI of the right hip and thigh did shows peripheral enhancing fluid collection and extensive underlying muscle edema concerning for abscess with contagious myositis 3the patient did have aspiration of the area by orthopedic and cultures are So far negative blood culture has been negative. 4the patient remains to be afebrile and the patient white count is trending down , no need for any antibiotic on discharge 5-patient did have a component of oral thrush we will continue with nystatin swish and swallow 7 days on discharge , prescription sent at the bedside questions were answered Dictation was produced using [employer] dictation software. please excuse any grammatical, word or spelling errors. Time with Patient: Less than 30
[2023-01-08] MEDS: MORPHINE SULFATE 4 MG/ML SYRINGE IV PRN (13:02)
[2023-01-08 14:03] LABS: Basophils # (A) 0.04 X 10*3/uL (0.00-0.10); Basophils % (A) 0.3 %; Eosinophils % (A) 0.8 %; HCT 45.8 % (39.6-50.0); HGB 15.1 d/dL (13.0-17.0); Lymphocytes # (A) 1.22 X 10*3/uL (0.90-5.00); Lymphocytes % (A) 9.6 %; MCH 30.8 pg (27.0-32.0); MCV 93.5 FL (80.0-97.0); Mean Platelet Volume 10.3 FL (9.5-12.2); Monocytes # (A) 1.04 X 10*3/uL (0.20-1.00); Monocytes % (A) 8.2 %; NRBC Per 100 WBC 0 X 10*3/uL (0.00-0.01); Neutrophils # (A) 10.23 X 10*3/uL (1.80-7.70); Neutrophils % (A) 80.2 %; Platelet Count 217 X 10*3/uL (140-440); RDW 14.1 % (11.5-14.5); WBC 12.74 X 10*3/uL (4.50-10.00)
[2023-01-08 14:19] VITALS: BP 158/76; PULSE 88; RESP 18; TEMP 98
[2023-01-08 14:27] LABS: BUN/Creat Ratio 18.54 Ratio (12.00-20.00); Blood Urea Nitrogen 24.1 mg/dL (9.0-27.0); Calcium 9.1 mg/dL (8.7-10.3); Carbon Dioxide 25.1 mmol/L (21.6-31.8); Chloride 105 mmol/L (96-109); Glucose 126 mg/dL (70-110); Potassium 4.2 mmol/L (3.5-5.5); Sodium 140 mmol/L (135-145)
--- NOTE | 2023-01-09 07:34 | DS ---
DISCHARGE SUMMARY FINAL DIAGNOSES: 1. Right hip cellulitis with abscess and myositis. 2. Sepsis. 3. Left cephalic vein thrombophlebitis. 4. Coronary artery disease. 5. Multiple medical issues. DISCHARGE DISPOSITION: The patient will be discharged in stable condition with guarded prognosis. HISTORY OF PRESENT ILLNESS: This is a 77-year-old gentleman, who was admitted with left hip cellulitis. The patient was treated with antibiotics. The patient improved significantly. Cultures are negative. PHYSICAL EXAMINATION: VITAL SIGNS: Stable. CARDIOVASCULAR: S1 and S2. ABDOMEN: Soft. NERVOUS SYSTEM: Nonfocal. LABORATORY DATA: Reviewed. DISCHARGE ADVICE AND MEDICATION: Continue with home medications. Follow up with Dr. Chaitanya Parham. New medications added. Medications are Coreg 12.5 mg b.i.d. and calcium carbonate. No antibiotics per Infectious Disease. Once again, the patient will be discharged in stable condition with guarded prognosis. MMODL / IJN: [id number] /
--- NOTE | 2023-01-17 06:18 | CDI ---
Documentation Clarification Form Date: 01/17/2023 05:53:05 AM From: Phuong Kelly Admit Date: 12/31/2022 05:45:00 PM Patient Name: Clifford Joe Visit Number: [id number] Discharge Date: 01/08/2023 02:37:00 PM ATTENTION: The Clinical Documentation Specialists (CDI) and [facility] Coding Staff appreciate your assistance in clarifying documentation. Please respond to the clarification below the line at the bottom and electronically sign. The CDI & [facility] Coding staff will review the response and follow-up if needed. Please note: Queries are made part of the Legal Health Record. If you have any questions, please contact the author of this message via ITS. Dr. Shae Vegas Sepsis secondary to cellulitis is documented in H and P, PN's 12/31, 01/01, 01/02, 01/03, and sepsis secondary to intramuscular abscess is documented in PN's 01/04 - 01/07, which may lack sufficient clinical evidence/support in the medical record. Additional clarification is requested. History/Risk Factors: Right hip cellulitis and abscess, Postprocedural hematoma of thigh/hip after steroid injection. Clinical Indicators: WBC's 18.5, Lactic Acid 1.2, HR 112 bpm, Respiratory rate 20 132/92 96% RA Treatment: Aspiration of hematoma, IV Vancomycin and Rocephin Please clarify if sepsis is a valid diagnosis? [ x ] Yes, sepsis is present as evidence by (additional clinical support): ___secondary to right hip cellulitis and abscess [ ] No, sepsis is ruled out [ ] Other (please specify diagnosis) [ ] Unable to determine MTDD
--- NOTE | 2023-02-02 06:04 | CDI ---
Documentation Clarification Form Date: 02/02/2023 05:40:19 AM From: Phuong Kelly Admit Date: 12/31/2022 05:45:00 PM Patient Name: Clifford Joe Visit Number: [id number] Discharge Date: 01/08/2023 02:37:00 PM ATTENTION: The Clinical Documentation Specialists (CDI) and [facility] Coding Staff appreciate your assistance in clarifying documentation. Please respond to the clarification below the line at the bottom and electronically sign. The CDI & [facility] Coding staff will review the response and follow-up if needed. Please note: Queries are made part of the Legal Health Record. If you have any questions, please contact the author of this message via ITS. Dr. Shae Vegas Patient with left thigh hematoma and felt that this was new blood as he had a recent injection and is on blood thinners is documented in the procedure report 12/31. Additional clarification is requested regarding the relationship, if any, that exists between the hematoma and the recent injection. Patients Admitting Diagnosis: Left thigh hematoma Post-Operative Diagnosis: Pathology is left thigh hematoma Procedure performed: Steroid Injection History/Risk Factors: Patient with recent injection, on blood thinners, being treated for polycythemia Treatment: Aspiration of hematoma Consults: Dr. Tiffanie Tejada for polycythemia and right hip pain from hematoma. ID consult What relationship, if any, exists between the diagnosis of left thigh hematoma and the steroid injection: [ x] Left thigh hematoma is a complication of steroid injection [ ] Left thigh hematoma is an expected outcome of the steroid injection [ ] Left thigh hematoma is related to patients co-morbid condition(s) of polycythemia & not a complication of the procedure [ ] Other please specify ____ [ ] Unable to determine MTDD
== END 2023-01-08 14:37 | disposition home health service (06) | DRG 867 ==
LOC: EC 19:10 → 4SSUR 22:44 → 5NMEDONC 12-30 03:48 → 4SSUR 12-30 17:07 → OBSVTOIN 12-31 17:45
PROVIDERS: ADMIT Hospitalist; ATTEND Hospitalist
PROC: 0J9L3ZX Drainage of Right Upper Leg Subcutaneous Tissue and Fascia, Percutaneous Approach, Diagnostic (ICD-10-PCS; 2022-12-31)
PROC: 05HC33Z Insertion of Infusion Device into Left Basilic Vein, Percutaneous Approach (ICD-10-PCS; principal; 2023-01-03 14:50)
DX: T80.29XA Infection following other infusion, transfusion and therapeutic injection, initial encounter (principal); A41.9 Sepsis, unspecified organism; B37.0 Candidal stomatitis; I48.20 Chronic atrial fibrillation, unspecified; I82.612 Acute embolism and thrombosis of superficial veins of left upper extremity; L03.115 Cellulitis of right lower limb; M96.841 Postprocedural hematoma of a musculoskeletal structure following other procedure; M60.003 Infective myositis, unspecified right leg; D75.1 Secondary polycythemia; E11.9 Type 2 diabetes mellitus without complications; E78.5 Hyperlipidemia, unspecified; I10 Essential (primary) hypertension; I25.10 Atherosclerotic heart disease of native coronary artery without angina pectoris; G47.30 Sleep apnea, unspecified; I25.2 Old myocardial infarction; Z86.711 Personal history of pulmonary embolism; H40.9 Unspecified glaucoma; G89.29 Other chronic pain; Z79.01 Long term (current) use of anticoagulants; I08.0 Rheumatic disorders of both mitral and aortic valves; I48.0 Paroxysmal atrial fibrillation; I71.40 Abdominal aortic aneurysm, without rupture, unspecified; I80.8 Phlebitis and thrombophlebitis of other sites; Z79.84 Long term (current) use of oral hypoglycemic drugs; Z79.899 Other long term (current) drug therapy; Z87.19 Personal history of other diseases of the digestive system; Z87.442 Personal history of urinary calculi; Z87.891 Personal history of nicotine dependence; Z95.1 Presence of aortocoronary bypass graft; Z95.5 Presence of coronary angioplasty implant and graft
CPT/HCPCS: 36410; 36415; 73502; 74019; 76937; 80048; 80053; 80202; 82565; 83605; 83735; 84100; 84145; 84484; 85025; 85027; 85610; 85652; 85730; 86140; 87040; 87070; 87205; 93005; 93970; 94760; 96361; 96365; 96366; 96367; 96375; 96376; 99285

== ENCOUNTER → 2023-02-06 | Outpatient (CLI) | payer MEDICARE ==
--- NOTE | 2023-02-06 16:24 | P.PN ---
Progress Note - Text Progress Note Date: 02/06/23 This is a 77-year-old male patient with known history of obstructive sleep apnea and the patient is seen in follow-up regarding his ARACELI treatment. He has a large number of medical problems and comorbidities including coronary artery disease, previous bypass surgery, history of A. fib, and the patient has limited on anticoagulation. Noted the patient has received a recent cortisone injection to the hip and this was Combigan by massive venous bleed and the right thigh hematoma for which she was hospitalized for a total of 3 days and ultimately the bleeding was controlled and the patient was discharged home. He continues to use his CPAP. He is on a APAP mode pressures of 5/15 cm of water. The average pressure delivered by the machines around 11.7 cm. The patient's overall usage of the machine is 97% and this is based on data that has been collected between 01/07/2023 and 02/05/2023. The patient has used the machine more than 4 hours 97% of the time. The patient has been averaging around 8 hours and 3 minutes of CPAP use per night. The leak is in order of 11 L/m and the patient is AHI is down to 4.1. He has no specific complaints otherwise for now. He is doing well. No hypersomnia or sleepiness. He has lost around 10 pounds since his last evaluation. His BP is under adequate control. No chest pain. No other complaints otherwise for now. BP is 166/89 with a pulse of 75 and a respiration of 20 and the weight is 238 with a pulse ox of 96% on room air oxygen. The patient appeared well nourished and normally developed. Vital signs as documented. Head exam is unremarkable. No scleral icterus or corneal arcus noted. Neck is without jugular venous distension, thyromegaly, or carotid bruits. Carotid upstrokes are brisk bilaterally. Lungs are clear to auscultation and percussion. Cardiac exam reveals the PMI to be normally sized and situated. Rhythm is regular. First and second heart sounds normal. No murmurs, rubs or gallops. Abdominal exam reveals normal bowel sounds, no masses, no organomegaly and no aortic enlargement. Extremities are nonedematous and both femoral and pedal pulses are normal. MNeurologically, the patient is awake and alert and the patient does not have any focal neurological deficit. Cranial nerves are essentially intact. Assessment Obstructive sleep apnea, and the patient is undergoing successful APAP therapy pressures of 5/15 cm of water. Hypersomnia, currently inactive and stable Right thigh hematoma, recovered Hypertension Hyperlipidemia Coronary artery disease with previous bypass surgery Chronic A. fib Glaucoma Chronic back pain Plan Keep APAP mode at the same pressures. Encourage further weight loss and the patient is on the lost around 10 pounds P treatment is successful. Refills will be given. Cardiovascular condition is stable for now. See me back in one year.
== END ==
LOC: 3 N SLEEP 14:34
PROVIDERS: ATTEND Internal Medicine Critical Care Medicine
DX: G47.33 Obstructive sleep apnea (adult) (pediatric) (principal); I48.20 Chronic atrial fibrillation, unspecified; E78.5 Hyperlipidemia, unspecified; G47.10 Hypersomnia, unspecified; G89.29 Other chronic pain; I10 Essential (primary) hypertension; H40.9 Unspecified glaucoma; I25.10 Atherosclerotic heart disease of native coronary artery without angina pectoris; Z79.01 Long term (current) use of anticoagulants; Z79.899 Other long term (current) drug therapy; Z87.891 Personal history of nicotine dependence
CPT/HCPCS: 99212

== ENCOUNTER → 2023-09-25 | Outpatient (CLI) | payer MEDICARE ==
--- NOTE | 2023-09-25 11:53 | CT ---
EXAMINATION TYPE: CT brain wo con DATE OF EXAM: 09/25/2023 COMPARISON: None HISTORY: 78-year-old male R519, Chronic headache x 1 month, RT side stabbing pain. TECHNIQUE: Examination was done in axial plane without intravenous contrast. Coronal and sagittal r econstructions performed. CT DLP: 1255.60 mGycm Automated exposure control for dose reduction was used. FINDINGS: There is no evidence of acute intracranial hemorrhage, acute ischemic changes, mass, mass-effect, or extra-axial fluid collection. There is no effacement of cerebral sulci or basal subarachnoid cister ns. There is no hydrocephalus. There is no midline shift. [place]-white matter distinction is preserv ed. Moderate patchy and confluent white matter hypodensities in both cerebral hemispheres. After atherosc lerotic calcifications in the bilateral carotid siphons. Complete opacification left maxillary sinus. Mastoid air cells are well pneumatized. Slight rightward nasal septal herniation. Orbits and globes are intact. IMPRESSION: 1. Moderate burden of chronic small vessel ischemic disease. 2. No acute intracranial abnormality seen. 3. Chronic severe left maxillary sinus disease.
== END | disposition home or self-care (01) ==
LOC: RADCTMAIN 10:48
PROVIDERS: ATTEND Family Medicine
DX: I67.82 Cerebral ischemia (principal); J32.0 Chronic maxillary sinusitis
CPT/HCPCS: 70450

== ENCOUNTER → 2023-10-22 | Outpatient (CLI) | payer MEDICARE ==
--- NOTE | 2023-10-22 16:32 | XR ---
EXAMINATION TYPE: XR chest 2V DATE OF EXAM: 10/22/2023 3:48 PM CLINICAL INDICATION:Male, 78 years old with history of R06.00 DYSPNEA; [facility] COMPARISON: Chest radiographs from 07/15/2018 TECHNIQUE: XR chest 2V Frontal and lateral views of the chest. FINDINGS: Lungs/Pleura: There is flattening of the diaphragm with increased lucency of the lungs. No evidence o f pneumothorax, pleural effusion or focal consolidation. Pulmonary vascularity: Unremarkable. Heart/mediastinum: Cardiomediastinal silhouette is enlarged and stable. A loop recorder projects over the left thorax over the heart. Musculoskeletal: No acute osseous pathology. Midline sternotomy wires are noted. IMPRESSION: 1. No acute cardiopulmonary disease process. 2. COPD changes.
== END | disposition home or self-care (01) ==
LOC: RADXRMAIN 15:09
PROVIDERS: ATTEND Family Medicine
DX: J44.9 Chronic obstructive pulmonary disease, unspecified (principal); R06.00 Dyspnea, unspecified
CPT/HCPCS: 71046

== ENCOUNTER → 2023-11-06 | Outpatient (CLI) | payer MEDICARE ==
--- NOTE | 2023-11-06 08:33 | XR ---
EXAMINATION TYPE: XR cervical spine limited DATE OF EXAM: 11/06/2023 COMPARISON: None HISTORY: Cervicalgia TECHNIQUE: 3 views cervical spine FINDINGS: Prevertebral space is normal. Posterior spinal lamellar line is intact. Disc heights appear preserved. Anterior vertebral body spurring is noted. Some facet degenerative changes present in the upper to mid cervical spine. Left carotid artery bifurcation region calcifications are present. Walker toid is limited with overlying maxilla. IMPRESSION: 1. Degenerative changes. No acute osseous abnormality radiographically apparent. Follow-up MRI can b e performed as clinically indicated
== END | disposition home or self-care (01) ==
LOC: RADXRMAIN 08:09
PROVIDERS: ATTEND Family Medicine
DX: M47.812 Spondylosis without myelopathy or radiculopathy, cervical region (principal)
CPT/HCPCS: 72040

== ENCOUNTER 2024-02-06 10:24 | Observation (INO) | payer MEDICARE ==
[2024-02-06] MEDS: SODIUM CHLORIDE 0.9% 1,000 ML IV STA (11:22)
[2024-02-06 11:34] LABS: Appearance,Urine Clear (Clear); Bilirubin,Urine Negative (Negative); Blood,Urine Moderate (Negative); Color,Urine Light Yellow; Glucose,Urine (UA) 4+ (Negative); Hyaline Casts,Urine 1 /lpf (0-2); Ketones,Urine Negative (Negative); Leukocyte Esterase,Urine Negative (Negative); Mucus,Urine Rare /hpf; Nitrite,Urine Negative (Negative); Protein,Urine Trace (Negative); RBC,Urine 3 /hpf (0-5); Specific Gravity,Urine 1.021 (1.001-1.035); Squamous Epithelial Cell,Urine <1 /hpf (0-4); Urobilinogen,Urine <2.0 mg/dL (<2.0); WBC,Urine 1 /hpf (0-5)
[2024-02-06 11:36] LABS: Basophils # (A) 0.1 k/uL (0-0.2); Basophils % (A) 1 %; Eosinophils # (A) 0.2 k/uL (0-0.7); Eosinophils % (A) 2 %; HCT 46.2 % (39.0-53.0); HGB 15.2 gm/dL (13.0-17.5); Lymphocytes # (A) 1.8 k/uL (1.0-4.8); Lymphocytes % (A) 21 %; MCH 30.6 pg (25.0-35.0); MCV 92.7 fL (80.0-100.0); Mean Platelet Volume 8.8; Monocytes # (A) 0.6 k/uL (0-1.0); Monocytes % (A) 7 %; Neutrophils # (A) 5.8 k/uL (1.3-7.7); Neutrophils % (A) 68 %; Platelet Count 260 k/uL (150-450); RBC 4.98 m/uL (4.30-5.90); RDW 14.2 % (11.5-15.5); WBC 8.6 k/uL (3.8-10.6)
[2024-02-06 11:48] LABS: ALT 17 U/L (4-49); AST 41 U/L (17-59); African American GFR (CKD) 45 (>60 ml/min/1.73 sqM); Albumin 4.4 g/dL (3.5-5.0); Alkaline Phosphatase 72 U/L (38-126); Anion Gap 12 mmol/L; Blood Urea Nitrogen 34 mg/dL (9-20); Calcium 10.6 mg/dL (8.4-10.2); Carbon Dioxide 21 mmol/L (22-30); Chloride 107 mmol/L (98-107); Glucose 118 mg/dL (74-99); Magnesium 1.9 mg/dL (1.6-2.3); Non-African American GFR(CKD) 39 (>60 ml/min/1.73 sqM); Phosphorus 3.1 mg/dL (2.5-4.5); Potassium 4.2 mmol/L (3.5-5.1); Sodium 140 mmol/L (137-145); Total Bilirubin 0.8 mg/dL (0.2-1.3); Total Protein 6.8 g/dL (6.3-8.2)
--- NOTE | 2024-02-06 11:51 | ED ---
Weakness HPI - General Chief complaint: Urogenital Stated complaint: Lower back incontinence Time Seen by Provider: 02/06/24 10:31 Source: patient, RN notes reviewed Mode of arrival: ambulatory Limitations: no limitations - History of Present Illness Initial comments: This is a 78-year-old male who presents to the emergency department for weakness and urinary symptoms. States that over the last 3 to 4 days he has had increased urinary frequency and is going multiple times a day but only producing very little urine. He is having to wear a brief because of some episodes of incontinence. Denies any fecal incontinence. He reports intermittent pain in his lower back, but states that this is an ongoing issue. Unsure if it is worse than normal. Pain is centralized. He has nausea but no vomiting, and states that this may be related to taking his morning medications. Also states that he has been very weak with little to no energy. His states that he is usually very active. He is currently taking Augmentin for a sinus infection and started this several days ago, however those symptoms have essentially resolved. MD Complaint: generalized weakness - Related Data Home Medications Medication Instructions Recorded Confirmed Ferrous Sulfate [Iron (65 MG 325 mg PO HS 11/07/17 02/06/24 Elemental)] Latanoprost Ophth [Xalatan 0.005%] 1 drops BOTH EYES HS 11/07/17 02/06/24 Ubidecarenone [Co Q-10] 100 mg PO DAILY 07/15/18 02/06/24 Rivaroxaban [Xarelto] 20 mg PO HS 05/26/19 02/06/24 Atorvastatin [Lipitor] 80 mg PO HS 12/29/22 02/06/24 Brimonidine Tartrate [Alphagan P 1 drop BOTH EYES HS 12/29/22 02/06/24 0.2% Ophth Soln] Cetirizine HCl [Zyrtec] 10 mg PO DAILY 12/29/22 02/06/24 Cholecalciferol [Vitamin D3 (25 50 mcg PO DAILY 12/29/22 02/06/24 Mcg = 1000 Iu)] Melatonin 10 mg PO HS 12/29/22 02/06/24 Timolol 0.5% Ophth Soln [Timoptic 1 drop BOTH EYES HS 12/29/22 02/06/24 0.5% Ophth Soln] Acetaminophen Tab [Tylenol Tab] 500 - 1,000 mg PO Q6HR PRN 02/06/24 02/06/24 Albuterol Sulfate [Ventolin HFA] 2 puff INHALATION RT-Q4H PRN 02/06/24 02/06/24 Amoxic-Pot Clav 875-125Mg 1 tab PO Q12HR 02/06/24 02/06/24 [Augmentin 875-125] Cyclobenzaprine [Flexeril] 10 mg PO TID PRN 02/06/24 02/06/24 Dapagliflozin Propanediol [Farxiga] 10 mg PO DAILY 02/06/24 02/06/24 Insulin Glargine/Lixisenatide 20 units SQ DAILY 02/06/24 02/06/24 [Soliqua 100 Unit-33 Mcg/ml Pen] Isosorbide Mononitrate ER [Imdur] 30 mg PO DAILY 02/06/24 02/06/24 amLODIPine [Norvasc] 5 mg PO DAILY 02/06/24 02/06/24 icosapent ethyL [Icosapent Ethyl] 2 gm PO BID 02/06/24 02/06/24 lisinopriL [Zestril] 5 mg PO DAILY 02/06/24 02/06/24 traZODone HCL [Desyrel] 50 mg PO HS PRN 02/06/24 02/06/24 Previous Rx's Medication Instructions Recorded HYDROcodone/APAP 7.5-325MG [[place] 1 tab PO Q6HR PRN #9 tab 01/08/23 7.5-325] carvediloL [Coreg*] 12.5 mg PO BID-W/MEALS #60 tab 01/08/23 Allergies Allergy/AdvReac Type Severity Reaction Status Date / Time No Known Allergies Allergy Verified 02/06/24 14:52 Review of Systems ROS Statement: Those systems with pertinent positive or pertinent negative responses have been documented in the HPI. ROS Other: All systems not noted in ROS Statement are negative. Past Medical History Past Medical History: Atrial Fibrillation, Coronary Artery Disease (CAD), Diabetes Mellitus, Eye Disorder, GERD/Reflux, GI Bleed, Hypertension, Muscul oskeletal Disorder, Pulmonary Embolus (PE), Sleep Apnea/CPAP/BIPAP, Syncope Additional Past Medical History / Comment(s): ANAL FISSURES, GLAUCOMA, KIDNEY STONES, uses CPAP, abd. aneurysm-dr. monitoring, 3 syncope episodes in 2019 now resolved, chronic back & hip problems, peripheral pulmonary emboli after open heart surg. resulted in prolonged intubation, glaucoma, colon polyps History of Any Multi-Drug Resistant Organisms: None Reported Past Surgical History: Appendectomy, Coronary Bypass/CABG, Heart Catheterization With Stent Additional Past Surgical History / Comment(s): triple bypass August 2013. pain procedures Past Anesthesia/Blood Transfusion Reactions: No Reported Reaction Additional Past Anesthesia/Blood Transfusion Reaction / Comment(s): difficulty coming off vent after open heart due to peripheral pulmonary emboli-spouse concerned related to anesthesia Date of Last Stent Placement:: 2013 Type of Cardiac Device: Loop Device Placement Date:: medtronic loop recorder now inactive placed in 2017 Past Psychological History: No Psychological Hx Reported Smoking Status: Former smoker Past Alcohol Use History: None Reported Past Drug Use History: None Reported - Past Family History Mother Family Medical History: Cancer Additional Family Medical History / Comment(s): uterine dies at 60 Father Family Medical History: Cancer Additional Family Medical History / Comment(s): kidney at 61 General Exam Limitations: no limitations General appearance: alert, in no apparent distress Head exam: Present: atraumatic, normocephalic, normal inspection Respiratory exam: Present: normal lung sounds bilaterally. Absent: respiratory distress, wheezes, rales, rhonchi, stridor Cardiovascular Exam: Present: regular rate, normal rhythm, normal heart sounds. Absent: systolic murmur, diastolic murmur, rubs, gallop, clicks GI/Abdominal exam: Present: soft, normal bowel sounds. Absent: distended, tenderness, guarding, rebound, rigid Back exam: Absent: CVA tenderness (R), CVA tenderness (L) Neurological exam: Present: alert, oriented X3, CN II-XII intact Psychiatric exam: Present: normal affect, normal mood Skin exam: Present: warm, dry, intact, normal color. Absent: rash Course Vital Signs 02/06/24 02/06/24 02/06/24 10:27 13:19 16:13 Temperature 99.1 F 99.8 F H 100.6 F H Pulse Rate 96 84 84 Respiratory 18 16 18 Rate Blood Pressure 143/71 144/80 149/89 O2 Sat by Pulse 98 97 97 Oximetry 02/06/24 02/06/24 17:32 18:45 Temperature 101.4 F H 98.8 F Pulse Rate 84 82 Respiratory 18 18 Rate Blood Pressure 136/83 130/84 O2 Sat by Pulse 96 96 Oximetry Medical Decision Making - Medical Decision Making This is a 78-year-old male who presents to the emergency department for weakness and urinary symptoms. Was pt. sent in by a medical professional or institution? @ -No Did you speak to anyone other than the patient for history? @ -No Did you review nursing and triage notes? @ -Yes, and I agree, it is accurate with regards to the patient's symptoms. Were old charts reviewed? @ -No Differential Diagnosis? @ -Differential Weakness: Hypoglycemia, shock, sepsis, hyponatremia, anemia, infection, GA, ETOH, adverse medicine reaction, overdose, stroke, this is not meant to be an all-inclusive list. EKG interpreted by me (3pts min.)? @ -EKG interpreted by me demonstrating the following: Sinus rhythm. Ventricular rate 83 bpm, CO interval 191 ms, QRS duration 89 ms, QTc 383 ms. X-rays interpreted by me (1pt min.)? @ -Chest x-ray obtained, my interpretation identifies no localized consolidations or infiltrates. CT interpreted by me (1pt min.)? @ -Not obtained U/S interpreted by me (1pt. min.)? @ -Ultrasound of the kidneys, ureters, and bladder obtained. My interpretation identifies no evidence of hydronephrosis. What testing was considered but not performed? (CT, X-rays, U/S, labs)? Why? @ -None What meds were considered but not given? Why? @ -None Did you discuss the management of the patient with other professionals? @ -Yes, Dr. Mcqueen, who accepts the patient for admission. Did you reconcile home meds? @ -Yes Was smoking cessation discussed for >3mins.? @ -No Was critical care preformed (if so, how long)? @ -No Were there social determinants of health that impacted care today? How? (Homelessness, low income, unemployed, alcoholism, drug addiction, transportation, low edu. Level, literacy, decrease access to med. care, nursing home, rehab)? @ -No Was there de-escalation of care discussed even if they declined? (Discuss DNR or withdrawal of care, Hospice)? @ -No What co-morbidities impacted this encounter? (DM, HTN, Smoking, COPD, CAD, Cancer, CVA, Hep., AIDS, mental health diagnosis, sleep apnea, morbid obesity)? @ -DM Was patient admitted / discharged? @ -Admitted. Lab work demonstrates decreased renal function with a creatinine of 1.6 and GFR of 39. COVID, influenza, and RSV testing negative. Urinalysis negative for signs of infection. Chest x-ray reveals coarsened interstitium that could be related to reduced inspiration. Interstitial pneumonitis cannot be excluded. Ultrasound of the kidneys, ureters, and bladder obtained. No acute process was identified. He has a stable right renal cyst and clustered left renal cysts versus a thin-walled septated cyst. Patient also found to be febrile in the emergency department with a temperature of 100.6 F. The cause of his fever is not entirely clear. He is on Augmentin for a sinus infection that is reportedly improving. He was given a liter bolus of IV fluids in the emergency department. Patient admitted to medicine for OSMIN, weakness, and fever of unknown origin. Case discussed with ED attending, Dr. Horn. Undiagnosed new problem with uncertain prognosis? @ -None Drug Therapy requiring intensive monitoring for toxicity (Heparin, Nitro, Insulin, Cardizem)? @ -None Were any procedures done? @ -None Diagnosis/symptom? @ -OSMIN, weakness, fever of unknown origin Acute, or Chronic, or Acute on Chronic? @ -Acute Uncomplicated (without systemic symptoms) or Complicated (systemic symptoms)? @ -Complicated Side effects of treatment? @ -None Exacerbation, Progression, or Severe Exacerbation] @ -Not applicable Poses a threat to life or bodily function? @ -Yes, patient is struggling to function due to his weakness - Lab Data Result diagrams: 02/06/24 11:15 02/06/24 11:15 Lab Results 02/06/24 02/06/24 02/06/24 Range/Units 11:15 11:15 11:15 WBC 8.6 (3.8-10.6) k/uL RBC 4.98 (4.30-5.90) m/uL Hgb 15.2 (13.0-17.5) gm/dL Hct 46.2 (39.0-53.0) % MCV 92.7 (80.0-100.0) fL MCH 30.6 (25.0-35.0) pg MCHC 33.0 (31.0-37.0) g/dL RDW 14.2 (11.5-15.5) % Plt Count 260 (150-450) k/uL MPV 8.8 Neutrophils % 68 % Lymphocytes % 21 % Monocytes % 7 % Eosinophils % 2 % Basophils % 1 % Neutrophils # 5.8 (1.3-7.7) k/uL Lymphocytes # 1.8 (1.0-4.8) k/uL Monocytes # 0.6 (0-1.0) k/uL Eosinophils # 0.2 (0-0.7) k/uL Basophils # 0.1 (0-0.2) k/uL PT 11.3 (10.0-12.5) sec INR 1.0 (<1.2) APTT 28.6 (22.0-30.0) sec Sodium (137-145) mmol/L Potassium (3.5-5.1) mmol/L Chloride (98-107) mmol/L Carbon Dioxide (22-30) mmol/L Anion Gap mmol/L BUN (9-20) mg/dL Creatinine (0.66-1.25) mg/dL Est GFR (CKD-EPI)AfAm (>60 ml/min/1.73 sqM) Est GFR (CKD-EPI)NonAf (>60 ml/min/1.73 sqM) Glucose (74-99) mg/dL Plasma Lactic Acid Paco (0.7-2.0) mmol/L Calcium (8.4-10.2) mg/dL Phosphorus (2.5-4.5) mg/dL Magnesium (1.6-2.3) mg/dL Total Bilirubin (0.2-1.3) mg/dL AST (17-59) U/L ALT (4-49) U/L Alkaline Phosphatase (38-126) U/L Total Protein (6.3-8.2) g/dL Albumin (3.5-5.0) g/dL Urine Color Light Yellow Urine Appearance Clear (Clear) Urine pH 5.0 (5.0-8.0) Ur Specific [place] 1.021 (1.001-1.035) Urine Protein Trace H (Negative) Urine Glucose (UA) 4+ H (Negative) Urine Ketones Negative (Negative) Urine Blood Moderate H (Negative) Urine Nitrite Negative (Negative) Urine Bilirubin Negative (Negative) Urine Urobilinogen <2.0 (<2.0) mg/dL Ur Leukocyte Esterase Negative (Negative) Urine RBC 3 (0-5) /hpf Urine WBC 1 (0-5) /hpf Ur Squamous Epith Cells <1 (0-4) /hpf Hyaline Casts 1 (0-2) /lpf Urine Mucus Rare H (None) /hpf Influenza Type A (PCR) (Not Detectd) Influenza Type B (PCR) (Not Detectd) RSV (PCR) (Not Detectd) SARS-CoV-2 (PCR) (Not Detectd) 02/06/24 02/06/24 02/06/24 Range/Units 11:15 11:15 11:54 WBC (3.8-10.6) k/uL RBC (4.30-5.90) m/uL Hgb (13.0-17.5) gm/dL Hct (39.0-53.0) % MCV (80.0-100.0) fL MCH (25.0-35.0) pg MCHC (31.0-37.0) g/dL RDW (11.5-15.5) % Plt Count (150-450) k/uL MPV Neutrophils % % Lymphocytes % % Monocytes % % Eosinophils % % Basophils % % Neutrophils # (1.3-7.7) k/uL Lymphocytes # (1.0-4.8) k/uL Monocytes # (0-1.0) k/uL Eosinophils # (0-0.7) k/uL Basophils # (0-0.2) k/uL PT (10.0-12.5) sec INR (<1.2) APTT (22.0-30.0) sec Sodium 140 (137-145) mmol/L Potassium 4.2 (3.5-5.1) mmol/L Chloride 107 (98-107) mmol/L Carbon Dioxide 21 L (22-30) mmol/L Anion Gap 12 mmol/L BUN 34 H (9-20) mg/dL Creatinine 1.66 H (0.66-1.25) mg/dL Est GFR (CKD-EPI)AfAm 45 (>60 ml/min/1.73 sqM) Est GFR (CKD-EPI)NonAf 39 (>60 ml/min/1.73 sqM) Glucose 118 H (74-99) mg/dL Plasma Lactic Acid Paco 1.0 (0.7-2.0) mmol/L Calcium 10.6 H (8.4-10.2) mg/dL Phosphorus 3.1 (2.5-4.5) mg/dL Magnesium 1.9 (1.6-2.3) mg/dL Total Bilirubin 0.8 (0.2-1.3) mg/dL AST 41 (17-59) U/L ALT 17 (4-49) U/L Alkaline Phosphatase 72 (38-126) U/L Total Protein 6.8 (6.3-8.2) g/dL Albumin 4.4 (3.5-5.0) g/dL Urine Color Urine Appearance (Clear) Urine pH (5.0-8.0) Ur Specific [place] (1.001-1.035) Urine Protein (Negative) Urine Glucose (UA) (Negative) Urine Ketones (Negative) Urine Blood (Negative) Urine Nitrite (Negative) Urine Bilirubin (Negative) Urine Urobilinogen (<2.0) mg/dL Ur Leukocyte Esterase (Negative) Urine RBC (0-5) /hpf Urine WBC (0-5) /hpf Ur Squamous Epith Cells (0-4) /hpf Hyaline Casts (0-2) /lpf Urine Mucus (None) /hpf Influenza Type A (PCR) Not Detected (Not Detectd) Influenza Type B (PCR) Not Detected (Not Detectd) RSV (PCR) Not Detected (Not Detectd) SARS-CoV-2 (PCR) Not Detected (Not Detectd) - Radiology Data Radiology results: report reviewed, image reviewed Disposition Clinical Impression: OSMIN (acute kidney injury), Weakness, Fever of unknown origin Disposition: ADMITTED IP TO THIS HOSP
[2024-02-06 12:05] LABS: Partial Thromboplastin Time 28.6 sec (22.0-30.0); Prothrombin Time 11.3 sec (10.0-12.5)
--- NOTE | 2024-02-06 13:29 | US ---
EXAMINATION TYPE: US kidneys/renal and bladder DATE OF EXAM: 02/06/2024 COMPARISON: CTA abdomen and pelvis 01/06/2020 CLINICAL INDICATION: Male, 78 years old with history of OSMIN, weakness, incontinence; OSMIN TECHNIQUE: Grayscale and color Doppler imaging of the bilateral kidneys and urinary bladder: FINDINGS: EXAM MEASUREMENTS: Right Kidney: 12.6x5.3x6.6 cm Left Kidney: 12.2x6.5x5.8 cm Right Kidney: 7.8x4.7x7.6cm anechoic area again seen Left Kidney: septated vs cluster of cystic areas 3.6x3.4x2.8cm Bladder: wnl Bilateral Jets seen: no There is no evidence for hydronephrosis at this point in time. No nephrolithiasis is seen. Cortical medullary differentiation is maintained. Stable exophytic right renal thin-walled simple cyst. Thin-w alled septated versus clustered cysts within the left kidney. The urinary bladder is anechoic. Bilat eral ureteral jets are not seen. exam limited by bowel and habitus IMPRESSION: 1. No hydronephrosis. 2. Relatively stable right renal simple cyst. 3. Clustered left renal cysts versus thin-walled septated cyst. [facility], , 02/06/2024 1:26 PM
[2024-02-06] MEDS ORDERED: ONDANSETRON 4 MG/2 ML VIAL IVP PRN (14:35)
[2024-02-06] MEDS ORDERED: HYDROcodone/APAP 5-325MG 1 EACH TAB PO PRN (14:35)
[2024-02-06] MEDS ORDERED: MORPHINE SULFATE 4 MG/ML SYRINGE IV PRN (14:35)
[2024-02-06] MEDS ORDERED: NALOXONE 0.4 MG/ML 1 ML VIAL IV PRN (14:35)
[2024-02-06] MEDS: SODIUM CHLORIDE 0.9% 1,000 ML IV SCH (14:57)
--- NOTE | 2024-02-06 15:00 | XR ---
EXAMINATION TYPE: XR chest 1V DATE OF EXAM: 02/06/2024 COMPARISON: 10/22/2023 HISTORY: Persistent fever TECHNIQUE: Single frontal view of the chest is obtained. FINDINGS: There is no focal air space opacity, pleural effusion, or pneumothorax seen. The cardiac silhouette size is within normal limits. The osseous structures are intact. Worsened interstitial. Postmedian sternotomy changes. Elevated left hemidiaphragm. Metallic loop recorder device overlying t he left hemithorax. IMPRESSION: Coarsened interstitium could be related to reduced inspiration. Correlate clinically to exclude an interstitial pneumonitis. [facility], , 02/06/2024 2:58 PM
[2024-02-06] MEDS: ACETAMINOPHEN TAB 325 MG TAB PO PRN (16:46)
[2024-02-06] MEDS ORDERED: ALBUTEROL NEBULIZED 2.5 MG/3 ML INHALATION PRN (16:48)
[2024-02-06] MEDS ORDERED: ACETAMINOPHEN TAB 500 MG TAB PO PRN (16:48)
[2024-02-06] MEDS: PATIENT'S OWN (Icosapent Ethyl [Icosapent Ethyl] 1 GM Capsule) PO SCH (17:37)
[2024-02-06] MEDS: carvediloL 12.5 MG TAB PO SCH (17:38)
[2024-02-06 19:57] LABS: Glucose,Whole Blood 153 mg/dL (70-110)
[2024-02-06] MEDS ORDERED: traZODone HCL 50 MG TAB PO PRN (19:57)
[2024-02-06] MEDS ORDERED: CYCLOBENZAPRINE 10 MG TAB PO PRN (19:57)
[2024-02-06] MEDS: BRIMONIDINE TARTRATE 0.2% DROPS 5 ML BTL BOTH EYES SCH (20:58)
[2024-02-06] MEDS: TIMOLOL 0.5% OPHTH DROPS 5 ML BTL BOTH EYES SCH (20:58)
[2024-02-06] MEDS: ATORVASTATIN 80 MG TAB PO SCH (20:59)
[2024-02-06] MEDS: MELATONIN 5 MG TABLET PO SCH (20:59)
[2024-02-06] MEDS: LATANOPROST 0.005% OPHTH DROPS 2.5 ML BTL BOTH EYES SCH (20:59)
[2024-02-06] MEDS: RIVAROXABAN 15 MG TAB PO SCH (21:29)
[2024-02-06] MEDS: AMOXIC-POT CLAV 875-125MG 1 EACH TAB PO SCH (21:29)
[2024-02-07 06:13] LABS: Glucose,Whole Blood 93 mg/dL (70-110)
[2024-02-07] MEDS: PATIENT'S OWN (Insulin Glargine/Lixisenatide [Soliqua 100 Unit-33 Mcg/Ml Pen] 3 ML In SQ SCH (08:07)
[2024-02-07] MEDS: FERROUS SULFATE 325 MG TAB PO SCH (08:11)
[2024-02-07] MEDS: lisinopriL 5 MG TAB PO SCH (08:11)
[2024-02-07] MEDS: amLODIPine 5 MG TAB PO SCH (08:11)
[2024-02-07] MEDS: CHOLECALCIFEROL 25 MCG (1000 IU) TABLET PO SCH (08:11)
[2024-02-07] MEDS: ISOSORBIDE MONONITRATE ER 30 MG TAB.ER.24H PO SCH (08:11)
[2024-02-07] MEDS: DAPAGLIFLOZIN PROPANEDIOL 10 MG TABLET PO SCH (08:11)
[2024-02-07] MEDS: LORATADINE 10 MG TAB PO SCH (08:11)
[2024-02-07] MEDS: PANTOPRAZOLE 40 MG/10 ML VIAL IV SCH (08:12)
--- NOTE | 2024-02-07 08:48 | P.HPIM ---
History of Present Illness History of present illness; 78-year-old male with a past medical history of A- fib (on Xarelto), CAD, type 2 diabetes, GERD, hypertension, history of PE, and sleep apnea presents with weakness and urinary symptoms. Patient reports for the last 3 to 4 days she has had increased urinary frequency having to go multiple times a day but only producing a small amount of urine. Patient reports having to wear briefs during this time due to some episodes of incontinence but denies any fecal incontinence. Patient also reports some pain in his lower back which he states is chronic in nature and is unsure if it is worse now than usual. Back pain is central in location. Patient admits to nausea without vomiting, and states is unsure if the nausea is related to taking his home morning medications. Patient reports in general he has been very weak with little to no energy lately, and his reports the patient is usually very active. Patient reports he is currently taking Augmentin for sinus infection started several days ago, but the symptoms of the sinus infection of essentially resolved now. Initial lab work from the ER was significant for WBC 8.6, hemoglobin 15.2, MCV 92.7, sodium 140, potassium 4.2, bicarb 21, BUN 34, creatinine 1.66, glucose 118, calcium 10.6, UA significant for trace protein, 4+ glucose, moderate blood, and rare mucus. Influenza type A, B, RSV, COVID all negative. EKG done in the ER showed heart rate of 83 bpm, no ST segment elevation or depression seen, no T-wave inversions seen. Sinus rhythm with sinus arrhythmia, QTc 383. ER CXR: Coarsened interstitium could be related to reduced inspiration. Abdomen/bladder ultrasound: No hydronephrosis, relatively stable right renal simple cyst, and clustered left renal cyst versus thin-walled septated cyst. Patient admitted to internal medicine service REVIEW OF SYSTEMS: CONSTITUTIONAL: No fever, admits to generalized weakness HEENT: No recent visual problems or hearing problems. Denied any sore throat. CARDIOVASCULAR: No chest pain, orthopnea, PND, no palpitations, no syncope. PULMONARY: No shortness of breath, no cough, no hemoptysis. GASTROINTESTINAL: No diarrhea, no nausea, no vomiting, no abdominal pain. NEUROLOGICAL: No headaches, no weakness, no numbness. HEMATOLOGICAL: Denies any bleeding or petechiae. GENITOURINARY: Admits to increased frequency and incontinence of his urine. MUSCULOSKELETAL/RHEUMATOLOGICAL: Denies any joint pain, swelling, or any muscle pain. ENDOCRINE: Denies any polyuria or polydipsia. The rest of the 14-point review of systems is negative. PHYSICAL EXAMINATION: GENERAL: The patient is alert and oriented x3, not in any acute distress. Well developed, well nourished. HEENT: Pupils are round and equally reacting to light. EOMI. No scleral icterus. No conjunctival pallor. Normocephalic, atraumatic. No pharyngeal erythema. No thyromegaly. CARDIOVASCULAR: S1 and S2 present. No murmurs, rubs, or gallops. PULMONARY: Chest is clear to auscultation b/l, no wheezing or crackles. ABDOMEN: Soft, nontender, nondistended, normoactive bowel sounds. No palpable organomegaly. MUSCULOSKELETAL: No joint swelling or deformity. EXTREMITIES: No cyanosis, clubbing, or pedal edema. NEUROLOGICAL: Gross neurological examination did not reveal any focal deficits. SKIN: No rashes. Assessment & Plan: Acute: #OSMIN: Patient recently started short course of Augmentin, OSMIN potentially secondary to medication side effect including home meds like lisinopril. Baseline creatinine 0.8-1.3, creatinine on admission 1.66. Increased IV fluids to NS at 100 cc/h Monitor I's and O's Avoid nephrotoxic agents #Recent sinus infection: Patient was on Augmentin [id number] p.o. twice daily Consider holding antibiotic as this could be the source of the OSMIN Symptoms from initial sinus infection seem to be resolved Continue to monitor. Chronic: #Hypertension: Continue home Norvasc 5 mg p.o. daily, Coreg 12.5 mg p.o. twice daily, currently holding lisinopril. #Hyperlipidemia Continue home atorvastatin 80 mg p.o. at bedtime #Type 2 diabetes: Continue home insulin, Farxiga 10 mg p.o. daily Accu-Cheks #GERD: Continue Protonix 40 mg p.o. ACbreakfast F: NS 100 cc/h E: None N: Consistent carbohydrate diet A: Normally ambulates unassisted at home DVT ppx: Xarelto 15 mg p.o. at bedtime GI ppx: Protonix 40 mg p.o. ACbreakfast Dispo: Pending clinical course Hansa Atkinson MD PGY-1 FM Dictation was produced using [employer] dictation software. please excuse any grammatical, word or spelling errors. Past Medical History Past Medical History: Atrial Fibrillation, Coronary Artery Disease (CAD), Diabetes Mellitus, Eye Disorder, GERD/Reflux, GI Bleed, Hypertension, Musculoskeletal Disorder, Pulmonary Embolus (PE), Sleep Apnea/CPAP/BIPAP, Syncope Additional Past Medical History / Comment(s): ANAL FISSURES, GLAUCOMA, KIDNEY STONES, uses CPAP, abd. aneurysm- monitoring, 3 syncope episodes in 2019 now resolved, chronic back & hip problems, peripheral pulmonary emboli after open heart surg. resulted in prolonged intubation, glaucoma, colon polyps History of Any Multi-Drug Resistant Organisms: None Reported Past Surgical History: Appendectomy, Coronary Bypass/CABG, Heart Catheterization With Stent Additional Past Surgical History / Comment(s): triple bypass August 2013. pain procedures Past Anesthesia/Blood Transfusion Reactions: No Reported Reaction Additional Past Anesthesia/Blood Transfusion Reaction / Comment(s): difficulty coming off vent after open heart due to peripheral pulmonary emboli-spouse concerned related to anesthesia Date of Last Stent Placement:: 2013 Type of Cardiac Device: Loop Device Placement Date:: medtronic loop recorder now inactive placed in 2017 Past Psychological History: No Psychological Hx Reported Smoking Status: Former smoker Past Alcohol Use History: None Reported Past Drug Use History: None Reported - Past Family History Mother Family Medical History: Cancer Additional Family Medical History / Comment(s): uterine dies at 60 Father Family Medical History: Cancer Additional Family Medical History / Comment(s): kidney at 61 Medications and Allergies Home Medications Medication Instructions Recorded Confirmed Type Ferrous Sulfate [Iron (65 MG 325 mg PO HS 11/07/17 02/06/24 History Elemental)] Latanoprost Ophth [Xalatan 0.005%] 1 drops BOTH EYES HS 11/07/17 02/06/24 History Ubidecarenone [Co Q-10] 100 mg PO DAILY 07/15/18 02/06/24 History Rivaroxaban [Xarelto] 20 mg PO HS 05/26/19 02/06/24 History Atorvastatin [Lipitor] 80 mg PO HS 12/29/22 02/06/24 History Brimonidine Tartrate [Alphagan P 1 drop BOTH EYES HS 12/29/22 02/06/24 History 0.2% Ophth Soln] Cetirizine HCl [Zyrtec] 10 mg PO DAILY 12/29/22 02/06/24 History Cholecalciferol [Vitamin D3 (25 50 mcg PO DAILY 12/29/22 02/06/24 History Mcg = 1000 Iu)] Melatonin 10 mg PO HS 12/29/22 02/06/24 History Timolol 0.5% Ophth Soln [Timoptic 1 drop BOTH EYES HS 12/29/22 02/06/24 History 0.5% Ophth Soln] HYDROcodone/APAP 7.5-325MG [Wheeler 1 tab PO Q6HR PRN #9 tab 01/08/23 02/06/24 Rx 7.5-325] carvediloL [Coreg*] 12.5 mg PO BID-W/MEALS #60 tab 01/08/23 02/06/24 Rx Acetaminophen Tab [Tylenol Tab] 500 - 1,000 mg PO Q6HR PRN 02/06/24 02/06/24 History Albuterol Sulfate [Ventolin HFA] 2 puff INHALATION RT-Q4H PRN 02/06/24 02/06/24 History Amoxic-Pot Clav 875-125Mg 1 tab PO Q12HR 02/06/24 02/06/24 History [Augmentin 875-125] Cyclobenzaprine [Flexeril] 10 mg PO TID PRN 02/06/24 02/06/24 History Dapagliflozin Propanediol [Farxiga] 10 mg PO DAILY 02/06/24 02/06/24 History Insulin Glargine/Lixisenatide 20 units SQ DAILY 02/06/24 02/06/24 History [Soliqua 100 Unit-33 Mcg/ml Pen] Isosorbide Mononitrate ER [Imdur] 30 mg PO DAILY 02/06/24 02/06/24 History amLODIPine [Norvasc] 5 mg PO DAILY 02/06/24 02/06/24 History icosapent ethyL [Icosapent Ethyl] 2 gm PO BID 02/06/24 02/06/24 History lisinopriL [Zestril] 5 mg PO DAILY 02/06/24 02/06/24 History traZODone HCL [Desyrel] 50 mg PO HS PRN 02/06/24 02/06/24 History Allergies Allergy/AdvReac Type Severity Reaction Status Date / Time No Known Allergies Allergy Verified 02/06/24 14:52 Physical Exam Vitals: Vital Signs Temp Pulse Pulse Resp BP BP Pulse Ox 02/07/24 01:53 98.6 F 76 15 121/75 93 L 02/06/24 20:00 97.6 F 68 14 134/80 96 02/06/24 18:45 98.8 F 82 18 130/84 96 02/06/24 17:32 101.4 F H 84 18 136/83 96 02/06/24 16:13 100.6 F H 84 18 149/89 97 02/06/24 13:19 99.8 F H 84 16 144/80 97 02/06/24 10:27 99.1 F 96 18 143/71 98 Intake and Output 02/06/24 02/07/24 02/07/24 22:59 06:59 14:59 Output Total 221 Balance -221 Output: Post Void Residual 221 Other: Weight 106.594 kg Results CBC & Chem 7: 02/06/24 11:15 02/06/24 11:15 Labs: Abnormal Lab Results - Last 24 Hours (Table) 02/06/24 02/06/24 02/06/24 Range/Units 11:15 11:15 19:53 Carbon Dioxide 21 L (22-30) mmol/L BUN 34 H (9-20) mg/dL Creatinine 1.66 H (0.66-1.25) mg/dL Glucose 118 H (74-99) mg/dL POC Glucose (mg/dL) 153 H (70-110) mg/dL Calcium 10.6 H (8.4-10.2) mg/dL Urine Protein Trace H (Negative) Urine Glucose (UA) 4+ H (Negative) Urine Blood Moderate H (Negative) Urine Mucus Rare H (None) /hpf Thrombosis Risk Factor Assmnt - Choose All That Apply Any of the Below Risk Factors Present?: No Other Risk Factors: Yes Each Risk Factor Represents 3 Points: Age 75 years or older Thrombosis Risk Factor Assessment Total Risk Factor Score: 3 Thrombosis Risk Factor Assessment Level: Moderate Risk
[2024-02-07] MEDS ORDERED: NON FORMULARY DRUG (Ubidecarenone [Co Q-10] 100 MG Capsule) PO SCH (09:00)
[2024-02-07] MEDS: SOLIQUA SQ SCH (09:52)
[2024-02-07] MEDS: ICOSAPENT ETHYL 1 GM PO SCH ×2 (09:52→21:12)
[2024-02-07] MEDS ORDERED: CYCLOBENZAPRINE 5 MG TAB PO PRN (11:58)
[2024-02-07 16:41] LABS: Glucose,Whole Blood 95 mg/dL (70-110)
[2024-02-07] MEDS: HYDROcodone/APAP 7.5-325MG 1 EACH TAB PO PRN (18:55)
[2024-02-07 20:03] LABS: Glucose,Whole Blood 93 mg/dL (70-110)
[2024-02-08 02:21] VITALS: RESP 18
[2024-02-08 06:15] LABS: Glucose,Whole Blood 92 mg/dL (70-110)
[2024-02-08] MEDS: PANTOPRAZOLE 40 MG TABLET PO SCH (06:50)
[2024-02-08 10:18] LABS: Basophils # (A) 0.06 X 10*3/uL (0.00-0.10); Basophils % (A) 0.8 %; Eosinophils # (A) 0.34 X 10*3/uL (0.04-0.35); Eosinophils % (A) 4.7 %; HCT 41.7 % (39.6-50.0); HGB 13.3 g/dL (13.0-17.0); Lymphocytes # (A) 1.65 X 10*3/uL (0.90-5.00); Lymphocytes % (A) 22.7 %; MCH 30.2 pg (27.0-32.0); MCHC 31.9 g/dL (32.0-37.0); MCV 94.6 FL (80.0-97.0); Mean Platelet Volume 10.5 FL (9.5-12.2); Monocytes # (A) 0.84 X 10*3/uL (0.20-1.00); Monocytes % (A) 11.6 %; NRBC Per 100 WBC 0 X 10*3/uL (0.00-0.01); Neutrophils # (A) 4.34 X 10*3/uL (1.80-7.70); Neutrophils % (A) 59.8 %; Platelet Count 238 X 10*3/uL (140-440); RBC 4.41 X 10*6/uL (4.40-5.60); RDW 13.4 % (11.5-14.5); WBC 7.26 X 10*3/uL (4.50-10.00)
[2024-02-08 10:43] LABS: ALT 14 U/L (10-49); AST 32 U/L (14-35); Albumin 3.8 g/dL (3.8-4.9); Alkaline Phosphatase 86 U/L (41-126); Blood Urea Nitrogen 24.9 mg/dL (9.0-27.0); Calcium 9.2 mg/dL (8.7-10.3); Carbon Dioxide 21.7 mmol/L (21.6-31.8); Chloride 108 mmol/L (96-109); Globulin 1.9 g/dL (1.6-3.3); Glucose 82 mg/dL (70-110); Potassium 4.1 mmol/L (3.5-5.5); Sodium 141 mmol/L (135-145); Total Bilirubin 0.4 mg/dL (0.3-1.2); Total Protein 5.7 g/dL (6.2-8.2)
[2024-02-08 11:13] LABS: Glucose,Whole Blood 191 mg/dL (70-110)
[2024-02-08 12:45] VITALS: BP 165/75; PULSE 98; TEMP 97.6
--- NOTE | 2024-02-08 17:54 | P.DS ---
Providers Date of admission: 02/06/24 16:55 Attending physician: Shae Vegas Primary care physician: Chaitanya Parham [facility] Course: Discharge Diagnosis: OSMIN Recent sinus infection Hypertension Hyperlipidemia Type 2 diabetes GERD Hospital Course: History of present illness; 78-year-old male with a past medical history of A- fib (on Xarelto), CAD, type 2 diabetes, GERD, hypertension, history of PE, and sleep apnea presents with weakness and urinary symptoms. Patient reports for the last 3 to 4 days she has had increased urinary frequency having to go multiple times a day but only producing a small amount of urine. Patient reports having to wear briefs during this time due to some episodes of incontinence but denies any fecal incontinence. Patient also reports some pain in his lower back which he states is chronic in nature and is unsure if it is worse now than usual. Back pain is central in location. Patient admits to nausea without vomiting, and states is unsure if the nausea is related to taking his home morning medications. Patient reports in general he has been very weak with little to no energy lately, and his reports the patient is usually very active. Patient reports he is currently taking Augmentin for sinus infection started several days ago, but the symptoms of the sinus infection of essentially resolved now. Initial lab work from the ER was significant for WBC 8.6, hemoglobin 15.2, MCV 92.7, sodium 140, potassium 4.2, bicarb 21, BUN 34, creatinine 1.66, glucose 118, calcium 10.6, UA significant for trace protein, 4+ glucose, moderate blood, and rare mucus. Influenza type A, B, RSV, COVID all negative. EKG done in the ER showed heart rate of 83 bpm, no ST segment elevation or depression seen, no T-wave inversions seen. Sinus rhythm with sinus arrhythmia, QTc 383. ER CXR: Coarsened interstitium could be related to reduced inspiration. Abdomen/bladder ultrasound: No hydronephrosis, relatively stable right renal simple cyst, and clustered left renal cyst versus thin-walled septated cyst. While admitted the patient was treated with IV fluids NS at 100 cc/h, and his lisinopril was held in the setting of an OSMIN. On admission the patient's creatinine was 1.66, and after holding his lisinopril and giving IV fluids it improved to 1.5. On day of discharge the patient has no complaints and feels much better than when he first came in. We will discontinue the lisinopril on discharge and allow the patient's primary care to further advise on if they would like to restart the medication or consider a different option. The patient is medically and hemodynamically stable for discharge to home. Patient is advised to follow-up with his PCP. Pt seen and examined at bedside: Patient sitting up in bed excited at the prospect of going home. Vital signs reveiwed and stable: General: non toxic, no distress, appears at stated age, normal weight Derm: no unusual rashes/lesions, warm Head: atraumatic, normocephalic, symmetric Eyes: EOMI, no lid lag, anicteric sclera, pupils equal round reactive to light ENT: Nose and ears atraumatic Neck: No cervical lymphadenopathy, trachea midline, supple Mouth: no lip lesion, mucus membranes moist Cardiovascular: S1S2 reg, no murmur, positive dorsalis pedis pulse bilateral, no edema Lungs: Decreased air entry bilaterally, no rhonchi, no rales, no accessory muscle use Abdominal: soft, nontender to palpation, no guarding Ext: muscle strength 5 out of 5 in all 4 extremities grossly, no gross muscle atrophy, no contractures, Neuro: CN II-XI grossly intact, no gross focal neuro deficits Psych: Alert, oriented, appropriate affect A total of greater than 30 minutes were spent preparing this complex discarge summary. Patient was discharged on 02/08/2024, 13: 45. Patient Condition at Discharge: Fair Plan - Discharge Summary Discharge Rx Participant: No New Discharge Prescriptions: Continue Latanoprost Ophth [Xalatan 0.005%] 1 drops BOTH EYES HS Ferrous Sulfate [Iron (65 MG Elemental)] 325 mg PO HS Ubidecarenone [Co Q-10] 100 mg PO DAILY Rivaroxaban [Xarelto] 20 mg PO HS Brimonidine Tartrate [Alphagan P 0.2% Ophth Soln] 1 drop BOTH EYES HS Atorvastatin [Lipitor] 80 mg PO HS Melatonin 10 mg PO HS Cholecalciferol [Vitamin D3 (25 Mcg = 1000 Iu)] 50 mcg PO DAILY Dapagliflozin Propanediol [Farxiga] 10 mg PO DAILY icosapent ethyL [Icosapent Ethyl] 2 gm PO BID Isosorbide Mononitrate ER [Imdur] 30 mg PO DAILY Amoxic-Pot Clav 875-125Mg [Augmentin 875-125] 1 tab PO Q12HR Acetaminophen Tab [Tylenol] 500 - 1,000 mg PO Q6HR PRN PRN Reason: Pain Cyclobenzaprine [Flexeril] 10 mg PO TID PRN PRN Reason: Muscle Spasm Timolol 0.5% Ophth Soln [Timoptic 0.5% Ophth Soln] 1 drop BOTH EYES HS Cetirizine HCl [Zyrtec] 10 mg PO DAILY carvediloL [Coreg*] 12.5 mg PO BID-W/MEALS #60 tab HYDROcodone/APAP 7.5-325MG [Wallace 7.5-325] 1 tab PO Q6HR PRN #9 tab PRN Reason: Pain Albuterol Sulfate [Ventolin HFA] 2 puff INHALATION RT-Q4H PRN PRN Reason: Shortness Of Breath amLODIPine [Norvasc] 5 mg PO DAILY Insulin Glargine/Lixisenatide [Soliqua 100 Unit-33 Mcg/ml Pen] 20 units SQ DAILY traZODone HCL [Desyrel] 50 mg PO HS PRN PRN Reason: sleep Discontinued lisinopriL [Zestril] 5 mg PO DAILY Discharge Medication List Ferrous Sulfate [Iron (65 MG Elemental)] 325 mg PO HS 11/07/17 [History] Latanoprost Ophth [Xalatan 0.005%] 1 drops BOTH EYES HS 11/07/17 [History] Ubidecarenone [Co Q-10] 100 mg PO DAILY 07/15/18 [History] Rivaroxaban [Xarelto] 20 mg PO HS 05/26/19 [History] Atorvastatin [Lipitor] 80 mg PO HS 12/29/22 [History] Brimonidine Tartrate [Alphagan P 0.2% Ophth Soln] 1 drop BOTH EYES HS 12/29/22 [History] Cetirizine HCl [Zyrtec] 10 mg PO DAILY 12/29/22 [History] Cholecalciferol [Vitamin D3 (25 Mcg = 1000 Iu)] 50 mcg PO DAILY 12/29/22 [History] Melatonin 10 mg PO HS 12/29/22 [History] Timolol 0.5% Ophth Soln [Timoptic 0.5% Ophth Soln] 1 drop BOTH EYES HS 12/29/22 [History] HYDROcodone/APAP 7.5-325MG [Wallace 7.5-325] 1 tab PO Q6HR PRN #9 tab 01/08/23 [Rx] carvediloL [Coreg*] 12.5 mg PO BID-W/MEALS #60 tab 01/08/23 [Rx] Acetaminophen Tab [Tylenol] 500 - 1,000 mg PO Q6HR PRN 02/06/24 [History] Albuterol Sulfate [Ventolin HFA] 2 puff INHALATION RT-Q4H PRN 02/06/24 [History] Amoxic-Pot Clav 875-125Mg [Augmentin 875-125] 1 tab PO Q12HR 02/06/24 [History] Cyclobenzaprine [Flexeril] 10 mg PO TID PRN 02/06/24 [History] Dapagliflozin Propanediol [Farxiga] 10 mg PO DAILY 02/06/24 [History] Insulin Glargine/Lixisenatide [Soliqua 100 Unit-33 Mcg/ml Pen] 20 units SQ DAILY 02/06/24 [History] Isosorbide Mononitrate ER [Imdur] 30 mg PO DAILY 02/06/24 [History] amLODIPine [Norvasc] 5 mg PO DAILY 02/06/24 [History] icosapent ethyL [Icosapent Ethyl] 2 gm PO BID 02/06/24 [History] traZODone HCL [Desyrel] 50 mg PO HS PRN 02/06/24 [History] Follow up Appointment(s)/Referral(s): Chaitanya Parham DO [Primary Care Provider] - 02/19/24 9:15 am Patient Instructions/Handouts: Acute Kidney Injury (DC) Activity/Diet/Wound Care/Special Instructions: Activity: Slowly increase after discharge Diet: No restrictions Medication changes: Discontinue lisinopril, discussed with PCP when you see them. Discharge Disposition: HOME SELF-CARE
[2024-02-11 07:22] LABS: Glucose,Whole Blood 84 mg/dL (70-110)
== END 2024-02-08 14:32 | disposition home or self-care (01) ==
LOC: EC 10:24 → 4SSUR 16:55
PROVIDERS: ADMIT Hospitalist; ATTEND Hospitalist
DX: N17.9 Acute kidney failure, unspecified (principal); I25.10 Atherosclerotic heart disease of native coronary artery without angina pectoris; I48.91 Unspecified atrial fibrillation; E11.9 Type 2 diabetes mellitus without complications; K21.9 Gastro-esophageal reflux disease without esophagitis; I10 Essential (primary) hypertension; G47.30 Sleep apnea, unspecified; J32.9 Chronic sinusitis, unspecified; E78.5 Hyperlipidemia, unspecified; Z11.52 Encounter for screening for COVID-19; Z86.711 Personal history of pulmonary embolism; Z87.891 Personal history of nicotine dependence; Z95.5 Presence of coronary angioplasty implant and graft; Z79.4 Long term (current) use of insulin; Z79.01 Long term (current) use of anticoagulants; Z79.84 Long term (current) use of oral hypoglycemic drugs; Z79.899 Other long term (current) drug therapy
CPT/HCPCS: 96374; 99285; 51798; 36415; 93005; 80053 ×2; 83605; 83735; 84100; 85025 ×2; 85610; 85730; 81001; 87636; 71045; 76770; G0378 ×3; J2470

== ENCOUNTER → 2024-09-26 | Outpatient (CLI) | payer MEDICARE ==
--- NOTE | 2024-09-27 09:49 | PE ---
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 Images are reviewed on the computer in the coronal, axial, and sagittal planes. Reconstructed rotating images are created on independent workstation an d reviewed on the computer. A non-contrast CT is performed in conjunction with the PET scan. Glucos e level 111 mg/dL CT DLP: 1172 mGycm, Automated exposure control for dose reduction was used. COMPARISON: CT 09/12/2024, 01/06/2020 PET/CT None, MRI: 09/13/2024 FINDINGS: Mediastinal SUV mean is 2.2. Hepatic parenchyma SUV mean is 3.5. SKULL BASE AND NECK: No suspicious radiotracer activity. CHEST, MEDIASTINUM, AND HILAR REGION: * Left lower lobe costophrenic angle 14 x 8 mm pulmonary nodule Max SUV 2.6.r * More superior left lower lobe 8 mm nodule Max SUV 1.6 The most inferior nodule is new from 01/06/2020. ABDOMEN AND PELVIS: Suspicious uptake identified; examples include: Innumerable lesions throughout the liver with heterogenous uptake within the lesions with patchy upta ke throughout the liver. Overall the uptake is not as localized to the lesions seen on MRI. Large dom inant mass has a focal area of uptake max SUV 8.0 measuring similarly as prior exam up to 15.5 x 12.9 cm. MUSCULOSKELETAL STRUCTURES: Suspicious uptake identified; examples include: Soft tissue mass within the right medial rib 12 rib [address] Max SUV 4[address]: Atherosclerosis of the carotid bifurcations. Atherosclerosis of the vertebral arteries. At this course of the coronary arteries is fair. Bilateral recommends 2 changes. Heterogenous appearance of liver. Cholelithiasis. Simple appearing renal cyst. No follow-up recommended. Colonic diverticulo sis. Prostatomegaly with calcifications. Infrarenal abdominal aortic aneurysmal dilation up to 4.4 cm . Degeneration changes of the hips with subchondral cystic changes of the acetabulum. IMPRESSION: Diffuse metastatic disease throughout the liver with at least one suspicious destructive lesion in th e right rib 8 as well pulmonary nodules concerning for metastatic disease. [facility], , 09/27/2024 9:46 AM
== END | disposition home or self-care (01) ==
LOC: RADPETMAIN 06:19
PROVIDERS: ATTEND Internal Medicine Hematology & Oncology
DX: C22.0 Liver cell carcinoma (principal); R91.8 Other nonspecific abnormal finding of lung field; M89.9 Disorder of bone, unspecified
CPT/HCPCS: 78815; A9552

== ENCOUNTER 2024-11-14 19:41 | Inpatient (IN) | payer MEDICARE ==
--- NOTE | 2024-11-14 20:45 | ED ---
General Adult HPI - General Chief complaint: Shortness of Breath Stated complaint: JEAN-PAUL,Cough Time Seen by Provider: 11/14/24 20:05 Source: patient, family, RN notes reviewed, old records reviewed Mode of arrival: wheelchair - History of Present Illness Initial comments: 79-year-old male with stage IV liver cancer presenting with a 2-day history of subjective fever and chills, cough, dyspnea. Cough is productive of brown sputum. Patient denies central chest pain. Denies lower extremity pain or swelling. Denies history of DVT or PE. He does have prior cardiac history. - Related Data Home Medications Medication Instructions Recorded Confirmed Ferrous Sulfate [Iron (65 MG 325 mg PO HS 11/07/17 09/13/24 Elemental)] Latanoprost Ophth [Xalatan 0.005%] 1 drop BOTH EYES HS 11/07/17 09/13/24 Ubidecarenone [Co Q-10] 100 mg PO DAILY 07/15/18 09/13/24 Rivaroxaban [Xarelto] 20 mg PO HS 05/26/19 09/13/24 Atorvastatin [Lipitor] 80 mg PO HS 12/29/22 09/13/24 Brimonidine Tartrate [Alphagan P 1 drop BOTH EYES HS 12/29/22 09/13/24 0.2% Ophth Soln] Cetirizine HCl [Zyrtec] 10 mg PO DAILY 12/29/22 09/13/24 Cholecalciferol [Vitamin D3 (25 50 mcg PO DAILY 12/29/22 09/13/24 Mcg = 1000 Iu)] Melatonin 10 mg PO HS 12/29/22 09/13/24 Timolol 0.5% Ophth Soln [Timoptic 1 drop RIGHT EYE HS 12/29/22 09/13/24 0.5% Ophth Soln] Cyclobenzaprine [Flexeril] 10 mg PO TID PRN 02/06/24 09/13/24 Dapagliflozin Propanediol [Farxiga] 10 mg PO DAILY 02/06/24 09/13/24 Insulin Glargine/Lixisenatide 15 units SQ DAILY 02/06/24 09/13/24 [Soliqua 100 Unit-33 Mcg/ml Pen] amLODIPine [Norvasc] 5 mg PO DAILY 02/06/24 09/13/24 icosapent ethyL [Icosapent Ethyl] 2 gm PO BID 02/06/24 09/13/24 traZODone HCL [Desyrel] 50 mg PO HS PRN 02/06/24 09/13/24 Ezetimibe [Zetia] 10 mg PO DAILY 09/13/24 09/13/24 lisinopriL [Zestril] 5 mg PO DAILY 09/13/24 09/13/24 Previous Rx's Medication Instructions Recorded HYDROcodone/APAP 7.5-325MG [Letcher 1 tab PO Q6HR PRN #9 tab 01/08/23 7.5-325] carvediloL [Coreg*] 12.5 mg PO BID-W/MEALS #60 tab 01/08/23 Allergies Allergy/AdvReac Type Severity Reaction Status Date / Time No Known Allergies Allergy Verified 09/13/24 12:11 Review of Systems ROS Statement: Those systems with pertinent positive or pertinent negative responses have been documented in the HPI. ROS Other: All systems not noted in ROS Statement are negative. Past Medical History Past Medical History: Atrial Fibrillation, Coronary Artery Disease (CAD), Diabetes Mellitus, Eye Disorder, GERD/Reflux, GI Bleed, Hypertension, Musculosk eletal Disorder, Pulmonary Embolus (PE), Sleep Apnea/CPAP/BIPAP, Syncope Additional Past Medical History / Comment(s): ANAL FISSURES, GLAUCOMA, KIDNEY STONES, uses CPAP, abd. aneurysm- monitoring, 3 syncope episodes in 2019 now resolved, chronic back & hip problems, peripheral pulmonary emboli after open heart surg. resulted in prolonged intubation, glaucoma, colon polyps History of Any Multi-Drug Resistant Organisms: None Reported Past Surgical History: Appendectomy, Coronary Bypass/CABG, Heart Catheterization With Stent Additional Past Surgical History / Comment(s): triple bypass August 2013. pain procedures Past Anesthesia/Blood Transfusion Reactions: No Reported Reaction Additional Past Anesthesia/Blood Transfusion Reaction / Comment(s): difficulty coming off vent after open heart due to peripheral pulmonary emboli-spouse concerned related to anesthesia Date of Last Stent Placement:: 2013 Type of Cardiac Device: Loop Device Placement Date:: medtronic loop recorder now inactive placed in 2017 Past Psychological History: No Psychological Hx Reported Smoking Status: Former smoker - Past Family History Mother Family Medical History: Cancer Additional Family Medical History / Comment(s): uterine dies at 60 Father Family Medical History: Cancer Additional Family Medical History / Comment(s): kidney at 61 General Exam General appearance: alert, in no apparent distress Head exam: Present: atraumatic, normocephalic Eye exam: Present: normal appearance, PERRL ENT exam: Present: normal exam Neck exam: Present: normal inspection. Absent: tenderness, meningismus Respiratory exam: Present: rhonchi, decreased breath sounds (Decreased breath sounds right lower lung field). Absent: wheezes, rales Cardiovascular Exam: Present: regular rate, normal rhythm GI/Abdominal exam: Present: soft. Absent: distended, tenderness Extremities exam: Present: normal inspection, normal capillary refill. Absent: pedal edema, calf tenderness Neurological exam: Present: alert, oriented X3 Psychiatric exam: Present: normal affect, normal mood Skin exam: Present: warm, dry, intact. Absent: cyanosis, diaphoretic Course Vital Signs 11/14/24 11/14/24 19:56 20:21 Temperature 98.7 F Pulse Rate 78 79 Respiratory 24 18 Rate Blood Pressure 105/58 109/67 O2 Sat by Pulse 89 L 91 L Oximetry Medical Decision Making - Medical Decision Making Was pt. sent in by a medical professional or institution (, PA, BODY MECHANIC APPRENTICE, urgent care, hospital, or senior care...) When possible be specific @ -No Did you speak to anyone other than the patient for history (EMS, parent, family, police, friend...)? What history was obtained from this source @ -No Did you review nursing and triage notes (agree or disagree)? Why? @ -I reviewed and agree with nursing and triage notes Were old charts reviewed (outside hosp., previous admission, EMS record, old EKG, old radiological studies, urgent care reports/EKG's, senior care records)? Report findings @ -No old charts were reviewed Differential Dyspnea: Coronary syndrome, arrhythmia, tamponade, asthma, COPD, pulmonary embolism, pneumonia, pneumothorax, pulmonary effusion, anaphylaxis, diabetic ketoacidosis, flailed chest, pulmonary contusion, diaphragmatic rupture, anemia, neuromuscular, this is not meant to be an all-inclusive list. EKG interpreted by me (3pts min.). @Sinus rhythm rate of 77, AR interval 161, QRS duration 95, QTc [address] segment elevation. X-rays interpreted by me (1pt min.). @Chest x-ray: Multifocal airspace opacity, CHF versus pneumonia CT interpreted by me (1pt min.). @ -None done U/S interpreted by me (1pt. min.). @ -None done What testing was considered but not performed or refused? (CT, X-rays, U/S, labs)? Why? @ -None What meds were considered but not given or refused? Why? @ -None Did you discuss the management of the patient with other professionals (nisa reagan i.e. , PA, BODY MECHANIC APPRENTICE, lab, RT, psych nurse, social services counselor, plaque maker, teacher, accounting officer, watch caser)? Give summary @ -No Was smoking cessation discussed for >3mins.? @ -No Was critical care preformed (if so, how long)? @ -[Yes, 35 minutes hypoxia, pneumonia, CHF Were there social determinants of health that impacted care today? How? (Homelessness, low income, unemployed, alcoholism, drug addiction, transportation, low edu. Level, literacy, decrease access to med. care, half-way, rehab)? @ -No Was there de-escalation of care discussed even if they declined (Discuss DNR or withdrawal of care, Hospice)? DNR status @ -No What co-morbidities impacted this encounter? (DM, HTN, Smoking, COPD, CAD, Cancer, CVA, ARF, Chemo, Hep., AIDS, mental health diagnosis, sleep apnea, morbid obesity)? @ -[CAD status post bypass and stage IV liver cancer Was patient admitted / discharged? Hospital course, mention meds given and route, prescriptions, significant lab abnormalities, going to OR and other pertinent info. @ -79-year-old male with increased dyspnea over the past 2 days, cough produ ctive of sputum, patient does state this was brown. He has a history of stage IV liver cancer. He denies active chest pain denies abdominal pain. Denies fever but has had chills. No lower extremity pain or swelling, no edema on exam. Patient has an x-ray showing CHF versus multifocal pneumonia. He has a normal white blood cell count, stable hemoglobin. He has a normal age-adjusted D-dimer. His creatinine is elevated at 1.88. He has an elevated troponin 0.786 and a significantly elevated BNP at 8300 this is new for the patient. Patient is given antibiotics to cover for pneumonia and is also given Lasix in the emergency department he is admitted to internal medicine, case discussed with Zechariah aguayo for [facility]. Both cardiology and pulmonology placed on consult and echo has been ordered. Fluids held due to suspicion for CHF. Undiagnosed new problem with uncertain prognosis? @ -No Drug Therapy requiring intensive monitoring for toxicity (Heparin, Nitro, Insulin, Cardizem)? @ -No Were any procedures done? @ -No Diagnosis/symptom? @ -Pneumonia, CHF Acute, or Chronic, or Acute on Chronic? @ -[Acute Uncomplicated (without systemic symptoms) or Complicated (systemic symptoms)? @Complicated Side effects of treatment? @ -No Exacerbation, Progression, or Severe Exacerbation? @ -No Poses a threat to life or bodily function? How? (Chest pain, [place], CA, pneumonia, PE, COPD, DKA, ARF, appy, cholecystitis, CVA, Diverticulitis, Homicidal, Suicidal, threat to staff... and all critical care pts) @ -Yes, respiratory failure - Lab Data Result diagrams: 11/14/24 20:33 11/14/24 20:33 Lab Results 11/14/24 11/14/24 11/14/24 Range/Units 20:33 20:33 20:33 WBC 9.13 (4.50-10.00) 10*3/uL RBC 5.64 H (4.40-5.60) 10*6/uL Hgb 14.7 (13.0-17.0) g/dL Hct 45.6 (39.6-50.0) % MCV 80.9 D (80.0-97.0) fL MCH 26.1 L (27.0-32.0) pg MCHC 32.2 (32.0-37.0) g/dL Plt Count 460 H (140-440) 10*3/uL MPV 10.7 (9.5-12.2) fL Immature Gran % (Auto) 0.5 % Neutrophils % 65.3 % Lymphocytes % 15.7 % Monocytes % 14.1 % Eosinophils % 3.5 % Basophils % 0.9 % Immature Gran # 0.05 H (0.00-0.04) 10*3/uL Neutrophils # 5.96 (1.80-7.70) 10*3/uL Lymphocytes # 1.43 (0.90-5.00) 10*3/uL Monocytes # 1.29 H (0.20-1.00) 10*3/uL Eosinophils # 0.32 (0.04-0.35) 10*3/uL Basophils # 0.08 (0.00-0.10) 10*3/uL PT 13.2 H (10.0-12.5) sec INR 1.2 H (<1.2) APTT 31.2 H (22.0-30.0) sec D-Dimer 0.68 H (<0.60) mg/L FEU Sodium 130 L (137-145) mmol/L Potassium 5.4 H (3.5-5.1) mmol/L Chloride 103 (98-107) mmol/L Carbon Dioxide 18 L (22-30) mmol/L Anion Gap 9 mmol/L BUN 39 H (9-20) mg/dL Creatinine 1.88 H (0.66-1.25) mg/dL Est GFR (CKD-EPI)AfAm 39 (>60 ml/min/1.73 sqM) Est GFR (CKD-EPI)NonAf 34 (>60 ml/min/1.73 sqM) Glucose 86 (74-99) mg/dL Plasma Lactic Acid Paco (0.7-2.0) mmol/L Calcium 10.1 (8.4-10.2) mg/dL Magnesium 1.9 (1.6-2.3) mg/dL Total Bilirubin 1.6 H (0.2-1.3) mg/dL AST 523 H (17-59) U/L ALT 70 H (4-49) U/L Alkaline Phosphatase 370 H (38-126) U/L Troponin I (0.000-0.034) ng/mL NT-Pro-B Natriuret Pep 8300 pg/mL Total Protein 5.9 L (6.3-8.2) g/dL Albumin 2.9 L (3.5-5.0) g/dL 11/14/24 11/14/24 Range/Units 20:33 20:33 WBC (4.50-10.00) 10*3/uL RBC (4.40-5.60) 10*6/uL Hgb (13.0-17.0) g/dL Hct (39.6-50.0) % MCV (80.0-97.0) fL MCH (27.0-32.0) pg MCHC (32.0-37.0) g/dL Plt Count (140-440) 10*3/uL MPV (9.5-12.2) fL Immature Gran % (Auto) % Neutrophils % % Lymphocytes % % Monocytes % % Eosinophils % % Basophils % % Immature Gran # (0.00-0.04) 10*3/uL Neutrophils # (1.80-7.70) 10*3/uL Lymphocytes # (0.90-5.00) 10*3/uL Monocytes # (0.20-1.00) 10*3/uL Eosinophils # (0.04-0.35) 10*3/uL Basophils # (0.00-0.10) 10*3/uL PT (10.0-12.5) sec INR (<1.2) APTT (22.0-30.0) sec D-Dimer (<0.60) mg/L FEU Sodium (137-145) mmol/L Potassium (3.5-5.1) mmol/L Chloride (98-107) mmol/L Carbon Dioxide (22-30) mmol/L Anion Gap mmol/L BUN (9-20) mg/dL Creatinine (0.66-1.25) mg/dL Est GFR (CKD-EPI)AfAm (>60 ml/min/1.73 sqM) Est GFR (CKD-EPI)NonAf (>60 ml/min/1.73 sqM) Glucose (74-99) mg/dL Plasma Lactic Acid Paco 1.4 (0.7-2.0) mmol/L Calcium (8.4-10.2) mg/dL Magnesium (1.6-2.3) mg/dL Total Bilirubin (0.2-1.3) mg/dL AST (17-59) U/L ALT (4-49) U/L Alkaline Phosphatase (38-126) U/L Troponin I 0.786 H* (0.000-0.034) ng/mL NT-Pro-B Natriuret Pep pg/mL Total Protein (6.3-8.2) g/dL Albumin (3.5-5.0) g/dL Critical Care Time Critical Care Time: Yes Total Critical Care Time: 35 Disposition Clinical Impression: Congestive heart failure, PNA (pneumonia) Disposition: ADMITTED IP TO [facility] Condition: Stable Is patient prescribed a controlled substance at d/c from ED?: No Referrals: Chaitanya Parham DO [Primary Care Provider] - 1-2 days Time of Disposition: 22:02
[2024-11-14 20:48] LABS: Basophils # (A) 0.08 10*3/uL (0.00-0.10); Basophils % (A) 0.9 %; Eosinophils # (A) 0.32 10*3/uL (0.04-0.35); Eosinophils % (A) 3.5 %; HCT 45.6 % (39.6-50.0); HGB 14.7 g/dL (13.0-17.0); Lymphocytes # (A) 1.43 10*3/uL (0.90-5.00); Lymphocytes % (A) 15.7 %; MCH 26.1 pg (27.0-32.0); MCHC 32.2 g/dL (32.0-37.0); Monocytes # (A) 1.29 10*3/uL (0.20-1.00); Monocytes % (A) 14.1 %; Neutrophils # (A) 5.96 10*3/uL (1.80-7.70); Neutrophils % (A) 65.3 %; Platelet Count 460 10*3/uL (140-440); RBC 5.64 10*6/uL (4.40-5.60); RDW 20.8 % (11.5-14.5); WBC 9.13 10*3/uL (4.50-10.00)
[2024-11-14 20:51] LABS: MCV 80.9 fL (80.0-97.0)
--- NOTE | 2024-11-14 21:01 | XR ---
EXAMINATION TYPE: XR chest 2V DATE OF EXAM: 11/14/2024 8:53 PM COMPARISON: 02/06/2024 CLINICAL INDICATION: Male, 79 years old with history of difficulty breathing: Shortness of breath TECHNIQUE: XR chest 2V views of the chest are obtained. FINDINGS: Patchy infiltrates throughout both lung la is suspicious for pneumonia. Correlate clinically and progress studies are recommended. Hyperinflation compatible with COPD. No evidence for infiltrate. No evidence for atelectasis. Heart size is stable. Mediastinal structures are stable and grossly unremarkable. No evidence for hilar prominence. Degenerative changes dorsal spine. IMPRESSION: 1. Patchy infiltrates throughout both lung la is suspicious for pneumonia. Correlate clinically a nd progress studies are recommended. [facility], , 11/14/2024 8:59 PM
[2024-11-14 21:02] LABS: ALT 70 U/L (4-49); AST 523 U/L (17-59); African American GFR (CKD) 39 (>60 ml/min/1.73 sqM); Albumin 2.9 g/dL (3.5-5.0); Alkaline Phosphatase 370 U/L (38-126); Anion Gap 9 mmol/L; Blood Urea Nitrogen 39 mg/dL (9-20); Calcium 10.1 mg/dL (8.4-10.2); Carbon Dioxide 18 mmol/L (22-30); Chloride 103 mmol/L (98-107); Glucose 86 mg/dL (74-99); Magnesium 1.9 mg/dL (1.6-2.3); Non-African American GFR(CKD) 34 (>60 ml/min/1.73 sqM); Potassium 5.4 mmol/L (3.5-5.1); Sodium 130 mmol/L (137-145); Total Protein 5.9 g/dL (6.3-8.2)
[2024-11-14] MEDS: HYDROmorphone 0.5 MG/0.5 ML SYRINGE IVP STA (21:05)
[2024-11-14 21:08] LABS: INR 1.2 (<1.2); Partial Thromboplastin Time 31.2 sec (22.0-30.0); Prothrombin Time 13.2 sec (10.0-12.5)
[2024-11-14 21:11] LABS: NT-Pro-B-Type Natriuretic Pept 8300 pg/mL
[2024-11-14] MEDS ORDERED: HEPARIN SODIUM 1,000 UN/ML (10ML VL) IV PRN (21:34)
[2024-11-14] MEDS: HEPARIN SODIUM 1,000 UN/ML (10ML VL) IV ONE (21:43)
[2024-11-14] MEDS: HEPARIN SODIUM,PORCINE/D5W 25,000 UNIT in EMPTY BAG 1 BAG IV SCH (21:43)
[2024-11-14] MEDS ORDERED: NALOXONE 0.4 MG/ML 1 ML VIAL IV PRN (21:54)
[2024-11-14] MEDS ORDERED: ACETAMINOPHEN TAB 325 MG TAB PO PRN (21:54)
[2024-11-14 22:10] LABS: RSV Not Detected (Not Detectd)
[2024-11-14] MEDS: FUROSEMIDE 10 MG/ML 4 ML VIAL IV STA (22:19)
[2024-11-14] MEDS: AZITHROMYCIN 500 MG in SODIUM CHLORIDE 0.9% 250 ML IVPB STA (22:22)
[2024-11-15 03:45] LABS: Basophils # (A) 0.06 10*3/uL (0.00-0.10); Basophils % (A) 0.7 %; Eosinophils # (A) 0.33 10*3/uL (0.04-0.35); Eosinophils % (A) 3.8 %; HCT 43.0 % (39.6-50.0); HGB 13.9 g/dL (13.0-17.0); Lymphocytes # (A) 1.96 10*3/uL (0.90-5.00); Lymphocytes % (A) 22.4 %; MCH 26.2 pg (27.0-32.0); MCHC 32.3 g/dL (32.0-37.0); MCV 81.1 fL (80.0-97.0); Monocytes # (A) 1.34 10*3/uL (0.20-1.00); Monocytes % (A) 15.3 %; Neutrophils # (A) 5.02 10*3/uL (1.80-7.70); Neutrophils % (A) 57.3 %; Platelet Count 452 10*3/uL (140-440); RBC 5.30 10*6/uL (4.40-5.60); RDW 20.6 % (11.5-14.5); WBC 8.75 10*3/uL (4.50-10.00)
[2024-11-15 04:04] LABS: INR 1.3 (<1.2); Partial Thromboplastin Time 34.3 sec (22.0-30.0); Prothrombin Time 13.7 sec (10.0-12.5)
[2024-11-15] MEDS: HYDROmorphone 0.5 MG/0.5 ML SYRINGE IVP PRN (06:11)
--- NOTE | 2024-11-15 11:47 | P.CNPUL ---
History of Present Illness Consult date: 11/15/24 Requesting physician: Shady Siddiqi Chief complaint: Shortness of breath, cough, congestion History of present illness: This is a pleasant 79-year-old male patient with a known history of obstructive sleep apnea maintained on CPAP, diabetes mellitus, coronary artery bypass grafting, previous stent placement, very remote smoker, chronic back pain, atrial fibrillation anticoagulated with Xarelto. 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 He is being followed by medical oncology. He was initiated on immunotherapy. To the emergency room last evening with a 2 to 3-day history of increasing shortness of breath, cough congestion. Brown productive sputum. He was also having some chills on and off. Some nausea. No vomiting or diarrhea. He states he has lost 60 pounds in the past 2 months. Chest x-ray reveals patchy infiltrates throughout both lungs suspicious for pneumonia. White count 8.7. Hemoglobin 13.9. Platelets 452. INR 1.3. Sodium 130. Potassium 5.4. Bicarb 18. BUN 39. Creatinine 1.88. AST 523. ALT 70. Troponin 0.786, 0.756, 0.835. proBNP 8300. Viral screen negative for influenza A/B, RSV and COVID. He is maintaining good O2 saturations in the 90s on 2 L/min per nasal cannula. He has been afebrile. Hemodynamically stable. He is seen today in consultation in the emergency department. He is currently sitting up in a chair at the bedside having breakfast. Denies any worsening shortness of breath, cough or congest ion. Still with productive sputum. Feeling about the same today compared to yesterday. Review of Systems REVIEW OF SYSTEMS: CONSTITUTIONAL: Positive for recent significant weight loss. EYES: Denies change in vision. EARS, NOSE, MOUTH, THROAT: Denies headaches, denies sore throat. CARDIOVASCULAR: Denies chest pain, palpitations or syncopal episodes. RESPIRATORY: Positive for shortness of breath, cough, congestion no hemoptysis. GASTROINTESTINAL: Denies change in appetite, denies abdominal pain GENITOURINARY: Denies hematuria, denies infections. MUSKULOSKELETAL: Denies pain, denies swelling. INTEGUMENTARY: Denies rash, denies eczema. NEUROLOGICAL: Denies recent memory loss, no recent seizure activity. PSYCHIATRIC: Denies anxiety, denies depression. HEMATOLOGIC/LYMPHATIC: Denies anemia, denies enlarged lymph nodes. Past Medical History Past Medical History: Atrial Fibrillation, Coronary Artery Disease (CAD), Diabetes Mellitus, Eye Disorder, GERD/Reflux, GI Bleed, Hypertension, Musculoskeletal Disorder, Pulmonary Embolus (PE), Sleep Apnea/CPAP/BIPAP, Syncope Additional Past Medical History / Comment(s): ANAL FISSURES, GLAUCOMA, KIDNEY STONES, uses CPAP, abd. aneurysm- monitoring, 3 syncope episodes in 2019 now resolved, chronic back & hip problems, peripheral pulmonary emboli after open heart surg. resulted in prolonged intubation, glaucoma, colon polyps History of Any Multi-Drug Resistant Organisms: None Reported Past Surgical History: Appendectomy, Coronary Bypass/CABG, Heart Catheterization With Stent Additional Past Surgical History / Comment(s): triple bypass August 2013. pain procedures Past Anesthesia/Blood Transfusion Reactions: No Reported Reaction Additional Past Anesthesia/Blood Transfusion Reaction / Comment(s): difficulty coming off vent after open heart due to peripheral pulmonary emboli-spouse concerned related to anesthesia Date of Last Stent Placement:: 2013 Type of Cardiac Device: Loop Device Placement Date:: Blastbeat loop recorder now inactive placed in 2017 Past Psychological History: No Psychological Hx Reported Smoking Status: Former smoker - Past Family History Mother Family Medical History: Cancer Additional Family Medical History / Comment(s): uterine dies at 60 Father Family Medical History: Cancer Additional Family Medical History / Comment(s): kidney at 61 Medications and Allergies Home Medications Medication Instructions Recorded Confirmed Type Ferrous Sulfate [Iron (65 MG 325 mg PO HS 11/07/17 11/15/24 History Elemental)] Latanoprost Ophth [Xalatan 0.005%] 1 drop BOTH EYES HS 11/07/17 11/15/24 History Ubidecarenone [Co Q-10] 100 mg PO DAILY 07/15/18 11/15/24 History Rivaroxaban [Xarelto] 20 mg PO HS 05/26/19 11/15/24 History Brimonidine Tartrate [Alphagan P 1 drop BOTH EYES HS 12/29/22 11/15/24 History 0.2% Ophth Soln] Cetirizine HCl [Zyrtec] 10 mg PO DAILY 12/29/22 11/15/24 History Cholecalciferol [Vitamin D3 (25 50 mcg PO DAILY 12/29/22 11/15/24 History Mcg = 1000 Iu)] Melatonin 10 mg PO HS 12/29/22 11/15/24 History Timolol 0.5% Ophth Soln [Timoptic 1 drop RIGHT EYE HS 12/29/22 11/15/24 History 0.5% Ophth Soln] carvediloL [Coreg*] 12.5 mg PO BID-W/MEALS #60 tab 01/08/23 11/15/24 Rx Cyclobenzaprine [Flexeril] 10 mg PO TID PRN 02/06/24 11/15/24 History Dapagliflozin Propanediol [Farxiga] 10 mg PO DAILY 02/06/24 11/15/24 History Insulin Glargine/Lixisenatide 15 units SQ DAILY 02/06/24 11/15/24 History [Soliqua 100 Unit-33 Mcg/ml Pen] amLODIPine [Norvasc] 5 mg PO DAILY 02/06/24 11/15/24 History traZODone HCL [Desyrel] 50 mg PO HS PRN 02/06/24 11/15/24 History Ezetimibe [Zetia] 10 mg PO DAILY 09/13/24 11/15/24 History lisinopriL [Zestril] 5 mg PO BID 09/13/24 11/15/24 History Ondansetron Odt [Zofran Odt] 4 mg PO Q4H PRN 11/15/24 11/15/24 History oxyCODONE HCL [oxyCODONE HCL (IR)] 10 mg PO TID 11/15/24 11/15/24 History Allergies Allergy/AdvReac Type Severity Reaction Status Date / Time No Known Allergies Allergy Verified 11/15/24 10:07 Physical Exam Vitals: Vital Signs Temp Pulse Resp BP Pulse Ox 11/15/24 10:53 80 16 91 L 11/15/24 10:00 104/57 11/15/24 09:00 118/72 11/15/24 08:00 110/61 11/15/24 07:00 104/58 11/15/24 04:00 73 18 103/58 92 L 11/15/24 00:00 71 18 97/54 91 L 11/14/24 23:00 73 17 100/58 90 L 11/14/24 22:16 74 17 98/56 90 L 11/14/24 20:21 79 18 109/67 91 L 11/14/24 19:56 98.7 F 78 24 105/58 89 L Intake and Output 11/14/24 11/15/24 11/15/24 22:59 06:59 14:59 Other: Weight 90.718 kg GENERAL EXAM: Alert, pleasant 79-year-old male, sitting up in a chair, on 2 L n michael cannula, fairly comfortable in no apparent distress. HEAD: Normocephalic. EYES: Normal reaction of pupils, equal size. NOSE: Clear with pink turbinates. THROAT: No erythema or exudates. NECK: No masses, no JVD. CHEST: No chest wall deformity. LUNGS: Equal air entry with bilateral scattered rhonchi, few basilar crackles. CVS: S1 and S2 normal with no audible murmur, regular rhythm. ABDOMEN: No hepatosplenomegaly, normal bowel sounds, no guarding or rigidity. SPINE: No scoliosis or deformity SKIN: No rashes CENTRAL NERVOUS SYSTEM: No focal deficits, tone is normal in all 4 extremities. EXTREMITIES: There is trace peripheral edema. No clubbing, no cyanosis. Peripheral pulses are intact. Results - Laboratory Findings CBC and BMP: 11/15/24 03:05 11/14/24 20:33 PT/INR, D-dimer PT 13.7 sec (10.0-12.5) H 11/15/24 03:05 INR 1.3 (<1.2) H 11/15/24 03:05 D-Dimer 0.68 mg/L FEU (<0.60) H 11/14/24 20:33 Abnormal lab findings: Abnormal Labs 11/14/24 11/14/24 11/14/24 20:33 20:33 20:33 RBC 5.64 H MCH 26.1 L Plt Count 460 H Immature Gran # 0.05 H Monocytes # 1.29 H PT 13.2 H INR 1.2 H APTT 31.2 H D-Dimer 0.68 H Sodium 130 L Potassium 5.4 H Carbon Dioxide 18 L BUN 39 H Creatinine 1.88 H Total Bilirubin 1.6 H AST 523 H ALT 70 H Alkaline Phosphatase 370 H Troponin I Total Protein 5.9 L Albumin 2.9 L 11/14/24 11/14/24 11/15/24 20:33 23:25 03:05 RBC MCH Plt Count Immature Gran # Monocytes # PT 13.7 H INR 1.3 H APTT 34.3 H D-Dimer Sodium Potassium Carbon Dioxide BUN Creatinine Total Bilirubin AST ALT Alkaline Phosphatase Troponin I 0.786 H* 0.756 H* Total Protein Albumin 11/15/24 11/15/24 03:05 03:05 RBC MCH 26.2 L Plt Count 452 H Immature Gran # Monocytes # 1.34 H PT INR APTT D-Dimer Sodium Potassium Carbon Dioxide BUN Creatinine Total Bilirubin AST ALT Alkaline Phosphatase Troponin I 0.835 H* Total Protein Albumin - Diagnostic Findings Chest x-ray: image reviewed Assessment and Plan Assessment: Acute hypoxic respiratory failure secondary to an acute community-acquired pneumonia and some underlying congestive heart failure. proBNP 8300 Acute kidney injury Troponin leak Transaminitis Recent diagnosis of stage IV liver cancer September 17, 2024 with metastasis to the lung and bone. Initiated on immunotherapy Significant weight loss of 60 pounds over the past 2 months History of coronary artery disease with previous stent placement and subsequent coronary artery bypass grafting in 2013 Obstructive sleep apnea maintained on CPAP Diabetes mellitus Chronic back pain Atrial fibrillation anticoagulated with warfarin Very remote history of smoking Plan: The patient was seen and evaluated Chest x-ray, labs and medications reviewed EKG reviewed Initiated on IV Lasix Initiated on Zosyn Anticoagulated with Xarelto Currently stable on 2 L nasal cannula Titrate the FiO2 as tolerated Increase his activity as tolerated We will continue to follow and make further recommendations based on his clinical status I have personally seen and examined the patient, performed the documentation and the assessment and plan as written. Number of minutes spent on the visit: 20 Dictation was produced using [employer] dictation software. Please excuse any grammatical, word or spelling errors.
[2024-11-15] MEDS: EZETIMIBE 10 MG TAB PO SCH (12:06)
[2024-11-15] MEDS: FUROSEMIDE 10 MG/ML 4 ML VIAL IV SCH (12:07)
--- NOTE | 2024-11-15 12:28 | P.CRDCN ---
History of Present Illness History of present illness: HISTORY OF PRESENT ILLNESS: This is a 79-year-old male with a past medical history significant for coronary artery disease with previous stenting and subsequent CABG, paroxysmal atrial fi brillation, hypertension, hyperlipidemia, carotid stenosis, AAA, and stage IV liver cancer. Patient follows in the office with Dr. Mcfadden. We have been asked to see the patient in consultation for CHF. Patient examined at the bedside in the emergency room. Patient's family is present. Feeling members give history that patient has stage IV liver cancer that is currently being treated by Dr. Mayfield. Caleb burton underwent his second immunotherapy treatment last . His pain medications were switched from [place] to morphine due to the Tylenol and the [place]. He was then switched from morphine to OxyContin and patient's member states since that time he has not been acting normal. She states that he is acting " spacey". Feeling member states that he has been complaining of shortness of breath for the past few days and does have a history of pneumonia which concerned them so they brought him to the hospital for further evaluation. The patient currently denies having any chest pain or pressure. He was started on IV antibiotics. Vital signs are stable. DIAGNOSTICS: - EKG reveals sinus mechanism with no signs of acute ischemia. - Chest xray patchy infiltrates throughout both lung la suspicious for pneumonia - Laboratory data: WBC 9.13. Hemoglobin 14.7. Platelet count 460. D-dimer 0.68. Sodium 130. Potassium 5.4. BUN 39. Creatinine 1.88. AST 523. ALT 70. Alkaline phosphatase 370. Troponin 0.786. 0.756. 0.835. proBNP 8300. - Current home cardiac medications include lisinopril 5 mg twice a day, carvedilol 12.5 mg twice a day, amlodipine 5 mg daily, Xarelto 20 mg at night, Zetia 10 mg daily, Farxiga 10 mg daily. - Most recent echocardiogram obtained in February 2024 revealed ejection fraction 45%, mild AR, mild -Patient underwent Lexiscan stress test in December 2023 revealing moderate inferior lateral ischemia REVIEW OF SYSTEMS: At the time of my exam: CONSTITUTIONAL: Denies fever or chills. HEENT: Denies blurred vision, vision changes, or eye pain. Denies hemoptysis CARDIOVASCULAR: Denies chest pain. Denies orthopnea. Denies PND. Denies palpitat ions RESPIRATORY: Denies shortness of breath. GASTROINTESTINAL: Denies abdominal pain. Denies nausea or vomiting. HEMATOLOGIC: Denies bleeding disorders. GENITOURINARY: Denies any blood in urine. SKIN: Denies pruitis. Denies rash. PHYSICAL EXAM: VITAL SIGNS: Reviewed. GENERAL: Well-developed in no acute distress. HEENT: Head is normocephalic. Pupils are equal, round. Sclerae anicteric. Mucous membranes of the mouth are moist. Neck supple. No JVD or thyromegaly LUNGS: Respirations even and unlabored. Lungs essentially clear to auscultation bilaterally. HEART: Regular rate and rhythm. S1 and S2 heard. ABDOMEN: Soft. Nondistended. Nontender. EXTREMITIES: Normal range of motion. No clubbing or cyanosis. Peripheral pulses intact. No lower extremity edema NEUROLOGIC: Awake and alert. Oriented x 3. ASSESSMENT: Shortness of breath Acute hypoxic respiratory failure requiring supplemental oxygen Acute on chronic heart failure with mildly reduced EF, 45% Bilateral pneumonia Kidney injury Stage IV liver cancer, on immunotherapy outpatient Transaminitis, secondary to above Elevated troponins, flat, type II [place] secondary to oxygen supply/demand mismatch, no evidence of acute coronary syndrome Coronary artery disease with three-vessel CABG in 2014, GONZALEZ to LAD, SVG to OM, SVG to PDA Paroxysmal atrial fibrillation Hypertension Hyperlipidemia Carotid stenosis History of AAA PLAN: Obtain 2D echo to assess cardiac structure and function Resume home cardiac medications including carvedilol and Zetia Hold lisinopril, amlodipine, and Farxiga secondary to low blood pressures and OSMIN Not on statin therapy outpatient secondary to transaminitis and liver cancer Resume anticoagulation with Xarelto Begin IV Lasix 40 mg daily Daily weights, accurate intake and output, and monitoring of kidney function Pulmonary consulted for evaluation of pneumonia Further recommendations pending patient course Nurse practitioner note has been reviewed by physician. Signing provider agrees with the documented findings, assessment, and plan of care documented by INHALATION THERAPIST as a scribe. Past Medical History Past Medical History: Atrial Fibrillation, Coronary Artery Disease (CAD), Diabetes Mellitus, Eye Disorder, GERD/Reflux, GI Bleed, Hypertension, Musculoske letal Disorder, Pulmonary Embolus (PE), Sleep Apnea/CPAP/BIPAP, Syncope Additional Past Medical History / Comment(s): ANAL FISSURES, GLAUCOMA, KIDNEY STONES, uses CPAP, abd. aneurysm- monitoring, 3 syncope episodes in 2019 now resolved, chronic back & hip problems, peripheral pulmonary emboli after open heart surg. resulted in prolonged intubation, glaucoma, colon polyps History of Any Multi-Drug Resistant Organisms: None Reported Past Surgical History: Appendectomy, Coronary Bypass/CABG, Heart Catheterization With Stent Additional Past Surgical History / Comment(s): triple bypass August 2013. pain procedures Past Anesthesia/Blood Transfusion Reactions: No Reported Reaction Additional Past Anesthesia/Blood Transfusion Reaction / Comment(s): difficulty coming off vent after open heart due to peripheral pulmonary emboli-spouse concerned related to anesthesia Date of Last Stent Placement:: 2013 Type of Cardiac Device: Loop Device Placement Date:: [employer] loop recorder now inactive placed in 2017 Past Psychological History: No Psychological Hx Reported Smoking Status: Former smoker - Past Family History Mother Family Medical History: Cancer Additional Family Medical History / Comment(s): uterine dies at 60 Father Family Medical History: Cancer Additional Family Medical History / Comment(s): kidney at 61 Medications and Allergies Home Medications Medication Instructions Recorded Confirmed Type Ferrous Sulfate [Iron (65 MG 325 mg PO HS 11/07/17 11/15/24 History Elemental)] Latanoprost Ophth [Xalatan 0.005%] 1 drop BOTH EYES HS 11/07/17 11/15/24 History Ubidecarenone [Co Q-10] 100 mg PO DAILY 07/15/18 11/15/24 History Rivaroxaban [Xarelto] 20 mg PO HS 05/26/19 11/15/24 History Brimonidine Tartrate [Alphagan P 1 drop BOTH EYES HS 12/29/22 11/15/24 History 0.2% Ophth Soln] Cetirizine HCl [Zyrtec] 10 mg PO DAILY 12/29/22 11/15/24 History Cholecalciferol [Vitamin D3 (25 50 mcg PO DAILY 12/29/22 11/15/24 History Mcg = 1000 Iu)] Melatonin 10 mg PO HS 12/29/22 11/15/24 History Timolol 0.5% Ophth Soln [Timoptic 1 drop RIGHT EYE HS 12/29/22 11/15/24 History 0.5% Ophth Soln] carvediloL [Coreg*] 12.5 mg PO BID-W/MEALS #60 tab 01/08/23 11/15/24 Rx Cyclobenzaprine [Flexeril] 10 mg PO TID PRN 02/06/24 11/15/24 History Dapagliflozin Propanediol [Farxiga] 10 mg PO DAILY 02/06/24 11/15/24 History Insulin Glargine/Lixisenatide 15 units SQ DAILY 02/06/24 11/15/24 History [Soliqua 100 Unit-33 Mcg/ml Pen] amLODIPine [Norvasc] 5 mg PO DAILY 02/06/24 11/15/24 History traZODone HCL [Desyrel] 50 mg PO HS PRN 02/06/24 11/15/24 History Ezetimibe [Zetia] 10 mg PO DAILY 09/13/24 11/15/24 History lisinopriL [Zestril] 5 mg PO BID 09/13/24 11/15/24 History Ondansetron Odt [Zofran Odt] 4 mg PO Q4H PRN 11/15/24 11/15/24 History oxyCODONE HCL [oxyCODONE HCL (IR)] 10 mg PO TID 11/15/24 11/15/24 History Allergies Allergy/AdvReac Type Severity Reaction Status Date / Time No Known Allergies Allergy Verified 11/15/24 10:07 Physical Exam Vitals: Vital Signs Temp Pulse Resp BP Pulse Ox 11/15/24 10:53 80 16 91 L 11/15/24 10:00 104/57 11/15/24 09:00 118/72 11/15/24 08:00 110/61 11/15/24 07:00 104/58 11/15/24 04:00 73 18 103/58 92 L 11/15/24 00:00 71 18 97/54 91 L 11/14/24 23:00 73 17 100/58 90 L 11/14/24 22:16 74 17 98/56 90 L 11/14/24 20:21 79 18 109/67 91 L 11/14/24 19:56 98.7 F 78 24 105/58 89 L Intake and Output 11/14/24 11/15/24 11/15/24 22:59 06:59 14:59 Other: Weight 90.718 kg Results 11/15/24 03:05 11/14/24 20:33 Cardiac Enzymes 11/14/24 11/14/24 11/14/24 Range/Units 20:33 20:33 23:25 AST 523 H (17-59) U/L Troponin I 0.786 H* 0.756 H* (0.000-0.034) ng/mL 11/15/24 Range/Units 03:05 AST (17-59) U/L Troponin I 0.835 H* (0.000-0.034) ng/mL Coagulation 11/14/24 11/15/24 Range/Units 20:33 03:05 PT 13.2 H 13.7 H (10.0-12.5) sec APTT 31.2 H 34.3 H (22.0-30.0) sec CBC 11/14/24 11/15/24 Range/Units 20:33 03:05 WBC 9.13 8.75 (4.50-10.00) 10*3/uL RBC 5.64 H 5.30 (4.40-5.60) 10*6/uL Hgb 14.7 13.9 (13.0-17.0) g/dL Hct 45.6 43.0 (39.6-50.0) % Plt Count 460 H 452 H (140-440) 10*3/uL Comprehensive Metabolic Panel 11/14/24 Range/Units 20:33 Sodium 130 L (137-145) mmol/L Potassium 5.4 H (3.5-5.1) mmol/L Chloride 103 (98-107) mmol/L Carbon Dioxide 18 L (22-30) mmol/L BUN 39 H (9-20) mg/dL Creatinine 1.88 H (0.66-1.25) mg/dL Glucose 86 (74-99) mg/dL Calcium 10.1 (8.4-10.2) mg/dL AST 523 H (17-59) U/L ALT 70 H (4-49) U/L Alkaline Phosphatase 370 H (38-126) U/L Total Protein 5.9 L (6.3-8.2) g/dL Albumin 2.9 L (3.5-5.0) g/dL Current Medications Generic Name Dose Route Start Last Admin Trade Name Freq PRN Reason Stop Dose Admin Acetaminophen 650 mg 07/25/25 21:54 Acetaminophen Tab 325 Mg Tab PO Q6HR PRN Mild Pain or Fever > 100.5 Carvedilol 12.5 mg 11/15/24 11:30 11/15/24 12:07 Carvedilol 12.5 Mg Tab PO 12.5 mg BID-W/MEALS HERBIE Administration Ezetimibe 10 mg 11/15/24 11:30 11/15/24 12:06 Ezetimibe 10 Mg Tab PO 10 mg DAILY HERBIE Administration Furosemide 40 mg 11/15/24 11:30 11/15/24 12:07 Furosemide 10 Mg/Ml 4 Ml Vial IV 40 mg DAILY HERBIE Administration Hydromorphone HCl 0.5 mg 11/14/24 21:54 11/15/24 06:11 Hydromorphone 0.5 Mg/0.5 Ml Syringe IVP 0.5 mg Q3HR PRN Administration Moderate Pain (Scale 4 to 6) Piperacillin Sod/Tazobactam 100 mls @ 25 mls/hr 11/15/24 16:00 Sod 3.375 gm/ Sodium Chloride IVPB Q8HR [facility] Protocol Naloxone HCl 0.2 mg 11/14/24 21:54 Naloxone 0.4 Mg/Ml 1 Ml Vial IV Q2M PRN Opioid Reversal Rivaroxaban 15 mg 11/15/24 21:00 Rivaroxaban 15 Mg Tab PO HS [facility] Protocol Intake and Output 11/14/24 11/15/24 11/15/24 22:59 06:59 14:59 Other: Weight 90.718 kg 11/15/24 03:05 11/14/24 20:33
[2024-11-15] MEDS ORDERED: ONDANSETRON ODT 4 MG TAB PO PRN (13:23)
[2024-11-15] MEDS ORDERED: CYCLOBENZAPRINE 10 MG TAB PO PRN (13:23)
[2024-11-15] MEDS: PIPERACILLIN-TAZOBACTAM 3.375 GM in SODIUM CHLORIDE 0.9% 100 ML IVPB SCH (14:53)
--- NOTE | 2024-11-15 15:51 | CT ---
EXAMINATION TYPE: CT chest wo con DATE OF EXAM: 11/15/2024 3:29 PM COMPARISON: Previous CT chest study 09/14/2024. CLINICAL INDICATION: Male, 79 years old with history of pneumonia, mass??; PHH, Pneumonia or mass? Pt has been sob for the last 2 days Pt is coughing up phlegm. Pt has stage 4 liver cancer. TECHNIQUE: Multiple axial images were obtained through the chest. Sagittal and coronal reformats were created for review. MIP was performed on a separate workstation. CT DLP: 560.5 mGycm, Automated exposure control for dose reduction was used. FINDINGS: Heart size is within normal limits. No effusion. Calcified atherosclerotic disease of the thoracic aorta without aneurysmal dilatation. M ildly prominent mediastinal lymph nodes measuring up to 10 mm in short access. Limited evaluation for hilar lymphadenopathy given lack of IV contrast. No pathologic axillary lymphadenopathy. Median ster notomy wires present. Imaging through the lungs demonstrates small bilateral pleural effusions, right greater than left. Th ere is significantly increasing size and number of bilateral pulmonary nodules. For example, largest right lower lobe nodule now measures 11 mm (60-143). Numerous groundglass and nodular consolidative o pacities throughout the bilateral lungs. Largest left lower lobe pulmonary nodule measures 13 mm. No acute osseous abnormality. Multilevel thoracic spine degenerative changes. New lytic lesion involv ing the T12 vertebral body. Partially visualized upper abdomen demonstrates hepatic metastatic diseas e and cirrhotic liver morphology. IMPRESSION: 1. Worsening pulmonary metastatic disease with increasing size and number of bilateral pulmonary nod ules. 2. Small bilateral pleural effusions, right greater than left. 3. Numerous patchy groundglass and nodular consolidative opacities in the bilateral lungs felt to mo st likely reflect multifocal pneumonia. Lymphangitic carcinomatosis should be considered less likely but difficult to exclude. 4. New lytic lesion involving the T12 vertebral body suspicious for osseous metastatic disease. [facility], , 11/15/2024 3:48 PM
[2024-11-15] MEDS ORDERED: PIPERACILLIN-TAZOBACTAM 3.375 GM in SODIUM CHLORIDE 0.9% 100 ML IVPB SCH (16:00)
[2024-11-15 18:19] LABS: Glucose,Whole Blood 82 mg/dL (70-110)
--- NOTE | 2024-11-15 18:34 | NM ---
EXAMINATION TYPE: NM pul vent and perfuse DATE OF EXAM: 11/15/2024 CLINICAL INDICATION: Male, 79 years old with history of pe; COMPARISON: NONE chest radiograph TECHNIQUE: Utilizing inhalation of 68 mCi Tc 99m DTPA aerosol and intravenous injection of 5.1 mCi o f Tc 99m MAA, ventilation and perfusion images are acquired post injection in multiple projections. FINDINGS: Normal radiotracer distribution is noted in the lungs. There is no evidence of mismatched defects. IMPRESSION: No mismatched defects to suggest pulmonary embolus by PIOPED criteria. [facility], , 11/15/2024 6:32 PM
[2024-11-15 20:03] LABS: Glucose,Whole Blood 94 mg/dL (70-110)
[2024-11-15] MEDS: FERROUS SULFATE 325 MG TAB PO SCH (21:41)
[2024-11-15] MEDS: MELATONIN 5 MG TABLET PO SCH (21:41)
[2024-11-15] MEDS: RIVAROXABAN 15 MG TAB PO SCH (21:41)
[2024-11-15] MEDS: LATANOPROST 0.005% OPHTH DROPS 2.5 ML BTL BOTH EYES SCH (21:42)
[2024-11-15] MEDS: BRIMONIDINE TARTRATE 0.2% DROPS 5 ML BTL BOTH EYES SCH (21:43)
[2024-11-15] MEDS: TIMOLOL 0.5% OPHTH DROPS 5 ML BTL RIGHT EYE SCH (21:43)
--- NOTE | 2024-11-15 22:53 | HP ---
HISTORY AND PHYSICAL CHIEF COMPLAINT: Shortness of breath, weakness, fever, chills. HISTORY OF PRESENT ILLNESS: This 79-year-old gentleman with a past medical history of multiple medical problems including liver cancer receiving immunotherapy from Hematology-Oncology was admitted with shortness of breath, cough, and fever. The patient possibly had a combination of CHF and pneumonia also. The patient also had skin lesion, also multiple consultants are following the patient closely. There is no history of any headache, loss of consciousness. PAST MEDICAL HISTORY: History of liver cancer, history of atrial fibrillation, history of pulmonary embolism. Rest of the history and chart is also reviewed. History of CAD, stent. HOME MEDICATIONS: Reviewed, include oxycodone. Rest of medications reviewed. ALLERGIES: None. FAMILY HISTORY: History of uterine cancer. SOCIAL HISTORY: No history of smoking. REVIEW OF SYSTEMS: A 14-point review of systems negative except as mentioned earlier. PHYSICAL EXAMINATION: VITAL SIGNS: Pulse is 80, blood pressure 104/57, respirations 16. HEENT: Conjunctivae normal. NECK: No JVD. CARDIOVASCULAR: S1 and S2. RESPIRATION: Breath sounds diminished at the bases. A few scattered rhonchi and crackles. ABDOMEN: Soft, minimal tenderness in the liver area present. Otherwise no guarding, no rigidity, no mass palpable. LEGS: No edema. LABORATORY DATA: Reviewed. ASSESSMENT: 1. Shortness of breath and fever, possibly bilateral pneumonia gram-negative in an immunosuppressed patient. 2. Possible congestive heart failure acute exacerbation. 3. Elevated troponin 0.835, rule out acute [id number]-[id number]-elevation myocardial infarction. 4. Liver cancer on immunotherapy. 5. Skin lesions. 6. Hyponatremia. 7. Elevated liver function tests. 8. Atrial fibrillation. 9. Coronary artery disease, stent. 10.History of pulmonary embolism. 11.Sleep apnea. RECOMMENDATIONS: Recommend to continue current management and symptomatic treatment. I would also recommend a CT scan without contrast. COVID is negative. I would also recommend a V/Q scan to complete the workup. The patient is on Xarelto 20 mg q.h.s., empiric antibiotics. Guarded prognosis because of multiple complex medical issues. The patient is started on Zosyn. Further recommendations to follow. MMODL / IJN: [id number] /
[2024-11-16 05:59] LABS: Glucose,Whole Blood 66 mg/dL (70-110)
[2024-11-16 06:18] LABS: Glucose,Whole Blood 76 mg/dL (70-110)
[2024-11-16 07:18] LABS: Basophils # (A) 0.06 10*3/uL (0.00-0.10); Basophils % (A) 0.8 %; Eosinophils # (A) 0.81 10*3/uL (0.04-0.35); Eosinophils % (A) 10.2 %; HCT 47.2 % (39.6-50.0); HGB 15.0 g/dL (13.0-17.0); Lymphocytes # (A) 1.69 10*3/uL (0.90-5.00); Lymphocytes % (A) 21.2 %; MCH 25.9 pg (27.0-32.0); MCHC 31.8 g/dL (32.0-37.0); MCV 81.4 fL (80.0-97.0); Monocytes # (A) 1.18 10*3/uL (0.20-1.00); Monocytes % (A) 14.8 %; Neutrophils # (A) 4.21 10*3/uL (1.80-7.70); Neutrophils % (A) 52.6 %; Platelet Count 541 10*3/uL (140-440); RBC 5.80 10*6/uL (4.40-5.60); RDW 21.4 % (11.5-14.5); WBC 7.98 10*3/uL (4.50-10.00)
[2024-11-16 07:39] LABS: ALT 57 U/L (4-49); AST 421 U/L (17-59); African American GFR (CKD) 34 (>60 ml/min/1.73 sqM); Albumin 2.8 g/dL (3.5-5.0); Alkaline Phosphatase 336 U/L (38-126); Anion Gap 9 mmol/L; Blood Urea Nitrogen 42 mg/dL (9-20); Calcium 10.0 mg/dL (8.4-10.2); Carbon Dioxide 24 mmol/L (22-30); Chloride 101 mmol/L (98-107); Glucose 62 mg/dL (74-99); Non-African American GFR(CKD) 29 (>60 ml/min/1.73 sqM); Potassium 5.2 mmol/L (3.5-5.1); Sodium 134 mmol/L (137-145); Total Protein 5.7 g/dL (6.3-8.2)
--- NOTE | 2024-11-16 07:42 | XR ---
EXAMINATION TYPE: XR chest 1V portable DATE OF EXAM: 11/16/2024 5:47 AM COMPARISON: 11/14/2024 CLINICAL INDICATION: Male, 79 years old with history of chf, TECHNIQUE: XR chest 1V portable views of the chest are obtained. FINDINGS: Demonstrated are scattered senescent parenchymal change. Scattered patchy infiltrates are stable. Correlate for pneumonia. The heart is stable. Hilar and mediastinal structures are within normal limits. Degenerative changes are seen of the dorsal spine. IMPRESSION: 1. Scattered patchy infiltrates are stable. Correlate for pneumonia. [facility], , 11/16/2024 7:40 AM
[2024-11-16] MEDS: CHOLECALCIFEROL 25 MCG (1000 IU) TABLET PO SCH (08:54)
[2024-11-16] MEDS: CALCIUM CARBONATE 500 MG CHEWABLE PO PRN (08:54)
--- NOTE | 2024-11-16 10:13 | P.PN ---
Subjective Progress Note Date: 11/16/24 HISTORY OF PRESENT ILLNESS: This is a 79-year-old male with a past medical history significant for coronary artery disease with previous stenting and subsequent CABG, paroxysmal atrial fibrillation, hypertension, hyperlipidemia, carotid stenosis, AAA, and stage IV liver cancer. Patient follows in the office with Dr. Mcfadden. We have been asked to see the patient in consultation for CHF. Patient examined at the bedside in the emergency room. Patient's family is present. Feeling members give history that patient has stage IV liver cancer that is currently being treated by Dr. Mayfield. Patient underwent his second immunotherapy treatment last . His pain medications were switched from [place] to morphine due to the Tylenol and the [place]. He was then switched from morphine to OxyContin and patient's member states since that time he has not been acting normal. She states that he is acting " spacey". Feeling member states that he has been complaining of shortness of breath for the past few days and does have a history of pneumonia which concerned them so they brought him to the hospital for further evaluation. The patient currently denies having any chest pain or pressure. He was started on IV antibiotics. Vital signs are stable. DIAGNOSTICS: - EKG reveals sinus mechanism with no signs of acute ischemia. - Chest xray patchy infiltrates throughout both lung la suspicious for pneumonia - Laboratory data: WBC 9.13. Hemoglobin 14.7. Platelet count 460. D-dimer 0.68. Sodium 130. Potassium 5.4. BUN 39. Creatinine 1.88. AST 523. ALT 70. Alkaline phosphatase 370. Troponin 0.786. 0.756. 0.835. proBNP 8300. - Current home cardiac medications include lisinopril 5 mg twice a day, carvedilol 12.5 mg twice a day, amlodipine 5 mg daily, Xarelto 20 mg at night, Zetia 10 mg daily, Farxiga 10 mg daily. - Most recent echocardiogram obtained in February 2024 revealed ejection fraction 45%, mild AR, mild -Patient underwent Lexiscan stress test in December 2023 revealing moderate inferior lateral ischemia Progress note 11/16/2024 Seen and examined at bedside this a.m. Creatinine is 2.18. Still higher than the baseline Does report that he did eat some food. BP 118/65, few readings low at 92/53, heart rate 67, Chest x-ray appears similar with fluffy infiltrates even after IV diuretics. PHYSICAL EXAM: VITAL SIGNS: Reviewed. GENERAL: Well-developed in no acute distress. HEENT: Head is normocephalic. Pupils are equal, round. Sclerae anicteric. Mucous membranes of the mouth are moist. Neck supple. No JVD or thyromegaly LUNGS: Respirations even and unlabored. Lungs essentially clear to auscultation bilaterally. HEART: Regular rate and rhythm. S1 and S2 heard. ABDOMEN: Soft. Nondistended. Nontender. EXTREMITIES: Normal range of motion. No clubbing or cyanosis. Peripheral pulses intact. No lower extremity edema NEUROLOGIC: Awake and alert. Oriented x 3. ASSESSMENT: Acute hypoxic respiratory failure requiring supplemental oxygen likely from B ilateral pneumonia Acute on chronic heart failure with mildly reduced EF, 45% OSMIN Stage IV liver cancer, on immunotherapy outpatient Transaminitis, secondary to above Elevated troponins, flat, type II [place] secondary to oxygen supply/demand mismatch, no evidence of acute coronary syndrome Coronary artery disease with three-vessel CABG in 2013, GONZALEZ to LAD, SVG to OM, SVG to PDA Paroxysmal atrial fibrillation Hypertension Hyperlipidemia Carotid stenosis History of AAA PLAN: Obtain 2D echo to assess cardiac structure and function Resume home cardiac medications including carvedilol and Zetia Hold lisinopril, amlodipine, and Farxiga secondary to low blood pressures and OSMIN Kidney function worsened with Lasix. Will stop Not on statin therapy outpatient secondary to transaminitis and liver cancer Resume anticoagulation with Xarelto Objective - Vital Signs Vital signs: Vital Signs Temp 97.7 F 11/16/24 04:00 Pulse 74 11/16/24 04:00 Resp 20 11/16/24 04:00 BP 118/65 11/16/24 04:00 Pulse Ox 92 L 11/16/24 07:44 FiO2 Intake & Output 11/15/24 11/16/24 11/16/24 18:59 06:59 18:59 Intake Total 118 Balance 118 Weight 90.718 kg Intake: Oral 118 - Labs CBC & Chem 7: 11/16/24 06:03 11/16/24 06:03 Labs: Abnormal Lab Results - Last 24 Hours (Table) 11/16/24 11/16/24 11/16/24 Range/Units 05:58 06:03 06:03 RBC 5.80 H (4.40-5.60) 10*6/uL MCH 25.9 L (27.0-32.0) pg MCHC 31.8 L (32.0-37.0) g/dL Plt Count 541 H (140-440) 10*3/uL Monocytes # 1.18 H (0.20-1.00) 10*3/uL Eosinophils # 0.81 H (0.04-0.35) 10*3/uL Sodium 134 L (137-145) mmol/L Potassium 5.2 H (3.5-5.1) mmol/L BUN 42 H (9-20) mg/dL Creatinine 2.10 H (0.66-1.25) mg/dL Glucose 62 L (74-99) mg/dL POC Glucose (mg/dL) 66 L (70-110) mg/dL Total Bilirubin 1.4 H (0.2-1.3) mg/dL AST 421 H (17-59) U/L ALT 57 H (4-49) U/L Alkaline Phosphatase 336 H (38-126) U/L Total Protein 5.7 L (6.3-8.2) g/dL Albumin 2.8 L (3.5-5.0) g/dL Microbiology - Last 24 Hours (Table) 11/14/24 20:33 Blood Culture - Preliminary Blood
[2024-11-16] MEDS: methylPREDNISolone SOD SUCCI 40 MG/ML 1 ML VIAL IV SCH (10:33)
[2024-11-16] MEDS ORDERED: ZINC OXIDE PASTE (Z-GUARD) 1 APPLIC TOPICAL PRN (10:41)
[2024-11-16 11:37] LABS: Glucose,Whole Blood 106 mg/dL (70-110)
--- NOTE | 2024-11-16 11:53 | P.PN ---
Subjective Progress Note Date: 11/16/24 Principal diagnosis: Acute community-acquired pneumonia This is a pleasant 79-year-old male patient with a known history of obstructive sleep apnea maintained on CPAP, diabetes mellitus, coronary artery bypass grafting, previous stent placement, very remote smoker, chronic back pain, atrial fibrillation anticoagulated with Xarelto. 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 He is being followed by medical oncology. He was initiated on immunotherapy. To the emergency room last evening with a 2 to 3-day history of increasing shortness of breath, cough congestion. Brown productive sputum. He was also having some chi lls on and off. Some nausea. No vomiting or diarrhea. He states he has lost 60 pounds in the past 2 months. Chest x-ray reveals patchy infiltrates throughout both lungs suspicious for pneumonia. White count 8.7. Hemoglobin 13.9. Platelets 452. INR 1.3. Sodium 130. Potassium 5.4. Bicarb 18. BUN 39. Creatinine 1.88. AST 523. ALT 70. Troponin 0.786, 0.756, 0.835. proBNP 8300. Viral screen negative for influenza A/B, RSV and COVID. He is maintaining good O2 saturations in the 90s on 2 L/min per nasal cannula. He has been afebrile. Hemodynamically stable. He is seen today in consultation in the emergency department. He is currently sitting up in a chair at the bedside having breakfast. Denies any worsening shortness of breath, cough or congestion. Still with productive sputum. Feeling about the same today compared to yesterday. Patient was seen today on 11/16/2024, patient has no active pulmonary symptoms, he is on 3 L nasal cannula O2 sat is 95%, has some vague abdominal pain specially in the right lower quadrant and right upper quadrant area, patient remains on antibiotics for his presumptive pneumonia although the possibility of pneumonitis related to his immunotherapy is not entirely ruled out, and I went ahead today and added steroids. Follow-up chest x-ray showed scattered patchy infiltrates bilaterally seems to be even a bit worse compared to the chest x-ray on admission. No leukocytosis hemoglobin is normal electrolytes are normal BUN is 42 creatinine 2.10 liver enzymes are quite abnormal related to his underlying liver cancer. Objective - Vital Signs Vital signs: Vital Signs Temp 97.7 F 11/16/24 08:20 Pulse 73 11/16/24 08:20 Resp 20 11/16/24 08:20 BP 108/56 11/16/24 08:20 Pulse Ox 95 11/16/24 08:20 FiO2 Intake & Output 11/15/24 11/16/24 11/16/24 18:59 06:59 18:59 Intake Total 118 Balance 118 Weight 90.718 kg Intake: Oral 118 - Exam GENERAL EXAM: Very pleasant 79-year-old white male in no distress on 3 L nasal cannula HEAD: Normocephalic. EYES: Normal reaction of pupils, equal size. NOSE: Clear with pink turbinates. THROAT: No erythema or exudates. NECK: No masses, no JVD. CHEST: No chest wall deformity. LUNGS: Minimal crackles at the bases no rhonchi no wheezes CVS: S1 and S2 normal with no audible murmur, regular rhythm. ABDOMEN: No hepatosplenomegaly, normal bowel sounds, no guarding or rigidity. SPINE: No scoliosis or deformity SKIN: No rashes CENTRAL NERVOUS SYSTEM: Alert oriented x 3 no focal deficit EXTREMITIES: No clubbing edema or cyanosis - Labs CBC & Chem 7: 11/16/24 06:03 11/16/24 06:03 Labs: Abnormal Lab Results - Last 24 Hours (Table) 11/16/24 11/16/24 11/16/24 Range/Units 05:58 06:03 06:03 RBC 5.80 H (4.40-5.60) 10*6/uL MCH 25.9 L (27.0-32.0) pg MCHC 31.8 L (32.0-37.0) g/dL Plt Count 541 H (140-440) 10*3/uL Monocytes # 1.18 H (0.20-1.00) 10*3/uL Eosinophils # 0.81 H (0.04-0.35) 10*3/uL Sodium 134 L (137-145) mmol/L Potassium 5.2 H (3.5-5.1) mmol/L BUN 42 H (9-20) mg/dL Creatinine 2.10 H (0.66-1.25) mg/dL Glucose 62 L (74-99) mg/dL POC Glucose (mg/dL) 66 L (70-110) mg/dL Total Bilirubin 1.4 H (0.2-1.3) mg/dL AST 421 H (17-59) U/L ALT 57 H (4-49) U/L Alkaline Phosphatase 336 H (38-126) U/L Total Protein 5.7 L (6.3-8.2) g/dL Albumin 2.8 L (3.5-5.0) g/dL Microbiology - Last 24 Hours (Table) 11/14/24 20:33 Blood Culture - Preliminary Blood Assessment and Plan Assessment: Impression: Acute hypoxic respiratory failure secondary to an acute community-acquired pneumonia and some underlying congestive heart failure. proBNP 8300 Acute kidney injury Troponin leak Transaminitis Recent diagnosis of stage IV liver cancer September 17, 2024 with metastasis to the lung and bone. Initiated on immunotherapy Significant weight loss of 60 pounds over the past 2 months History of coronary artery disease with previous stent placement and subsequent coronary artery bypass grafting in 2013 Obstructive sleep apnea maintained on CPAP Diabetes mellitus Chronic back pain Atrial fibrillation anticoagulated with warfarin Very remote history of smoking Plan: Continue Zosyn And methylprednisolone 40 mg IV push every 8 hours Chest x-ray, labs and medications reviewed Continue Lasix Continue Xarelto Continue oxygen and titrate accordingly Increase his activity as tolerated We will continue to follow Time with Patient: Less than 30
--- NOTE | 2024-11-16 12:49 | P.CONS ---
History of Present Illness - Reason for Consult Consult date: 11/16/24 Liver cancer Requesting physician: Shae Vegas - Chief Complaint Shortness of breath - History of Present Illness Mr. Joe is a very pleasant 79 yo male with a history of multiple comorbidities including metastatic liver cancer who is here for SOB and initially dry cough for 1-2 days prior to presentation. no fevers, rhinorrhea, or sore throat. Work up with CXR shows patchy infiltrates throughout both lungs. CT chest obtained, showed bilateral GG nodular opacities due to possible multifocal PNA, and worsening metastatic disease, new lytic lesion. V/Q scan low probability. CBC other than plt 400's, and CMP with Na 130, K 5.4, Cr 1.88, elevated AST/ALT adn bilirubin 1.6. Troponin elevated. Given lasix and repeat CXR with persistent bilateral scattered nodular opacities. Onc history: Follows with Dr. Mayfield. Mr Joe Is a pleasant white male, with multiple medical problems, initially seen in consult at [facility] on 09/13/24. The patient had come in because of progressive abdominal pain in the right upper quadrant, decreased appetite as well as some intermittent nausea. CT of the abdomen and pelvis showed a large heterogenous mass in the left hepatic lobe, with diffuse heterogeneity of the liver parenchyma, concerning for malignancy. CT chest from 09/14/24 showed multiple nodules in bilateral lungs, largest 1.3 cm in the mid lateral left lung that w ere felt to be suspicious for possible metastasis. MRI of the liver showed innumerable liver lesions, largest 16 cm in the left lobe, with underlying cirrhotic appearance. The patient's ultrasound confirmed the same. His AFP was markedly elevated, greater than the upper limit of normal at 47,500. The patient improved with symptomatically treatment, and had ultrasound guided liver biopsy in 09/17/24. This was positive for hepatocellular carcinoma. He had an outpatient PET scan on 09/27/24, showing uptake in the multiple liver lesions with a large dominant mass showing SUV of 8. Liver nodules showed low level SUV uptake, less than normal tissue and were nonspecific. There was evidence of a destructive lesion in the right medial 12th rib with SUV of 4.3 The patient was seen for his first office visit on 09/30/24. Is no prior history of malignancy. Patient did have a history of heavy alcohol use, but that was about 20 years prior. He does not have a known history of chronic liver disease. Patient reported decreased appetite, and weight loss of about 30 pounds in the prior few months. He has extensive cardiovascular history, as well as previous history of PE. He is on xarelto for A. fib Past Medical History Past Medical History: Atrial Fibrillation, Coronary Artery Disease (CAD), Diabetes Mellitus, Eye Disorder, GERD/Reflux, GI Bleed, Hypertension, Musculoskeletal Disorder, Pulmonary Embolus (PE), Sleep Apnea/CPAP/BIPAP, Sync ope Additional Past Medical History / Comment(s): ANAL FISSURES, GLAUCOMA, KIDNEY STONES, uses CPAP, abd. aneurysm- monitoring, 3 syncope episodes in 2019 now resolved, chronic back & hip problems, peripheral pulmonary emboli after open heart surg. resulted in prolonged intubation, glaucoma, colon polyps History of Any Multi-Drug Resistant Organisms: None Reported Past Surgical History: Appendectomy, Coronary Bypass/CABG, Heart Catheterization With Stent Additional Past Surgical History / Comment(s): triple bypass August 2013. pain procedures Past Anesthesia/Blood Transfusion Reactions: No Reported Reaction Additional Past Anesthesia/Blood Transfusion Reaction / Comm: difficulty coming off vent after open heart due to peripheral pulmonary emboli-spouse concerned related to anesthesia Date of Last Stent Placement:: 2013 Type of Cardiac Device: Loop Device Placement Date:: medtronic loop recorder now inactive placed in 2017 Past Psychological History: No Psychological Hx Reported Smoking Status: Former smoker Past Alcohol Use History: None Reported Additional Past Alcohol Use History / Comment(s): quit smoking Apr 2010, smoked since childhood 1ppd Past Drug Use History: None Reported - Past Family History Mother Family Medical History: Cancer Additional Family Medical History / Comment(s): uterine dies at 60 Father Family Medical History: Cancer Additional Family Medical History / Comment(s): kidney at 61 Medications and Allergies Home Medications Medication Instructions Recorded Confirmed Type Ferrous Sulfate [Iron (65 MG 325 mg PO HS 11/07/17 11/15/24 History Elemental)] Latanoprost Ophth [Xalatan 0.005%] 1 drop BOTH EYES HS 11/07/17 11/15/24 History Ubidecarenone [Co Q-10] 100 mg PO DAILY 07/15/18 11/15/24 History Rivaroxaban [Xarelto] 20 mg PO HS 05/26/19 11/15/24 History Brimonidine Tartrate [Alphagan P 1 drop BOTH EYES HS 12/29/22 11/15/24 History 0.2% Ophth Soln] Cetirizine HCl [Zyrtec] 10 mg PO DAILY 12/29/22 11/15/24 History Cholecalciferol [Vitamin D3 (25 50 mcg PO DAILY 12/29/22 11/15/24 History Mcg = 1000 Iu)] Melatonin 10 mg PO HS 12/29/22 11/15/24 History Timolol 0.5% Ophth Soln [Timoptic 1 drop RIGHT EYE HS 12/29/22 11/15/24 History 0.5% Ophth Soln] carvediloL [Coreg*] 12.5 mg PO BID-W/MEALS #60 tab 01/08/23 11/15/24 Rx Cyclobenzaprine [Flexeril] 10 mg PO TID PRN 02/06/24 11/15/24 History Dapagliflozin Propanediol [Farxiga] 10 mg PO DAILY 02/06/24 11/15/24 History Insulin Glargine/Lixisenatide 15 units SQ DAILY 02/06/24 11/15/24 History [Soliqua 100 Unit-33 Mcg/ml Pen] amLODIPine [Norvasc] 5 mg PO DAILY 02/06/24 11/15/24 History traZODone HCL [Desyrel] 50 mg PO HS PRN 02/06/24 11/15/24 History Ezetimibe [Zetia] 10 mg PO DAILY 09/13/24 11/15/24 History lisinopriL [Zestril] 5 mg PO BID 09/13/24 11/15/24 History Ondansetron Odt [Zofran Odt] 4 mg PO Q4H PRN 11/15/24 11/15/24 History oxyCODONE HCL [oxyCODONE HCL (IR)] 10 mg PO TID 11/15/24 11/15/24 History Allergies Allergy/AdvReac Type Severity Reaction Status Date / Time No Known Allergies Allergy Verified 11/15/24 10:07 Physical Exam Vitals: Vital Signs Temp Pulse Pulse Resp BP BP Pulse Ox 11/15/24 19:37 97.7 F 74 20 110/62 93 L 11/15/24 18:13 97.8 F 76 16 116/65 95 11/15/24 17:00 76 16 107/59 97 11/15/24 10:53 80 16 91 L 11/15/24 10:00 104/57 11/15/24 09:00 118/72 11/15/24 08:00 110/61 11/15/24 07:00 104/58 11/15/24 04:00 73 18 103/58 92 L 11/15/24 00:00 71 18 97/54 91 L 11/14/24 23:00 73 17 100/58 90 L Intake and Output 11/15/24 11/15/24 11/15/24 06:59 14:59 22:59 Other: Weight 90.718 kg No acute distress. Mucosa moist. No jaundice. Minimal LE edema. No respiratory distress but drowsy. Results CBC & Chem 7: 11/16/24 06:03 11/16/24 06:03 Labs: Abnormal Lab Results - Last 24 Hours (Table) 11/14/24 11/15/24 11/15/24 Range/Units 23:25 03:05 03:05 MCH 26.2 L (27.0-32.0) pg Plt Count 452 H (140-440) 10*3/uL Monocytes # 1.34 H (0.20-1.00) 10*3/uL PT 13.7 H (10.0-12.5) sec INR 1.3 H (<1.2) APTT 34.3 H (22.0-30.0) sec Troponin I 0.756 H* (0.000-0.034) ng/mL 11/15/24 Range/Units 03:05 MCH (27.0-32.0) pg Plt Count (140-440) 10*3/uL Monocytes # (0.20-1.00) 10*3/uL PT (10.0-12.5) sec INR (<1.2) APTT (22.0-30.0) sec Troponin I 0.835 H* (0.000-0.034) ng/mL Chest x-ray: image reviewed CT scan - chest: report reviewed Assessment and Plan Assessment: 1. acute hypoxic respiratory failure with signs of fluid overload 2. acute on chronic heart failure exacerbation 3. PNA 4. HCC, metastatic, on immunotherapy 5. OSMIN 6. thrombocytosis 7. hyponatremia 8. electrolyte derangement Plan: Mr. Joe is a very pleasant 79 yo male with several comorbidities including newly diagnosed HCC who is here for SOB. work up suggestive of PNA and CHF exacerbation. He was found to have multiple lung and liver lesions with underlying cirrhosis in 08/2024. work up with biopsy positive for HCC. Started on imjudo/imfinzi, C1 given in 10/08/24, C2 given on 11/05/24. - Reviewed CT chest with pt - Doubt findings truly due to progression of HCC as he has only received 1 month of therapy, 2 doses - Could be pseudoprogression vs pneumonitis from immunotherapy - Antibitoics and diuresis as per cardiology and pulm; renal function worsened with lasix and no overt signs of fluid overload clinically - Started on steroids due to concerns of pneumonitis, agree with this - repeat AFP - OSMIN and acute on chronic liver failure, possibly due to CHF exacerbation - hyponatremia, likely due to fluid overload - thrombocytosis, likely reactive, monitor for now Discussed with pt and he was agreeable. All questions answered.
[2024-11-16] MEDS: amLODIPine 5 MG TAB PO SCH (13:23)
[2024-11-16 16:27] LABS: Glucose,Whole Blood 158 mg/dL (70-110)
[2024-11-16 20:22] LABS: Glucose,Whole Blood 226 mg/dL (70-110)
--- NOTE | 2024-11-17 04:20 | PN ---
PROGRESS NOTE DATE OF SERVICE: 11/16/2024 SUBJECTIVE: This is a 79-year-old gentleman, who was receiving immunotherapy for hepatic cancer, has presented with bilateral pneumonia. The patient has some shortness of breath. The patient is on empiric antibiotics. Multiple consultants are following the patient closely including Hematology/Oncology. PAST MEDICAL HISTORY: Reviewed. REVIEW OF SYSTEMS: A 14-point review of systems negative except as mentioned earlier. CURRENT MEDICATIONS: Reviewed. PHYSICAL EXAMINATION: VITAL SIGNS: Pulse is 68, blood pressure n, respirations 18. HEENT: Conjunctivae normal. NECK: No JVD. CARDIOVASCULAR: S1 and S2. RESPIRATION: Breath sounds diminished at the bases. A few scattered rhonchi. ABDOMEN: Soft. LABORATORY DATA: Creatinine 2.10. ASSESSMENT: 1. Shortness of breath and fever, possibly bilateral pneumonia gram-negative in an immunosuppressed patient. 2. Possible congestive heart failure. 3. Elevated troponin 0.835, rule out acute non-ST segment elevation myocardial infarction. 4. Liver cancer, on immunotherapy. 5. Skin lesion. 6. Hyponatremia. 7. Elevated LFTs. 8. Atrial fibrillation. 9. History of coronary artery disease, stent. 10.History of pulmonary embolism. 11.History of sleep apnea. RECOMMENDATIONS AND DISCUSSION: Recommend to continue current management and symptomatic treatment with antibiotics. Monitor lytes closely. Creatinine is also elevated. I would also recommend Nephrology evaluation. Check serum cortisol. Guarded prognosis. Further recommendations to follow. See orders. MMODL / IJN: [id number] / MTDD
[2024-11-17 06:00] LABS: Glucose,Whole Blood 139 mg/dL (70-110)
[2024-11-17 08:27] LABS: Basophils # (A) 0.01 10*3/uL (0.00-0.10); Basophils % (A) 0.2 %; Eosinophils # (A) 0.00 10*3/uL (0.04-0.35); Eosinophils % (A) 0.0 %; HCT 44.6 % (39.6-50.0); HGB 14.4 g/dL (13.0-17.0); Lymphocytes # (A) 1.01 10*3/uL (0.90-5.00); Lymphocytes % (A) 16.8 %; MCH 26.0 pg (27.0-32.0); MCHC 32.3 g/dL (32.0-37.0); MCV 80.5 fL (80.0-97.0); Monocytes # (A) 0.30 10*3/uL (0.20-1.00); Monocytes % (A) 5.0 %; Neutrophils # (A) 4.65 10*3/uL (1.80-7.70); Neutrophils % (A) 77.3 %; Platelet Count 504 10*3/uL (140-440); RBC 5.54 10*6/uL (4.40-5.60); RDW 20.9 % (11.5-14.5); WBC 6.01 10*3/uL (4.50-10.00)
[2024-11-17 08:54] LABS: ALT 58 U/L (4-49); AST 376 U/L (17-59); African American GFR (CKD) 35 (>60 ml/min/1.73 sqM); Albumin 2.7 g/dL (3.5-5.0); Alkaline Phosphatase 326 U/L (38-126); Anion Gap 10 mmol/L; Blood Urea Nitrogen 44 mg/dL (9-20); Calcium 10.7 mg/dL (8.4-10.2); Carbon Dioxide 23 mmol/L (22-30); Chloride 100 mmol/L (98-107); Glucose 149 mg/dL (74-99); Non-African American GFR(CKD) 30 (>60 ml/min/1.73 sqM); Potassium 5.3 mmol/L (3.5-5.1); Sodium 133 mmol/L (137-145); Total Protein 5.5 g/dL (6.3-8.2)
--- NOTE | 2024-11-17 09:55 | P.PN ---
Subjective Progress Note Date: 11/17/24 HISTORY OF PRESENT ILLNESS: This is a 79-year-old male with a past medical history significant for coronary artery disease with previous stenting and subsequent CABG, paroxysmal atrial fibrillation, hypertension, hyperlipidemia, carotid stenosis, AAA, and stage IV liver cancer. Patient follows in the office with Dr. Mcfadden. We have been asked to see the patient in consultation for CHF. Patient examined at the bedside in the emergency room. Patient's family is present. Feeling members give history that patient has stage IV liver cancer that is currently being treated by Dr. Mayfield. Patient underwent his second immunotherapy treatment last . His pain medications were switched from [place] to morphine due to the Tylenol and the [place]. He was then switched from morphine to OxyContin and patient's member states since that time he has not been acting normal. She states that he is acting " spacey". Feeling member states that he has been complaining of shortness of breath for the past few days and does have a history of pneumonia which concerned them so they brought him to the hospital for further evaluation. The patient currently denies having any chest pain or pressure. He was started on IV antibiotics. Vital signs are stable. DIAGNOSTICS: - EKG reveals sinus mechanism with no signs of acute ischemia. - Chest xray patchy infiltrates throughout both lung la suspicious for pneumonia - Laboratory data: WBC 9.13. Hemoglobin 14.7. Platelet count 460. D-dimer 0.68. Sodium 130. Potassium 5.4. BUN 39. Creatinine 1.88. AST 523. ALT 70. Alkaline phosphatase 370. Troponin 0.786. 0.756. 0.835. proBNP 8300. - Current home cardiac medications include lisinopril 5 mg twice a day, carvedilol 12.5 mg twice a day, amlodipine 5 mg daily, Xarelto 20 mg at night, Zetia 10 mg daily, Farxiga 10 mg daily. - Most recent echocardiogram obtained in February 2024 revealed ejection fraction 45%, mild AR, mild -Patient underwent Lexiscan stress test in December 2023 revealing moderate inferior lateral ischemia Progress note 11/16/2024 Seen and examined at bedside this a.m. Creatinine is 2.18. Still higher than the baseline Does report that he did eat some food. BP 118/65, few readings low at 92/53, heart rate 67, Chest x-ray appears similar with fluffy infiltrates even after IV diuretics. 11/17/2024. Patient states his breathing is okay but shallow. No lower extremity edema. Echocardiogram is pending. Blood pressure 110/60, heart rate 70, pulse ox 93% on 2 L nasal cannula. Repeat blood work reveals WBC 6, hemoglobin 14.4, potassium 5.3, BUN 44 creatinine 2.06. Patient is not currently on diuretics. PHYSICAL EXAM: VITAL SIGNS: Reviewed. GENERAL: Well-developed in no acute distress. HEENT: Head is normocephalic. Pupils are equal, round. Sclerae anicteric. Neck supple. No JVD or thyromegaly LUNGS: Respirations even and unlabored. Lungs clear to auscultation bilaterally. No rales no rhonchi. HEART: Regular rate and rhythm. S1 and S2 heard. No murmur. ABDOMEN: Soft. Nondistended. Nontender. EXTREMITIES: No clubbing or cyanosis. Peripheral pulses intact. No lower extremity edema NEUROLOGIC: Awake and alert. Oriented x 3. ASSESSMENT: Acute hypoxic respiratory failure requiring supplemental oxygen likely from Bilateral pneumonia Acute on chronic heart failure with mildly reduced EF, 45% OSMIN Stage IV liver cancer, on immunotherapy outpatient Transaminitis, secondary to above Elevated troponins, flat, type II ME secondary to oxygen supply/demand mismatch, no evidence of acute coronary syndrome Coronary artery disease with three-vessel CABG in 2013, GONZALEZ to LAD, SVG to OM, SVG to PDA Paroxysmal atrial fibrillation Hypertension Hyperlipidemia Carotid stenosis History of AAA PLAN: Obtain 2D echo to assess cardiac structure and function Continue home cardiac medications including carvedilol and Zetia Hold lisinopril, amlodipine, and Farxiga secondary to low blood pressures and OSMIN Kidney function worsened with Lasix. Will stop Not on statin therapy outpatient secondary to transaminitis and liver cancer Resume anticoagulation with Xarelto Nurse practitioner note has been reviewed, I agree with documented findings and plan of care. Patient was seen and examined. Objective - Vital Signs Vital signs: Vital Signs Temp 97.6 F 11/17/24 04:00 Pulse 70 11/17/24 04:00 Resp 19 11/17/24 04:00 BP 110/60 11/17/24 04:00 Pulse Ox 93 L 11/17/24 04:00 FiO2 Intake & Output 11/16/24 11/17/24 11/17/24 18:59 06:59 18:59 Intake Total 354 Output Total 300 Balance 54 Weight 90.5 kg Intake: Oral 354 Output: Urine 300 Other: Voiding Method Toilet # Voids 2 1 - Labs CBC & Chem 7: 11/17/24 06:46 11/17/24 06:46 Labs: Abnormal Lab Results - Last 24 Hours (Table) 11/16/24 11/16/24 11/16/24 Range/Units 06:03 16:25 20:21 Sodium 134 L (137-145) mmol/L Potassium 5.2 H (3.5-5.1) mmol/L BUN 42 H (9-20) mg/dL Creatinine 2.10 H (0.66-1.25) mg/dL Glucose 62 L (74-99) mg/dL POC Glucose (mg/dL) 158 H 226 H (70-110) mg/dL Total Bilirubin 1.4 H (0.2-1.3) mg/dL AST 421 H (17-59) U/L ALT 57 H (4-49) U/L Alkaline Phosphatase 336 H (38-126) U/L Total Protein 5.7 L (6.3-8.2) g/dL Albumin 2.8 L (3.5-5.0) g/dL 11/17/24 Range/Units 05:58 Sodium (137-145) mmol/L Potassium (3.5-5.1) mmol/L BUN (9-20) mg/dL Creatinine (0.66-1.25) mg/dL Glucose (74-99) mg/dL POC Glucose (mg/dL) 139 H (70-110) mg/dL Total Bilirubin (0.2-1.3) mg/dL AST (17-59) U/L ALT (4-49) U/L Alkaline Phosphatase (38-126) U/L Total Protein (6.3-8.2) g/dL Albumin (3.5-5.0) g/dL Microbiology - Last 24 Hours (Table) 11/16/24 17:40 Gram Stain - Preliminary Sputum 11/14/24 20:33 Blood Culture - Preliminary Blood
[2024-11-17 11:32] LABS: Glucose,Whole Blood 157 mg/dL (70-110)
--- NOTE | 2024-11-17 12:23 | P.NPCON ---
History of Present Illness - Reason for Consult acute renal failure - History of Present Illness Patient is a 79-year-old male with history of metastatic liver cancer who is admitted to the hospital with complaints of shortness of breath and increased weakness. Chest CT showed bilateral pleural effusions as well as bilateral pulmonary nodules. He has been diuresed. Lasix was discontinued yesterday. Serum creatinine was 1.8 on admission and increased to 2.0. Previous creatinine was 1.3 on 09/14/2024. Serum potassium elevated at 5.2-5.3. Calcium was 10.7. Patient has been voiding. Blood pressure has been low with systolic in the 90s Patient was maintained on MONTANA inhibitors at home, currently off Past Medical History Past Medical History: Atrial Fibrillation, Coronary Artery Disease (CAD), Diabetes Mellitus, Eye Disorder, GERD/Reflux, GI Bleed, Hypertension, Musculoskeletal Disorder, Pulmonary Embolus (PE), Sleep Apnea/CPAP/BIPAP, Syncope Additional Past Medical History / Comment(s): ANAL FISSURES, GLAUCOMA, KIDNEY STONES, uses CPAP, abd. aneurysm- monitoring, 3 syncope episodes in 2019 now resolved, chronic back & hip problems, peripheral pulmonary emboli after open heart surg. resulted in prolonged intubation, glaucoma, colon polyps History of Any Multi-Drug Resistant Organisms: None Reported Past Surgical History: Appendectomy, Coronary Bypass/CABG, Heart Catheterization With Stent Additional Past Surgical History / Comment(s): triple bypass August 2013. pain procedures Past Anesthesia/Blood Transfusion Reactions: No Reported Reaction Additional Past Anesthesia/Blood Transfusion Reaction / Comment(s): difficulty coming off vent after open heart due to peripheral pulmonary emboli-spouse concerned related to anesthesia Date of Last Stent Placement:: 2013 Type of Cardiac Device: Loop Device Placement Date:: medtronic loop recorder now inactive placed in 2017 Past Psychological History: No Psychological Hx Reported Smoking Status: Former smoker Past Alcohol Use History: None Reported Additional Past Alcohol Use History / Comment(s): quit smoking Apr 2010, smoked since childhood 1ppd Past Drug Use History: None Reported - Past Family History Mother Family Medical History: Cancer Additional Family Medical History / Comment(s): uterine dies at 60 Father Family Medical History: Cancer Additional Family Medical History / Comment(s): kidney at 61 Medications and Allergies Home Medications Medication Instructions Recorded Confirmed Type Ferrous Sulfate [Iron (65 MG 325 mg PO HS 11/07/17 11/15/24 History Elemental)] Latanoprost Ophth [Xalatan 0.005%] 1 drop BOTH EYES HS 11/07/17 11/15/24 History Ubidecarenone [Co Q-10] 100 mg PO DAILY 07/15/18 11/15/24 History Rivaroxaban [Xarelto] 20 mg PO HS 05/26/19 11/15/24 History Brimonidine Tartrate [Alphagan P 1 drop BOTH EYES HS 12/29/22 11/15/24 History 0.2% Ophth Soln] Cetirizine HCl [Zyrtec] 10 mg PO DAILY 12/29/22 11/15/24 History Cholecalciferol [Vitamin D3 (25 50 mcg PO DAILY 12/29/22 11/15/24 History Mcg = 1000 Iu)] Melatonin 10 mg PO HS 12/29/22 11/15/24 History Timolol 0.5% Ophth Soln [Timoptic 1 drop RIGHT EYE HS 12/29/22 11/15/24 History 0.5% Ophth Soln] carvediloL [Coreg*] 12.5 mg PO BID-W/MEALS #60 tab 01/08/23 11/15/24 Rx Cyclobenzaprine [Flexeril] 10 mg PO TID PRN 02/06/24 11/15/24 History Dapagliflozin Propanediol [Farxiga] 10 mg PO DAILY 02/06/24 11/15/24 History Insulin Glargine/Lixisenatide 15 units SQ DAILY 02/06/24 11/15/24 History [Soliqua 100 Unit-33 Mcg/ml Pen] amLODIPine [Norvasc] 5 mg PO DAILY 02/06/24 11/15/24 History traZODone HCL [Desyrel] 50 mg PO HS PRN 02/06/24 11/15/24 History Ezetimibe [Zetia] 10 mg PO DAILY 09/13/24 11/15/24 History lisinopriL [Zestril] 5 mg PO BID 09/13/24 11/15/24 History Ondansetron Odt [Zofran Odt] 4 mg PO Q4H PRN 11/15/24 11/15/24 History oxyCODONE HCL [oxyCODONE HCL (IR)] 10 mg PO TID 11/15/24 11/15/24 History Allergies Allergy/AdvReac Type Severity Reaction Status Date / Time No Known Allergies Allergy Verified 11/15/24 10:07 Physical Exam Vitals: Vital Signs Temp Pulse Resp BP Pulse Ox 11/17/24 11:25 69 18 115/61 93 L 11/17/24 08:20 97.9 F 75 18 102/52 92 L 11/17/24 08:18 93 L 11/17/24 04:00 97.6 F 70 19 110/60 93 L 11/17/24 02:00 70 19 11/17/24 00:00 97.8 F 72 19 104/65 93 L 11/16/24 20:00 97.5 F L 76 19 111/67 93 L 11/16/24 16:00 98.1 F 72 18 113/67 92 L 11/16/24 14:00 68 18 Intake and Output 11/16/24 11/17/24 11/17/24 22:59 06:59 14:59 Intake Total 118 240 Output Total 300 Balance -182 240 Intake: Oral 118 240 Output: Urine 300 Other: Voiding Method Toilet Toilet Toilet # Voids 2 1 Weight 90.5 kg Patient is awake, comfortable, no acute distress Examination of the heart S1 and S2 Examination of the lungs bilateral breath sounds are heard Abdomen is soft nontender Examination of lower extremities shows no significant edema FINISHER HAND exam grossly intact Results - Lab Results Most recent lab results Calcium 10.7 mg/dL (8.4-10.2) H 11/17/24 06:46 Magnesium 1.9 mg/dL (1.6-2.3) 11/14/24 20:33 11/17/24 06:46 11/17/24 06:46 Assessment and Plan Assessment: 1. Acute kidney injury, ATN and associated with mild hypercalcemia and recent diuresis. Rule out urine retention. Check UA and ultrasound of the kidneys. Continue off of MONTANA inhibitors 2. Mild hyperkalemia associated with acute kidney injury, rule out urine retention. 3. Metastatic liver cancer with worsening metastasis in the lungs 4. Hypercalcemia, patient is maintained on calcium supplements Plan: Check bladder scan Check UA Check ultrasound of the kidneys DC Tums Repeat labs in a.m. Accurate I's and O's Continue off of IV fluids and diuretics for now. Does not appear to be in overt heart failure. Thank you for the consultation. We will continue to follow the patient with you during his hospitalization.
--- NOTE | 2024-11-17 12:32 | P.PN ---
Subjective Progress Note Date: 11/17/24 Principal diagnosis: Respiratory failure. This is a pleasant 79-year-old male patient with a known history of obstructive sleep apnea maintained on CPAP, diabetes mellitus, coronary artery bypass grafting, previous stent placement, very remote smoker, chronic back pain, atrial fibrillation anticoagulated with Xarelto. 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 He is being followed by medical oncology. He was initiated on immunotherapy. To the emergency room last evening with a 2 to 3-day history of increasing shortness of breath, cough congestion. Brown productive sputum. He was also having some chills on and off. Some nausea. No vomiting or diarrhea. He states he has lost 60 pounds in the past 2 months. Chest x-ray reveals patchy infiltrates throughout both lungs suspicious for pneumonia. White count 8.7. Hemoglobin 13.9. Platelets 452. INR 1.3. Sodium 130. Potassium 5.4. Bicarb 18. BUN 39. Creatinine 1.88. AST 523. ALT 70. Troponin 0.786, 0.756, 0.835. proBNP 8300. Viral screen negative for influenza A/B, RSV and COVID. He is maintaining good O2 saturations in the 90s on 2 L/min per nasal cannula. He has been afebrile. Hemodynamically stable. He is seen today in consultation in the emergency department. He is currently sitting up in a chair at the bedside having breakfast. Denies any worsening shortness of breath, cough or congestion. Still with productive sputum. Feeling about the same today compared to yesterday. Patient was seen today on 11/16/2024, patient has no active pulmonary symptoms, he is on 3 L nasal cannula O2 sat is 95%, has some vague abdominal pain sp ecially in the right lower quadrant and right upper quadrant area, patient remains on antibiotics for his presumptive pneumonia although the possibility of pneumonitis related to his immunotherapy is not entirely ruled out, and I went ahead today and added steroids. Follow-up chest x-ray showed scattered patchy infiltrates bilaterally seems to be even a bit worse compared to the chest x-ray on admission. No leukocytosis hemoglobin is normal electrolytes are normal BUN is 42 creatinine 2.10 liver enzymes are quite abnormal related to his underlying liver cancer. Progress note dated November 17, 2024. 79-year-old male, seen in consultation a few days ago. The patient was admitted with a diagnosis of possible pneumonia. The patient is currently on 2 L of oxygen. He is getting Zosyn, and has an echocardiogram planned. He is getting saline at 10 cc an hour. We have ordered a procalcitonin level. His chest x- ray is consistent with either diffuse bilateral pneumonia, or heart failure, or both. The patient's labs are reviewed. White count of 6, hemoglobin 14.4, hematocrit 44.6, platelet count 504,000. Glucose 133, potassium 5.3, chlorides 100, CO2 23, BUN 44, creatinine 2.06. Glucose is 157. Alpha-fetoprotein tumor marker was 47,500. Calcium was 10.7. AST 376. Sputum and blood sampling is thus far negative. Chest x-ray, from yesterday, shows diffuse bilateral patchy infiltrates, potentially consistent with pneumonia. His laboratory data, on day of admission, November 14, shows an N-terminal proBNP at 8300. In addition, troponins were 0.756, and 0.835. Objective - Vital Signs Vital signs: Vital Signs Temp 97.9 F 11/17/24 08:20 Pulse 69 11/17/24 11:25 Resp 18 11/17/24 11:25 BP 115/61 11/17/24 11:25 Pulse Ox 93 L 11/17/24 11:25 FiO2 Intake & Output 11/16/24 11/17/24 11/17/24 18:59 06:59 18:59 Intake Total 354 240 Output Total 300 Balance 54 240 Weight 90.5 kg Intake: Oral 354 240 Output: Urine 300 Other: Voiding Method Toilet Toilet # Voids 2 1 - Exam No acute distress, oriented 3. Currently on 2 L of oxygen. No respiratory distress. HEENT examination is grossly unremarkable. Mucous membranes are moist. No oral lesions. Neck supple. Full range of motion. No adenopathy thyromegaly or neck vein distention. Cardiovascular examination reveals regular rhythm rate. S1-S2 normal. No S3 or S4. No discernible murmur noted. Lungs reveal basilar crackles. No wheezes or rhonchi. Breath sounds equal bilaterally. Abdomen soft bowel sounds are heard. No masses or tenderness. Extremities are intact. No cyanosis clubbing or edema. Skin is without rash or lesion. Neurologic examination is brief but nonfocal. - Labs CBC & Chem 7: 11/17/24 06:46 11/17/24 06:46 Labs: Abnormal Lab Results - Last 24 Hours (Table) 11/16/24 11/16/24 11/17/24 Range/Units 16:25 20:21 05:58 MCH (27.0-32.0) pg Plt Count (140-440) 10*3/uL Eosinophils # (0.04-0.35) 10*3/uL Sodium (137-145) mmol/L Potassium (3.5-5.1) mmol/L BUN (9-20) mg/dL Creatinine (0.66-1.25) mg/dL Glucose (74-99) mg/dL POC Glucose (mg/dL) 158 H 226 H 139 H (70-110) mg/dL Calcium (8.4-10.2) mg/dL AST (17-59) U/L ALT (4-49) U/L Alkaline Phosphatase (38-126) U/L Total Protein (6.3-8.2) g/dL Albumin (3.5-5.0) g/dL Tumor Marker AFP (0.00-7.90) ng/mL 11/17/24 11/17/24 11/17/24 Range/Units 06:46 06:46 06:46 MCH 26.0 L (27.0-32.0) pg Plt Count 504 H (140-440) 10*3/uL Eosinophils # 0.00 L (0.04-0.35) 10*3/uL Sodium 133 L (137-145) mmol/L Potassium 5.3 H (3.5-5.1) mmol/L BUN 44 H (9-20) mg/dL Creatinine 2.06 H (0.66-1.25) mg/dL Glucose 149 H (74-99) mg/dL POC Glucose (mg/dL) (70-110) mg/dL Calcium 10.7 H (8.4-10.2) mg/dL AST 376 H (17-59) U/L ALT 58 H (4-49) U/L Alkaline Phosphatase 326 H (38-126) U/L Total Protein 5.5 L (6.3-8.2) g/dL Albumin 2.7 L (3.5-5.0) g/dL Tumor Marker AFP >67964.00 H (0.00-7.90) ng/mL 11/17/24 Range/Units 11:31 MCH (27.0-32.0) pg Plt Count (140-440) 10*3/uL Eosinophils # (0.04-0.35) 10*3/uL Sodium (137-145) mmol/L Potassium (3.5-5.1) mmol/L BUN (9-20) mg/dL Creatinine (0.66-1.25) mg/dL Glucose (74-99) mg/dL POC Glucose (mg/dL) 157 H (70-110) mg/dL Calcium (8.4-10.2) mg/dL AST (17-59) U/L ALT (4-49) U/L Alkaline Phosphatase (38-126) U/L Total Protein (6.3-8.2) g/dL Albumin (3.5-5.0) g/dL Tumor Marker AFP (0.00-7.90) ng/mL Microbiology - Last 24 Hours (Table) 11/16/24 17:40 Gram Stain - Preliminary Sputum 11/14/24 20:33 Blood Culture - Preliminary Blood Assessment and Plan Assessment: Acute hypoxemic respiratory failure, secondary to CHF, as well as possible pneumonia. Acute kidney injury. Troponin leak, versus non-ST segment elevation myocardial infarction. Transaminitis. Stage IV liver cancer. Significant weight loss, of 60 pounds. History of CAD with previous stent placement, and subsequent CABG, 2013. Sleep apnea syndrome, maintained on CPAP. Diabetes mellitus. Chronic back pain. Atrial fibrillation. Remote history of tobacco use. Plan: Plan dated November 17, 2024. The patient is seen today in room 351. He is resting comfortably in bed. His is at the bedside and provides some of the history. The patient continues on 2 L. He is on Zosyn empirically for possible pneumonia. He is scheduled to have echocardiogram. He is getting saline at 10 cc an hour. Will check a procalcitonin level. If normal, my inclination would be to stop the Zosyn. Labs, x-rays, and all medications are reviewed. We will continue to follow the patient, make recommendations. Prognosis is guarded. Time with Patient: Less than 30
--- NOTE | 2024-11-17 13:17 | CA ---
Transthoracic Echo Report Name: Clifford Joe Age: 79 Gender: M : 1945 Exam Date: 11/17/2024 11:31 Exam Location: [facility] Ht (in): 70 Wt (lb): 200 Ordering Physician: Shady Siddiqi MD Attending/Referring Phys: [id number], Devang Airplane Navigator April Cardenas RDCS Procedure CPT: Indications: chf Cardiac Hx: CABG 12 Y/A Technical Quality: Fair Contrast 1: Total Dose (mL): Contrast 2: Total Dose (mL): MEASUREMENTS (Male / Female) Normal Values 2D ECHO LV Diastolic Diameter PLAX 5.5 cm 4.2 - 5.9 / 3.9 - 5.3 cm LV Systolic Diameter PLAX 3.6 cm IVS Diastolic Thickness 1.1 cm 0.6 - 1.0 / 0.6 - 0.9 cm LVPW Diastolic Thickness 1.1 cm 0.6 - 1.0 / 0.6 - 0.9 cm LV Relative Wall Thickness 0.4 RV Internal Dim ED PLAX 4.0 cm LVOT Diameter 2.6 cm LV Diastolic Volume MOD 4C 118.0 cm??? LV Systolic Volume MOD 4C 52.8 cm??? LV Ejection Fraction MOD 4C 55.3 % LV Cardiac Index MOD 4C 1984.2 cm???/min???m??? LV Diastolic Length 4C 9.1 cm LV Systolic Length 4C 7.2 cm LV Diastolic Volume MOD 2C 99.9 cm??? LV Systolic Volume MOD 2C 40.1 cm??? LV Ejection Fraction MOD 2C 59.8 % LV Cardiac Index MOD 2C 1818.7 cm???/min???m??? LV Diastolic Length 2C 8.9 cm LV Systolic Length 2C 7.1 cm LA Volume 67.6 cm??? 18 - 58 / 22 - 52 cm??? LA Volume Index 31.7 cm???/m??? 16 - 28 cm???/m??? M-MODE Aortic Root Diameter MM 3.5 cm AV Cusp Separation MM 1.6 cm DOPPLER AV Peak Velocity 246.8 cm/s AV Peak Gradient 24.4 mmHg AV Mean Velocity 178.1 cm/s AV Mean Gradient 14.1 mmHg AV Velocity Time Integral 61.6 cm LVOT Peak Velocity 96.4 cm/s LVOT Peak Gradient 3.7 mmHg LVOT Velocity Time Integral 22.3 cm LVOT Stroke Volume 114.1 cm??? LVOT Stroke Volume Index 54.7 ml/m??? LVOT Cardiac Index 3471.9 cm???/min???m??? AV Area Cont Eq vti 1.9 cm??? AV Area Cont Eq pk 2.0 cm??? TR Peak Velocity 253.5 cm/s TR Peak Gradient 25.7 mmHg Right Ventricular Systolic Press 30.7 mmHg FINDINGS Left Ventricle Left ventricular ejection fraction is estimated at 55-60 %. Left ventricular cavity size normal. Left ventricular wall thickness normal. Normal left ventricular wall motion. Right Ventricle Right ventricular dilatation. Right ventricular systolic pressure within normal limits. Right Atrium Right atrial dilatation. No right atrial thrombus or mass seen. Left Atrium Mildly increased left atrial volume. Mildly increased left atrial area. No left atrial thrombus or mass present. Mitral Valve Mitral valve thickened. Mild mitral annular calcification. Mild mitral regurgitation. Aortic Valve Trileaflet aortic valve. Aortic valve sclerosis. Mild aortic stenosis with a peak gradient of 24 mmHg and a mean gradient of 14 mmHg. Tricuspid Valve Structurally normal tricuspid valve. Mild tricuspid regurgitation. Pulmonic Valve Pulmonic valve not well visualized. No pulmonic regurgitation. Pericardium No pericardial effusion. Aorta Normal size aortic root and proximal ascending aorta. CONCLUSIONS 1. Normal left ventricular size and systolic function 2. Mild mitral and tricuspid regurgitation 3. Mild aortic stenosis Previewed by: Dr. Pablo Clark MD (Electronically Signed) Final Date: 17 November 2024 13:16
[2024-11-17 16:18] LABS: Glucose,Whole Blood 170 mg/dL (70-110)
--- NOTE | 2024-11-17 16:39 | P.PN ---
Subjective Progress Note Date: 11/17/24 Principal diagnosis: Hypoxia, pneumonia In f/u today pt reports significant expectoration yesterday, resp status improved today. He did get to bathroom and back with no significant changes in O2%. O2 has been discontinued. No fevers, N,V. Objective - Vital Signs Vital signs: Vital Signs Temp 97.9 F 11/17/24 08:20 Pulse 69 11/17/24 11:25 Resp 18 11/17/24 11:25 BP 115/61 11/17/24 11:25 Pulse Ox 93 L 11/17/24 11:25 FiO2 Intake & Output 11/16/24 11/17/24 11/17/24 18:59 06:59 18:59 Intake Total 354 240 Output Total 300 Balance 54 240 Weight 90.5 kg Intake: Oral 354 240 Output: Urine 300 Other: Voiding Method Toilet Toilet # Voids 2 1 - Constitutional General appearance: Present: average body habitus, cooperative, no acute distress - EENT Eyes: Present: anicteric sclerae, EOMI ENT: Present: hearing grossly normal - Respiratory Respiratory: right: rales - Cardiovascular Heart sounds: normal: S1, S2 Abnormal Heart Sounds: Present: systolic murmur - Peripheral edema leg Peripheral Edema: bilateral: None - Gastrointestinal General gastrointestinal: Present: normal bowel sounds, soft - Integumentary Integumentary: Present: normal - Neurologic Neurologic: Present: CNII-XII intact - Musculoskeletal Musculoskeletal: Present: strength equal bilaterally - Psychiatric Psychiatric: Present: A&O x's 3, appropriate affect, intact judgment & insight - Labs CBC & Chem 7: 11/17/24 06:46 11/17/24 06:46 Labs: Abnormal Lab Results - Last 24 Hours (Table) 11/16/24 11/16/24 11/17/24 Range/Units 16:25 20:21 05:58 MCH (27.0-32.0) pg Plt Count (140-440) 10*3/uL Eosinophils # (0.04-0.35) 10*3/uL Sodium (137-145) mmol/L Potassium (3.5-5.1) mmol/L BUN (9-20) mg/dL Creatinine (0.66-1.25) mg/dL Glucose (74-99) mg/dL POC Glucose (mg/dL) 158 H 226 H 139 H (70-110) mg/dL Calcium (8.4-10.2) mg/dL AST (17-59) U/L ALT (4-49) U/L Alkaline Phosphatase (38-126) U/L Total Protein (6.3-8.2) g/dL Albumin (3.5-5.0) g/dL Tumor Marker AFP (0.00-7.90) ng/mL Procalcitonin (0.02-0.50) ng/mL 11/17/24 11/17/24 11/17/24 Range/Units 06:46 06:46 06:46 MCH 26.0 L (27.0-32.0) pg Plt Count 504 H (140-440) 10*3/uL Eosinophils # 0.00 L (0.04-0.35) 10*3/uL Sodium 133 L (137-145) mmol/L Potassium 5.3 H (3.5-5.1) mmol/L BUN 44 H (9-20) mg/dL Creatinine 2.06 H (0.66-1.25) mg/dL Glucose 149 H (74-99) mg/dL POC Glucose (mg/dL) (70-110) mg/dL Calcium 10.7 H (8.4-10.2) mg/dL AST 376 H (17-59) U/L ALT 58 H (4-49) U/L Alkaline Phosphatase 326 H (38-126) U/L Total Protein 5.5 L (6.3-8.2) g/dL Albumin 2.7 L (3.5-5.0) g/dL Tumor Marker AFP >94349.00 H (0.00-7.90) ng/mL Procalcitonin (0.02-0.50) ng/mL 11/17/24 11/17/24 Range/Units 06:46 11:31 MCH (27.0-32.0) pg Plt Count (140-440) 10*3/uL Eosinophils # (0.04-0.35) 10*3/uL Sodium (137-145) mmol/L Potassium (3.5-5.1) mmol/L BUN (9-20) mg/dL Creatinine (0.66-1.25) mg/dL Glucose (74-99) mg/dL POC Glucose (mg/dL) 157 H (70-110) mg/dL Calcium (8.4-10.2) mg/dL AST (17-59) U/L ALT (4-49) U/L Alkaline Phosphatase (38-126) U/L Total Protein (6.3-8.2) g/dL Albumin (3.5-5.0) g/dL Tumor Marker AFP (0.00-7.90) ng/mL Procalcitonin 1.44 H (0.02-0.50) ng/mL Microbiology - Last 24 Hours (Table) 11/16/24 17:40 Gram Stain - Preliminary Sputum 11/14/24 20:33 Blood Culture - Preliminary Blood - Imaging and Cardiology ECHO report reviewed Assessment and Plan (1) Hypoxia Current Visit: Yes Status: Acute Priority: High Code(s): R09.02 - HYPOXEMIA SNOMED Code(s): 975723137 (2) Hepatocellular carcinoma Current Visit: Yes Status: Chronic Priority: Medium Code(s): C22.0 - LIVER CELL CARCINOMA SNOMED Code(s): 741533763 (3) Thrombocythemia Current Visit: Yes Status: Chronic Priority: Medium Code(s): D47.3 - ESSENTIAL (HEMORRHAGIC) THROMBOCYTHEMIA SNOMED Code(s): 8007021 Plan: Hypoxia -Admitting c/o -Cardiology following for possible CHF, ECHO done, LVEF 55-60%. Pt cont on xarelto for a-fib -Pulmonary following, treating for pneumonia -Resp status much improved with lasix, abx and steroids. HCC -S/P 1st 2 cycles of treatment -[place] that progression reported on imaging reflective of pseudo-progression, as can be the case early in immunotherapy treatment -Pneumonitis vs CHF vs pneumonia. Pt has been diruesed, he has been receiving antibiotics and he has had steroids. If pt cont to do well as he is tapered off steroids in the short term, more than likely not pneumonitis. Will cont to follow and see how pt hospital course evolves -AFP >47,5000-no specific number, same as previously reported Reactive thrombocytosis -Trending down, monitor for now
[2024-11-17 20:08] LABS: Glucose,Whole Blood 161 mg/dL (70-110)
[2024-11-18 05:55] LABS: Glucose,Whole Blood 119 mg/dL (70-110)
[2024-11-18 07:52] LABS: Basophils # (A) 0.02 10*3/uL (0.00-0.10); Basophils % (A) 0.2 %; Eosinophils # (A) 0.00 10*3/uL (0.04-0.35); Eosinophils % (A) 0.0 %; HCT 45.8 % (39.6-50.0); HGB 14.8 g/dL (13.0-17.0); Lymphocytes # (A) 1.17 10*3/uL (0.90-5.00); Lymphocytes % (A) 10.5 %; MCH 26.3 pg (27.0-32.0); MCHC 32.3 g/dL (32.0-37.0); MCV 81.3 fL (80.0-97.0); Monocytes # (A) 0.77 10*3/uL (0.20-1.00); Monocytes % (A) 6.9 %; Neutrophils # (A) 9.08 10*3/uL (1.80-7.70); Neutrophils % (A) 81.6 %; Platelet Count 568 10*3/uL (140-440); RBC 5.63 10*6/uL (4.40-5.60); RDW 21.5 % (11.5-14.5); WBC 11.13 10*3/uL (4.50-10.00)
--- NOTE | 2024-11-18 08:10 | P.PN ---
Subjective Progress Note Date: 11/18/24 HISTORY OF PRESENT ILLNESS: This is a 79-year-old male with a past medical history significant for coronary artery disease with previous stenting and subsequent CABG, paroxysmal atrial fibrillation, hypertension, hyperlipidemia, carotid stenosis, AAA, and stage IV liver cancer. Patient follows in the office with Dr. Mcfadden. We have been asked to see the patient in consultation for CHF. Patient examined at the bedside in the emergency room. Patient's family is present. Feeling members give history that patient has stage IV liver cancer that is currently being treated by Dr. Mayfield. Patient underwent his second immunotherapy treatment last . His pain medications were switched from [place] to morphine due to the Tylenol and the [place]. He was then switched from morphine to OxyContin and patient's member states since that time he has not been acting normal. She states that he is acting " spacey". Feeling member states that he has been complaining of shortness of breath for the past few days and does have a history of pneumonia which concerned them so they brought him to the hospital for further evaluation. The patient currently denies having any chest pain or pressure. He was started on IV antibiotics. Vital signs are stable. DIAGNOSTICS: - EKG reveals sinus mechanism with no signs of acute ischemia. - Chest xray patchy infiltrates throughout both lung la suspicious for pneumonia - Laboratory data: WBC 9.13. Hemoglobin 14.7. Platelet count 460. D-dimer 0.68. Sodium 130. Potassium 5.4. BUN 39. Creatinine 1.88. AST 523. ALT 70. Alkaline phosphatase 370. Troponin 0.786. 0.756. 0.835. proBNP 8300. - Current home cardiac medications include lisinopril 5 mg twice a day, carvedilol 12.5 mg twice a day, amlodipine 5 mg daily, Xarelto 20 mg at night, Zetia 10 mg daily, Farxiga 10 mg daily. - Most recent echocardiogram obtained in February 2024 revealed ejection fraction 45%, mild AR, mild -Patient underwent Lexiscan stress test in December 2023 revealing moderate inferior lateral ischemia Progress note 11/16/2024 Seen and examined at bedside this a.m. Creatinine is 2.18. Still higher than the baseline Does report that he did eat some food. BP 118/65, few readings low at 92/53, heart rate 67, Chest x-ray appears similar with fluffy infiltrates even after IV diuretics. 11/17/2024. Patient states his breathing is okay but shallow. No lower extremity edema. Echocardiogram is pending. Blood pressure 110/60, heart rate 70, pulse ox 93% on 2 L nasal cannula. Repeat blood work reveals WBC 6, hemoglobin 14.4, potassium 5.3, BUN 44 creatinine 2.06. Patient is not currently on diuretics. 11/18/2024 Patient seen and examined. Blood pressure 108/67, heart rate in the 60s and 70s, pulse ox 92% on 1 L nasal cannula. Echocardiogram reveals normal LV size and systolic function, mild mitral and tricuspid regurgitation, mild aortic stenosis. Lasix remains on hold. Patient is followed by nephrology. Morning labs are not available at the time of this dictation. PHYSICAL EXAM: VITAL SIGNS: Reviewed. GENERAL: Well-developed in no acute distress. HEENT: Head is normocephalic. Pupils are equal, round. Sclerae anicteric. Neck supple. No JVD or thyromegaly LUNGS: Respirations even and unlabored. Lungs clear to auscultation bilaterally. No rales no rhonchi. HEART: Regular rate and rhythm. S1 and S2 heard. No murmur. ABDOMEN: Soft. Nondistended. Nontender. EXTREMITIES: No clubbing or cyanosis. Peripheral pulses intact. No lower extremity edema NEUROLOGIC: Awake and alert. Oriented x 3. ASSESSMENT: Acute hypoxic respiratory failure requiring supplemental oxygen likely from Bilateral pneumonia Acute on chronic heart failure with mildly reduced EF, 45% OSMIN Stage IV liver cancer, on immunotherapy outpatient Transaminitis, secondary to above Elevated troponins, flat, type II OK secondary to oxygen supply/demand mismatch, no evidence of acute coronary syndrome Coronary artery disease with three-vessel CABG in 2013, GONZALEZ to LAD, SVG to OM, SVG to PDA Paroxysmal atrial fibrillation on Xarelto Hypertension Hyperlipidemia Carotid stenosis History of AAA PLAN: Continue home cardiac medications including carvedilol and Zetia Hold lisinopril, amlodipine, and Farxiga secondary to low blood pressures and OSMIN Kidney function worsened with Lasix. Will stop Not on statin therapy outpatient secondary to transaminitis and liver cancer Nurse practitioner note has been reviewed, I agree with documented findings and plan of care. Patient was seen and examined. Objective - Vital Signs Vital signs: Vital Signs Temp 97.7 F 11/18/24 04:00 Pulse 69 11/18/24 04:00 Resp 19 11/18/24 04:00 BP 108/67 11/18/24 04:00 Pulse Ox 92 L 11/18/24 04:00 FiO2 Intake & Output 11/17/24 11/18/24 11/18/24 18:59 06:59 18:59 Intake Total 960 Balance 960 Weight 90.9 kg Intake: Oral 960 Other: Voiding Method Toilet Toilet # Voids 1 3 - Labs CBC & Chem 7: 11/18/24 06:37 11/17/24 06:46 Labs: Abnormal Lab Results - Last 24 Hours (Table) 11/17/24 11/17/24 11/17/24 Range/Units 06:46 06:46 06:46 MCH 26.0 L (27.0-32.0) pg Plt Count 504 H (140-440) 10*3/uL Eosinophils # 0.00 L (0.04-0.35) 10*3/uL Sodium 133 L (137-145) mmol/L Potassium 5.3 H (3.5-5.1) mmol/L BUN 44 H (9-20) mg/dL Creatinine 2.06 H (0.66-1.25) mg/dL Glucose 149 H (74-99) mg/dL POC Glucose (mg/dL) (70-110) mg/dL Calcium 10.7 H (8.4-10.2) mg/dL AST 376 H (17-59) U/L ALT 58 H (4-49) U/L Alkaline Phosphatase 326 H (38-126) U/L Total Protein 5.5 L (6.3-8.2) g/dL Albumin 2.7 L (3.5-5.0) g/dL Tumor Marker AFP >22008.00 H (0.00-7.90) ng/mL Procalcitonin (0.02-0.50) ng/mL 11/17/24 11/17/24 11/17/24 Range/Units 06:46 11:31 16:16 MCH (27.0-32.0) pg Plt Count (140-440) 10*3/uL Eosinophils # (0.04-0.35) 10*3/uL Sodium (137-145) mmol/L Potassium (3.5-5.1) mmol/L BUN (9-20) mg/dL Creatinine (0.66-1.25) mg/dL Glucose (74-99) mg/dL POC Glucose (mg/dL) 157 H 170 H (70-110) mg/dL Calcium (8.4-10.2) mg/dL AST (17-59) U/L ALT (4-49) U/L Alkaline Phosphatase (38-126) U/L Total Protein (6.3-8.2) g/dL Albumin (3.5-5.0) g/dL Tumor Marker AFP (0.00-7.90) ng/mL Procalcitonin 1.44 H (0.02-0.50) ng/mL 11/17/24 11/18/24 Range/Units 20:05 05:53 MCH (27.0-32.0) pg Plt Count (140-440) 10*3/uL Eosinophils # (0.04-0.35) 10*3/uL Sodium (137-145) mmol/L Potassium (3.5-5.1) mmol/L BUN (9-20) mg/dL Creatinine (0.66-1.25) mg/dL Glucose (74-99) mg/dL POC Glucose (mg/dL) 161 H 119 H (70-110) mg/dL Calcium (8.4-10.2) mg/dL AST (17-59) U/L ALT (4-49) U/L Alkaline Phosphatase (38-126) U/L Total Protein (6.3-8.2) g/dL Albumin (3.5-5.0) g/dL Tumor Marker AFP (0.00-7.90) ng/mL Procalcitonin (0.02-0.50) ng/mL Microbiology - Last 24 Hours (Table) 11/14/24 20:33 Blood Culture - Preliminary Blood 11/16/24 17:40 Gram Stain - Preliminary Sputum
[2024-11-18 08:14] LABS: African American GFR (CKD) 37 (>60 ml/min/1.73 sqM); Anion Gap 8 mmol/L; Blood Urea Nitrogen 49 mg/dL (9-20); Calcium 11.1 mg/dL (8.4-10.2); Carbon Dioxide 23 mmol/L (22-30); Chloride 104 mmol/L (98-107); Glucose 128 mg/dL (74-99); Non-African American GFR(CKD) 32 (>60 ml/min/1.73 sqM); Potassium 5.4 mmol/L (3.5-5.1); Sodium 135 mmol/L (137-145)
[2024-11-18] MEDS: FAMOTIDINE 20 MG TAB PO SCH (09:58)
[2024-11-18 11:10] LABS: Glucose,Whole Blood 137 mg/dL (70-110)
--- NOTE | 2024-11-18 12:11 | P.PN ---
Subjective Progress Note Date: 11/18/24 Principal diagnosis: Respiratory failure. This is a pleasant 79-year-old male patient with a known history of obstructive sleep apnea maintained on CPAP, diabetes mellitus, coronary artery bypass grafting, previous stent placement, very remote smoker, chronic back pain, atrial fibrillation anticoagulated with Xarelto. 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 He is being followed by medical oncology. He was initiated on immunotherapy. To the emergency room last evening with a 2 to 3-day history of increasing shortness of breath, cough congestion. Brown productive sputum. He was also having some chills on and off. Some nausea. No vomiting or diarrhea. He states he has lost 60 pounds in the past 2 months. Chest x-ray reveals patchy infiltrates throughout both lungs suspicious for pneumonia. White count 8.7. Hemoglobin 13.9. Platelets 452. INR 1.3. Sodium 130. Potassium 5.4. Bicarb 18. BUN 39. Creatinine 1.88. AST 523. ALT 70. Troponin 0.786, 0.756, 0.835. proBNP 8300. Viral screen negative for influenza A/B, RSV and COVID. He is maintaining good O2 saturations in the 90s on 2 L/min per nasal cannula. He has been afebrile. Hemodynamically stable. He is seen today in consultation in the emergency department. He is currently sitting up in a chair at the bedside having breakfast. Denies any worsening shortness of breath, cough or congestion. Still with productive sputum. Feeling about the same today compared to yesterday. Patient was seen today on 11/16/2024, patient has no active pulmonary symptoms, he is on 3 L nasal cannula O2 sat is 95%, has some vague abdominal pain sp ecially in the right lower quadrant and right upper quadrant area, patient remains on antibiotics for his presumptive pneumonia although the possibility of pneumonitis related to his immunotherapy is not entirely ruled out, and I went ahead today and added steroids. Follow-up chest x-ray showed scattered patchy infiltrates bilaterally seems to be even a bit worse compared to the chest x-ray on admission. No leukocytosis hemoglobin is normal electrolytes are normal BUN is 42 creatinine 2.10 liver enzymes are quite abnormal related to his underlying liver cancer. Progress note dated November 17, 2024. 79-year-old male, seen in consultation a few days ago. The patient was admitted with a diagnosis of possible pneumonia. The patient is currently on 2 L of oxygen. He is getting Zosyn, and has an echocardiogram planned. He is getting saline at 10 cc an hour. We have ordered a procalcitonin level. His chest x- ray is consistent with either diffuse bilateral pneumonia, or heart failure, or both. The patient's labs are reviewed. White count of 6, hemoglobin 14.4, hematocrit 44.6, platelet count 504,000. Glucose 133, potassium 5.3, chlorides 100, CO2 23, BUN 44, creatinine 2.06. Glucose is 157. Alpha-fetoprotein tumor marker was 47,500. Calcium was 10.7. AST 376. Sputum and blood sampling is thus far negative. Chest x-ray, from yesterday, shows diffuse bilateral patchy infiltrates, potentially consistent with pneumonia. His laboratory data, on day of admission, November 14, shows an N-terminal proBNP at 8300. In addition, troponins were 0.756, and 0.835. Progress note dated November 18, 2024. 79-year-old male seen today in room 351. The patient was admitted with a diagno sis of acute respiratory failure secondary to CHF, and pneumonia. His procalcitonin level was elevated at 1.44. He is on Zosyn. His ejection fraction was okay. He is on room air, with saturations of 90 to 92%. On 1 L, he is 93 to 94%. The patient is in laying in bed. He is awake and alert. He does feel better. Current labs include a white count 11.1, hemoglobin 14.8, hematocrit 45.8, platelet count 568,000. Sodium 135, potassium 5.4, chlorides 104, CO2 23, BUN 49, creatinine 1.96. Anion gap is normal at 8. Glucose is 137. Calcium 11.1. Blood and sputum sampling is negative. No recent chest x- ray to report. Objective - Vital Signs Vital signs: Vital Signs Temp 97.7 F 11/18/24 04:00 Pulse 69 11/18/24 04:00 Resp 19 11/18/24 04:00 BP 108/67 11/18/24 04:00 Pulse Ox 90 L 11/18/24 07:48 FiO2 Intake & Output 11/17/24 11/18/2425 18:59 06:59 18:59 Intake Total 960 360 Balance 960 360 Weight 90.9 kg Intake: Oral 960 360 Other: Voiding Method Toilet Toilet # Voids 1 3 - Exam No acute distress, oriented 3. Currently on room air. No respiratory distress. HEENT examination is grossly unremarkable. Mucous membranes are moist. No oral lesions. Neck supple. Full range of motion. No adenopathy thyromegaly or neck vein distention. Cardiovascular examination reveals regular rhythm rate. S1-S2 normal. No S3 or S4. No discernible murmur noted. Lungs reveal basilar crackles. No wheezes or rhonchi. Breath sounds equal bilaterally. Abdomen soft bowel sounds are heard. No masses or tenderness. Extremities are intact. No cyanosis clubbing or edema. Skin is without rash or lesion. Neurologic examination is brief but nonfocal. - Labs CBC & Chem 7: 11/18/24 06:37 11/18/24 06:37 Labs: Abnormal Lab Results - Last 24 Hours (Table) 11/17/24 11/17/24 11/17/24 Range/Units 06:46 16:16 20:05 WBC (4.50-10.00) 10*3/uL RBC (4.40-5.60) 10*6/uL MCH (27.0-32.0) pg Plt Count (140-440) 10*3/uL Immature Gran # (0.00-0.04) 10*3/uL Neutrophils # (1.80-7.70) 10*3/uL Eosinophils # (0.04-0.35) 10*3/uL Sodium (137-145) mmol/L Potassium (3.5-5.1) mmol/L BUN (9-20) mg/dL Creatinine (0.66-1.25) mg/dL Glucose (74-99) mg/dL POC Glucose (mg/dL) 170 H 161 H (70-110) mg/dL Calcium (8.4-10.2) mg/dL Procalcitonin 1.44 H (0.02-0.50) ng/mL 11/18/24 11/18/24 11/18/24 Range/Units 05:53 06:37 06:37 WBC 11.13 H (4.50-10.00) 10*3/uL RBC 5.63 H (4.40-5.60) 10*6/uL MCH 26.3 L (27.0-32.0) pg Plt Count 568 H (140-440) 10*3/uL Immature Gran # 0.09 H (0.00-0.04) 10*3/uL Neutrophils # 9.08 H (1.80-7.70) 10*3/uL Eosinophils # 0.00 L (0.04-0.35) 10*3/uL Sodium 135 L (137-145) mmol/L Potassium 5.4 H (3.5-5.1) mmol/L BUN 49 H (9-20) mg/dL Creatinine 1.96 H (0.66-1.25) mg/dL Glucose 128 H (74-99) mg/dL POC Glucose (mg/dL) 119 H (70-110) mg/dL Calcium 11.1 H (8.4-10.2) mg/dL Procalcitonin (0.02-0.50) ng/mL 11/18/24 Range/Units 11:09 WBC (4.50-10.00) 10*3/uL RBC (4.40-5.60) 10*6/uL MCH (27.0-32.0) pg Plt Count (140-440) 10*3/uL Immature Gran # (0.00-0.04) 10*3/uL Neutrophils # (1.80-7.70) 10*3/uL Eosinophils # (0.04-0.35) 10*3/uL Sodium (137-145) mmol/L Potassium (3.5-5.1) mmol/L BUN (9-20) mg/dL Creatinine (0.66-1.25) mg/dL Glucose (74-99) mg/dL POC Glucose (mg/dL) 137 H (70-110) mg/dL Calcium (8.4-10.2) mg/dL Procalcitonin (0.02-0.50) ng/mL Microbiology - Last 24 Hours (Table) 11/14/24 20:33 Blood Culture - Preliminary Blood Assessment and Plan Assessment: Acute hypoxemic respiratory failure, secondary to CHF, as well as pneumonia. Acute kidney injury. Troponin leak, versus non-ST segment elevation myocardial infarction. Transaminitis. Stage IV liver cancer. Significant weight loss, of 60 pounds. History of CAD with previous stent placement, and subsequent CABG, 2013. Sleep apnea syndrome, maintained on CPAP. Diabetes mellitus. Chronic back pain. Atrial fibrillation. Remote history of tobacco use. Plan: Plan dated November 17, 2024. The patient is seen today in room 351. He is resting comfortably in bed. His is at the bedside and provides some of the history. The patient continues on 2 L. He is on Zosyn empirically for possible pneumonia. He is scheduled to have echocardiogram. He is getting saline at 10 cc an hour. Will check a procalcitonin level. If normal, my inclination would be to stop the Zosyn. Labs, x-rays, and all medications are reviewed. We will continue to follow the patient, make recommendations. Prognosis is guarded. Plan dated November 18, 2024. The patient is seen today in room 351. The patient is currently on room air. Saturations are excellent. His procalcitonin level was elevated at 1.44. He continues on Zosyn. The results of the echocardiogram were reviewed. The patient does feel better. He is awake and alert. No distress. His is at the bedside. We will continue to follow the patient, make recommendations along the way. All labs, x-rays, and medications have been reviewed. Dictation was produced using [employer] software. Please excuse any grammatical, word or spelling errors. Time with Patient: Less than 30
--- NOTE | 2024-11-18 12:14 | P.PN ---
Subjective Patient is seen for follow-up for acute kidney injury. Serum creatinine is about the same at 1.9 from 2.0 yesterday. Previous creatinine 1.3 on 09/14/2024. Currently off of IV fluids and diuretics. Patient states she is voiding well. Serum calcium was mildly elevated yesterday and is up to 11 today from 10.7 yesterday. Patient had been on Tums which were discontinued yesterday. Objective - Vital Signs Vital signs: Vital Signs Temp 97.7 F 11/18/24 04:00 Pulse 69 11/18/24 04:00 Resp 19 11/18/24 04:00 BP 108/67 11/18/24 04:00 Pulse Ox 90 L 11/18/24 07:48 FiO2 Intake & Output 11/17/24 11/18/24 11/18/24 18:59 06:59 18:59 Intake Total 960 360 Balance 960 360 Weight 90.9 kg Intake: Oral 960 360 Other: Voiding Method Toilet Toilet # Voids 1 3 - Exam Patient is awake, comfortable, no acute distress Examination of the heart S1 and S2 Examination of the lungs bilateral breath sounds are heard Abdomen is soft nontender Examination of lower extremities shows no significant edema VEGETABLE GROWER exam grossly intact - Labs CBC & Chem 7: 11/18/24 06:37 11/18/24 06:37 Labs: Abnormal Lab Results - Last 24 Hours (Table) 11/17/24 11/17/24 11/17/24 Range/Units 06:46 16:16 20:05 WBC (4.50-10.00) 10*3/uL RBC (4.40-5.60) 10*6/uL MCH (27.0-32.0) pg Plt Count (140-440) 10*3/uL Immature Gran # (0.00-0.04) 10*3/uL Neutrophils # (1.80-7.70) 10*3/uL Eosinophils # (0.04-0.35) 10*3/uL Sodium (137-145) mmol/L Potassium (3.5-5.1) mmol/L BUN (9-20) mg/dL Creatinine (0.66-1.25) mg/dL Glucose (74-99) mg/dL POC Glucose (mg/dL) 170 H 161 H (70-110) mg/dL Calcium (8.4-10.2) mg/dL Procalcitonin 1.44 H (0.02-0.50) ng/mL 11/18/24 11/18/24 11/18/24 Range/Units 05:53 06:37 06:37 WBC 11.13 H (4.50-10.00) 10*3/uL RBC 5.63 H (4.40-5.60) 10*6/uL MCH 26.3 L (27.0-32.0) pg Plt Count 568 H (140-440) 10*3/uL Immature Gran # 0.09 H (0.00-0.04) 10*3/uL Neutrophils # 9.08 H (1.80-7.70) 10*3/uL Eosinophils # 0.00 L (0.04-0.35) 10*3/uL Sodium 135 L (137-145) mmol/L Potassium 5.4 H (3.5-5.1) mmol/L BUN 49 H (9-20) mg/dL Creatinine 1.96 H (0.66-1.25) mg/dL Glucose 128 H (74-99) mg/dL POC Glucose (mg/dL) 119 H (70-110) mg/dL Calcium 11.1 H (8.4-10.2) mg/dL Procalcitonin (0.02-0.50) ng/mL 11/18/24 Range/Units 11:09 WBC (4.50-10.00) 10*3/uL RBC (4.40-5.60) 10*6/uL MCH (27.0-32.0) pg Plt Count (140-440) 10*3/uL Immature Gran # (0.00-0.04) 10*3/uL Neutrophils # (1.80-7.70) 10*3/uL Eosinophils # (0.04-0.35) 10*3/uL Sodium (137-145) mmol/L Potassium (3.5-5.1) mmol/L BUN (9-20) mg/dL Creatinine (0.66-1.25) mg/dL Glucose (74-99) mg/dL POC Glucose (mg/dL) 137 H (70-110) mg/dL Calcium (8.4-10.2) mg/dL Procalcitonin (0.02-0.50) ng/mL Microbiology - Last 24 Hours (Table) 11/14/24 20:33 Blood Culture - Preliminary Blood Assessment and Plan Assessment: 1. Acute kidney injury, ATN and associated with mild hypercalcemia and recent diuresis. Rule out urine retention. Check UA and ultrasound of the kidneys. Continue off of [place] inhibitors. Currently off of IV fluids and diuretics. 2. Mild hyperkalemia associated with acute kidney injury, rule out urine retention. 3. Metastatic liver cancer with worsening metastasis in the lungs 4. Hypercalcemia, patient was maintained on calcium supplements which are now discontinued. Vitamin D will be held as well as calcium has increased further today. Plan: Check bladder scan Follow-up on UA and ultrasound of the kidneys DC vitamin D Check intact PTH, 1-25 hydroxy vitamin D and 25-hydroxy vitamin D level Repeat labs in a.m. Accurate I's and O's Continue off of IV fluids and diuretics for now. Does not appear to be in overt heart failure.
--- NOTE | 2024-11-18 12:49 | PN ---
PROGRESS NOTE DATE OF SERVICE: 11/17/2024 SUBJECTIVE: This 79-year-old gentleman, admitted with shortness of breath with possible bilateral pneumonia, is being closely monitored. No chest pain. No palpitation. The patient is on broad-spectrum IV antibiotics. PHYSICAL EXAMINATION: VITAL SIGNS: Pulse is 69, blood pressure 115/64, and respirations 18. HEENT: Conjunctivae normal. NECK: No JVD. CARDIOVASCULAR: S1 and S2. RESPIRATION: Breath sounds diminished at the bases. A few scattered rhonchi. ABDOMEN: Soft. NERVOUS SYSTEM: Nonfocal. LABORATORY DATA: Reviewed. 2D echo was reviewed, shows normal LV function. ASSESSMENT: 1. Shortness of breath, possible bilateral pneumonia, gram-negative in nature with immunosuppressed patient. 2. Possible congestive heart failure on presentation. 3. Troponin 0.835, rule out acute [id number]-elevation myocardial infarction. 4. Liver cancer, on chemotherapy. 5. Skin lesions. 6. Hyponatremia. 7. Elevated LFTs. 8. History of atrial fibrillation. 9. History of coronary artery disease, stent. 10.History of pulmonary embolus. 11.Sleep apnea. RECOMMENDATIONS AND DISCUSSION: Recommend to continue current management and repeat labs. Continue the empiric antibiotics. Closely monitor with multiple consultants. Prognosis guarded. Further recommendations to follow. MMODL / IJN: [id number] /
--- NOTE | 2024-11-18 13:40 | US ---
EXAMINATION TYPE: US kidneys/renal and bladder DATE OF EXAM: 11/18/2024 COMPARISON: 02/06/2024 CLINICAL INDICATION: Male, 79 years old with history of byron; New recent diagnosis of liver cancer. TECHNIQUE: Grayscale imaging of the bilateral kidneys and urinary bladder: FINDINGS: EXAM MEASUREMENTS: Right Kidney: 11.8 x 5.8 x 4.7 cm Left Kidney: 12.4 x 5.5 x 6.0 cm Post Void Residual Volume: NA mL Right Kidney: wnl, no evidence for hydronephrosis, mass or renal calculus. Simple cystic area seen la teral to kidney Left Kidney: wnl, no evidence for hydronephrosis, mass or renal calculus. Multiple cystic areas seen Bladder: wnl Bilateral Jets seen: No Normal Post Void Residual: NA No hydronephrosis or nephrolithiasis. Abdominal aorta appears to be aneurysmal measuring up to 4.4 x [address] scan. IMPRESSION: 1. No hydronephrosis or nephrolithiasis. Bilateral renal cysts with a simple cystic area seen. 2. There is a cystic structure laterally right kidney measuring 7.9 cm. This is stable compared to PE T CT scan. 3. Bladder limited by incomplete distention. 4. Abdominal aortic aneurysm measuring 4.4 x 6 cm by ultrasound. [facility], , 11/18/2024 1:38 PM
[2024-11-18 16:28] LABS: Glucose,Whole Blood 164 mg/dL (70-110)
[2024-11-18 17:12] LABS: Bilirubin,Urine Negative (Negative); Blood,Urine Negative (Negative); Color,Urine Yellow; Glucose,Urine (UA) 3+ (Negative); Ketones,Urine Negative (Negative); Leukocyte Esterase,Urine Negative (Negative); Nitrite,Urine Negative (Negative); PH, Urine 5.5 (5.0-8.0); Protein,Urine Trace (Negative); Specific Gravity,Urine 1.023 (1.001-1.035); Urobilinogen,Urine <2.0 mg/dL (<2.0)
[2024-11-18] MEDS: FLUCONAZOLE 100 MG TAB PO SCH (18:11)
[2024-11-18 19:18] LABS: Glucose,Whole Blood 207 mg/dL (70-110)
--- NOTE | 2024-11-18 19:50 | PN ---
PROGRESS NOTE DATE OF SERVICE: 11/18/2024 SUBJECTIVE: A 79-year-old gentleman admitted with shortness of breath with possible bilateral pneumonia with immunosuppression, also had Felicita albicans grown from the sputum. No chest pain. No palpitation. OBJECTIVE: VITAL SIGNS: Pulse is 77, blood pressure 127/78, respirations 18. CHEST: Few scattered rhonchi. ABDOMEN: Soft. NERVOUS SYSTEM: Nonfocal. LABORATORY DATA: Reviewed. ASSESSMENT: 1. Shortness of breath with possible bilateral pneumonia, gram-negative in nature, with immunosuppressed patient. 2. Possible congestive heart failure on presentation. 3. Troponin 0.835, rule out acute [id number]-[id number]-elevation myocardial infarction. 4. Liver cancer, on chemotherapy. 5. Skin lesion. 6. Hyponatremia. 7. Elevated LFT. 8. History of atrial fibrillation. 9. History of coronary artery disease, stent. 10.History of pulmonary embolism. 11.Sleep apnea. RECOMMENDATIONS: Recommend to continue current management and repeat labs. Otherwise, I would recommend repeat chest x-ray. Monitor renal functions closely. Repeat labs. Guarded prognosis. Further recommendations to follow. MMODL / IJN: [id number] /
--- NOTE | 2024-11-18 21:39 | P.PN ---
Subjective Progress Note Date: 11/18/24 Principal diagnosis: Hypoxia, pneumonia. Primary liver carcinoma In f/u today pt reports he is SOB on exertion, recovers quickly, he is tolerating oral intake, no other physical c/o today Objective - Vital Signs Vital signs: Vital Signs Temp 97.5 F L 11/18/24 20:00 Pulse 74 11/18/24 20:00 Resp 18 11/18/24 20:00 BP 127/66 11/18/24 20:00 Pulse Ox 92 L 11/18/24 20:00 FiO2 Intake & Output 11/18/24 11/18/24 11/19/24 06:59 18:59 06:59 Intake Total 1080 120 Output Total 5 Balance 1075 120 Weight 90.9 kg Intake: Oral 1080 120 Output: Post Void Residual 5 Other: Voiding Method Toilet Toilet Toilet # Voids 3 1 2 # Bowel Movements 1 - Constitutional General appearance: Present: average body habitus, cooperative, no acute distress - EENT Eyes: Present: anicteric sclerae, EOMI ENT: Present: hearing grossly normal - Respiratory Details: resp unlabored at rest - Cardiovascular Rhythm: regular - Peripheral edema leg Peripheral Edema: bilateral: None - Integumentary Integumentary: Present: normal - Neurologic Neurologic: Present: CNII-XII intact - Musculoskeletal Musculoskeletal: Present: strength equal bilaterally - Psychiatric Psychiatric: Present: A&O x's 3, appropriate affect, intact judgment & insight - Labs CBC & Chem 7: 11/18/24 06:37 11/18/24 06:37 Labs: Abnormal Lab Results - Last 24 Hours (Table) 11/18/24 11/18/24 11/18/24 Range/Units 05:53 06:37 06:37 WBC 11.13 H (4.50-10.00) 10*3/uL RBC 5.63 H (4.40-5.60) 10*6/uL MCH 26.3 L (27.0-32.0) pg Plt Count 568 H (140-440) 10*3/uL Immature Gran # 0.09 H (0.00-0.04) 10*3/uL Neutrophils # 9.08 H (1.80-7.70) 10*3/uL Eosinophils # 0.00 L (0.04-0.35) 10*3/uL Sodium 135 L (137-145) mmol/L Potassium 5.4 H (3.5-5.1) mmol/L BUN 49 H (9-20) mg/dL Creatinine 1.96 H (0.66-1.25) mg/dL Glucose 128 H (74-99) mg/dL POC Glucose (mg/dL) 119 H (70-110) mg/dL Calcium 11.1 H (8.4-10.2) mg/dL Vitamin D 25-Hydroxy (30.0-100.0) ng/mL PTH Intact (14.0-72.0) pg/mL Urine Protein (Negative) Urine Glucose (UA) (Negative) 11/18/24 11/18/24 11/18/24 Range/Units 06:37 06:37 11:09 WBC (4.50-10.00) 10*3/uL RBC (4.40-5.60) 10*6/uL MCH (27.0-32.0) pg Plt Count (140-440) 10*3/uL Immature Gran # (0.00-0.04) 10*3/uL Neutrophils # (1.80-7.70) 10*3/uL Eosinophils # (0.04-0.35) 10*3/uL Sodium (137-145) mmol/L Potassium (3.5-5.1) mmol/L BUN (9-20) mg/dL Creatinine (0.66-1.25) mg/dL Glucose (74-99) mg/dL POC Glucose (mg/dL) 137 H (70-110) mg/dL Calcium (8.4-10.2) mg/dL Vitamin D 25-Hydroxy 101.0 H (30.0-100.0) ng/mL PTH Intact 10.3 L (14.0-72.0) pg/mL Urine Protein (Negative) Urine Glucose (UA) (Negative) 11/18/24 11/18/24 11/18/24 Range/Units 16:27 16:28 19:16 WBC (4.50-10.00) 10*3/uL RBC (4.40-5.60) 10*6/uL MCH (27.0-32.0) pg Plt Count (140-440) 10*3/uL Immature Gran # (0.00-0.04) 10*3/uL Neutrophils # (1.80-7.70) 10*3/uL Eosinophils # (0.04-0.35) 10*3/uL Sodium (137-145) mmol/L Potassium (3.5-5.1) mmol/L BUN (9-20) mg/dL Creatinine (0.66-1.25) mg/dL Glucose (74-99) mg/dL POC Glucose (mg/dL) 164 H 207 H (70-110) mg/dL Calcium (8.4-10.2) mg/dL Vitamin D 25-Hydroxy (30.0-100.0) ng/mL PTH Intact (14.0-72.0) pg/mL Urine Protein Trace H (Negative) Urine Glucose (UA) 3+ H (Negative) Microbiology - Last 24 Hours (Table) 11/16/24 17:40 Gram Stain - Preliminary Sputum Sputum Culture - Preliminary Felicita albicans 11/14/24 20:33 Blood Culture - Preliminary Blood - Imaging and Cardiology US - abdomen: report reviewed Assessment and Plan (1) Hypoxia Current Visit: Yes Status: Acute Priority: High Code(s): R09.02 - HYPOXEMIA SNOMED Code(s): 697652000 (2) Hepatocellular carcinoma Current Visit: Yes Status: Chronic Priority: Medium Code(s): C22.0 - LIVER CELL CARCINOMA SNOMED Code(s): 845593257 (3) Thrombocythemia Current Visit: Yes Status: Chronic Priority: Medium Code(s): D47.3 - ESSENTIAL (HEMORRHAGIC) THROMBOCYTHEMIA SNOMED Code(s): 1309431 Plan: Hypoxia -Admitting c/o -Cardiology following for possible CHF, ECHO done, LVEF 55-60%. Pt cont on xarelto for a-fib -Pulmonary following, treating for pneumonia -Resp status improved with lasix, abx and steroids. HCC -S/P 1st 2 cycles of treatment -[place] that progression reported on imaging reflective of pseudo-progression, as can be the case early in immunotherapy treatment -Pneumonitis vs CHF vs pneumonia. Pt has been diruesed, he has been receiving antibiotics and he has had steroids. He cont to do well as he is tapered off steroids, more than likely not IO induced pneumonitis. Will cont to follow and see how pt hospital course evolves -AFP >47,5000-no specific number, same as previously reported Reactive thrombocytosis -Persistent today, monitor for now
[2024-11-19 05:26] LABS: Glucose,Whole Blood 129 mg/dL (70-110)
[2024-11-19 07:17] LABS: Basophils # (A) 0.01 10*3/uL (0.00-0.10); Basophils % (A) 0.1 %; Eosinophils # (A) 0.00 10*3/uL (0.04-0.35); Eosinophils % (A) 0.0 %; HCT 45.1 % (39.6-50.0); HGB 14.6 g/dL (13.0-17.0); Lymphocytes # (A) 1.08 10*3/uL (0.90-5.00); Lymphocytes % (A) 11.2 %; MCH 26.4 pg (27.0-32.0); MCHC 32.4 g/dL (32.0-37.0); MCV 81.7 fL (80.0-97.0); Monocytes # (A) 0.60 10*3/uL (0.20-1.00); Monocytes % (A) 6.2 %; Neutrophils # (A) 7.90 10*3/uL (1.80-7.70); Neutrophils % (A) 81.9 %; Platelet Count 513 10*3/uL (140-440); RBC 5.52 10*6/uL (4.40-5.60); RDW 21.6 % (11.5-14.5); WBC 9.65 10*3/uL (4.50-10.00)
[2024-11-19 08:08] LABS: ALT 98 U/L (4-49); AST 418 U/L (17-59); African American GFR (CKD) 34 (>60 ml/min/1.73 sqM); Albumin 2.7 g/dL (3.5-5.0); Alkaline Phosphatase 320 U/L (38-126); Anion Gap 8 mmol/L; Blood Urea Nitrogen 49 mg/dL (9-20); Calcium 10.7 mg/dL (8.4-10.2); Carbon Dioxide 24 mmol/L (22-30); Chloride 103 mmol/L (98-107); Glucose 127 mg/dL (74-99); Non-African American GFR(CKD) 30 (>60 ml/min/1.73 sqM); Potassium 5.5 mmol/L (3.5-5.1); Sodium 135 mmol/L (137-145); Total Protein 5.5 g/dL (6.3-8.2)
--- NOTE | 2024-11-19 08:42 | XR ---
EXAMINATION TYPE: XR chest 1V portable DATE OF EXAM: 11/19/2024 7:43 AM COMPARISON: 11/16/2024 CLINICAL INDICATION: Male, 79 years old with history of chf, TECHNIQUE: XR chest 1V portable views of the chest are obtained. FINDINGS: Demonstrated are scattered senescent parenchymal change. Scattered patchy infiltrates with interval improvement suggested. The heart is stable. Hilar and mediastinal structures are within normal limits. Degenerative changes are seen of the dorsal spine. IMPRESSION: 1. Scattered patchy infiltrates with interval improvement suggested. [facility], , 11/19/2024 8:39 AM
--- NOTE | 2024-11-19 10:28 | P.PN ---
Subjective Patient is seen in follow-up for acute kidney injury on chronic kidney disease. Renal function stable. Tolerating oral intake. Admits to good urine output. No active complaints. Vital signs are stable. General: No acute distress. HEENT: Head exam is unremarkable. LUNGS: No audible rhonchi or wheezes. HEART: Rate and Rhythm are regular. ABDOMEN: Non-tender. EXTREMITITES: No edema. Objective - Vital Signs Vital signs: Vital Signs Temp 97.7 F 11/19/24 08:06 Pulse 69 11/19/24 08:06 Resp 14 11/19/24 08:06 BP 119/63 11/19/24 08:06 Pulse Ox 94 L 11/19/24 08:06 FiO2 Intake & Output 11/18/24 11/19/24 11/19/24 18:59 06:59 18:59 Intake Total 1080 120 120 Output Total 5 Balance 1075 120 120 Weight 90.7 kg Intake: IV 10 Invasive Line 1 10 Oral 1080 120 110 Output: Post Void Residual 5 Other: Voiding Method Toilet Toilet Toilet # Voids 1 2 # Bowel Movements 1 1 - Labs CBC & Chem 7: 11/19/24 05:40 11/19/24 05:40 Labs: Abnormal Lab Results - Last 24 Hours (Table) 11/18/24 11/18/24 11/18/24 Range/Units 06:37 06:37 11:09 MCH (27.0-32.0) pg Plt Count (140-440) 10*3/uL Immature Gran # (0.00-0.04) 10*3/uL Neutrophils # (1.80-7.70) 10*3/uL Eosinophils # (0.04-0.35) 10*3/uL Sodium (137-145) mmol/L Potassium (3.5-5.1) mmol/L BUN (9-20) mg/dL Creatinine (0.66-1.25) mg/dL Glucose (74-99) mg/dL POC Glucose (mg/dL) 137 H (70-110) mg/dL Calcium (8.4-10.2) mg/dL AST (17-59) U/L ALT (4-49) U/L Alkaline Phosphatase (38-126) U/L Total Protein (6.3-8.2) g/dL Albumin (3.5-5.0) g/dL Vitamin D 25-Hydroxy 101.0 H (30.0-100.0) ng/mL PTH Intact 10.3 L (14.0-72.0) pg/mL Urine Protein (Negative) Urine Glucose (UA) (Negative) 11/18/24 11/18/24 11/18/24 Range/Units 16:27 16:28 19:16 MCH (27.0-32.0) pg Plt Count (140-440) 10*3/uL Immature Gran # (0.00-0.04) 10*3/uL Neutrophils # (1.80-7.70) 10*3/uL Eosinophils # (0.04-0.35) 10*3/uL Sodium (137-145) mmol/L Potassium (3.5-5.1) mmol/L BUN (9-20) mg/dL Creatinine (0.66-1.25) mg/dL Glucose (74-99) mg/dL POC Glucose (mg/dL) 164 H 207 H (70-110) mg/dL Calcium (8.4-10.2) mg/dL AST (17-59) U/L ALT (4-49) U/L Alkaline Phosphatase (38-126) U/L Total Protein (6.3-8.2) g/dL Albumin (3.5-5.0) g/dL Vitamin D 25-Hydroxy (30.0-100.0) ng/mL PTH Intact (14.0-72.0) pg/mL Urine Protein Trace H (Negative) Urine Glucose (UA) 3+ H (Negative) 11/19/24 11/19/24 11/19/24 Range/Units 05:25 05:40 05:40 MCH 26.4 L (27.0-32.0) pg Plt Count 513 H (140-440) 10*3/uL Immature Gran # 0.06 H (0.00-0.04) 10*3/uL Neutrophils # 7.90 H (1.80-7.70) 10*3/uL Eosinophils # 0.00 L (0.04-0.35) 10*3/uL Sodium 135 L (137-145) mmol/L Potassium 5.5 H (3.5-5.1) mmol/L BUN 49 H (9-20) mg/dL Creatinine 2.07 H (0.66-1.25) mg/dL Glucose 127 H (74-99) mg/dL POC Glucose (mg/dL) 129 H (70-110) mg/dL Calcium 10.7 H (8.4-10.2) mg/dL AST 418 H (17-59) U/L ALT 98 H (4-49) U/L Alkaline Phosphatase 320 H (38-126) U/L Total Protein 5.5 L (6.3-8.2) g/dL Albumin 2.7 L (3.5-5.0) g/dL Vitamin D 25-Hydroxy (30.0-100.0) ng/mL PTH Intact (14.0-72.0) pg/mL Urine Protein (Negative) Urine Glucose (UA) (Negative) Microbiology - Last 24 Hours (Table) 11/16/24 17:40 Gram Stain - Final Sputum Sputum Culture - Final Felicita albicans Assessment and Plan Plan: Assessment: 1. Acute kidney injury secondary to ATN secondary to hypercalcemia and diures is. UA benign. No hydronephrosis noted on kidney ultrasound. Renal function fairly stable. 2. Hyperkalemia secondary to acute kidney injury. Stable. 3. Metastatic liver cancer. 4. Hypercalcemia secondary to Tums and vitamin D supplementation. Also possible component of hypercalcemia of malignancy. PTH appropriately suppressed. Vitamin D level elevated at 101. Rest of the workup is still pending. 5. Chronic kidney disease stage IIIa with baseline creatinine 1.3-1.5 secondary to diabetic kidney disease. 6. Diabetes mellitus. 7. Bilateral renal cyst. Stable from prior imaging. Consider urology eval outpatient. Plan: Changed to low potassium diet. Add Lokelma daily for the next 3 days. Follow-up pending workup for hypercalcemia. Tums and vitamin D discontinued. Repeat BMP and magnesium level 2 to 3 days postdischarge. Follow-up outpatient 1 week postdischarge.
[2024-11-19 11:11] LABS: Glucose,Whole Blood 114 mg/dL (70-110)
[2024-11-19] MEDS: SODIUM ZIRCONIUM CYCLOSILICATE 10 GM PACKET PO SCH (11:52)
--- NOTE | 2024-11-19 11:52 | P.PN ---
Subjective Progress Note Date: 11/19/24 Principal diagnosis: Respiratory failure. This is a pleasant 79-year-old male patient with a known history of obstructive sleep apnea maintained on CPAP, diabetes mellitus, coronary artery bypass grafting, previous stent placement, very remote smoker, chronic back pain, atrial fibrillation anticoagulated with Xarelto. 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 He is being followed by medical oncology. He was initiated on immunotherapy. To the emergency room last evening with a 2 to 3-day history of increasing shortness of breath, cough congestion. Brown productive sputum. He was also having some chills on and off. Some nausea. No vomiting or diarrhea. He states he has lost 60 pounds in the past 2 months. Chest x-ray reveals patchy infiltrates throughout both lungs suspicious for pneumonia. White count 8.7. Hemoglobin 13.9. Platelets 452. INR 1.3. Sodium 130. Potassium 5.4. Bicarb 18. BUN 39. Creatinine 1.88. AST 523. ALT 70. Troponin 0.786, 0.756, 0.835. proBNP 8300. Viral screen negative for influenza A/B, RSV and COVID. He is maintaining good O2 saturations in the 90s on 2 L/min per nasal cannula. He has been afebrile. Hemodynamically stable. He is seen today in consultation in the emergency department. He is currently sitting up in a chair at the bedside having breakfast. Denies any worsening shortness of breath, cough or congestion. Still with productive sputum. Feeling about the same today compared to yesterday. Patient was seen today on 11/16/2024, patient has no active pulmonary symptoms, he is on 3 L nasal cannula O2 sat is 95%, has some vague abdominal pain sp ecially in the right lower quadrant and right upper quadrant area, patient remains on antibiotics for his presumptive pneumonia although the possibility of pneumonitis related to his immunotherapy is not entirely ruled out, and I went ahead today and added steroids. Follow-up chest x-ray showed scattered patchy infiltrates bilaterally seems to be even a bit worse compared to the chest x-ray on admission. No leukocytosis hemoglobin is normal electrolytes are normal BUN is 42 creatinine 2.10 liver enzymes are quite abnormal related to his underlying liver cancer. Progress note dated November 17, 2024. 79-year-old male, seen in consultation a few days ago. The patient was admitted with a diagnosis of possible pneumonia. The patient is currently on 2 L of oxygen. He is getting Zosyn, and has an echocardiogram planned. He is getting saline at 10 cc an hour. We have ordered a procalcitonin level. His chest x- ray is consistent with either diffuse bilateral pneumonia, or heart failure, or both. The patient's labs are reviewed. White count of 6, hemoglobin 14.4, hematocrit 44.6, platelet count 504,000. Glucose 133, potassium 5.3, chlorides 100, CO2 23, BUN 44, creatinine 2.06. Glucose is 157. Alpha-fetoprotein tumor marker was 47,500. Calcium was 10.7. AST 376. Sputum and blood sampling is thus far negative. Chest x-ray, from yesterday, shows diffuse bilateral patchy infiltrates, potentially consistent with pneumonia. His laboratory data, on day of admission, November 14, shows an N-terminal proBNP at 8300. In addition, troponins were 0.756, and 0.835. Progress note dated November 18, 2024. 79-year-old male seen today in room 351. The patient was admitted with a diagno sis of acute respiratory failure secondary to CHF, and pneumonia. His procalcitonin level was elevated at 1.44. He is on Zosyn. His ejection fraction was okay. He is on room air, with saturations of 90 to 92%. On 1 L, he is 93 to 94%. The patient is in laying in bed. He is awake and alert. He does feel better. Current labs include a white count 11.1, hemoglobin 14.8, hematocrit 45.8, platelet count 568,000. Sodium 135, potassium 5.4, chlorides 104, CO2 23, BUN 49, creatinine 1.96. Anion gap is normal at 8. Glucose is 137. Calcium 11.1. Blood and sputum sampling is negative. No recent chest x- ray to report. Progress note dated November 19, 2024. 79-year-old male seen today in room 351. He is resting comfortably in bed. He is awake and alert. is at the bedside. He is on room air. He is not receiving any IV fluids. The patient's Zosyn will be changed to Augmentin. We change his Solu-Medrol to a Medrol Dosepak. Clinically, from the pulmonary standpoint, the patient can be discharged. We think he should stay on the Augmentin for 4 days total. Current labs include a white count 9.7, hemoglobin 14.6, hematocrit 45.1, and a platelet count of 513,000. Sodium 135, potassium 5.5, chlorides 103, CO2 24, BUN 49, creatinine 2.07. Glucose 114. Albumin is 2.7. Chest x-ray shows scattered patchy infiltrates, with interval improvement. Cultures are essentially negative. Objective - Vital Signs Vital signs: Vital Signs Temp 97.7 F 11/19/24 08:06 Pulse 69 11/19/24 08:06 Resp 14 11/19/24 08:06 BP 119/63 11/19/24 08:06 Pulse Ox 94 L 11/19/24 08:06 FiO2 Intake & Output 11/18/24 11/19/24 11/19/24 18:59 06:59 18:59 Intake Total 1080 120 120 Output Total 5 250 Balance 1075 120 -130 Weight 90.7 kg Intake: IV 10 Invasive Line 1 10 Oral 1080 120 110 Output: Urine 250 Post Void Residual 5 Other: Voiding Method Toilet Toilet Toilet # Voids 1 2 2 # Bowel Movements 1 1 - Exam No acute distress, oriented 3. Currently on room air. No respiratory distress. HEENT examination is grossly unremarkable. Mucous membranes are moist. No oral lesions. Neck supple. Full range of motion. No adenopathy thyromegaly or neck vein distention. Cardiovascular examination reveals regular rhythm rate. S1-S2 normal. No S3 or S4. No discernible murmur noted. Lungs reveal basilar crackles. No wheezes or rhonchi. Breath sounds equal bilaterally. Abdomen soft bowel sounds are heard. No masses or tenderness. Extremities are intact. No cyanosis clubbing or edema. Skin is without rash or lesion. Neurologic examination is brief but nonfocal. - Labs CBC & Chem 7: 11/19/24 05:40 11/19/24 05:40 Labs: Abnormal Lab Results - Last 24 Hours (Table) 11/18/24 11/18/24 11/18/24 Range/Units 06:37 06:37 16:27 MCH (27.0-32.0) pg Plt Count (140-440) 10*3/uL Immature Gran # (0.00-0.04) 10*3/uL Neutrophils # (1.80-7.70) 10*3/uL Eosinophils # (0.04-0.35) 10*3/uL Sodium (137-145) mmol/L Potassium (3.5-5.1) mmol/L BUN (9-20) mg/dL Creatinine (0.66-1.25) mg/dL Glucose (74-99) mg/dL POC Glucose (mg/dL) 164 H (70-110) mg/dL Calcium (8.4-10.2) mg/dL AST (17-59) U/L ALT (4-49) U/L Alkaline Phosphatase (38-126) U/L Total Protein (6.3-8.2) g/dL Albumin (3.5-5.0) g/dL Vitamin D 25-Hydroxy 101.0 H (30.0-100.0) ng/mL PTH Intact 10.3 L (14.0-72.0) pg/mL Urine Protein (Negative) Urine Glucose (UA) (Negative) 11/18/24 11/18/24 11/19/24 Range/Units 16:28 19:16 05:25 MCH (27.0-32.0) pg Plt Count (140-440) 10*3/uL Immature Gran # (0.00-0.04) 10*3/uL Neutrophils # (1.80-7.70) 10*3/uL Eosinophils # (0.04-0.35) 10*3/uL Sodium (137-145) mmol/L Potassium (3.5-5.1) mmol/L BUN (9-20) mg/dL Creatinine (0.66-1.25) mg/dL Glucose (74-99) mg/dL POC Glucose (mg/dL) 207 H 129 H (70-110) mg/dL Calcium (8.4-10.2) mg/dL AST (17-59) U/L ALT (4-49) U/L Alkaline Phosphatase (38-126) U/L Total Protein (6.3-8.2) g/dL Albumin (3.5-5.0) g/dL Vitamin D 25-Hydroxy (30.0-100.0) ng/mL PTH Intact (14.0-72.0) pg/mL Urine Protein Trace H (Negative) Urine Glucose (UA) 3+ H (Negative) 11/19/24 11/19/24 11/19/24 Range/Units 05:40 05:40 11:10 MCH 26.4 L (27.0-32.0) pg Plt Count 513 H (140-440) 10*3/uL Immature Gran # 0.06 H (0.00-0.04) 10*3/uL Neutrophils # 7.90 H (1.80-7.70) 10*3/uL Eosinophils # 0.00 L (0.04-0.35) 10*3/uL Sodium 135 L (137-145) mmol/L Potassium 5.5 H (3.5-5.1) mmol/L BUN 49 H (9-20) mg/dL Creatinine 2.07 H (0.66-1.25) mg/dL Glucose 127 H (74-99) mg/dL POC Glucose (mg/dL) 114 H (70-110) mg/dL Calcium 10.7 H (8.4-10.2) mg/dL AST 418 H (17-59) U/L ALT 98 H (4-49) U/L Alkaline Phosphatase 320 H (38-126) U/L Total Protein 5.5 L (6.3-8.2) g/dL Albumin 2.7 L (3.5-5.0) g/dL Vitamin D 25-Hydroxy (30.0-100.0) ng/mL PTH Intact (14.0-72.0) pg/mL Urine Protein (Negative) Urine Glucose (UA) (Negative) Microbiology - Last 24 Hours (Table) 11/16/24 17:40 Gram Stain - Final Sputum Sputum Culture - Final Felicita albicans Assessment and Plan Assessment: Acute hypoxemic respiratory failure, secondary to CHF, as well as pneumonia. Acute kidney injury. Troponin leak, versus non-ST segment elevation myocardial infarction. Transaminitis. Stage IV liver cancer. Significant weight loss, of 60 pounds. History of CAD with previous stent placement, and subsequent CABG, 2013. Sleep apnea syndrome, maintained on CPAP. Diabetes mellitus. Chronic back pain. Atrial fibrillation. Remote history of tobacco use. Plan: Plan dated November 17, 2024. The patient is seen today in room 351. He is resting comfortably in bed. His is at the bedside and provides some of the history. The patient continues on 2 L. He is on Zosyn empirically for possible pneumonia. He is scheduled to have echocardiogram. He is getting saline at 10 cc an hour. Will check a procalcitonin level. If normal, my inclination would be to stop the Zosyn. Labs, x-rays, and all medications are reviewed. We will continue to follow the patient, make recommendations. Prognosis is guarded. Plan dated November 18, 2024. The patient is seen today in room 351. The patient is currently on room air. Saturations are excellent. His procalcitonin level was elevated at 1.44. He continues on Zosyn. The results of the echocardiogram were reviewed. The patient does feel better. He is awake and alert. No distress. His is at the bedside. We will continue to follow the patient, make recommendations along the way. All labs, x-rays, and medications have been reviewed. Dictation was produced using [employer] software. Please excuse any grammatical, word or spelling errors. Plan dated November 19, 2024. The patient is doing well. He continues on room air. His respiratory status is stable. From the pulmonary standpoint, the patient could be considered for discharge. His chest x-ray is improved. His Solu-Medrol is converted to a Medrol Dosepak. We discontinue his Zosyn in favor of Augmentin, for 4 more days. All labs, x-rays, and medications are reviewed. Clinically, the patient is doing very well. He is awake and alert. He is laying in bed. No respiratory difficulty or distress. Dictation was produced using [employer] software. Please excuse any grammatical, word or spelling errors. Time with Patient: Less than 30
[2024-11-19 11:58] VITALS: BP 137/72; PULSE 93; RESP 18; TEMP 97.9
--- NOTE | 2024-11-19 13:14 | P.PN ---
Subjective Progress Note Date: 11/19/24 HISTORY OF PRESENT ILLNESS: This is a 79-year-old male with a past medical history significant for coronary artery disease with previous stenting and subsequent CABG, paroxysmal atrial fibrillation, hypertension, hyperlipidemia, carotid stenosis, AAA, and stage IV liver cancer. Patient follows in the office with Dr. Mcfadden. We have been asked to see the patient in consultation for CHF. Patient examined at the bedside in the emergency room. Patient's family is present. Feeling members give history that patient has stage IV liver cancer that is currently being treated by Dr. Mayfield. Patient underwent his second immunotherapy treatment last . His pain medications were switched from Levasy to morphine due to the Tylenol and the Levasy. He was then switched from morphine to OxyContin and patient's member states since that time he has not been acting normal. She states that he is acting " spacey". Feeling member states that he has been complaining of shortness of breath for the past few days and does have a history of pneumonia which concerned them so they brought him to the hospital for further evaluation. The patient currently denies having any chest pain or pressure. He was started on IV antibiotics. Vital signs are stable. DIAGNOSTICS: - EKG reveals sinus mechanism with no signs of acute ischemia. - Chest xray patchy infiltrates throughout both lung la suspicious for pneumonia - Laboratory data: WBC 9.13. Hemoglobin 14.7. Platelet count 460. D-dimer 0.68. Sodium 130. Potassium 5.4. BUN 39. Creatinine 1.88. AST 523. ALT 70. Alkaline phosphatase 370. Troponin 0.786. 0.756. 0.835. proBNP 8300. - Current home cardiac medications include lisinopril 5 mg twice a day, carvedilol 12.5 mg twice a day, amlodipine 5 mg daily, Xarelto 20 mg at night, Zetia 10 mg daily, Farxiga 10 mg daily. - Most recent echocardiogram obtained in February 2024 revealed ejection fraction 45%, mild AR, mild -Patient underwent Lexiscan stress test in December 2023 revealing moderate inferior lateral ischemia Progress note 11/16/2024 Seen and examined at bedside this a.m. Creatinine is 2.18. Still higher than the baseline Does report that he did eat some food. BP 118/65, few readings low at 92/53, heart rate 67, Chest x-ray appears similar with fluffy infiltrates even after IV diuretics. 11/17/2024. Patient states his breathing is okay but shallow. No lower extremity edema. Echocardiogram is pending. Blood pressure 110/60, heart rate 70, pulse ox 93% on 2 L nasal cannula. Repeat blood work reveals WBC 6, hemoglobin 14.4, potassium 5.3, BUN 44 creatinine 2.06. Patient is not currently on diuretics. 11/18/2024 Patient seen and examined. Blood pressure 108/67, heart rate in the 60s and 70s, pulse ox 92% on 1 L nasal cannula. Echocardiogram reveals normal LV size and systolic function, mild mitral and tricuspid regurgitation, mild aortic stenosis. Lasix remains on hold. Patient is followed by nephrology. Morning labs are not available at the time of this dictation. 11/19/2024 Patient seen and examined. Patient states that he walked the hallway and did not experience any chest pain, no chest pain or chest pressure at this time, no shortness of breath. Blood pressure 119/63, heart rate 69, pulse ox 94% on room air. Patient is followed closely by nephrology. Renal function essentially unchanged with BUN 49 creatinine 2.07. Hemoglobin stable at 14.6. Liver function tests are elevated. Renal ultrasound reveals no hydronephrosis or nephrolithiasis. Cystic structure in the right kidney. Abdominal aortic aneurysm measuring 4.4 x 6 cm. Repeat chest x-ray obtained this morning reveals scattered patchy infiltrates with interval improvement suggested. PHYSICAL EXAM: VITAL SIGNS: Reviewed. GENERAL: Well-developed in no acute distress. HEENT: Head is normocephalic. Pupils are equal, round. Sclerae anicteric. Neck supple. No JVD or thyromegaly LUNGS: Respirations even and unlabored. Lungs clear to auscultation bilaterally. No rales no rhonchi. HEART: Regular rate and rhythm. S1 and S2 heard. No murmur. ABDOMEN: Soft. Nondistended. Nontender. EXTREMITIES: No clubbing or cyanosis. Peripheral pulses intact. No lower extremity edema NEUROLOGIC: Awake and alert. Oriented x 3. ASSESSMENT: Acute hypoxic respiratory failure requiring supplemental oxygen likely from Bilateral pneumonia Acute on chronic heart failure with mildly reduced EF, 45% OSMIN Stage IV liver cancer, on immunotherapy outpatient Transaminitis, secondary to above Elevated troponins, flat, type II SC secondary to oxygen supply/demand mismatch, no evidence of acute coronary syndrome Coronary artery disease with three-vessel CABG in 2013, GONZALEZ to LAD, SVG to OM, SVG to PDA Paroxysmal atrial fibrillation on Xarelto Hypertension Hyperlipidemia Carotid stenosis History of AAA PLAN: Continue home cardiac medications including carvedilol and Zetia Hold lisinopril, amlodipine, and Farxiga secondary to low blood pressures and OSMIN Kidney function worsened with Lasix. Will stop Not on statin therapy outpatient secondary to transaminitis and liver cancer Nurse practitioner note has been reviewed, I agree with documented findings and plan of care. Patient was seen and examined. Objective - Vital Signs Vital signs: Vital Signs Temp 97.7 F 11/19/24 08:06 Pulse 69 11/19/24 08:06 Resp 14 11/19/24 08:06 BP 119/63 11/19/24 08:06 Pulse Ox 94 L 11/19/24 08:06 FiO2 Intake & Output 11/18/24 11/19/24 11/19/24 18:59 06:59 18:59 Intake Total 1080 120 120 Output Total 5 Balance 1075 120 120 Weight 90.7 kg Intake: IV 10 Invasive Line 1 10 Oral 1080 120 110 Output: Post Void Residual 5 Other: Voiding Method Toilet Toilet Toilet # Voids 1 2 # Bowel Movements 1 1 - Labs CBC & Chem 7: 11/19/24 05:40 11/19/24 05:40 Labs: Abnormal Lab Results - Last 24 Hours (Table) 11/18/24 11/18/24 11/18/24 Range/Units 06:37 06:37 11:09 MCH (27.0-32.0) pg Plt Count (140-440) 10*3/uL Immature Gran # (0.00-0.04) 10*3/uL Neutrophils # (1.80-7.70) 10*3/uL Eosinophils # (0.04-0.35) 10*3/uL Sodium (137-145) mmol/L Potassium (3.5-5.1) mmol/L BUN (9-20) mg/dL Creatinine (0.66-1.25) mg/dL Glucose (74-99) mg/dL POC Glucose (mg/dL) 137 H (70-110) mg/dL Calcium (8.4-10.2) mg/dL AST (17-59) U/L ALT (4-49) U/L Alkaline Phosphatase (38-126) U/L Total Protein (6.3-8.2) g/dL Albumin (3.5-5.0) g/dL Vitamin D 25-Hydroxy 101.0 H (30.0-100.0) ng/mL PTH Intact 10.3 L (14.0-72.0) pg/mL Urine Protein (Negative) Urine Glucose (UA) (Negative) 11/18/24 11/18/24 11/18/24 Range/Units 16:27 16:28 19:16 MCH (27.0-32.0) pg Plt Count (140-440) 10*3/uL Immature Gran # (0.00-0.04) 10*3/uL Neutrophils # (1.80-7.70) 10*3/uL Eosinophils # (0.04-0.35) 10*3/uL Sodium (137-145) mmol/L Potassium (3.5-5.1) mmol/L BUN (9-20) mg/dL Creatinine (0.66-1.25) mg/dL Glucose (74-99) mg/dL POC Glucose (mg/dL) 164 H 207 H (70-110) mg/dL Calcium (8.4-10.2) mg/dL AST (17-59) U/L ALT (4-49) U/L Alkaline Phosphatase (38-126) U/L Total Protein (6.3-8.2) g/dL Albumin (3.5-5.0) g/dL Vitamin D 25-Hydroxy (30.0-100.0) ng/mL PTH Intact (14.0-72.0) pg/mL Urine Protein Trace H (Negative) Urine Glucose (UA) 3+ H (Negative) 11/19/24 11/19/24 11/19/24 Range/Units 05:25 05:40 05:40 MCH 26.4 L (27.0-32.0) pg Plt Count 513 H (140-440) 10*3/uL Immature Gran # 0.06 H (0.00-0.04) 10*3/uL Neutrophils # 7.90 H (1.80-7.70) 10*3/uL Eosinophils # 0.00 L (0.04-0.35) 10*3/uL Sodium 135 L (137-145) mmol/L Potassium 5.5 H (3.5-5.1) mmol/L BUN 49 H (9-20) mg/dL Creatinine 2.07 H (0.66-1.25) mg/dL Glucose 127 H (74-99) mg/dL POC Glucose (mg/dL) 129 H (70-110) mg/dL Calcium 10.7 H (8.4-10.2) mg/dL AST 418 H (17-59) U/L ALT 98 H (4-49) U/L Alkaline Phosphatase 320 H (38-126) U/L Total Protein 5.5 L (6.3-8.2) g/dL Albumin 2.7 L (3.5-5.0) g/dL Vitamin D 25-Hydroxy (30.0-100.0) ng/mL PTH Intact (14.0-72.0) pg/mL Urine Protein (Negative) Urine Glucose (UA) (Negative) Microbiology - Last 24 Hours (Table) 11/16/24 17:40 Gram Stain - Final Sputum Sputum Culture - Final Felicita albicans
[2024-11-19] MEDS ORDERED: AMOXIC-POT CLAV 875-125MG 1 EACH TAB PO SCH (21:00)
[2024-11-20] MEDS ORDERED: methylPREDNISolone 4 MG TAB TAPER PO SCH (09:00)
--- NOTE | 2024-11-23 10:06 | P.DS ---
Providers Date of admission: 11/14/24 21:54 Expected date of discharge: 11/19/24 Attending physician: Shae Vegas Consults: 11/14/24 21:54 Consult Physician Routine Consulting Provider: Eric Amaya Consult Reason/Comments: PNA Do you want consulting provider notified?: Yes Consult Physician Routine Consulting Provider: Baldemar Mcfadden Consult Reason/Comments: CHF, elevated trop Do you want consulting provider notified?: Yes 11/15/24 12:40 Consult Physician Routine Consulting Provider: Bethel Mayfield Consult Reason/Comments: cancer Do you want consulting provider notified?: Yes 11/16/24 15:24 Consult Physician Routine Consulting Provider: Sparkle Chery Consult Reason/Comments: arf Do you want consulting provider notified?: Yes Primary care physician: Chaitanya Parham [facility] Course: Final diagnosis Shortness of breath with bilateral pneumonia, gram-negative with culture showing Felicita albicans with immunosuppression Possible CHF on admission, unknown EF Troponin 0.835, ruled out NSTEMI History of liver cancer, maintained on chemotherapy Skin lesion for outpatient follow-up with dermatology Hyponatremia, improving Elevated LFTs, trending down being monitored outpatient History of atrial fibrillation, currently rate controlled History of coronary artery disease with stenting History of PE Sleep apnea GI prophylaxis DVT prophylaxis Full code Discharge disposition Patient is being discharged in a stable condition with guarded prognosis to home. Patient will follow-up with Dr. Parham in the outpatient setting upon discharge. Patient is to continue with current medications and follow-up with oncology, pulmonary, nephrology, and infectious disease as scheduled. Total time taken is greater than 35 minutes. Hospital course This is a 79-year-old male who was recently admitted with shortness of breath concerns of possible bilateral pneumonia noted to have Felicita albicans growing in the sputum. Patient did have a positive blood culture reading showing skin contaminant and patient did go home on Augmentin and continued yogurt. Patient has been cleared by consultations recommending close outpatient follow-up. Patient will follow-up with oncology outpatient as well as nephrology on discharge. Patient reports feeling significantly improved and would like to go home. Recommend repeat labs in the next few days and prescriptions were prov ided. Please refer to other consultation notes for further HPI. Currently no reports of chest pain, shortness of breath, or palpitations. Patient is afebrile. No reports of nausea or vomiting and patient is tolerating diet. Patient will be discharged home today. Guarded prognosis and high risk for readmissions given significant comorbidities Physical exam: Gen: This is a 79-year-old male who is awake, alert and oriented x 3, well- developed, elderly appearing HEENT: Head is atraumatic, normocephalic. Pupils equal, round. Sclerae is anicteric. NECK: Supple. No JVD. No lymphadenopathy. No thyromegaly. LUNGS: Diminished breath sounds bilaterally otherwise clear to auscultation. No wheezes or rhonchi. No intercostal retractions. HEART: S1, S2 are muffled ABDOMEN: Soft. Bowel sounds are present. No masses. No tenderness. EXTREMITIES: No pedal edema. No calf tenderness. NEUROLOGICAL: Patient is awake, alert and oriented x3. Cranial nerves 2 through 12 are grossly intact. Please refer to medication reconciliation sheet for a list of medications. The impression and plan of care has been dictated by Augusta Loza, Nurse Practitioner as directed. Dr. Ascenicon MD I have performed a history and examination and MDM of this patient, discussed the same with the dictator, and agree with the dictator's assessment and plan as written ,documented as a scribe. Based on total visit time, I have performed more than 50% of the visit. Patient Condition at Discharge: Stable Plan - Discharge Summary Discharge Rx Participant: No New Discharge Prescriptions: New Sodium Zirconium Cyclosilicate [Lokelma] 10 gm PO DAILY #30 packet Rivaroxaban [Xarelto] 15 mg PO HS #30 tab Amoxic-Pot Clav 875-125Mg [Augmentin 875-125] 1 each PO Q12HR 7 Days #14 tab carvediloL [Coreg] 6.25 mg PO BID-W/MEALS #60 tab Fluconazole [Diflucan] 100 mg PO DAILY 5 Days #5 tab methylPREDNISolone Dose Pack [Medrol Dose Pack] See Taper PO DAILY #24 tab Acetaminophen Tab [Tylenol] 650 mg PO Q6HR PRN tab PRN Reason: Mild Pain Or Fever > 100.5 Continue Latanoprost Ophth [Xalatan 0.005%] 1 drop BOTH EYES HS Ferrous Sulfate [Iron (65 MG Elemental)] 325 mg PO HS Brimonidine Tartrate [Alphagan P 0.2% Ophth Soln] 1 drop BOTH EYES HS Melatonin 10 mg PO HS Cyclobenzaprine [Flexeril] 10 mg PO TID PRN PRN Reason: Muscle Spasm oxyCODONE HCL [oxyCODONE HCL (IR)] 10 mg PO TID Timolol 0.5% Ophth Soln [Timoptic 0.5% Ophth Soln] 1 drop RIGHT EYE HS Cetirizine HCl [Zyrtec] 10 mg PO DAILY amLODIPine [Norvasc] 5 mg PO DAILY Insulin Glargine/Lixisenatide [Soliqua 100 Unit-33 Mcg/ml Pen] 15 units SQ DAILY traZODone HCL [Desyrel] 50 mg PO HS PRN PRN Reason: sleep Ezetimibe [Zetia] 10 mg PO DAILY Ondansetron Odt [Zofran ODT] 4 mg PO Q4H PRN PRN Reason: Nausea Discontinued Ubidecarenone [Co Q-10] 100 mg PO DAILY Rivaroxaban [Xarelto] 20 mg PO HS Cholecalciferol [Vitamin D3 (25 Mcg = 1000 Iu)] 50 mcg PO DAILY Dapagliflozin Propanediol [Farxiga] 10 mg PO DAILY carvediloL [Coreg*] 12.5 mg PO BID-W/MEALS #60 tab lisinopriL [Zestril] 5 mg PO BID Discharge Medication List Ferrous Sulfate [Iron (65 MG Elemental)] 325 mg PO HS 11/07/17 [History] Latanoprost Ophth [Xalatan 0.005%] 1 drop BOTH EYES HS 11/07/17 [History] Brimonidine Tartrate [Alphagan P 0.2% Ophth Soln] 1 drop BOTH EYES HS 12/29/22 [History] Cetirizine HCl [Zyrtec] 10 mg PO DAILY 12/29/22 [History] Melatonin 10 mg PO HS 12/29/22 [History] Timolol 0.5% Ophth Soln [Timoptic 0.5% Ophth Soln] 1 drop RIGHT EYE HS 12/29/22 [History] Cyclobenzaprine [Flexeril] 10 mg PO TID PRN 02/06/24 [History] Insulin Glargine/Lixisenatide [Soliqua 100 Unit-33 Mcg/ml Pen] 15 units SQ DAILY 02/06/24 [History] amLODIPine [Norvasc] 5 mg PO DAILY 02/06/24 [History] traZODone HCL [Desyrel] 50 mg PO HS PRN 02/06/24 [History] Ezetimibe [Zetia] 10 mg PO DAILY 09/13/24 [History] Ondansetron Odt [Zofran ODT] 4 mg PO Q4H PRN 11/15/24 [History] oxyCODONE HCL [oxyCODONE HCL (IR)] 10 mg PO TID 11/15/24 [History] Acetaminophen Tab [Tylenol] 650 mg PO Q6HR PRN tab 11/19/24 [Rx] Amoxic-Pot Clav 875-125Mg [Augmentin 875-125] 1 each PO Q12HR 7 Days #14 tab 11/19/24 [Rx] Fluconazole [Diflucan] 100 mg PO DAILY 5 Days #5 tab 11/19/24 [Rx] Rivaroxaban [Xarelto] 15 mg PO HS #30 tab 11/19/24 [Rx] Sodium Zirconium Cyclosilicate [Lokelma] 10 gm PO DAILY #30 packet 11/19/24 [Rx] carvediloL [Coreg] 6.25 mg PO BID-W/MEALS #60 tab 11/19/24 [Rx] methylPREDNISolone Dose Pack [Medrol Dose Pack] See Taper PO DAILY #24 tab 11/19/24 [Rx] Follow up Appointment(s)/Referral(s): Bethel Mayfield [STAFF PHYSICIAN] - 11/21/24 9:00 am (This appt is at the office located at [address] [place] [address] on the [facility]. 2nd floor ) [facility], [NON-STAFF] - Chaitanya Parham DO [Primary Care Provider] - 1-2 days (office did not answer please call and make appointment) Xander Jenkins DO [STAFF PHYSICIAN] - 1 Week (office will call with appointment) Ambulatory/Diagnostic Orders: Complete Blood Count w/diff [LAB.AMB] Time Frame: 2 Days, Location: None Selected Patient Instructions/Handouts: Heart Failure (DC), Hypercalcemia (DC), Hypoxia (GEN), Pneumonia (DC) Activity/Diet/Wound Care/Special Instructions: Activity limited until follow-up Follow-up with primary care provider on discharge Follow-up with oncology outpatient Follow-up with nephrology outpatient Continue taking medications as prescribed Avoid vitamin D or calcium supplements at this time Repeat CBC, CMP, magnesium in 2 to 3 days Discharge Disposition: HOME WITH HOME HEALTH SERVICES
== END 2024-11-19 15:47 | disposition home health service (06) | DRG 177 ==
LOC: EC 19:41 → 3SCARD 21:54
PROVIDERS: ADMIT Hospitalist; ATTEND Hospitalist
DX: J15.69 Pneumonia due to other Gram-negative bacteria (principal); I21.A1 Myocardial infarction type 2; J96.01 Acute respiratory failure with hypoxia; N17.0 Acute kidney failure with tubular necrosis; C78.00 Secondary malignant neoplasm of unspecified lung; C79.51 Secondary malignant neoplasm of bone; E87.1 Hypo-osmolality and hyponatremia; D47.3 Essential (hemorrhagic) thrombocythemia; C22.0 Liver cell carcinoma; I11.0 Hypertensive heart disease with heart failure; E11.22 Type 2 diabetes mellitus with diabetic chronic kidney disease; N18.31 Chronic kidney disease, stage 3a; I65.29 Occlusion and stenosis of unspecified carotid artery; I13.0 Hypertensive heart and chronic kidney disease with heart failure and stage 1 through stage 4 chronic kidney disease, or unspecified chronic kidney disease; I48.20 Chronic atrial fibrillation, unspecified; I48.0 Paroxysmal atrial fibrillation; I50.9 Heart failure, unspecified; Z79.4 Long term (current) use of insulin; D75.839 Thrombocytosis, unspecified; Z11.52 Encounter for screening for COVID-19; E78.5 Hyperlipidemia, unspecified; E83.52 Hypercalcemia; E87.5 Hyperkalemia; G47.33 Obstructive sleep apnea (adult) (pediatric); G89.29 Other chronic pain; T50.2X5A Adverse effect of carbonic-anhydrase inhibitors, benzothiadiazides and other diuretics, initial encounter; I25.10 Atherosclerotic heart disease of native coronary artery without angina pectoris; R74.01 Elevation of levels of liver transaminase levels; L98.9 Disorder of the skin and subcutaneous tissue, unspecified; N28.1 Cyst of kidney, acquired; Z79.01 Long term (current) use of anticoagulants; Z79.84 Long term (current) use of oral hypoglycemic drugs; Z79.899 Other long term (current) drug therapy; Z86.0100 Personal history of colon polyps, unspecified; Z86.711 Personal history of pulmonary embolism; Z86.79 Personal history of other diseases of the circulatory system; Z87.442 Personal history of urinary calculi; Z87.891 Personal history of nicotine dependence; Z95.1 Presence of aortocoronary bypass graft; Z95.5 Presence of coronary angioplasty implant and graft; Z87.19 Personal history of other diseases of the digestive system; X58.XXXA Exposure to other specified factors, initial encounter
CPT/HCPCS: 36415; 71045; 71046; 71250; 76770; 78582; 80048; 80053; 81003; 82105; 82306; 82533; 82652; 83605; 83735; 83880; 83970; 84145; 84484; 85025; 85379; 85610; 85730; 86334; 86335; 87040; 87070; 87205; 87636; 93005; 93306; 94760; 96365; 96366; 96367; 96375; 96376; 99291